=== PATIENT | male | born 1940 | race Caucasian/White ===

== ENCOUNTER → 2016-11-05 | Outpatient (CLI) | payer OTHER ==
[~2016-11-05] MED LIST: ALBU1AER9 INH; ASPI81TA57 PO; BUDE180I INH; BYS/5 PO; EPP3/2 IM; FEXO1TAB46 PO; FLEC50TA20 PO; FLUT0.0529 NAE; GUAI1TAB7 PO; LISI10TA PO; MONT1TAB5 PO; MULT-190 PO; RANI300T PO; SIMV10TA5 PO
[2016-11-05 11:03] LABS: BASO % 0.3 %; BASO ABS # 0.02 K/uL (0-0.2); COMPLETE YES; EOS % 4.5 %; HEMATOCRIT 39.3 % (42-52); IG% 0.4 %; LYMPH % 36.2 %; LYMPH ABS # 2.47 K/uL (1.2-3.4); MEAN CORPUSCULAR HGB CONC 34.6 g/dl (32-36); MEAN PLATELET VOLUME 9.6 fL (7.4-10.4); MONO % 12.7 %; NEUT % 45.9 %; PLATELET COUNT 195 K/uL (130-400); RED BLOOD COUNT 3.78 M/uL (4.7-6.1); WHITE BLOOD COUNT 6.83 K/uL (4.8-10.8)
[2016-11-05 11:31] LABS: ALT/SGPT 34 U/L (12-78); AST/SGOT 23 U/L (15-37); BLOOD UREA NITROGEN 29 mg/dl (7-18); BUN/CREATININE RATIO 21.9 (10-20); CALCIUM 8.5 mg/dl (8.5-10.1); CARBON DIOXIDE 26 mmol/L (21-32); CHLORIDE 106 mmol/L (98-107); GLUCOSE 88 mg/dl (70-99); POTASSIUM 4.3 mmol/L (3.5-5.1); SODIUM 136 mmol/L (136-145)
[2016-11-05 11:43] LABS: ALB/GLOB RATIO 1.1 (0.9-2); ALKALINE PHOSPHATASE 120 U/L (45-117); CHOLESTEROL 138 mg/dl (0-200); CHOLESTEROL/HDL RATIO 3.1; HDL CHOLESTEROL 44 mg/dl; LDL CHOLESTEROL CALCULATED 64 mg/dl; PROSTATE SPECIFIC ANTIGEN < 0.010 ng/ml (0.000-4.000); TRIGLYCERIDES 149 mg/dl (0-150); URIC ACID 8.3 mg/dl (2.6-7.2); VERY LOW DENSITY LIPOPROT CALC 30 mg/dl
== END | disposition home or self-care (01) ==
LOC: C.LABBC 07:13
PROVIDERS: ATTEND Internal Medicine Pulmonary Disease
DX: J30.9 Allergic rhinitis, unspecified (principal); J45.909 Unspecified asthma, uncomplicated; E78.5 Hyperlipidemia, unspecified; I10 Essential (primary) hypertension; C61 Malignant neoplasm of prostate; I48.0 Paroxysmal atrial fibrillation

== ENCOUNTER → 2017-06-04 | Outpatient (CLI) | payer OTHER ==
[~2017-06-04] MED LIST changes: +ALBU18002 INH; -ALBU1AER9 INH; +ASPI81TA28 PO; -ASPI81TA57 PO; +CALC1TAB9 PO; +DIPH25CA65 PO; +DOXY100C76 PO; -FLUT0.0529 NAE; +FLUT50SP45 NAE; +GUAI10TA PO; -GUAI1TAB7 PO; +PRD/1 PO
--- NOTE | 2017-06-04 14:33 | DIAGNOSTIC IMAGING REPORT ---
CHEST 2 VIEWS ROUTINE CLINICAL HISTORY: Dyspnea on exertion. COMPARISON STUDY: Chest radiograph August 30, 2015. FINDINGS: There is moderate right upper lobe consolidation. The left lung is clear. No cavitation or pleural effusion is noted. There is no evidence for pulmonary edema. An anchor within the right humeral head is noted. Cardiomediastinal silhouette is stable. IMPRESSION: Moderate right upper lobe consolidation suggestive of pneumonia. Post treatment radiographs to ensure resolution are recommended to exclude the possibility of an underlying lesion. Electronically signed by: Jordin Mcneal M.D. 06/04/2017 2:32 PM Dictated Date/Time: 06/04/2017 2:26 PM
[2017-06-04 15:37] LABS: BASO % 0.1 %; BASO ABS # 0.01 K/uL (0-0.2); EOS % 0.8 %; EOS ABS # 0.08 K/uL (0-0.5); HEMATOCRIT 35.4 % (42-52); HEMOGLOBIN 12.4 g/dL (14.0-18.0); IG# 0.03 K/uL (0.00-0.02); LYMPH % 14.7 %; LYMPH ABS # 1.52 K/uL (1.2-3.4); MEAN CELL VOLUME 101.1 fL (80-100); MEAN CORPUSCULAR HEMOGLOBIN 35.4 pg (25-34); MEAN PLATELET VOLUME 8.8 fL (7.4-10.4); MONO % 11.8 %; MONO ABS # 1.22 K/uL (0.11-0.59); NEUT % 72.3 %; NEUT ABS # 7.48 K/uL (1.4-6.5); PLATELET COUNT 303 K/uL (130-400); RED CELL DISTRIBUTION WIDTH SD 44.3 fL (36.4-46.3); WHITE BLOOD COUNT 10.34 K/uL (4.8-10.8)
[2017-06-04 16:01] LABS: ALBUMIN 3.1 gm/dl (3.4-5.0); ALT/SGPT 18 U/L (12-78); AST/SGOT 13 U/L (15-37); BLOOD UREA NITROGEN 24 mg/dl (7-18); CALCIUM 8.9 mg/dl (8.5-10.1); CARBON DIOXIDE 25 mmol/L (21-32); CREATININE 1.38 mg/dl (0.60-1.40); GLUCOSE 98 mg/dl (70-99); POTASSIUM 4.2 mmol/L (3.5-5.1); SODIUM 129 mmol/L (136-145)
[2017-06-04 16:12] LABS: ALKALINE PHOSPHATASE 90 U/L (45-117); TOTAL PROTEIN 8.1 gm/dl (6.4-8.2)
== END | disposition home or self-care (01) ==
LOC: C.RAD1850 14:17
PROVIDERS: ATTEND Internal Medicine Cardiovascular Disease
DX: R06.09 Other forms of dyspnea (principal); R00.1 Bradycardia, unspecified

== ENCOUNTER → 2017-06-14 | Outpatient (CLI) | payer OTHER ==
--- NOTE | 2017-06-14 11:16 | DIAGNOSTIC IMAGING REPORT ---
CHEST 2 VIEWS ROUTINE CLINICAL HISTORY: PNEUMONIA dyspnea COMPARISON STUDY: 06/04/2017 FINDINGS: Mild improvement of a well-circumscribed infiltrative process right midlung. Left lung remains clear. Diaphragms smooth. Minimal basilar atelectatic change. IMPRESSION: Mild improvement of a well-circumscribed infiltrative/nodular process right midlung. Continued close follow-up is recommended to ensure complete resolution and exclude an underlying nodular process. The above report was generated using voice recognition software. It may contain grammatical, syntax or spelling errors. Electronically signed by: Rj Melton M.D. 06/14/2017 11:15 AM Dictated Date/Time: 06/14/2017 11:14 AM
== END | disposition home or self-care (01) ==
LOC: C.RAD1850 10:07
PROVIDERS: ATTEND Physician Assistant Medical
DX: J18.9 Pneumonia, unspecified organism (principal)

== ENCOUNTER → 2017-06-14 | Outpatient (CLI) | payer OTHER | END | disposition home or self-care (01) | LOC: C.LAB1850 12:01 | PROVIDERS: ATTEND Physician Assistant Medical | DX: R09.02 Hypoxemia (principal) ==

== ENCOUNTER → 2017-06-24 | Outpatient (CLI) | payer OTHER ==
--- NOTE | 2017-06-24 10:03 | DIAGNOSTIC IMAGING REPORT ---
CHEST 2 VIEWS ROUTINE CLINICAL HISTORY: 77 years-old Male presenting with J18.9 [id number]. TECHNIQUE: PA and lateral views of the chest were obtained. COMPARISON: 06/14/2017. FINDINGS: Atherosclerosis of the aortic arch. Cardiac silhouette normal in size. Interval decrease in right mid lung opacity. No new lung opacity. No large effusion or pneumothorax. Degenerative changes of the thoracic spine. [place] noted in the right humeral head. Moderate stool burden in the colon. IMPRESSION: 1. Continued interval decrease in right midlung opacity. This should be followed to complete resolution. Electronically signed by: Clay Carias M.D. 06/24/2017 10:01 AM Dictated Date/Time: 06/24/2017 10:01 AM
== END | disposition home or self-care (01) ==
LOC: C.RAD1850 09:49
PROVIDERS: ATTEND Physician Assistant Medical
DX: J18.9 Pneumonia, unspecified organism (principal)

== ENCOUNTER → 2017-07-02 | Outpatient (CLI) | payer OTHER ==
--- NOTE | 2017-07-02 10:50 | DIAGNOSTIC IMAGING REPORT ---
CHEST 2 VIEWS ROUTINE CLINICAL HISTORY: J18.9 pneumonia COMPARISON STUDY: 06/24/2017 FINDINGS: Small parenchymal infiltrative process right midlung is unchanged. Lungs otherwise are clear. Slight chronic interstitial prominence considered stable. IMPRESSION: Small infiltrative residual right midlung. Follow-up to complete resolution is suggested. This potentially is a repeat film in several weeks. The above report was generated using voice recognition software. It may contain grammatical, syntax or spelling errors. Electronically signed by: Rj Melton M.D. 07/02/2017 10:49 AM Dictated Date/Time: 07/02/2017 10:48 AM
== END | disposition home or self-care (01) ==
LOC: C.RAD1850 10:41
PROVIDERS: ATTEND Physician Assistant Medical
DX: J18.9 Pneumonia, unspecified organism (principal)

== ENCOUNTER 2017-07-06 11:30 | Observation (INO) | payer OTHER ==
[2017-07-06] VITALS (9 sets, daily range): BP systolic 130–169; BP diastolic 52–88; PULSE 53–60; TEMP 36.3–36.6; O2SAT 94–98; Ht 165.1 cm; Wt 63.7 kg
[~2017-07-06] VITALS: Ht 165.1 cm; Wt 63.7 kg
[~2017-07-06 11:30] MED LIST changes: +CEFAZOLIN 1000MG IV PUSH 7.5 ML IV SCH; +LACTATED RINGER'S 1000ML IV SCH
[2017-07-06] MEDS ORDERED: BACITRACIN OINT 0.9 GM PKT ONE (14:42)
[2017-07-06] MEDS ORDERED: LIDOCAINE HCL 1% 20 ML VIAL ONE (14:42)
[2017-07-06] MEDS ORDERED: BACITRACIN 50000 UNIT VIAL ONE (14:42)
[2017-07-06] MEDS ORDERED: FENTANYL CITRATE INJ 50 MCG/1 ML 2 ML VIAL ONE ×2 (14:44→15:38)
[2017-07-06] MEDS ORDERED: MIDAZOLAM HCL 5 MG/ML 1 ML VIAL ONE (14:44)
--- NOTE | 2017-07-06 14:52 | Pre Sedation Assessment ---
Pre Sedation Assessment General Date of Sedation: Jul 06, 2017. Vital Signs Past 12 Hours Date Time Temp Pulse Resp B/P (MAP) Pulse Ox O2 Delivery O2 Flow Rate FiO2 07/06/17 12:22 36.5 53 20 162/52 (88) 96 Room Air Review Cardiovascular: regular rate, rhythm, + bradycardia Lungs: lungs clear Pre-Sedation Airway Assessment Smoking Status: Never Smoker Hx of Sleep Apnea: No Thyro-mental Distance: < or =3 Finger Breadths Oral Cavity: Chipped Teeth Mallampati Classification: Class II ASA Classification: Class II NPO Status Date of Last Intake of Fluids: Jul 06, 2017 Time of Last Intake of Fluids: 1000 Date of Last Intake of Solids: Jul 06, 2017 Time of Last Intake of Solids: 0900 Reason NPO < guidelines Patient did not understand instructions Procedure Planning Contraindications for Sedation: None Current Medications Reviewed: Yes Notes The planned sedation has been discussed with the patient. Informed Consent was obtained. I have identified the patient, determined the appropriateness of sedation and have assessed the patient immediately prior to the procedure. All medicine(s) and interventions are by my order.
--- NOTE | 2017-07-06 16:13 | [facility] Operative Report ---
Operative Report Operative Date Jul 06, 2017. Pre-Operative Diagnosis Sick sinus syndrome Post-Operative Diagnosis Same Procedure(s) Performed Dual-chamber pacemaker implantation Surgeon Dr. Amador Coagulation Operator Surgeon(s) None Estimated Blood Loss 30 cc Findings Good lead position, good measurements Specimens None Anesthesia Local with sedation Complication(s) None Disposition PCU Description of Procedure After obtaining informed consent for the procedure, the patient was brought to the laboratory and prepped and draped in the standard sterile manner. The left prepectoral region was anesthetized with 1% lidocaine local anesthetic and left axillary venipuncture was performed by percutaneous technique and a guidewire placed through the left subclavian vein into the superior vena cava. The area was further infiltrated with 1% lidocaine local anesthetic and a 5 cm incision was made parallel to the left clavicle and 2 cm below it and carried down to the anterior pectoralis fascia. A pacemaker pocket was formed by blunt dissection anterior to the pectoralis fascia and a bacitracin-soaked sponge (50, 000 units in 50 cc normal saline solution) was placed in the pocket. An 8 [place] Medtronic lead introducer was placed over the guidewire into the left subclavian vein, the dilator and guidewire were removed and a bipolar active fixation steroid tipped ventricular lead was advanced through the introducer into the superior vena cava. A guidewire was placed through the introducer and the introducer was stripped from the lead and guidewire. Another 8 [place] Medtronic lead introducer was placed over the guidewire into the left subclavian vein, the dilator and guidewire were removed and a bipolar active fixation steroid tipped atrial lead was advanced through the introducer into the superior vena cava. A guidewire was placed back through the introducer and the introducer was stripped from the lead and guidewire. Using a curved stylette the ventricular lead was advanced through the right ventricular outflow tract into the pulmonary artery and then using a straight stylette was positioned in the right ventricular apex. The screw was extended fixing the lead in position. Pacing and sensing thresholds were evaluated in bipolar configuration and are recorded on the implant data sheet. Using a curved stylette the atrial lead was positioned in the region of the atrial appendage and the screw extended fixing the lead in position. Pacing and sensing thresholds were evaluated in bipolar configuration and are recorded on the implant data sheet. Once the leads were in position they were attached to the anterior pectoralis fascia using 2 sutures of 1-0 silk around each lead collar. The bacitracin- soaked sponge was removed from the pocket, hemostasis was obtained, the pacemaker was attached to the leads and placed in the pocket with the leads coiled beneath it. The incision was closed with a running double subcutaneous closure of 3-0 V-Lock absorbable suture, followed by running subcuticular skin closure of 4-0 V-Lock absorbable suture. Bacitracin ointment was placed on the incision and a pressure dressing applied. I attest to the content of the Intraoperative Record and any orders documented therein. Any exceptions are noted below.
--- NOTE | 2017-07-06 16:23 | Post Sedation Assessment ---
Post Sedation Assessment General Date of Sedation Jul 06, 2017. Vital Signs: Vital Signs Past 12 Hours Date Time Temp Pulse Resp B/P (MAP) Pulse Ox O2 Delivery O2 Flow Rate FiO2 07/06/17 12:22 36.5 53 20 162/52 (88) 96 Room Air Post Procedure Recovery Score Activity: (2) Moves 4 extremities * Respiration: (2) Deep breath/cough Circulation: (2) +/-20% PreAnes Value Consciousness: (2) Fully Awake Oxygen Saturation: (2) > 92% On Room Air Post Anesthesia Score: 10 Discharge Sedation Level of Care: Fast Track Phase II Post Sedation Plan On clinical assessment, the patient appears to have tolerated the sedation without complications. Patient is recovering as anticipated. Patient will continue to be monitored by nursing and may be discharged when sedation discharge criteria are met per below protocol. Upon Completions of procedure and additional 15 minutes continue every 5 minute vital signs and the P.A.R. score; then discharge to a Phase I or Fast Track to Phase II per the following guidelines: * Discharge Patient to appropriate Phase II area if PAR is 8 or greater or return to pre- procedure baseline. The post - procedure orders will be as directed. * If PAR score is less than 8 or not return to pre-procedure baseline then patient will follow Phase I monitoring till PAR is reached for Phase II. The Phase I may be done in procedure room or may call to secure a Phase I area. * If naloxone or flumazenil are used for reversal, hold in Phase I for an additional 60 -120 minutes before discharge to Phase II. Please call the Sedation Physician to re-evaluate and complete post-note for discharge to Phase II area. Do NOT discharge from procedure sedation or Phase 1 until post- sedation evaluation note is complete by procedure /sedation MD Sedation Discharge Instructions to be given to the patient at discharge to home.
[2017-07-06] MEDS ORDERED: KETOROLAC TROMETHAMINE 10 MG TAB PO PRN (16:30)
[2017-07-06] MEDS ORDERED: ACETAMINOPHEN 325 MG TAB PO PRN (16:30)
[2017-07-06] MEDS ORDERED: ASPIRIN 81 MG ECTAB PO SCH (21:00)
[2017-07-06] MEDS ORDERED: NEBIVOLOL HCL 5 MG TAB PO SCH (21:00)
[2017-07-06] MEDS ORDERED: MONTELUKAST SOD 10 MG TAB PO SCH ×2 (21:00)
[2017-07-06] MEDS ORDERED: SIMVASTATIN 10 MG TAB PO SCH (21:00)
[2017-07-06] MEDS ORDERED: IV FLUIDS COMPLETED PRN (21:15)
[2017-07-06] MEDS: FLUTICASONE PROPIONATE NA SPR 16 GM BTL NAE SCH (21:37)
[2017-07-06] MEDS: FLECAINIDE ACETATE 100 MG TAB PO SCH (21:38)
[2017-07-06] MEDS: CEROVITE ADV FORMULA TAB PO SCH (21:39)
[2017-07-06] MEDS: RANITIDINE HCL 150 MG TAB PO SCH (21:39)
[2017-07-06] MEDS: GUAIFENESIN 600 MG TABCR PO SCH (21:40)
[2017-07-07] MEDS ORDERED: [UNRECOGNIZED DRUG - REMARK] SCH
[2017-07-07 03:51] VITALS: BP 159/78; PULSE 60; TEMP 36.6; O2SAT 97
--- NOTE | 2017-07-07 06:54 | DIAGNOSTIC IMAGING REPORT ---
CHEST 2 VIEWS ROUTINE CLINICAL HISTORY: 77 years-old Male presenting with EXACT TIME ORDERED Evaluate for pneumothorax and lead placement. TECHNIQUE: PA and lateral views of the chest were obtained. COMPARISON: 07/02/2017. FINDINGS: Left subclavian pacer with leads to the right atrium and right ventricular apex. Atherosclerosis of the aortic arch. Cardiac silhouette top normal in size. Persistent peripheral right midlung opacity. No new focal opacity. No pleural effusion or pneumothorax. Osseous structures normal. Upper abdomen normal. IMPRESSION: 1. Interval placement of a left subclavian 2-lead pacer. No pneumothorax. 2. Persistent peripheral right mid lung opacity. This is unchanged from prior and has not been fully characterized. Consider chest CT for further evaluation. Electronically signed by: Clay Carias M.D. 07/07/2017 6:53 AM Dictated Date/Time: 07/07/2017 6:51 AM
[2017-07-07 07:49] VITALS: BP 144/83; PULSE 60; TEMP 36.5; O2SAT 97
[2017-07-07] MEDS: FLUTICASONE PROPIONATE NA SPR 16 GM BTL NAE SCH (08:19)
[2017-07-07] MEDS: FLECAINIDE ACETATE 100 MG TAB PO SCH (08:20)
[2017-07-07] MEDS: GUAIFENESIN 600 MG TABCR PO SCH (08:20)
[2017-07-07] MEDS: CEROVITE ADV FORMULA TAB PO SCH (08:20)
[2017-07-07] MEDS: RANITIDINE HCL 150 MG TAB PO SCH (08:20)
--- NOTE | 2017-07-07 08:47 | Cardiology Follow-Up ---
Subjective Date of Service: Jul 07, 2017. Social History Smoking Status: Never Smoker History of Alcohol Use: Yes (1/2 GLASS WINE NIGHTLY) Objective Vital Signs Past 12 Hours Date Time Temp Pulse Resp B/P (MAP) Pulse Ox O2 Delivery O2 Flow Rate FiO2 07/07/17 07:49 36.5 60 20 144/83 (103) 97 Room Air 07/07/17 04:00 Room Air 07/07/17 03:51 36.6 60 16 159/78 (105) 97 Room Air 07/07/17 00:00 Room Air 07/06/17 23:39 36.5 60 16 169/81 (110) 94 Room Air Last Recorded Weight-Kilograms: 63.700 Data Imaging: Chest x-ray shows good lead position, no pneumothorax EKG: ECG shows atrial pacing with intact AV conduction appropriately Telemetry reviewed: Pacemaker evaluation: Excellent pacing and sensing characteristics in both leads
[2017-07-07] MEDS ORDERED: PULMICORT INH SCH (09:00)
[2017-07-07] MEDS ORDERED: LISINOPRIL 10 MG TAB PO SCH (09:00)
[2017-07-07] MEDS ORDERED: FEXOFENADINE HCL 180 MG TAB PO SCH (09:00)
--- NOTE | 2017-07-07 09:38 | Discharge Instructions ---
Discharge Instructions Date of Service Jul 07, 2017. Admission Reason for Admission: Sick Sinus Syndrome Discharge Discharge Diagnosis / Problem: Pacemaker implantation Discharge Goals Goal(s): Improve disease control Activity Recommendations Activity Limitations: resume your previous activity . Instructions / Follow-Up Instructions / Follow-Up ACTIVITY RECOMMENDATIONS: * Do not raise affected arm over head for 2 weeks. SPECIAL CARE INSTRUCTIONS: * If bleeding occurs, apply direct pressure to area for 5 minutes. * Call your doctor if you have severe pain, fever, drainage or bleeding at site. * Keep dressing on and dry for 48 hours then remove. * Keep any scheduled doctor's appointment. * Implant Card - hand held device with website information given. SKIN IRRITATION: * You may experience some redness and/or swelling in the area where radiation was administered. If any skin irritation occurs, please contact your family physician. FOLLOW UP VISIT: Keep any scheduled doctor appointments. Current Hospital Diet Patient's current hospital diet: AHA Diet (Heart Healthy), Gluten Free Diet Discharge Diet Recommended Diet: AHA Diet (Heart Healthy) Pending Studies Studies pending at discharge: no Medical Emergencies . Who to Call and When: Medical Emergencies: If at any time you feel your situation is an emergency, please call 911 immediately. . Non-Emergent Contact Non-Emergency issues call your: Primary Care Provider . . "Provider Documentation" section prepared by Mario Alberto Amador. .
[2017-07-07 10:01] VITALS: BP 144/83; PULSE 60; TEMP 36.5; O2SAT 97
== END 2017-07-07 10:52 | disposition home or self-care (01) ==
LOC: C.ACU 11:30 → ENRESERV 15:43 → C.2T 16:28
PROVIDERS: ADMIT Internal Medicine Cardiovascular Disease; ATTEND Internal Medicine Cardiovascular Disease
DX: I49.5 Sick sinus syndrome (principal); R00.1 Bradycardia, unspecified; J45.909 Unspecified asthma, uncomplicated; E78.5 Hyperlipidemia, unspecified; I10 Essential (primary) hypertension; I48.0 Paroxysmal atrial fibrillation; Z90.89 Acquired absence of other organs; Z82.49 Family history of ischemic heart disease and other diseases of the circulatory system; Z80.1 Family history of malignant neoplasm of trachea, bronchus and lung; Z80.42 Family history of malignant neoplasm of prostate; Z82.3 Family history of stroke; Z79.82 Long term (current) use of aspirin; Z79.52 Long term (current) use of systemic steroids; K21.9 Gastro-esophageal reflux disease without esophagitis; Z88.8 Allergy status to other drugs, medicaments and biological substances; Z91.012 Allergy to eggs; Z91.011 Allergy to milk products; Z91.013 Allergy to seafood; Z91.018 Allergy to other foods

== ENCOUNTER → 2017-07-27 | Outpatient (CLI) | payer OTHER ==
[~2017-07-27] MED LIST changes: -CEFAZOLIN 1000MG IV PUSH 7.5 ML IV SCH; -LACTATED RINGER'S 1000ML IV SCH
--- NOTE | 2017-07-27 09:52 | DIAGNOSTIC IMAGING REPORT ---
CHEST 2 VIEWS ROUTINE CLINICAL HISTORY: J18.9 Pneumonia dyspnea COMPARISON STUDY: 07/07/2017 FINDINGS: Unchanging density right midlung. Lungs otherwise are clear. Permanent bipolar cardiac pacemaker unchanged in position. Diaphragms are smooth. IMPRESSION: Unchanging parenchymal density peripheral aspect right lung. CT of chest is recommended as follow-up. The above report was generated using voice recognition software. It may contain grammatical, syntax or spelling errors. Electronically signed by: Rj Melton M.D. 07/27/2017 9:51 AM Dictated Date/Time: 07/27/2017 9:50 AM
== END | disposition home or self-care (01) ==
LOC: C.RAD1850 09:36
PROVIDERS: ATTEND Physician Assistant Medical
DX: J18.9 Pneumonia, unspecified organism (principal)

== ENCOUNTER → 2017-08-23 | Outpatient (CLI) | payer OTHER ==
--- NOTE | 2017-08-23 09:12 | DIAGNOSTIC IMAGING REPORT ---
CHEST 2 VIEWS ROUTINE HISTORY: Z87.01 History of [id number] COMPARISON: Chest 07/27/2017. FINDINGS: Improved aeration within the right midlung zone patchy airspace opacity. Upper, this favors a resolving pneumonia. No new focal lung consolidations. Linear scarlike densities within the left lung base persist. The heart is normal in size. Left-sided dual-chamber pacemaker. IMPRESSION: Improved aeration within the right midlung zone airspace opacity. Therefore, this favors a resolving pneumonia. An additional one month chest x-ray follow-up is recommended to ensure complete resolution. Electronically signed by: Jus Torres M.D. 08/23/2017 9:11 AM Dictated Date/Time: 08/23/2017 9:09 AM
== END | disposition home or self-care (01) ==
LOC: C.RAD1850 08:44
PROVIDERS: ATTEND Physician Assistant Medical
DX: Z87.01 Personal history of pneumonia (recurrent) (principal)

== ENCOUNTER → 2017-11-09 | Outpatient (CLI) | payer OTHER ==
[~2017-11-09] MED LIST changes: +CALC-323 PO; +DIPH25CA5 PO; +FLUO1CRE TOP; +FLUO5CRE TOP; +FLUT0.15 NAE; +GUAI1TAB55 PO; +LISI-461 PO; +MONT1TAB3 PO; +MULTCAP33 PO; +NZRCR TOP; +RANI300T2 PO; +SIMV10TA2 PO
[2017-11-09 10:41] LABS: BASO % 0.3 %; BASO ABS # 0.02 K/uL (0-0.2); EOS % 5.1 %; EOS ABS # 0.31 K/uL (0-0.5); HEMATOCRIT 39.4 % (42-52); HEMOGLOBIN 13.4 g/dL (14.0-18.0); IG# 0.01 K/uL (0.00-0.02); LYMPH % 28.6 %; LYMPH ABS # 1.72 K/uL (1.2-3.4); MEAN CELL VOLUME 100.5 fL (80-100); MEAN CORPUSCULAR HEMOGLOBIN 34.2 pg (25-34); MONO % 11.6 %; NEUT % 54.2 %; NEUT ABS # 3.26 K/uL (1.4-6.5); PLATELET COUNT 223 K/uL (130-400); RED CELL DISTRIBUTION WIDTH CV 12.2 % (11.5-14.5); RED CELL DISTRIBUTION WIDTH SD 44.4 fL (36.4-46.3); WHITE BLOOD COUNT 6.02 K/uL (4.8-10.8)
[2017-11-09 11:21] LABS: ALBUMIN 4.1 gm/dl (3.4-5.0); ALKALINE PHOSPHATASE 96 U/L (45-117); ALT/SGPT 28 U/L (12-78); AST/SGOT 29 U/L (15-37); BLOOD UREA NITROGEN 21 mg/dl (7-18); CALCIUM 8.9 mg/dl (8.5-10.1); CARBON DIOXIDE 27 mmol/L (21-32); CHOLESTEROL 131 mg/dl (0-200); CREATININE 1.36 mg/dl (0.60-1.40); GLUCOSE 97 mg/dl (70-99); LDL CHOLESTEROL CALCULATED 62 mg/dl; POTASSIUM 4.4 mmol/L (3.5-5.1); SODIUM 134 mmol/L (136-145); TOTAL PROTEIN 7.7 gm/dl (6.4-8.2); URIC ACID 6.8 mg/dl (2.6-7.2)
== END | disposition home or self-care (01) ==
LOC: C.LABBC 07:25
PROVIDERS: ATTEND Internal Medicine Pulmonary Disease
DX: J30.9 Allergic rhinitis, unspecified (principal); J45.909 Unspecified asthma, uncomplicated; E78.5 Hyperlipidemia, unspecified; I10 Essential (primary) hypertension; C61 Malignant neoplasm of prostate

== ENCOUNTER → 2017-11-16 | Outpatient (CLI) | payer OTHER ==
--- NOTE | 2017-11-16 13:10 | DIAGNOSTIC IMAGING REPORT ---
CHEST 2 VIEWS ROUTINE HISTORY: R06.02 Shortness of [id number] COMPARISON: Chest 09/21/2017. FINDINGS: No pneumothorax. Left-sided dual-chamber pacemaker. Mild diffuse interstitial thickening which remains unchanged. This is likely chronic. The heart is normal in size. No pleural effusions. The right midlung zone airspace opacity has since resolved. IMPRESSION: Mild chronic interstitial thickening, unchanged. The right midlung zone airspace opacity has essentially resolved compared to the prior studies. Minimal interstitial thickening remaining at this location favors scarring. Electronically signed by: Jus Torres M.D. 11/16/2017 1:08 PM Dictated Date/Time: 11/16/2017 1:05 PM
== END | disposition home or self-care (01) ==
LOC: C.RAD1850 12:53
PROVIDERS: ATTEND Internal Medicine Pulmonary Disease
DX: J84.9 Interstitial pulmonary disease, unspecified (principal)

== ENCOUNTER 2017-11-18 14:03 | Emergency (ER) | payer OTHER ==
[~2017-11-18] VITALS: Ht 167.6 cm; Wt 66.2 kg
[~2017-11-18 14:03] MED LIST changes: -CALC-323 PO; -DIPH25CA5 PO; -FLUO1CRE TOP; -FLUO5CRE TOP; -FLUT0.15 NAE; -GUAI1TAB55 PO; -LISI-461 PO; -MONT1TAB3 PO; -MULTCAP33 PO; -NZRCR TOP; -RANI300T2 PO; -SIMV10TA2 PO
[2017-11-18 14:10] VITALS: Ht 167.6 cm; Wt 66.2 kg
[2017-11-18 15:11] VITALS: O2SAT 99
[2017-11-18 15:19] LABS: BASO % 0.4 %; BASO ABS # 0.03 K/uL (0-0.2); EOS % 2.5 %; HEMATOCRIT 39.4 % (42-52); HEMOGLOBIN 13.7 g/dL (14.0-18.0); IG# 0.02 K/uL (0.00-0.02); LYMPH % 23.8 %; LYMPH ABS # 1.89 K/uL (1.2-3.4); MEAN CELL VOLUME 100.5 fL (80-100); MEAN CORPUSCULAR HEMOGLOBIN 34.9 pg (25-34); MEAN CORPUSCULAR HGB CONC 34.8 g/dl (32-36); MEAN PLATELET VOLUME 8.6 fL (7.4-10.4); MONO % 11.1 %; MONO ABS # 0.88 K/uL (0.11-0.59); NEUT % 61.9 %; NEUT ABS # 4.93 K/uL (1.4-6.5); PLATELET COUNT 221 K/uL (130-400); RED CELL DISTRIBUTION WIDTH CV 12.3 % (11.5-14.5); WHITE BLOOD COUNT 7.95 K/uL (4.8-10.8)
[2017-11-18 15:35] LABS: CALCIUM 9.1 mg/dl (8.5-10.1); CREATININE 1.59 mg/dl (0.60-1.40); INR 0.9 (0.9-1.1); PTT PATIENT 25.4 SECONDS (21.0-31.0)
--- NOTE | 2017-11-18 15:37 | DIAGNOSTIC IMAGING REPORT ---
CT OF THE HEAD WITHOUT CONTRAST CLINICAL HISTORY: Evaluate for mass or bleed. COMPARISON STUDY: Head CT August 30, 2015. CT DOSE: 537.48 mGy.cm TECHNIQUE: Helical axial images of the head were obtained without IV contrast. Automated exposure control was utilized for the study. A dose lowering technique was utilized adhering to the principles of ALARA. FINDINGS: No acute intracranial hemorrhage, midline shift or mass effect is present. Ventricular system is stable. Basilar cisterns are patent. There are no extra-axial collections. There are no findings to suggest acute dural sinus thrombosis or acute territorial infarct. There is mild atrophy. Mild white matter hypodensity suggests small vessel disease. There are no significant calvarial abnormalities. Tiny left sphenoid and left maxillary sinus air-fluid levels are noted. IMPRESSION: No acute intracranial findings. Electronically signed by: Jordin Mcneal M.D. 11/18/2017 3:36 PM Dictated Date/Time: 11/18/2017 3:31 PM
--- NOTE | 2017-11-18 16:48 | DIAGNOSTIC IMAGING REPORT ---
ULTRASOUND BILATERAL LOWER EXTREMITY VENOUS CLINICAL HISTORY: Leg pain. COMPARISON STUDY: Right lower extremity venous ultrasound dated 12/19/2012. TECHNIQUE: Real-time, grayscale, and color Doppler sonography of the deep veins of the right and left lower extremity was performed from the inguinal crease to the calf. Compression and augmentation were utilized. FINDINGS: There is no sonographic evidence of deep venous thrombosis identified in the right or left lower extremity. The common femoral, superficial femoral, and popliteal veins are patent and normally compressible bilaterally. The greater saphenous vein and the profunda femoris vein at the junction with the common femoral vein are clear in both legs. The visualized calf veins are patent bilaterally. IMPRESSION: There is no sonographic evidence of deep venous thrombosis identified in the right or left lower extremity. Electronically signed by: Kyle Wilks M.D. 11/18/2017 4:47 PM Dictated Date/Time: 11/18/2017 4:46 PM
[2017-11-18] MEDS ORDERED: FLUO1CRE TOP (17:34)
[2017-11-18] MEDS ORDERED: ASPI81TA28 PO (17:34)
[2017-11-18] MEDS ORDERED: FLEC50TA20 PO (17:34)
[2017-11-18] MEDS ORDERED: DIPH25CA5 PO (17:34)
[2017-11-18] MEDS ORDERED: CALC-323 PO (17:34)
[2017-11-18] MEDS ORDERED: FLUO5CRE TOP (17:34)
[2017-11-18] MEDS ORDERED: EPP3/2 IM (17:34)
[2017-11-18] MEDS ORDERED: FEXO1TAB46 PO (17:34)
[2017-11-18] MEDS ORDERED: BYS/5 PO (17:34)
[2017-11-18] MEDS ORDERED: MULTCAP33 PO (17:41)
[2017-11-18] MEDS ORDERED: FLUT0.15 NAE (17:41)
[2017-11-18] MEDS ORDERED: ALBU18002 INH (17:41)
[2017-11-18] MEDS ORDERED: BUDE180I INH (17:41)
[2017-11-18] MEDS ORDERED: NZRCR TOP (17:41)
[2017-11-18] MEDS ORDERED: RANI300T2 PO (17:41)
[2017-11-18] MEDS ORDERED: GUAI1TAB55 PO (17:41)
[2017-11-18] MEDS ORDERED: SIMV10TA2 PO (17:41)
[2017-11-18] MEDS ORDERED: MONT1TAB3 PO (17:41)
[2017-11-18] MEDS ORDERED: LISI-461 PO (17:41)
--- NOTE | 2017-11-18 18:37 | DIAGNOSTIC IMAGING REPORT ---
TWO VIEW CHEST CLINICAL HISTORY: Dyspnea. FINDINGS: PA and lateral chest radiographs are compared to study dated 11/16/2017. A 2-lead cardiac pacemaker is unchanged in position and partially obscures the left upper chest. The cardiomediastinal silhouette is unremarkable. Subpleural reticulation and chronic interstitial thickening is similar to previous. There is no evidence of superimposed airspace consolidation or pleural effusion. There is no pneumothorax. The skeletal structures are osteopenic. The bony thorax appears intact. A surgical anchor is present in the right humeral head. IMPRESSION: Chronic changes as above with no acute cardiopulmonary abnormality. Electronically signed by: Kyle Wilks M.D. 11/18/2017 6:35 PM Dictated Date/Time: 11/18/2017 6:34 PM
--- NOTE | 2017-11-18 21:43 | DIAGNOSTIC IMAGING REPORT ---
NUCLEAR PULMONARY VENTILATION/PERFUSION SCAN CLINICAL HISTORY: Dyspnea. COMPARISON STUDY: Chest x-ray dated 11/18/2018. TECHNIQUE: Initially, ventilation images of both lungs are obtained following the inhalation of 20.7 mCi of aerosolized technetium 99m DTPA. Subsequently, perfusion images of both lungs were obtained following the IV administration of 6.06 mCi of technetium 99m MAA. Ventilation and perfusion images were acquired in the anterior, posterior, and oblique projections. FINDINGS: A chest x-ray performed 11/18/2017 shows cardiomegaly and a cardiac pacemaker. There is no evidence of congestive failure. Chronic interstitial changes are observed. No airspace consolidation or pleural effusion is identified. The ventilation of both lungs is heterogeneous and symmetric. Inhaled tracer is noted in the stomach. Perfusion is mildly heterogeneous. No perfusion defects are identified on the perfusion imaging. A photopenic defect is consistent with the patient's cardiac pacemaker. IMPRESSION: Findings are considered low probability for pulmonary embolus. Electronically signed by: Kyle Wilks M.D. 11/18/2017 9:42 PM Dictated Date/Time: 11/18/2017 9:40 PM
--- NOTE | 2017-11-18 22:06 | EMERGENCY ROOM VISIT NOTE ---
History Report prepared by Kate: Brice Bundy Under the Supervision of: Dr. Sarath Barajas M.D. First contact with patient: 14:35 Chief Complaint: Shortness of breath and head pressure Stated Complaint: DIZZINESS History of Present Illness The patient is a 77 year old male who presents to the Emergency Room with complaints of diffuse"intracranial pressure" of an unknown source beginning 2.5 weeks ago. He states that he felt these symptoms intermittently only when walking up and down steps, in addition to lightheadedness and shortness of breath. He reports that there was no sensation of vertigo. 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 Gibbs yesterday, who lowered his dosage of lisinopril. Today he states that he experienced his symptoms throughout the day , even when not using stairs, noting that it was persistent throughout his lunch and the drive home. He states that he is currently experiencing the pressure in his head, although it is diminished from 13:15 when it was the most intense. He notes he is currently lightheaded with no sensation of vertigo. He denies fever, congestion, cough, chest discomfort, abdominal pain, bloody stools , melena, vomiting, diarrhea, or leg swelling and pain. He also reports that he is not diaphoretic or fatigued when walking up the stairs. He states that he received a chest x-ray yesterday that appeared normal. He states that he takes 81 mg of aspirin daily. The patient states that he took a car trip to [place] and back 3 weeks ago. The patient reports a history of pneumonia and asthma, but denies smoking. The patient notes paroxysmal A-fib that is controlled, noting a Holter monitor placed 2.5 weeks ago. 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 fib. He states he had the monitor during the onset of his symptoms. Source of History: patient Onset: 2.5 weeks ago Position: head Quality: pressure (diffuse) Timing: intermittent, other (persistent today) Modifying Factors (Worsening): other (walking up and down stairs) Associated Symptoms: + SOB, No fevers, No diaphoresis, No cough, No chest pain, No vomiting, No abdominal pain, No hematochezia, No diarrhea, No fatigue Note: lightheaded without sensation of vertigo denies pain or swelling of the legs Review of Systems See HPI for pertinent positives & negatives. A total of 10 systems reviewed and were otherwise negative. Past Medical & Surgical Medical Problems: (1) A-fib (2) Asthma (3) Bronchitis (4) Pneumonia (5) SSS (sick sinus syndrome) (6) Stomach problems (7) Urinary problem Family History Cancer Gallbladder disease Heart disease Hypertension Kidney disease Kidney stones Lung disease Social History Smoking Status: Never Smoker Smokeless Tobacco Use: No Marital Status: Housing Status: lives with significant other Occupation Status: retired Current/Historical Medications Scheduled Aspirin (Aspirin Ec), 81 MG PO DAILY Budesonide (Inhalation) (Pulmicort Flexhaler), 2 PUFFS INH BID Calcium Citrate-Vitamin D (Citracal Maximum), 1 TAB PO DAILY Diphenhydramine Hcl (Benadryl), 25 MG PO HS Fexofenadine Hcl (Saida), 180 MG PO DAILY Flecainide (Tambocor), 50 MG PO Q12 Fluocinonide (Fluocinonide), 1 APPLN TOP BID Fluorouracil (Topical) (Efudex), 1 APPLN TOP BID Fluticasone Propionate (Nasal) (Flonase Allergy Relief), 2 SPRAY PAULA QD Ketoconazole (Ketoconazole), 1 APPLN TOP BID Lisinopril (Zestril), 10 MG PO DAILY Montelukast Sodium (Singulair), 10 MG PO DAILY Multiple Vitamins W/ Minerals (Preservision Areds), 1 CAP PO BID Nebivolol Hcl (Bystolic), 5 MG PO QPM Ranitidine (Zantac), 300 MG PO Q12 Simvastatin (Zocor), 1 TAB PO DAILY Scheduled PRN Albuterol Sulfate (Proair Respiclick), 2 PUFFS INH Q4 PRN for SOB/Wheezing Epinephrine (Epipen), 0.3 MG IM UD PRN for ALLERGIC REACTION Guaifenesin Ext Rel (Mucinex Ext Rel), 1,200 MG PO Q12 PRN for CONGESTION Allergies Coded Allergies: Gluten (Unverified Allergy, Intermediate, GI TRACT UPSET, 11/18/17) Gluten Meal (Unverified Allergy, Intermediate, GI TRACT UPSET, 11/18/17) Latex1 -Allergic Contact Dermititis (Verified Allergy, Intermediate, BLISTERS, 11/18/17) White Fish (Verified Allergy, Intermediate, HANDS BREAK OUT, 11/18/17) Iodine (Verified Allergy, Mild, SWELLING,NAUSEA, 11/18/17) Shellfish (Verified Allergy, Mild, SEVERE ALLERGY--SWELLING,NAUSEA, ) Dairy (Verified Allergy, Unknown, SEVERE CONGESTION, 11/18/17) Egg (Verified Allergy, Unknown, SEVERE CONGESTION, 11/18/17) Iodinated Diagnostic Agents (Verified Allergy, Unknown, SWELLING AND NAUSEA, 11/18/17) NUTS (Verified Allergy, Unknown, SEVERE CONGESTION, 11/18/17) Nickel (Verified Allergy, Unknown, ECZEMA RASH, 11/18/17) Physical Exam Vital Signs Date Time Temp Pulse Resp B/P (MAP) Pulse Ox O2 Delivery O2 Flow Rate FiO2 11/18/17 21:39 63 16 143/77 98 Room Air 11/18/17 19:51 71 16 143/75 97 Room Air 11/18/17 17:04 57 18 144/71 98 Room Air 11/18/17 15:11 99 Room Air 11/18/17 14:10 65 16 144/80 99 Room Air Physical Exam Constitutional: Vital signs reviewed. Well appearing. In no acute distress. Eyes: Pupils are equal round reactive to light. Conjunctiva are noninjected. ENT: Pharynx is clear without erythema or exudate. Mucous membranes are moist. Neck supple without meningeal signs. Respiratory: Clear to auscultation bilaterally. Breath sounds are equal bilaterally. Cardiovascular: Regular rate and rhythm. No rubs or gallops. GI: Soft, nondistended and nontender. Bowel sounds are present. Musculoskeletal: No peripheral edema. No lower extremity tenderness. Integumentary: No cyanosis. Neurological: The patient is awake and alert. Cranial nerves II-XII are intact. Motor is 5 out of 5 all extremities. Sensation is intact to light touch all extremities. Normal speech. No pronator drift. No limb ataxia. Psychiatric: Normal affect. Medical Decision & Procedures ER Provider Diagnostic Interpretation: Radiology results as stated below per my review and the radiologist's interpretation: ULTRASOUND BILATERAL LOWER EXTREMITY VENOUS CLINICAL HISTORY: Leg pain. COMPARISON STUDY: Right lower extremity venous ultrasound dated 12/19/2012. TECHNIQUE: Real-time, grayscale, and color Doppler sonography of the deep veins of the right and left lower extremity was performed from the inguinal crease to the calf. Compression and augmentation were utilized. FINDINGS: There is no sonographic evidence of deep venous thrombosis identified in the right or left lower extremity. The common femoral, superficial femoral, and popliteal veins are patent and normally compressible bilaterally. The greater saphenous vein and the profunda femoris vein at the junction with the common femoral vein are clear in both legs. The visualized calf veins are patent bilaterally. IMPRESSION: There is no sonographic evidence of deep venous thrombosis identified in the right or left lower extremity. Electronically signed by: Kyle Wilks M.D. 11/18/2017 4:47 PM Dictated Date/Time: 11/18/2017 4:[address] OF THE HEAD WITHOUT CONTRAST CLINICAL HISTORY: Evaluate for mass or bleed. COMPARISON STUDY: Head CT August 30, 2015. CT DOSE: 537.48 mGy.cm TECHNIQUE: Helical axial images of the head were obtained without IV contrast. Automated exposure control was utilized for the study. A dose lowering technique was utilized adhering to the principles of ALARA. FINDINGS: No acute intracranial hemorrhage, midline shift or mass effect is present. Ventricular system is stable. Basilar cisterns are patent. There are no extra-axial collections. There are no findings to suggest acute dural sinus thrombosis or acute territorial infarct. There is mild atrophy. Mild white matter hypodensity suggests small vessel disease. There are no significant calvarial abnormalities. Tiny left sphenoid and left maxillary sinus air-fluid levels are noted. IMPRESSION: No acute intracranial findings. Electronically signed by: Jordin Mcneal M.D. 11/18/2017 3:36 PM Dictated Date/Time: 11/18/2017 3:31 PM NUCLEAR PULMONARY VENTILATION/PERFUSION SCAN CLINICAL HISTORY: Dyspnea. COMPARISON STUDY: Chest x-ray dated 11/18/2018. TECHNIQUE: Initially, ventilation images of both lungs are obtained following the inhalation of 20.7 mCi of aerosolized technetium 99m DTPA. Subsequently, perfusion images of both lungs were obtained following the IV administration of 6.06 mCi of technetium 99m MAA. Ventilation and perfusion images were acquired in the anterior, posterior, and oblique projections. FINDINGS: A chest x-ray performed 11/18/2017 shows cardiomegaly and a cardiac pacemaker. There is no evidence of congestive failure. Chronic interstitial changes are observed. No airspace consolidation or pleural effusion is identified. The ventilation of both lungs is heterogeneous and symmetric. Inhaled tracer is noted in the stomach. Perfusion is mildly heterogeneous. No perfusion defects are identified on the perfusion imaging. A photopenic defect is consistent with the patient's cardiac pacemaker. IMPRESSION: Findings are considered low probability for pulmonary embolus. Electronically signed by: Kyle Wilks M.D. 11/18/2017 9:42 PM Dictated Date/Time: 11/18/2017 9:40 PM TWO VIEW CHEST CLINICAL HISTORY: Dyspnea. FINDINGS: PA and lateral chest radiographs are compared to study dated 11/16/2017. A 2-lead cardiac pacemaker is unchanged in position and partially obscures the left upper chest. The cardiomediastinal silhouette is unremarkable. Subpleural reticulation and chronic interstitial thickening is similar to previous. There is no evidence of superimposed airspace consolidation or pleural effusion. There is no pneumothorax. The skeletal structures are osteopenic. The bony thorax appears intact. A surgical anchor is present in the right humeral head. IMPRESSION: Chronic changes as above with no acute cardiopulmonary abnormality. Electronically signed by: Kyle Wilks M.D. 11/18/2017 6:35 PM Dictated Date/Time: 11/18/2017 6:34 PM Laboratory Results 11/18/17 15:10 Red Blood Count 3.92, Mean Corpuscular Volume 100.5, Mean Corpuscular Hemoglobin 34.9, Mean Corpuscular Hemoglobin Concent 34.8, Mean Platelet Volume 8.6, Neutrophils (%) (Auto) 61.9, Lymphocytes (%) (Auto) 23.8, Monocytes (%) ( Auto) 11.1, Eosinophils (%) (Auto) 2.5, Basophils (%) (Auto) 0.4, Neutrophils # (Auto) 4.93, Lymphocytes # (Auto) 1.89, Monocytes # (Auto) 0.88, Eosinophils # ( Auto) 0.20, Basophils # (Auto) 0.03 11/18/17 15:10 Test 11/18/17 15:10 11/18/17 17:44 White Blood Count 7.95 K/uL (4.8-10.8) Red Blood Count 3.92 M/uL (4.7-6.1) Hemoglobin 13.7 g/dL (14.0-18.0) Hematocrit 39.4 % (42-52) Mean Corpuscular Volume 100.5 fL (80-100) Mean Corpuscular Hemoglobin 34.9 pg (25-34) Mean Corpuscular Hemoglobin Concent 34.8 g/dl (32-36) Platelet Count 221 K/uL (130-400) Mean Platelet Volume 8.6 fL (7.4-10.4) Neutrophils (%) (Auto) 61.9 % Lymphocytes (%) (Auto) 23.8 % Monocytes (%) (Auto) 11.1 % Eosinophils (%) (Auto) 2.5 % Basophils (%) (Auto) 0.4 % Neutrophils # (Auto) 4.93 K/uL (1.4-6.5) Lymphocytes # (Auto) 1.89 K/uL (1.2-3.4) Monocytes # (Auto) 0.88 K/uL (0.11-0.59) Eosinophils # (Auto) 0.20 K/uL (0-0.5) Basophils # (Auto) 0.03 K/uL (0-0.2) RDW Standard Deviation 45.0 fL (36.4-46.3) RDW Coefficient of Variation 12.3 % (11.5-14.5) Immature Granulocyte % (Auto) 0.3 % Immature Granulocyte # (Auto) 0.02 K/uL (0.00-0.02) Prothrombin Time 9.8 SECONDS (9.0-12.0) Prothromb Time International Ratio 0.9 (0.9-1.1) Activated Partial Thromboplast Time 25.4 SECONDS (21.0-31.0) Partial Thromboplastin Ratio 1.0 Anion Gap 7.0 mmol/L (3-11) Est Creatinine Clear Calc Drug Dose 34.0 ml/min Estimated GFR () 47.2 Estimated GFR (Non- 40.7 BUN/Creatinine Ratio 15.4 (10-20) Calcium Level 9.1 mg/dl (8.5-10.1) Bedside Troponin I < 0.030 ng/ml (0-0.045) Laboratory results as reviewed by me. ECG Per My Interpretation Indication: SOB/dyspnea Rate (beats per minute): 63 Rhythm: other (paced rhythm) Findings: PAC, other (No concordant ST elevations) ED Course 1437: The patient was evaluated in room C5. A complete history and physical exam was performed. 1542: I discussed current test results with the patient. 1712: I checked on the patient and updated his family. The patient is not currently in the room. Doppler Ultrasound was negative. The patient will be prepared for a V/Q scan. 1813: Nuclear medicine states they will take the patient at 21:00. Chest x-ray was requested. 1819: I updated with the patient, who states he is feeling much better. Pressure in his head is reduced significantly. He states he feels like his sinuses are loosening up. 2144: I updated with the patient. He states that he currently has no symptoms. I discussed his V/Q scan results. I advised him to speak with his PCP about his results, take aspirin daily, and avoid exertion. He verbalized agreement of the treatment plan. The patient was discharged home. Medical Decision This is a 77-year-old male presents with shortness of breath and headache. Differential diagnosis includes anemia, pulmonary embolism, acute coronary syndrome intracranial hemorrhage, intracranial mass, metabolic derangement, dehydration. I did perform a limited focused review of portions of the patient' s old chart on the electronic medical record. The patient had a pacemaker placed in July for sick sinus syndrome. He also had a chest x-ray on November 16 revealing mild chronic interstitial thickening, unchanged from prior. I did evaluate the patient as noted above. Patient is presenting with shortness of breath and headache for the past 2-1/2 weeks. He states he notices it most when he climbs up the stairs. He has no chest discomfort or pain associated with it. He did state that he drove to and back from [place] 3 weeks ago. IV access was established. The patient was placed on a continuous cardiac rehabilitation program director. I did order and personally review the patient's 12-lead EKG as described above. I did order and review the patient's blood work as noted in the electronic medical record. His creatinine is slightly elevated. Troponin is negative. He is slightly anemic. I did order Doppler ultrasound of the lower extremities and CT of the head. I did review the images myself as well as the radiology report as described above. His CAT scan does not show any evidence of intracranial abnormality. His Doppler was negative for DVT. I did order a VQ scan. I also ordered a second troponin which was negative. The VQ scan was low probability. I did discuss the test results with the patient and his family. He is currently asymptomatic. I did recommend he continue taking aspirin and to follow-up with his doctor for further testing including possible outpatient stress test. He was advised to avoid any exertion and told to return should he develop any worsening symptoms or any new symptoms such as chest pain, fever or vomiting. Medication Reconcilliation Current Medication List: was personally reviewed by me Blood Pressure Screening Patient's blood pressure: Elevated blood pressure Blood pressure disposition: Referred to PCP Impression Primary Impression: Dyspnea on exertion Additional Impression: Headache Scribe Attestation The scribe's documentation has been prepared under my direct and personally reviewed by me in its entirety. I confirm that the note above accurately reflects all work, treatment, procedures, and medical decision making performed by me. Departure Information Dispostion Home / Self-Care Referrals Miguel Gibbs M.D. (PCP) Forms HOME CARE DOCUMENTATION FORM, IMPORTANT VISIT INFORMATION, WORK / SCHOOL INSTRUCTIONS Patient Instructions My [facility] Additional Instructions You have been examined and treated today on an emergency basis only. This is not a substitute for, or an effort to provide, complete comprehensive medical care. It is impossible to recognize and treat all injuries or illnesses in a single emergency department visit. It is therefore important that you follow up closely with your physician. Call as soon as possible for an appointment. Return for worsening symptoms or if you develop fever, vomiting, chest discomfort or any other concerning symptoms. Problem Qualifiers Additional Impression: Headache Headache type: unspecified Headache chronicity pattern: episodic headache Intractability: not intractable Qualified Codes: R51 - Headache
[2017-11-18 22:21] VITALS: BP 143/77; PULSE 63; O2SAT 98
== END 2017-11-18 22:22 | disposition home or self-care (01) ==
LOC: C.EDB 14:04 → C.EDC 22:22
DX: R06.00 Dyspnea, unspecified (principal); R51 Headache; I48.91 Unspecified atrial fibrillation; J45.909 Unspecified asthma, uncomplicated; Z79.82 Long term (current) use of aspirin; Z91.040 Latex allergy status; Z91.013 Allergy to seafood; Z91.041 Radiographic dye allergy status; Z91.011 Allergy to milk products; Z91.010 Allergy to peanuts

== ENCOUNTER 2018-07-15 11:01 | Inpatient (IN) ==
--- NOTE | 2018-07-15 11:16 | History & Physical Report ---
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 The pt presents as a direct admission form his GPs office due to upper respiratory symptoms and progressive exertional dyspnea. It is reported that he was treated for PNM 03/22 and has not fully recovered. Imaging at the time raised suspicion of developing ILD which was attributed to Flecainide use. The pt was taken off Flecainide and placed on Propafenone and a steroid taper. He had repeat PFTs 06/21 which showed mild obstructive disease as expected and also demonstrated development of a restrictive pattern. He has been on a steroid taper and is currently taking 40mg/day. He also reports that he just returned from [place] where he was taking in the [place]. This may have contributed to his current asthma symptoms. A CXR at his GPs office demonstrated possible worsening of his disease. He denies a fever, rigors or a productive cough. He does report congestion which worsened on his trip to [place]. As a separate issue, the pt has chronic LLE diatal edema due o an ankle injury. This has worsened over the past few days. 1) Exacerbation of lung disease. This could certainly be a standard asthma exacerbation superimposed on worsening ILD which was thought to be drug-induced. The pt will be treated with scheduled nebs, IV steroids and 02 if needed. We will obtain a CT chest to better assess the progress of his disease and r/o an infectious element. Pulmonology is consulted as he may need a bronch. 2) AF - cont Bystolic, Propafenone 3) Ankle swelling L - doppler is pending - i believe this is more likely due to hid increased activity on his [place] trip. Compression stockings provided. 4) GERD - cont Ranitidine At the time of admission labs and imaging are pending for further assessment as the pt arrived directly from his GPs office. Full code - Heparin prophylaxis Total time for this admit including review of labs, meds, records - discussion with pt and primary provider - 42 min (2) Asthma exacerbation: History of Present Illness Chief Complaint: Shortness of breath Primary Care Provider: Miguel Gibbs MD 78 y/o M Hx asthma, AF, SSS - pacer, GERD, suspected 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 The pt presents as a direct admission form his GPs office due to upper respiratory symptoms and progressive exertional dyspnea. It is reported that he was treated for PNM 03/22 and has not fully recovered. Imaging at the time raised suspicion of developing ILD which was attributed to Flecainide use. The pt was taken off Flecainide and placed on Propafenone and a steroid taper. He had repeat PFTs 06/21 which showed mild obstructive disease as expected and also demonstrated development of a restrictive pattern. He has been on a steroid taper and is currently taking 40mg/day. He also reports that he just returned from [place] where he was taking in the [place]. This may have contributed to his current asthma symptoms. A CXR at his GPs office demonstrated possible worsening of his disease. He denies a fever, rigors or a productive cough. He does report congestion which worsened on his trip to [place]. As a separate issue, the pt has chronic LLE diatal edema due o an ankle injury. This has worsened over the past few days. 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 Enjoys a glass of wine with dinner. retired clinical psychiatrist. Reports long-term, second-hand smoke exposure Family: Mother due to lung CA Father due to multiple CVAs, CAD Allergies Allergy/AdvReac Type Severity Reaction Status Date / Time Fish Containing Products Allergy Intermediate HANDS Verified 06/15/18 14:03 BREAK OUT gluten Allergy Intermediate GI TRACT Verified 06/15/18 14:03 UPSET latex Allergy Intermediate BLISTERS Verified 06/15/18 14:03 iodine Allergy Mild SWELLING,NA Verified 06/15/18 14:03 USEA shellfish derived Allergy Mild SEVERE Verified 06/15/18 14:03 ALLERGY--SWELLING,NAUSEA egg Allergy Unknown SEVERE Verified 06/15/18 14:03 CONGESTION Iodinated Contrast- Oral and Allergy Unknown SWELLING Verified 06/15/18 14:03 IV Dye AND NAUSEA milk Allergy Unknown SEVERE Verified 06/15/18 14:03 CONGESTION nickel Allergy Unknown ECZEMA RASH Verified 06/15/18 14:03 nut - unspecified Allergy Unknown SEVERE Verified 06/15/18 14:03 CONGESTION Home Medications Home Medications Medication Instructions Recorded Confirmed Type albuterol sulfate [ProAir HFA] 2 puff INHALATION Q4 PRN 06/15/18 07/15/18 History aspirin 81 mg PO HS 06/15/18 07/15/18 History budesonide-formoterol [Symbicort] 2 puff INHALATION BID 06/15/18 07/15/18 History calcium citrate-vitamin D3 1 tab PO DAILY 06/15/18 07/15/18 History [Citracal Regular] epinephrine [EpiPen] 0.3 mg IM UD PRN 06/15/18 07/15/18 History fexofenadine [Saida Allergy] 180 mg PO QAM 06/15/18 07/15/18 History fluorouracil [Efudex] 1 applic TOPICAL BID PRN 06/15/18 07/15/18 History fluticasone propionate [Flonase 2 spray INTRANASAL BID 06/15/18 07/15/18 History Allergy Relief] guaifenesin [Mucinex] 1,200 mg PO Q12H PRN 06/15/18 07/15/18 History ketoconazole 1 applic TOPICAL BID PRN 06/15/18 07/15/18 History montelukast 10 mg PO HS 06/15/18 07/15/18 History prednisone 30 mg PO QAM 06/15/18 07/15/18 History propafenone 225 mg PO Q12H 06/15/18 07/15/18 History ranitidine HCl 300 mg PO BID 06/15/18 07/15/18 History vitamins A,C,Q-rjod-zpcigt 1 cap PO BID 06/15/18 07/15/18 History [PreserVision AREDS] diphenhydramine-acetaminophen 25 mg PO HS PRN 07/15/18 07/15/18 History doxycycline hyclate 100 mg PO BID 07/15/18 07/15/18 History lisinopril 5 mg PO QAM 07/15/18 07/15/18 History nebivolol [Bystolic] 5 mg PO HS 07/15/18 07/15/18 History Past Med/Surg History Medical History Asthma inhalers daily/prn Atrial fibrillation BPH (benign prostatic hyperplasia) Basal cell carcinoma of face Chronic steroid use Drug-induced lung disease GERD (gastroesophageal reflux disease) Hearing deficit History of colon polyps Hypertension Kidney stones Osteoarthritis Pacemaker 07/2017 @ [facility] by Dr. Amador [employer] Prostate cancer 04/2012 Spondylosis Surgical History History of appendectomy History of arthroscopy of left shoulder History of colonoscopy History of parotidectomy History of prostate biopsy malignant History of prostate surgery greenlight laser History of radical prostatectomy 11/2012 History of repair of right rotator cuff History of tooth extraction History of wisdom tooth extraction Status post Mohs surgery for basal cell carcinoma Family History Other No family history of adverse response to anesthesia Social History Communication Ability: Effective Beliefs That Will Affect Care: None Current Living Situation: Spouse Other Information That Helps Us Care for You: No Feels Safe at Home: Yes Safety Concerns: Feels Safe At This Time Hx Alcohol Use: Yes Review of Systems Gen: Denies fevers, night sweats, rigors, fatigue, malaise, weight loss/gain ENT: + congestion, throat pain, hearing loss - believes he has thrush Eyes: Denies acute visual changes CV: Denies CP, palpitations Pulmonary: Congestion and progressive exertional dyspnea as above GI: Denies N/V, diarrhea, constipation Neuro: Denies acute or unilateral weakness, acute gait impairment, headache or acute visual changes Musculoskeletal: Increasing edema of distal LLE Endocrine: Denies polydipsia, polyuria Skin: Denies acute rashes or ulcers Physical Exam Vital Signs (Past 24 Hours): General: AAO x 3, no distress ENT: No erythema or exudates - there is thrush on the ton Eyes: GLO, EOMI Head and neck: Normocephalic, atraumatic, No JVD, neck is supple. Chest/heart: Nontender, S1,2, RRR, no murmurs, no gallops Lungs: Poor air movement - no wheezing - mild crackles at the bases Abdomen: Nontender, nondistended, BS+ Neuro: AAO x 3, speech is clear, no unilateral weakness or loss of sensation, coordination intact Musculoskeletal: No muscle tenderness, FROM - distal LLE edema Skin: No acute rashes or ulcers Extremities: No clubbing, cyanosis - LLE distal pitting edema
[2018-07-15] MEDS ORDERED: LEVALBUTEROL HCL 1.25 MG/3 ML NEB NEB PRN (11:27)
[2018-07-15] MEDS ORDERED: ACETAMINOPHEN 500 MG TAB PO PRN (11:27)
[2018-07-15 12:16] LABS: Basophils # (auto) 0.01 K/uL (0-0.2); Basophils % (auto) 0.1 %; Eosinophils # (auto) 0.01 K/uL (0-0.5); Eosinophils % (auto) 0.1 %; Hematocrit (blood only) 35.9 % (42-52); Hemoglobin 12.5 g/dL (14.0-18.0); Immature Granulocytes % (auto) 0.8 %; Lymphocytes # (auto) 0.56 K/uL (1.2-3.4); Lymphocytes % (auto) 4.4 %; Mean Corpuscular Hgb Conc 34.8 g/dL (32-36); Mean Corpuscular Volume 102.3 fL (80-100); Mean Platelet Volume 8.4 fL (7.4-10.4); Monocytes # (auto) 0.28 K/uL (0.11-0.59); Monocytes % (auto) 2.2 %; Neutrophils # (auto) 11.65 K/uL (1.4-6.5); Neutrophils % (auto) 92.4 %; Platelet Count 225 K/uL (130-400); RDW Coefficient of Variation 13.4 % (11.5-14.5); RDW Standard Deviation 50.5 fL (36.4-46.3); Red Blood Count 3.51 M/uL (4.7-6.1); White Blood Count 12.61 K/uL (4.8-10.8)
[2018-07-15 12:33] LABS: BUN Creatinine Ratio 23.2 (10-20); Blood Urea Nitrogen 28 mg/dl (7-18); Calcium 8.9 mg/dl (8.5-10.1); Carbon Dioxide 27 mmol/L (21-32); Chloride 98 mmol/L (98-107); Est GFR (African American) 65.8; Est GFR (Non-African American) 56.8; Glucose 133 mg/dl (70-99); Magnesium 2.2 mg/dl (1.8-2.4); Potassium 4.6 mmol/L (3.5-5.1); Sodium 130 mmol/L (136-145)
[2018-07-15] MEDS: ALBUT/IPRATROP 3MG/0.5MG NEB 3 ML VIAL NEB SCH ×4 (13:44→22:59)
--- NOTE | 2018-07-15 14:42 | Ultrasound Report ---
US venous doppler LE LT CLINICAL HISTORY: Left leg swelling COMPARISON STUDY: November 2017 FINDINGS: Real-time and color flow Doppler imaging were performed. Flow was seen within the femoral, popliteal and calf veins with no intraluminal thrombus demonstrated. The saphenous vein is patent. IMPRESSION: No evidence of left lower extremity DVT. Electronically signed by: Kali England M.D. 07/15/2018 2:40 PM
--- NOTE | 2018-07-15 14:57 | CT Scan Report ---
CT chest wo con CT DOSE: 243.71 mGy.cm CLINICAL HISTORY: 78 years-old Male with PNM vs ILD. Acute shortness of breath with possible interst itial lung disease TECHNIQUE: Multiaxial CT images of the chest were performed without contrast. A dose lowering techni que was utilized adhering to the principles of ALARA. COMPARISON: Chest radiograph of same day, chest CT 05/13/2018 FINDINGS: Thyroid is homogeneous. Heart is mildly enlarged. No pericardial effusion. Coronary arterial calcific ations are noted. Left subclavian pacer is noted with leads overlying the right atrium and right vent ricle. Moderate calcified plaque of the thoracic aorta. No thoracic aortic aneurysm. Enlarged subcari nal lymph nodes are seen measuring up to 2.5 x 1.1 cm. Mildly enlarged paratracheal lymph nodes are u nchanged. No pneumothorax or pleural effusion. Diffuse subpleural reticulation with mild traction bronchiectasi s and diffuse mild bronchial wall thickening redemonstrated. Mild biapical pleural-parenchymal scarri ng. No honeycombing. Interval development of multiple patchy and confluent groundglass densities thro ughout the bilateral lungs, most pronounced within the upper lobes. No suspicious nodules or masses. No acute process of the imaged upper abdomen. Suggestion of a right renal cyst with mild nonspecific bilateral perinephric stranding. Soft tissues are unremarkable. Degenerative changes of the spine and shoulders. IMPRESSION: 1. Diffuse bilateral subpleural reticulation with mild traction bronchiectasis and bronchial wall thi ckening redemonstrated suggestive of NSIP pattern of interstitial lung disease. 2. Multisegmental patchy and confluent groundglass densities within the bilateral lungs in an upper l dede zone prominent distribution, new from 05/13/2018. These findings are suggestive of a nonspecific pn eumonitis or atypical pneumonia. 3. Mild mediastinal adenopathy, unchanged. 4. Mild cardiomegaly. 5. Additional findings as above. Electronically signed by: Mario Aparicio M.D. 07/15/2018 2:55 PM
[2018-07-15] MEDS: methylPREDNISolone 60 MG in SYRINGE 0 ML IV SCH ×2 (15:14→19:50)
[2018-07-15] MEDS ORDERED: PIPERACILL/TAZOBAC CONSULT ACTIVE PRN (15:30)
[2018-07-15] MEDS ORDERED: PIPERACILLIN/TAZOBACTAM 3.375 GM in DEXTROSE 5% 100 ML IV SCH (15:30)
[2018-07-15] MEDS ORDERED: PIPERACILLIN/TAZOBACTAM 3.375 GM in DEXTROSE 5% 100 ML IV ONE (16:00)
[2018-07-15] MEDS: NYSTATIN SUSP 500,000 U/5 ML UDC PO SCH ×2 (16:39→21:02)
[2018-07-15] MEDS ORDERED: PROPAFENONE HCL 150 MG TABLET PO SCH (18:00)
--- NOTE | 2018-07-15 18:10 | Consultation Report ---
DATE OF CONSULTATION: 07/15/2018 REASON FOR CONSULTATION: Interstitial lung disease/hypoxemia. HISTORY OF PRESENT ILLNESS: 78-year-old white male, patient of Dr. Gibbs and Rachel Junior from pulmonary medicine has a history of GERD, suspected interstitial lung disease possibly secondary to flecainide utilization and history of atrial fibrillation and sick sinus syndrome as well as asthma, who was admitted from the office because of progressive respiratory symptoms and apparent hypoxemia. The patient was seen by Rachel Junior today. His flecainide, lisinopril, Bystolic, and simvastatin were discontinued in May and replaced with diltiazem and propafenone because of concerns that he had flecainide-induced interstitial lung disease. He has tolerated those new medications well, but over the past several months he has become, especially several weeks, progressively more dyspneic with chest congestion and weakness. He recently spent a weekend in [place] and felt that his symptoms had gotten much worse. He has been weaned to 30 mg of prednisone and attributes several skin and ligamentous issues with his hands as well as Achilles to the chronic steroid use. He is a nonsmoker, though did have some secondary exposure with his who was in attendance, a retired school based therapist at [employer] school who quit smoking in the 80s. Both parents had been smokers as well. The patient has been diagnosed with asthma and allergic type of symptomatology. He has a nebulizer at home with albuterol which has been only minimally effective and most recent chest x-ray showed progression of opacities bilaterally and a decision was made to admit him to the hospitalist service. The patient was seen by Dr. Cheung. He denies pleuritic pain or hemoptysis and is not aware that he has been running a fever. He certainly has not had any rigors or chills. He has had no significant travel history other than to [place] and recently they downsized to a 2-story condominium that is 20 years old. It has carpeting and some hard wood floors. His symptoms did not appear to be seasonal. He has had some lower extremity edema, especially on the left side over the past several days, possibly attributed to his chronic steroid dosing. For details of his allergy history, I refer you to his current record. He is using Symbicort 2 puffs b.i.d. at home and has a ProAir rescue inhaler and nebulizer. PAST MEDICAL HISTORY: Pertinent for carpal tunnel syndrome, irritable bowel syndrome, GERD, paroxysmal atrial fibrillation, prostate CA, spondylolisthesis, allergic rhinitis as well as interstitial lung disease. PHYSICAL EXAMINATION: GENERAL: Reveals a well-developed elderly white male appearing stable at rest. VITAL SIGNS: Blood pressure 159/74, pulse 72 and regular, respiratory rate 16, temperature 36.4, O2 sat 98% on room air, although it was lower earlier in the day. SKIN: Without lesion. HEENT: Atraumatic, normocephalic. PERRLA. LUNGS: Some rales or crackles posteriorly bilaterally. No wheezes. CARDIAC: Regular rate and rhythm. I do not appreciate a gallop. ABDOMEN: Soft, protuberant. EXTREMITIES: Trace pedal edema, no clubbing or peripheral cyanosis. NEUROLOGICAL: Cranial nerves II-XII grossly intact. PFTs on 06/29/2018 suggest mild airway obstruction with good evidence by improved flow measured at low lung volumes. DLCO was within normal limits. Concomitant restrictive ventilatory defect was seen as well. LABORATORY DATA: White count 12,000, H&H 12.5 and 35.9, macrocytic indices are seen. No significant peripheral eosinophilia noted. FERCHO panel unremarkable. Hypersensitivity pneumonitis panel negative. Today the ABGs pH 7.46, pCO2 of 34, pO2 of 96 on room air. Today's CT scan was reviewed in comparison to film of 05/13/2018. There has been all along diffuse bilateral subpleural reticulation with mild traction bronchiectasis and bronchial wall thickening suggestive of an NSIP pattern of interstitial lung disease. This was in comparison to previous CT scan 2 months earlier. Now there is also multisegmental patchy and confluent ground-glass densities involving the upper lung zones with only mild mediastinal adenopathy. 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 I would like to review his current medication; unfortunately will have to bump up his steroid dose and will make sure we are covering for atypicals this time of the year and will send antibodies for mycoplasma and legionella as well. At this point in time I see no indication for bronchoscopy or video-assisted thorascopic biopsy unless symptoms and radiographic appearance worsen. MTDD
[2018-07-15] MEDS ORDERED: LORazepam 0.5 MG TAB PO ONE (19:40)
[2018-07-15] MEDS: ASPIRIN 81 MG ECTAB PO SCH (21:00)
[2018-07-15] MEDS: MONTELUKAST SODIUM 10 MG TABLET PO SCH (21:00)
[2018-07-15] MEDS: NEBIVOLOL HCL 5 MG TAB PO SCH (21:01)
[2018-07-15] MEDS: guaiFENesin 600 MG TABCR PO PRN (21:01)
[2018-07-15] MEDS: FLUTICASONE PROPIONATE NA SPR 16 GM BTL SCH (21:02)
[2018-07-15] MEDS: PIPERACILLIN/TAZOBACTAM 3.375 GM in DEXTROSE 5% 100 ML IV SCH (21:03)
[2018-07-15] MEDS: PROPAFENONE 225 MG PO SCH (22:12)
[2018-07-16] MEDS: methylPREDNISolone 60 MG in SYRINGE 0 ML IV SCH ×4 (00:14→19:09)
[2018-07-16] MEDS: ALBUT/IPRATROP 3MG/0.5MG NEB 3 ML VIAL NEB SCH ×6 (03:19→23:42)
[2018-07-16] MEDS: PIPERACILLIN/TAZOBACTAM 3.375 GM in DEXTROSE 5% 100 ML IV SCH ×3 (05:16→21:27)
[2018-07-16 06:52] LABS: Creatinine Clr Calc Pharmacy 38.8 ml/min; Est GFR (African American) 58.6; Est GFR (Non-African American) 50.6
[2018-07-16] MEDS: LISINOPRIL 5 MG TAB PO SCH (08:01)
[2018-07-16] MEDS: FEXOFENADINE HCL 180 MG TAB PO SCH (08:01)
[2018-07-16] MEDS: CALCIUM 600MG + VIT D 400 IU TAB PO SCH (08:01)
[2018-07-16] MEDS: guaiFENesin 600 MG TABCR PO PRN (08:02)
[2018-07-16] MEDS: NYSTATIN SUSP 500,000 U/5 ML UDC PO SCH ×4 (08:03→21:21)
[2018-07-16] MEDS: FLUTICASONE PROPIONATE NA SPR 16 GM BTL SCH ×2 (08:04→21:20)
[2018-07-16] MEDS: PROPAFENONE 225 MG PO SCH ×2 (08:04→21:21)
[2018-07-16] MEDS ORDERED: SODIUM CHLORIDE 0.65% NA SOLN 45 ML (OCEAN) ONE (08:39)
[2018-07-16] MEDS: AZITHROMYCIN 500 MG in DEXTROSE 5% 250 ML IV SCH (09:16)
[2018-07-16 10:57] LABS: BUN Creatinine Ratio 20.8 (10-20); Calcium 8.3 mg/dl (8.5-10.1); Creatinine Clr Calc Pharmacy 38.8 ml/min; Est GFR (African American) 58.6; Est GFR (Non-African American) 50.6; Potassium 4.6 mmol/L (3.5-5.1)
--- NOTE | 2018-07-16 12:30 | Progress Note ---
DATE: 07/16/2018 PULMONARY MEDICINE PROGRESS NOTE Chart reviewed, patient examined. SUBJECTIVE: The patient feels better today. Slept well last night with some interruptions. Feels like he can take a deep breath and is less dyspneic and in very good spirits, not bringing up any significant amount of phlegm. OBJECTIVE: CURRENT VITAL SIGNS: Blood pressure 153/82, pulse 75 and regular, respiratory rate 20, temperature 36.4, O2 sat 94% on room air. SKIN: Without lesion. HEENT: Atraumatic, normocephalic. PERRLA. LUNGS: Some fine crackles at the bases with 1 audible wheeze in the left base. CARDIAC: Regular rhythm. I do not appreciate a gallop. ABDOMEN: Soft, scaphoid. EXTREMITIES: No pedal edema, clubbing or cyanosis. NEUROLOGIC: Intact. No lateralizing signs. LABORATORY DATA: White count is 12,000, H and H 12.5 and 35.9. No significant peripheral eosinophilia. Serum IgG level 787 mg per deciliter, IgE pending. The FERCHO panel essentially negative. Other serologies are pending. OVERALL ASSESSMENT: An 78-year-old with history of asthma, progressive symptoms of hypoxemia and ground-glass opacities bilaterally with possible drug reaction to flecainide, although that would seem less likely and possible hypersensitivity pneumonitis seems to be responding to current therapy. Will continue current medication and follow through the weekend.
--- NOTE | 2018-07-16 15:08 | Hospitalist Progress Note ---
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 The pt presents as a direct admission form his GPs office due to upper respiratory symptoms and progressive exertional dyspnea. It is reported that he was treated for PNM 03/22 and has not fully recovered. Imaging at the time raised suspicion of developing ILD which was attributed to Flecainide use. The pt was taken off Flecainide and placed on Propafenone and a steroid taper. He had repeat PFTs 06/21 which showed mild obstructive disease as expected and also demonstrated development of a restrictive pattern. He has been on a steroid taper and is currently taking 40mg/day. He also reports that he [place] was taking in the [place]. This may have contributed to his current asthma symptoms. A CXR at his GPs office demonstrated possible worsening of his disease. He denies a fever, rigors or a productive cough. He does report congestion which worsened on his trip to [place]. Exacerbation of lung disease plus atypical pneumonitis as visualized on CT of the chest. Appreciate pulmonology consult This could certainly be a standard asthma exacerbation superimposed on worsening ILD which was thought to be drug-induced. Much improved today -Continue scheduled nebs, IV steroids and 02 if needed -Currently was on prednisone 30 mg for 2 weeks as an outpatient and then is to taper down by 10 mg every 2 [id number] with pulmonary as an outpatient -Continue Zosyn and azithromycin and convert to oral antibiotics likely tomorrow -will d/w PULM regarding choice of oral antibiotics for discharge-question if needs coverage for Pseudomonas due to history of bronchiectasis -Follow hypertension sensitivity pneumonitis panel, other titers as ordered by pulmonary (2) Asthma exacerbation: As above (3) SSS (sick sinus syndrome): Status post pacemaker placement -Has follow-up with cardiology scheduled for next week routinely (4) A-fib: Status post pacemaker placement, is in normal sinus rhythm here -Continue Bystolic, aspirin, propafenone -Unclear why he is not on anticoagulation (5) GERD (gastroesophageal reflux disease): -Stable -Continue Zantac 300 mg twice daily (6) Hyponatremia: Sodium 130 now improved to 132 Possibly due to pulmonary process? SIADH? -Follow chemistry in the morning -Consider fluid restriction (7) CKD (chronic kidney disease) stage 3, GFR 30-59 ml/min: GFR baseline around 50 -Avoid nephrotoxins -Renally dose medications as needed (8) Allergic rhinitis: Continue Saida, Benadryl as needed (9) Achilles tendon injury: Stable with edema Poor healing due to chronic prednisone use Doppler of left lower extremity negative for DVT -Continue follow-up with outpatient physical therapy (10) DVT prophylaxis: Add Lovenox 40 mg SQ daily Disposition-doing very well, possibly discharged home tomorrow Subjective Patient feeling much improved since admission. Still short of breath with walking around the halls but nonetheless improved. He is off oxygen. He has some mildly productive cough. He reports having a chronic left Achilles tendon partial tear and injury with swelling for several months now. Review of Systems All systems reviewed & are unremarkable except as noted in HPI & below Physical Exam Vital Signs (Past 24 Hours): Last Vital Signs Temp 36.4 C L 07/16/18 07:25 Pulse 65 07/16/18 13:09 Resp 16 07/16/18 13:09 BP 153/82 H 07/16/18 07:25 Pulse Ox 95 07/16/18 13:09 Constitutional: WD/WN, vitals as above Eyes: PERRL, conjunctivae normal, anicteric sclerae ENMT: external ear and nose normal, oropharynx normal Neck: trachea midline, no thyromegaly Respiratory: normal respiratory effort Auscultation: + crackles (At right base and right middle lung field and left base); no rhonchi and no wheezes Cardiovascular: RRR, no murmur, no edema Gastrointestinal (Abdomen): normal bowel sounds, soft, nontender, no hepatosplenomegaly Musculoskeletal: Extremities: + extremities abnormal to inspection (Left ankle with pitting edema and range of motion of ankle with dorsiflexion and plantarflexion is intact, mild tenderness over Achilles tendon insertion site), no cyanosis and no clubbing Skin: no rashes, warm and dry Neurologic: moves all extremities and awake; no focal motor deficits Psychiatric: A+Ox3, euthymic affect Results & Data Laboratory Results 07/17/18 07/16/18 Range/Units 06:16 06:17 Sodium 132 L (136-145) mmol/L Potassium 4.6 (3.5-5.1) mmol/L Chloride 101 (98-107) mmol/L Carbon Dioxide 26 (21-32) mmol/L Anion Gap 5.0 (3-11) BUN 27 H (7-18) mg/dl Creatinine 1.33 1.32 (0.6-1.4) mg/dl Est Cr Clr Drug Dosing 38.5 38.8 ml/min Est GFR ( Amer) 58.1 58.6 Est GFR (Non-Af Amer) 50.1 50.6 BUN/Creatinine Ratio 20.8 H (10-20) Glucose 154 H (70-99) mg/dl Calcium 8.3 L (8.5-10.1) mg/dl
[2018-07-16] MEDS: ASPIRIN 81 MG ECTAB PO SCH (21:20)
[2018-07-16] MEDS: NEBIVOLOL HCL 5 MG TAB PO SCH (21:20)
[2018-07-16] MEDS: MONTELUKAST SODIUM 10 MG TABLET PO SCH (21:22)
[2018-07-17] MEDS: methylPREDNISolone 60 MG in SYRINGE 0 ML IV SCH ×4 (01:04→18:29)
[2018-07-17] MEDS: ALBUT/IPRATROP 3MG/0.5MG NEB 3 ML VIAL NEB SCH ×6 (03:29→21:06)
[2018-07-17] MEDS: PIPERACILLIN/TAZOBACTAM 3.375 GM in DEXTROSE 5% 100 ML IV SCH ×3 (05:58→21:40)
[2018-07-17 06:58] LABS: Creatinine Clr Calc Pharmacy 38.5 ml/min; Est GFR (African American) 58.1; Est GFR (Non-African American) 50.1
[2018-07-17] MEDS: FEXOFENADINE HCL 180 MG TAB PO SCH (07:55)
[2018-07-17] MEDS: LISINOPRIL 5 MG TAB PO SCH (07:57)
[2018-07-17] MEDS: CALCIUM 600MG + VIT D 400 IU TAB PO SCH (07:58)
[2018-07-17] MEDS: NYSTATIN SUSP 500,000 U/5 ML UDC PO SCH ×4 (07:58→21:46)
[2018-07-17] MEDS: FLUTICASONE PROPIONATE NA SPR 16 GM BTL SCH ×2 (07:59→20:24)
[2018-07-17] MEDS: PROPAFENONE 225 MG PO SCH ×2 (07:59→20:25)
[2018-07-17 08:18] LABS: BUN Creatinine Ratio 21.3 (10-20); Calcium 8.7 mg/dl (8.5-10.1); Est GFR (African American) 60.9; Est GFR (Non-African American) 52.5; Potassium 4.2 mmol/L (3.5-5.1)
[2018-07-17 08:59] LABS: Prothrombin Time 10.5 Seconds (9.0-12.0)
[2018-07-17] MEDS: AZITHROMYCIN 500 MG in DEXTROSE 5% 250 ML IV SCH (09:56)
[2018-07-17] MEDS: ENOXAPARIN INJ 40 MG/0.4 ML SYR SQ SCH (10:00)
--- NOTE | 2018-07-17 10:21 | Progress Note ---
DATE: 07/17/2018 PULMONARY MEDICINE PROGRESS NOTE Chart reviewed, the patient examined. SUBJECTIVE: The patient is somewhat disappointed today apparently while ambulating last evening and this morning he markedly desaturated. He has become even more concerned about his underlying interstitial lung disease. He has a mild cough, and his daughter and were in attendance during this morning's visit. He denies increased edema, chest discomfort of any kind and no hemoptysis. OBJECTIVE: CURRENT VITAL SIGNS: Blood pressure 169/83, pulse 88 and regular, respiratory rate 18, temperature 36.3, O2 sat 85% on room air. SKIN: Without lesion. HEENT: Atraumatic, normocephalic. PERRLA. LUNGS: Scattered wheeze left base, otherwise fine rales audible at both bases. CARDIAC: Regular rate and rhythm. I do not appreciate a gallop. ABDOMEN: Soft, scaphoid. EXTREMITIES: No significant pedal edema, clubbing or cyanosis. NEUROLOGIC: Intact. LABORATORY DATA: PFTs as stated earlier showed mild obstructive disease with a slight improvement in post-bronchodilator, but lung volume showed evidence for restriction. DLCO was not significantly depressed. Chest CT on admission once again showed diffuse bilateral subpleural reticulation with mild traction bronchiectasis and bronchial wall thickening and re-demonstrating changes that would suggest an NSIP pattern of interstitial lung disease, but now with new segmental patchy and confluent ground-glass densities within both lungs, but this was only in the upper lung zazueta representing a nonspecific pneumonitis or atypical pneumonia. The patient's white count is 12,000. No doubt aggravated by steroid therapy. H and H 12.5 and 35.9. Mild peripheral eosinophilia seen in November 2017. Other laboratory serologies are pending. OVERALL ASSESSMENT: An 78-year-old with history of asthma and previous CT scanning suggesting a nonspecific interstitial pneumonia or NSIP pattern, now with progressive ground-glass opacities bilaterally and worsening hypoxemia. At this point in time, we had a lengthy discussion and feel that we are looking at the possibility of a video-assisted thorascopic biopsy for more definitive diagnosis and Fiberoptic bronchoscopy with BAL, both procedures could be done with the patient under general anesthesia. I will ask Dr. Esquivel to consult on the patient to consider more interventional approach to the patient's underlying lung disease. KAYDEN
--- NOTE | 2018-07-17 11:52 | XRay Report ---
XR chest 2V routine CLINICAL HISTORY: interstitial lung dis dyspnea COMPARISON STUDY: 07/15/2018 FINDINGS: Stable bilateral parenchymal and interstitial change. Permanent bipolar cardiac pacemaker i n good position. Diaphragms are smooth. There is no evidence for superimposed infiltrate. IMPRESSION: Stable bilateral parenchymal and interstitial prominence. No change from the prior exam. The above report was generated using voice recognition software. It may contain grammatical, syntax or spelling errors. Electronically signed by: Rj Melton M.D. 07/17/2018 11:51 AM
--- NOTE | 2018-07-17 17:07 | Hospitalist Progress Note ---
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 The pt presents as a direct admission form his GPs office due to upper respiratory symptoms and progressive exertional dyspnea. It is reported that he was treated for PNM 03/22 and has not fully recovered. Imaging at the time raised suspicion of developing ILD which was attributed to Flecainide use. The pt was taken off Flecainide and placed on Propafenone and a steroid taper. He had repeat PFTs 06/21 which showed mild obstructive disease as expected and also demonstrated development of a restrictive pattern. He has been on a steroid taper and is currently taking 40mg/day. He also reports that he just returned from [place] where he was taking in the X[place]. This may have contributed to his current asthma symptoms. A CXR at his GPs office demonstrated possible worsening of his disease. He denies a fever, rigors or a productive cough. He does report congestion which worsened on his trip to [place]. Exacerbation of lung disease plus atypical pneumonitis as visualized on CT of the chest. Appreciate pulmonology consult This could certainly be a standard asthma exacerbation superimposed on worsening ILD which was thought to be drug-induced. Improved overall but still hypoxic with ambulation -Continue scheduled nebs, IV steroids and 02 as needed -Currently was on prednisone 30 mg for 2 weeks as an outpatient and then is to taper down by 10 mg every 2 [id number] with pulmonary as an outpatient -Continue Zosyn and azithromycin -will d/w PULM regarding choice of oral antibiotics for discharge-question if needs coverage for Pseudomonas due to history of bronchiectasis -Follow hypertension sensitivity pneumonitis panel, other titers as ordered by pulmonary -plan now as per Pulm is for Thoracic SUrgery consult for possible wedge resection for biopsy to prove/find out cause of ILD -NPO after midnight, hold Lovenox (2) Asthma exacerbation: As above (3) SSS (sick sinus syndrome): Status post pacemaker placement -Has follow-up with cardiology scheduled for next week routinely (4) A-fib: Status post pacemaker placement, is in normal sinus rhythm here -Continue Bystolic, aspirin, propafenone -Unclear why he is not on anticoagulation? (5) GERD (gastroesophageal reflux disease): -Stable -Continue Zantac 300 mg twice daily (6) Hyponatremia: Sodium 130 now improved to 133 Possibly due to pulmonary process? SIADH? -Follow chemistry periodically -Consider fluid restriction (7) CKD (chronic kidney disease) stage 3, GFR 30-59 ml/min: GFR baseline around 50 -Avoid nephrotoxins -Renally dose medications as needed (8) Allergic rhinitis: Continue Saida, Benadryl as needed (9) Achilles tendon injury: Stable with edema Poor healing due to chronic prednisone use Doppler of left lower extremity negative for DVT -Continue follow-up with outpatient physical therapy (10) DVT prophylaxis: Lovenox 40 mg SQ daily-hold for procedure Hold ASA for procedure Disposition-plan for possible wedge resction in 1-2 days Subjective Pt was hypoxic with ambulation today, disappointed about hta, but comfortable at rest, not requiring O2. Still with dry cough. Haivng 2 loose stools today, no abd pain. Review of Systems All systems reviewed & are unremarkable except as noted in HPI & below Physical Exam Vital Signs (Past 24 Hours): Last Vital Signs Temp 36.6 C 07/17/18 16:40 Pulse 77 07/17/18 16:40 Resp 16 07/17/18 16:40 BP 129/71 07/17/18 16:40 Pulse Ox 92 07/17/18 16:40 Constitutional: WD/WN, vitals as above Eyes: PERRL, conjunctivae normal, anicteric sclerae ENMT: Ears: no hearing impairment Mouth: + oropharynx abnormality (diffuse white exudate on tongue and buccal mucosa) Neck: trachea midline, no thyromegaly Respiratory: normal respiratory effort Auscultation: + crackles (At right base and right middle lung field and left base); no rhonchi and no wheezes Cardiovascular: RRR, no murmur, no edema Gastrointestinal (Abdomen): normal bowel sounds, soft, nontender, no hepatosplenomegaly Musculoskeletal: Extremities: + extremities abnormal to inspection (Left ankle with pitting edema and range of motion of ankle with dorsiflexion and plantarflexion is intact, mild tenderness over Achilles tendon insertion site), no cyanosis and no clubbing Skin: no rashes, warm and dry Neurologic: moves all extremities and awake; no focal motor deficits Psychiatric: A+Ox3, euthymic affect Results & Data Laboratory Results 07/17/18 07/17/18 Range/Units 08:40 06:16 PT 10.5 (9.0-12.0) Seconds INR 1.0 (0.9-1.1) Sodium 133 L (136-145) mmol/L Potassium 4.2 (3.5-5.1) mmol/L Chloride 101 (98-107) mmol/L Carbon Dioxide 24 (21-32) mmol/L Anion Gap 9.0 (3-11) BUN 27 H (7-18) mg/dl Creatinine 1.28 (0.6-1.4) mg/dl Est Cr Clr Drug Dosing 40.0 ml/min Est GFR ( Amer) 60.9 Est GFR (Non-Af Amer) 52.5 BUN/Creatinine Ratio 21.3 H (10-20) Glucose 150 H (70-99) mg/dl Calcium 8.7 (8.5-10.1) mg/dl
[2018-07-17] MEDS: PROBIOTICS PO SCH (19:05)
[2018-07-17] MEDS: NEBIVOLOL HCL 5 MG TAB PO SCH (20:24)
[2018-07-17] MEDS: MONTELUKAST SODIUM 10 MG TABLET PO SCH (20:25)
[2018-07-18] MEDS ORDERED: [UNRECOGNIZED DRUG - REMARK] SCH
[2018-07-18] MEDS: methylPREDNISolone 60 MG in SYRINGE 0 ML IV SCH ×4 (01:37→20:41)
[2018-07-18] MEDS: ALBUT/IPRATROP 3MG/0.5MG NEB 3 ML VIAL NEB SCH ×5 (03:35→19:21)
[2018-07-18] MEDS: PIPERACILLIN/TAZOBACTAM 3.375 GM in DEXTROSE 5% 100 ML IV SCH ×2 (05:32→19:47)
[2018-07-18] MEDS: FEXOFENADINE HCL 180 MG TAB PO SCH (07:48)
[2018-07-18] MEDS: guaiFENesin 600 MG TABCR PO PRN (07:49)
[2018-07-18] MEDS: LISINOPRIL 5 MG TAB PO SCH (07:49)
[2018-07-18] MEDS: FLUTICASONE PROPIONATE NA SPR 16 GM BTL SCH ×2 (07:50→21:25)
[2018-07-18] MEDS: NYSTATIN SUSP 500,000 U/5 ML UDC PO SCH ×4 (07:51→21:25)
[2018-07-18] MEDS: PROBIOTICS PO SCH (07:51)
[2018-07-18] MEDS: PROPAFENONE 225 MG PO SCH ×2 (07:52→21:26)
[2018-07-18] MEDS: AZITHROMYCIN 500 MG in DEXTROSE 5% 250 ML IV SCH ×2 (07:59→09:09)
--- NOTE | 2018-07-18 09:50 | History & Physical Bridge Note ---
Date of Service July 18, 2018 History & Physical Bridge Note I have examined the patient, reviewed the History & Physical and in the interval since the performance of the History & Physical I have noted the following changes of clinical significance: no changes noted
--- NOTE | 2018-07-18 11:07 | Progress Note ---
DATE: 07/18/2018 PULMONARY PROGRESS NOTE TIME: 10:20 a.m. SUBJECTIVE: The patient is feeling somewhat better. He is somewhat less short of breath than he had been a few days ago. He has been ambulating in the hallways without difficulty. He did state that yesterday when ambulating in the halls, his saturations went down into the low 80s when he was on room air. He is not noticing much wheezing at present. The patient's history was reviewed. He has been having worsening problems dating back to May. It was suspected by Dr. Gibbs as an outpatient that he may have had some interstitial changes related to flecainide. The medicine was stopped and he was placed on prednisone at 40 mg daily. There was perhaps slight improvement, but not dramatic improvement. The patient then went away to [facility] for the [employer]. His symptoms worsen which may have been related to an asthma type problem. He does have a history of asthma since he was young. The patient has not had any significant fevers or sweats. He always feels a little bit cold. As noted, there has been no significant sputum production. The patient's and daughter were present during this evaluation. Dr. Esquivel has previously seen the patient this morning and has set him up for lung biopsy and bronchoscopy later today. OBJECTIVE: GENERAL: The patient appears comfortable. He was ambulating in the hallway noticed by myself and he was not having any difficulty at all. VITAL SIGNS: Temperature is 36.3. The patient's weight is 65 kilograms with a BMI of 23.8. HEENT: Pupils were reactive. Nasal cannula oxygen is in place. Mouth exam showed dry mucous membranes. NECK: Palpation of the neck reveals no lymph nodes or masses. HEART: Heart rate 93 per minute. Rhythm regular. Blood pressure 168/97. LUNGS: Auscultation of the lung zazueta reveals mild rales posteriorly bilaterally. No wheezes heard. Respiratory rate 18. Saturation earlier today on room air was 93%. EXTREMITIES: Showed no cyanosis, clubbing or edema. LABORATORY DATA: He did have an ABG done 06/14/2017 that was normal with pH 7.46, pCO2 of 34 and pO2 of 96. Electrolytes yesterday showed sodium 133, potassium 4.2, chloride 101, bicarbonate 24. BUN is 27 with creatinine 1.28. The patient had an angiotensin converting enzyme level done in May that was low with a level of 8. Rheumatoid factor was negative in May. The FERCHO screen was negative. It appears that hypersensitivity pneumonitis profile is pending. CT from 07/15/2018 showed patchy and confluent ground-glass opacifications especially in the upper lung zazueta which was a change from 05/13/2017. There is diffuse bilateral subpleural reticulation with traction bronchiectasis. NSIP was suggested. There is very mild mediastinal adenopathy seen predominantly subcarinal. IMPRESSION: 1. Bilateral lung infiltrates of undetermined etiology - rule out interstitial lung disease, rule out infection. 2. Asthma by history. COMMENTS AND RECOMMENDATIONS: As noted, the patient has already been seen by Dr. Esquivel and is scheduled for procedure later today. We will await the results of that study. From a pulmonary perspective, the patient seems stable for this procedure. Echo done yesterday showed no significant abnormalities.
[2018-07-18] MEDS ORDERED: DEXTROSE 50% 50 ML SYRINGE IV PRN (11:27)
[2018-07-18] MEDS ORDERED: GLUCAGON FOR INJ 1 MG VIAL SQ PRN (11:27)
[2018-07-18] MEDS ORDERED: GLUCOSE 10 TABS/TUBE PO PRN (11:27)
[2018-07-18] MEDS ORDERED: GLUCOSE 40% GEL 15 GM TUBE PO PRN (11:27)
[2018-07-18] MEDS ORDERED: CARBOHYDRATES FOR HYPOGLYCEMIA PO PRN (11:27)
[2018-07-18] MEDS: INSULIN ASPART 100 UNITS/ML 3 ML PEN SC SCH ×3 (12:30→22:42)
[2018-07-18] MEDS: CALCIUM 600MG + VIT D 400 IU TAB PO SCH (12:30)
--- NOTE | 2018-07-18 13:34 | Consultation Report ---
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 Miguel Gibbs and has been evaluated by Dr. Jameson Trejo. He has a history of gastroesophageal reflux disease and he is suspected of having possible ILD secondary to flecainide. He has a history of atrial fibrillation with sick sinus syndrome and was seen by Rachel Junior where he was hypoxic and admitted to the hospital on 07/15/2018. He was seen this morning on 07/18/2018 after we were consulted. He had become progressively more dyspneic and weak. He is on prednisone, but has been weaned. He is still on a significant dose. He is also on inhalers. I was asked to see him as he has infiltrates in his lungs, particularly in the upper lobes and it is felt that he is a candidate for a lung biopsy. PAST MEDICAL HISTORY: 1. Lifetime nonsmoker. 2. Gastroesophageal reflux disease. 3. Atrial fibrillation with sick sinus syndrome. 4. History of prostate cancer. 5. Allergic rhinitis. 6. Irritable bowel syndrome. 7. Carpal tunnel disease. 8. Spondylolisthesis. PAST SURGICAL HISTORY: 1. Robotic prostatectomy. 2. Bilateral rotator cuff repair. 3. Appendectomy. 4. Pacemaker insertion. MEDICATIONS: 1. Multiple inhalers. 2. Saida. 3. Fluorouracil topically. 4. Flonase. 5. Mucinex. 6. Bystolic. 7. Lisinopril. 8. Doxycycline. 9. Benadryl. 10. Zantac. 11. Propafenone. 12. Prednisone. 13. Montelukast. 14. Ketaconazole. ALLERGIES: 1. GLUTEN. 2. LATEX. 3. FISH-CONTAINING PRODUCTS. 4. IODINE. 5. SHELLFISH. 6. EGGS. 7. IODINATED DYE. 8. NICKEL. 9. NUTS. 10. MILK. SOCIAL HISTORY: The patient lives with his of many years. She is an ex-smoker. He is retired and is originally from [place]. He does not really imbibe alcohol. He is actually physically in very good shape. FAMILY MEDICAL HISTORY: His son and his daughter are healthy. He has no really significant family medical history. REVIEW OF SYSTEMS: The patient's weight has been stable. He has become a bit more fatigued. He also has some nasal congestion which is worse. He states he has hearing loss, but this has been chronic and he thinks it has been slowly progressive. He has had no night sweats. He denies palpitations or chest pain. He has had no visual changes. He does have exertional dyspnea and feels "congested." He has had no GI symptoms. He has had no symptoms. He has had no neurologic symptoms such as amaurosis fugax or monoplegia. He does have a bit more swelling in his lower extremities. Some of this may be due to his lack of physical activity. He denies any skin breakdown. PHYSICAL EXAMINATION: GENERAL: This is a 5-feet 5-inch, 145-pound male who is awake, alert and oriented. HEENT: His extraocular movements are intact. His pupils are equally round and reactive. His sclerae are anicteric. He has no nasolabial flattening. He does wear glasses. His tongue is midline. He has no oral mucosal lesions. He feels he may have thrush and he does have some mild erythema, very little on his tongue now, although on his admitting exam 48 hours ago, it apparently was worse. NECK: Supple. He has no supraclavicular or cervical lymphadenopathy. He has no neck vein distention or carotid bruits. LUNGS: He is actually moving air fairly well. I do not really hear any wheezing but he does have decreased breath sounds at the bases. HEART: He has a regular rate and rhythm of his heart. He has a well-healed pacemaker site. ABDOMEN: A bit protuberant, soft, nontender. EXTREMITIES: He does have palpable pulses and has trace edema in both lower extremities. He has no joint effusions. NEUROLOGIC: He is awake, alert and oriented. He has no skin breakdown. ASSESSMENT AND PLAN: Pulmonary infiltrates and the patient has progressive hypoxia and dyspnea. We are going to proceed with a right thoracoscopy with a wedge resection and lung biopsy later today.
[2018-07-18] MEDS ORDERED: SODIUM CHLORIDE 0.9% PF 50 ML VIAL ONE (15:28)
[2018-07-18] MEDS ORDERED: BUPIVACAINE LIPOSOME 1.3% 266 MG/20 ML VIAL ONE (15:28)
[2018-07-18] MEDS ORDERED: BUPIVACAINE 0.5 % 5 MG/1 ML MPF 30ML VIAL ONE (15:28)
[2018-07-18] MEDS ORDERED: fentaNYL citrate 100 MCG/2 ML VIAL ONE ×2 (15:36→17:05)
--- NOTE | 2018-07-18 16:02 | Anesthesiology Consultation ---
Date of Service July 18, 2018 Assessment & Plan (1) Encounter for pre-operative examination: Chart Review Chart Review: Acceptable Risk for Surgery and Patient NOT seen in Pre Admission Testing Consults Requested none ASA ASA3 Proposed Anesthesia Anesthesia Type: General Anesthesia Line Insertion: Arterial line (consented) Risk / Benefits Reviewed With: PT / POA / Parent / Guardian, Accepts Plan and Informed Consent Obtained NPO Date Last Intake of Fluids: 07/17/18 Time Last Intake of Fluids: 23:00 Date Last Intake of Solids: 07/17/18 Time Last Intake of Solids: 20:30 History Surgery Operation Date: 07/18/18 11:50 Proposed Procedures p Right Thoracoscopy with Lung Biopsy (Single Lumen Tube) - Bhavik Esquivel MD, FACS Height/Weight Height: 5 ft 5 in Weight: 65 kg Allergies Allergy/AdvReac Type Severity Reaction Status Date / Time nut - unspecified Allergy Severe Anaphylaxis Verified 07/18/18 15:37 Fish Containing Products Allergy Intermediate HANDS Verified 06/15/18 14:03 BREAK OUT gluten Allergy Intermediate GI TRACT Verified 06/15/18 14:03 UPSET latex Allergy Intermediate BLISTERS Verified 06/15/18 14:03 iodine Allergy Mild SWELLING,NA Verified 06/15/18 14:03 USEA shellfish derived Allergy Mild SEVERE Verified 06/15/18 14:03 ALLERGY--SWELLING,NAUSEA egg Allergy Unknown SEVERE Verified 06/15/18 14:03 CONGESTION Iodinated Contrast- Oral and Allergy Unknown SWELLING Verified 06/15/18 14:03 IV Dye AND NAUSEA milk Allergy Unknown SEVERE Verified 06/15/18 14:03 CONGESTION nickel Allergy Unknown ECZEMA RASH Verified 06/15/18 14:03 Medications Home Medications Medication Instructions Recorded Confirmed Last Taken albuterol sulfate [ProAir HFA] 2 puff INHALATION Q4 PRN 06/15/18 07/15/18 Unknown aspirin 81 mg PO HS 06/15/18 07/15/18 07/14/18 21:00 budesonide-formoterol [Symbicort] 2 puff INHALATION BID 06/15/18 07/15/18 Unknown calcium citrate-vitamin D3 1 tab PO DAILY 06/15/18 07/15/18 07/15/18 08:00 [Citracal Regular] epinephrine [EpiPen] 0.3 mg IM UD PRN 06/15/18 07/15/18 Unknown fexofenadine [Saida Allergy] 180 mg PO QAM 06/15/18 07/15/18 07/15/18 08:00 fluorouracil [Efudex] 1 applic TOPICAL BID PRN 06/15/18 07/15/18 Unknown fluticasone propionate [Flonase 2 spray INTRANASAL BID 06/15/18 07/15/18 Unknown Allergy Relief] guaifenesin [Mucinex] 1,200 mg PO Q12H PRN 06/15/18 07/15/18 07/15/18 08:00 ketoconazole 1 applic TOPICAL BID PRN 06/15/18 07/15/18 Unknown montelukast 10 mg PO HS 06/15/18 07/15/18 07/14/18 21:00 prednisone 30 mg PO QAM 06/15/18 07/15/18 07/15/18 08:00 propafenone 225 mg PO Q12H 06/15/18 07/15/18 07/15/18 08:00 ranitidine HCl 300 mg PO BID 06/15/18 07/15/18 07/15/18 08:00 vitamins A,C,P-lrai-hapvem 1 cap PO BID 06/15/18 07/15/18 07/15/18 08:00 [PreserVision AREDS] diphenhydramine-acetaminophen 25 mg PO HS PRN 07/15/18 07/15/18 Unknown doxycycline hyclate 100 mg PO BID 07/15/18 07/15/18 07/15/18 08:00 lisinopril 5 mg PO QAM 07/15/18 07/15/18 07/15/18 08:00 nebivolol [Bystolic] 5 mg PO HS 07/15/18 07/15/18 07/14/18 21:00 Active Medications Generic Name Dose Route Start Last Admin Trade Name Freq PRN Reason Stop Dose Admin Albuterol 3 ml 07/15/18 12:00 07/18/18 15:22 Duoneb NEB 08/14/18 11:59 Not Given QIDR AMANDA Aspirin 81 mg 07/15/18 21:00 07/16/18 21:20 Ecotrin Ectab PO 08/14/18 20:59 81 mg HS AMANDA Administration Diphenhydramine HCl 25 mg 07/15/18 18:00 07/17/18 01:32 Benadryl Capsule PO 08/14/18 17:59 25 mg HS PRN Administration Sleep Enoxaparin Sodium 40 mg 07/17/18 09:30 07/17/18 10:00 Lovenox SQ 08/16/18 09:29 40 mg Q24H AMANDA Administration Fexofenadine HCl 180 mg 07/16/18 09:00 07/18/18 07:48 Saida PO 08/15/18 08:59 180 mg QAM AMANDA Administration Fluticasone Propionate 2 sprays 07/15/18 21:00 07/18/18 07:50 Flonase NA 08/14/18 20:59 2 sprays BID AMANDA Administration Guaifenesin 1,200 mg 07/15/18 18:00 07/18/18 07:49 Mucinex PO 08/14/18 17:59 1,200 mg Q12H PRN Administration MUCUS Methylprednisolone 60 mg/ 0.96 mls @ 1.5 mls/min 07/15/18 13:00 07/18/18 13:21 Syringe IV 08/14/18 12:59 1.5 mls/min Q6H AMANDA Administration Piperacillin Sod/Tazobactam 115 mls @ 28.75 mls/hr 07/15/18 22:00 07/18/18 09:35 Sod 3.375 gm/ Dextrose IV 07/22/18 21:59 Infused Q8H AMANDA Infusion Protocol Azithromycin 500 mg/ Dextrose 255 mls @ 125 mls/hr 07/16/18 08:00 07/18/18 11:20 IV 07/23/18 07:59 Infused QD@08 AMANDA Infusion Insulin Aspart 0 units 07/18/18 11:30 07/18/18 12:30 Novolog Flexpen SC 08/17/18 11:29 Not Given ACHS AMANDA Lisinopril 5 mg 07/16/18 09:00 07/18/18 07:49 Zestril PO 08/15/18 08:59 5 mg QAM AMANDA Administration Montelukast Sodium 10 mg 07/15/18 21:00 07/17/18 20:25 Singulair PO 08/14/18 20:59 10 mg HS AMANDA Administration Multivitamins/Minerals 1 tab 07/16/18 09:00 07/18/18 12:30 Caltrate Plus PO 08/15/18 08:59 Not Given DAILY AMANDA Nebivolol 5 mg 07/15/18 21:00 07/17/18 20:24 Bystolic PO 08/14/18 20:59 5 mg HS AMANDA Administration Propafenone Er 225mg 1 ea 07/15/18 22:00 07/18/18 07:52 Non-Formulary PO 08/14/18 21:59 1 cap Patient's Own Med Q12 AMANDA Administration Probiotics: Non- 1 ea 07/17/18 19:00 07/18/18 07:51 Formulary Patient's PO 08/16/18 18:59 1 cap Own Med QAM AMANDA Administration Nystatin 10 ml 07/15/18 17:00 07/18/18 12:32 Mycostatin PO 07/25/18 16:59 Not Given QID AMANDA Ranitidine HCl 300 mg 07/15/18 21:00 07/18/18 07:48 Zantac PO 08/14/18 20:59 300 mg BID AMANDA Administration Past Medical History Medical History Asthma inhalers daily/prn Atrial fibrillation BPH (benign prostatic hyperplasia) 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 by Dr. Amador [employer] Prostate cancer 04/2012 Spondylosis Past Family History Family History Other No family history of adverse response to anesthesia Past Surgical History Surgical History History of appendectomy History of arthroscopy of left shoulder History of colonoscopy History of parotidectomy History of prostate biopsy malignant History of prostate surgery greenlight laser History of radical prostatectomy 11/2012 History of repair of right rotator cuff History of tooth extraction History of wisdom tooth extraction Status post Mohs surgery for basal cell carcinoma Social History Do You Dip or Chew Tobacco: No Hx Alcohol Use: Yes Alcohol type: wine alcohol intake frequency: holidays/special occasions only substance use type: prescription drug Substance Use Type Other:: See List of Prescribed Medications Last Used Substance Other:: Per Prescribed. Physical Exam Vital Signs Last Vital Signs Temp 36.4 C L 07/18/18 15:38 Pulse 68 07/18/18 15:38 Resp 18 07/18/18 15:38 BP 183/98 H 07/18/18 15:38 Pulse Ox 95 07/18/18 15:38 Testing Electrocardiogram Date: 07/18/18 NSR with 1st degree AV block Chest X-Ray Date: 07/17/18 XR chest 2V routine CLINICAL HISTORY: interstitial lung dis dyspnea COMPARISON STUDY: 07/15/2018 FINDINGS: Stable bilateral parenchymal and interstitial change. Permanent bipolar cardiac pacemaker in good position. Diaphragms are smooth. There is no evidence for superimposed infiltrate. IMPRESSION: Stable bilateral parenchymal and interstitial prominence. No change from the prior exam. The above report was generated using voice recognition software. It may contain grammatical, syntax or spelling errors. Echocardiogram Date: 07/17/18 EF: 65-70 LV Function: normal Other Findings: + LVH Valvular Disease: + no significant valvular disease Laboratory Results 07/15/18 12:04 07/17/18 06:16 PT 10.5 Seconds (9.0-12.0) 07/17/18 08:40 INR 1.0 (0.9-1.1) 07/17/18 08:40 07/18/18 07/18/18 15:47 12:00 POC Glucose 125 H 120 H
[2018-07-18] MEDS ORDERED: CEFAZOLIN 250 MG/ML 1 GM VIAL ONE (16:38)
[2018-07-18] MEDS ORDERED: HYDROCORTISONE SOD SUCCINATE 100 MG/2 ML VIAL ONE (16:38)
[2018-07-18] MEDS ORDERED: CEFAZOLIN 1000MG 1,000 MG/7.5 ML SYR IV ONE (16:41)
[2018-07-18] MEDS ORDERED: NEOSTIGMINE METHYLSULFATE 5 MG/5 ML SYR ONE (16:47)
[2018-07-18] MEDS ORDERED: LIDOCAINE HCL 2% 2 ML VIAL/AMP(20MG/ML) INFIL ONE (16:47)
[2018-07-18] MEDS ORDERED: ONDANSETRON INJ 2 MG/ML 2 ML VIAL ONE (16:47)
[2018-07-18] MEDS ORDERED: PROPOFOL IV EMULSION 10 MG/ML 20 ML VIAL IV ONE (16:47)
[2018-07-18] MEDS ORDERED: LARYING-O-JET KIT (LTA) ONE (16:47)
[2018-07-18] MEDS ORDERED: GLYCOPYRROLATE 0.2 MG/ML VIAL ONE (16:47)
[2018-07-18] MEDS ORDERED: ROCURONIUM BROMIDE 10 MG/ML 5 ML VIAL ONE (16:47)
[2018-07-18] MEDS ORDERED: ONDANSETRON INJ 2 MG/ML 2 ML VIAL IV PRN ×2 (17:21→19:38)
[2018-07-18] MEDS ORDERED: LABETALOL HCL IV 5 MG/ML 20ML IV PRN (17:21)
[2018-07-18] MEDS ORDERED: ePHEDrine sulfate 50 MG/ML AMP IV PRN (17:21)
[2018-07-18] MEDS ORDERED: fentaNYL citrate 100 MCG/2 ML VIAL IV PRN (17:21)
[2018-07-18] MEDS ORDERED: HYDROmorphone INJ 1 MG/ML SYRINGE IV PRN (17:21)
[2018-07-18] MEDS ORDERED: PHENYLEPHRINE 100MCG/ML 5ML SYR IV PRN (17:21)
[2018-07-18] MEDS ORDERED: MEPERIDINE HCL 25 MG/ML CARP IV PRN (17:21)
[2018-07-18] MEDS ORDERED: ATROPINE SULFATE 0.1 MG/ML 10ML SYR IV PRN (17:21)
--- NOTE | 2018-07-18 17:26 | Post Operative Brief Note ---
Immediate Post Op Note v1 Date of Surgery July 18, 2018 Pre & Post Diagnosis Operation Date: 07/18/18 11:50 Pre and post-op diagnosis: Qurstionable interstitial lung disease Procedure Operation Date: 07/18/18 11:50 Actual Procedures p Right Thoracoscopy with Lung Biopsy (Single Lumen Tube)(Right) - Bhavik Esquivel MD, FACS Surgeon Bhavik Esquivel MD, FACS Lead Software Qa Engineer Hair HAINES Estimated Blood Loss 5 Findings Consistent with Post-Op Diagnosis
--- NOTE | 2018-07-18 17:56 | XRay Report ---
XR chest 1V portable CLINICAL HISTORY: lung bx. Postoperative COMPARISON STUDY: 07/17/2018 FINDINGS: Postoperative changes right hemithorax. Right-sided chest tube in position. No significant postprocedural pneumothorax. Pleural and parenchymal changes described previously are similar. IMPRESSION: No evidence of pneumothorax post right chest tube placement/lung biopsy. The above report was generated using voice recognition software. It may contain grammatical, syntax or spelling errors. Electronically signed by: Rj Melton M.D. 07/18/2018 5:54 PM
[2018-07-18] MEDS ORDERED: HydrALAZINE HCL 20 MG/ML VIAL ONE (17:57)
--- NOTE | 2018-07-18 18:33 | Anesthesiology Progress Note ---
Date of Service July 18, 2018 Anesthesia Post Procedure Vital Signs Vital Signs: Temp Pulse Pulse Pulse Resp BP BP 07/18/18 18:25 68 17 160/89 H 07/18/18 18:15 72 20 170/90 H 07/18/18 18:05 79 13 171/108 H 07/18/18 17:55 72 26 H 159/105 H 07/18/18 17:47 36.2 C L 82 19 159/101 H 07/18/18 15:38 36.4 C L 68 18 183/98 H 189/95 H 07/18/18 15:09 36.3 C L 74 17 163/79 H 07/18/18 11:12 86 18 07/18/18 07:36 36.3 C L 93 H 18 168/97 H 07/18/18 07:13 80 16 07/18/18 03:36 847 H 22 07/18/18 00:00 36.4 C L 77 18 134/77 07/17/18 21:06 68 18 07/17/18 20:23 90 117/69 Pulse Ox 07/18/18 18:25 93 07/18/18 18:15 97 07/18/18 18:05 97 07/18/18 17:55 95 07/18/18 17:47 96 07/18/18 15:38 95 07/18/18 15:09 96 07/18/18 11:12 96 07/18/18 07:36 93 07/18/18 07:13 94 07/18/18 03:36 90 07/18/18 00:00 92 07/17/18 21:06 07/17/18 20:23 Pain Intensity Right Lateral Chest: Pain Intensity: 0 Notes Mental Status: alert / awake / arousable Patient Amnestic to Procedure: Yes Nausea / Vomiting: adequately controlled Pain: adequately controlled Airway Patency, RR, SpO2: stable & adequate BP & HR: stable & adequate Hydration State: stable & adequate Anesthetic Complications: no major complications apparent and Pt Satisfied with anesthetic care Notes: The patient is awake and comfortable. His vitals are stable.
[2018-07-18] MEDS ORDERED: HydrALAZINE HCL 20 MG/ML VIAL IV ONE (18:45)
[2018-07-18] MEDS ORDERED: METOCLOPRAMIDE HCL INJ 5 MG/ML 2 ML VIAL IV ONE (18:45)
--- NOTE | 2018-07-18 19:37 | Hospitalist Progress Note ---
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 The pt presents as a direct admission form his GPs office due to upper respiratory symptoms and progressive exertional dyspnea. It is reported that he was treated for PNM 03/22 and has not fully recovered. Imaging at the time raised suspicion of developing ILD which was attributed to Flecainide use. The pt was taken off Flecainide and placed on Propafenone and a steroid taper. He had repeat PFTs 06/21 which showed mild obstructive disease as expected and also demonstrated development of a restrictive pattern. He has been on a steroid taper and is currently taking 30mg/day. He also reports that he just returned from [place] where he was taking in the [place]. This may have contributed to his current asthma symptoms. A CXR at his GPs office demonstrated possible worsening of his disease. He denies a fever, rigors or a productive cough. He does report congestion which worsened on his trip to [place]. Exacerbation of lung disease plus atypical pneumonitis as visualized on CT of the chest. Appreciate pulmonology consult This could certainly be a standard asthma exacerbation superimposed on worsening ILD which was thought to be drug-induced. Improved overall but still hypoxic with ambulation -Continue scheduled nebs, IV steroids and 02 as needed -Currently was on prednisone 30 mg for 2 weeks as an outpatient and then is to taper down by 10 mg every 2 [id number] with pulmonary as an outpatient -Continue Zosyn and azithromycin -will d/w PULM regarding choice of oral antibiotics for discharge-question if needs coverage for Pseudomonas due to history of bronchiectasis -Follow hypertension sensitivity pneumonitis panel, other titers as ordered by pulmonary; Legionella antigen is negative -Now status post wedge resection for biopsy on 07/18 to prove/find out cause of ILD -Await pathology results (2) Asthma exacerbation: As above (3) SSS (sick sinus syndrome): Status post pacemaker placement -Has follow-up with cardiology scheduled for next week routinely (4) A-fib: Status post pacemaker placement, is in normal sinus rhythm here -Continue Bystolic, aspirin, propafenone -Unclear why he is not on anticoagulation? (5) GERD (gastroesophageal reflux disease): -Stable -Continue Zantac 300 mg twice daily (6) Hyponatremia: Sodium 130 then improved to 133 Possibly due to pulmonary process? SIADH? -Follow BMP in the morning -Consider fluid restriction if persists (7) CKD (chronic kidney disease) stage 3, GFR 30-59 ml/min: GFR baseline around 50 -Avoid nephrotoxins -Renally dose medications as needed (8) Allergic rhinitis: Continue Saida, Benadryl as needed (9) Achilles tendon injury: Stable with edema Poor healing due to chronic prednisone use Doppler of left lower extremity negative for DVT -Continue follow-up with outpatient physical therapy (10) DVT prophylaxis: Lovenox 40 mg SQ daily-hold for procedure Hold ASA for procedure Disposition-remain on medical floor Subjective Patient just returned from his wedge resection which can occur till later this evening. He is doing well. Denies shortness of breath. Has a little d iscomfort at the chest tube site. Otherwise has no complaints. Review of Systems All systems reviewed & are unremarkable except as noted in HPI & below Physical Exam Vital Signs (Past 24 Hours): Last Vital Signs Temp 36.5 C 07/18/18 18:35 Pulse 68 07/18/18 19:00 Resp 14 07/18/18 19:00 BP 151/90 H 07/18/18 19:00 Pulse Ox 100 07/18/18 19:00 Constitutional: WD/WN, vitals as above Eyes: PERRL, conjunctivae normal, anicteric sclerae ENMT: Ears: no hearing impairment Mouth: + oropharynx abnormality (diffuse white exudate on tongue and buccal mucosa) Neck: trachea midline, no thyromegaly Respiratory: normal respiratory effort Auscultation: + crackles (At right base and right middle lung field and left base); no rhonchi and no wheezes Cardiovascular: RRR, no murmur, no edema Chest (Breasts): Chest: + abnormal inspection of chest (Chest tube in place on the right side) Gastrointestinal (Abdomen): normal bowel sounds, soft, nontender, no hepatosplenomegaly Musculoskeletal: Extremities: + extremities abnormal to inspection (Left ankle with pitting edema and range of motion of ankle with dorsiflexion and plantarflexion is intact, mild tenderness over Achilles tendon insertion site), no cyanosis and no clubbing Skin: no rashes, warm and dry Neurologic: moves all extremities and awake; no focal motor deficits Psychiatric: A+Ox3, euthymic affect Results & Data Laboratory Results 07/18/18 07/18/18 07/18/18 Range/Units 22:01 17:56 15:47 POC Glucose 218 H 168 H 125 H (70-99) Urine Legionella Ag (NOT DETECTED) 07/18/18 07/15/18 Range/Units 12:00 19:00 POC Glucose 120 H (70-99) Urine Legionella Ag NOT DETECTED (NOT DETECTED)
[2018-07-18] MEDS ORDERED: OXYCODONE HCL IR 5 MG TAB (IMMEDIATE RELEASE) PO PRN (19:38)
[2018-07-18] MEDS ORDERED: SODIUM CHLORIDE 0.9% 1000ML 1,000 ML IV SCH (19:38)
[2018-07-18] MEDS: DOCUSATE SODIUM 100 MG CAP PO SCH (21:24)
[2018-07-18] MEDS: NEBIVOLOL HCL 5 MG TAB PO SCH (21:24)
[2018-07-18] MEDS: ASPIRIN 81 MG ECTAB PO SCH (21:25)
[2018-07-18] MEDS: MONTELUKAST SODIUM 10 MG TABLET PO SCH (21:26)
[2018-07-18] MEDS: ACETAMINOPHEN 1,000 MG/100 ML VIAL IV SCH (21:34)
[2018-07-19] MEDS: methylPREDNISolone 60 MG in SYRINGE 0 ML IV SCH ×3 (00:33→14:02)
--- NOTE | 2018-07-19 00:55 | Operative Report ---
DATE OF OPERATION: 07/18/2018 PREOPERATIVE DIAGNOSIS: Pulmonary infiltrates, unknown etiology. POSTOPERATIVE DIAGNOSIS: Pulmonary infiltrates, unknown etiology. PROCEDURES: Right thoracoscopy with biopsies, right upper, middle and lower lobe. SURGEON: Bhavik Esquivel MD BOILERMAKER FITTER: ZAKI Pitts (Mr. Patterson was present for the entire case). ANESTHESIA: General anesthesia with single lumen intubation. 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 He does not appear to have an acute or subacute infection. I was asked by Dr. Trejo to evaluate him and I take him for biopsy today on 07/18/2018. On 07/18/2018, the patient underwent an uncomplicated biopsy via a right thoracoscopy. I biopsied the right middle lobe, right upper lobe, and right lower lobe. Frozen section of the portion of the right middle lobe wedge resection showed definitely abnormal lung. The patient had no air leak. We did an Exparel intercostal block. He tolerated it well with negligible blood loss. DESCRIPTION OF PROCEDURE: The patient was brought to the operating room and placed in supine position. General anesthesia was induced. Endotracheal intubation was performed. After turning the patient in the left lateral decubitus position and prepping and draping him, an appropriate timeout was called and antibiotics were given. A 5-mm port was placed posterior to the scapula, another 5-mm port was placed anterior. We then placed a 12-mm port one interspace above the diaphragmatic insertion just anterior to the mid axillary line. There were no adhesions. The lung did look abnormal. We did a wedge resection of the inferior edge of the upper lobe which appeared to have the most involvement radiographically. A generous wedge resection was taken. A portion was sent for culture and another portion was sent for frozen section and a portion kept for permanent. While this was sent for frozen section, I also removed a wedge of the middle lobe and in the lower lobe in a similar fashion. We had no bleeding. We had no air leak. The 266 mg of Exparel mixed with 30 mL of 0.5% Marcaine and 250 mL of normal saline was used to inject the 3 port sites before making an incision. We then thoracoscopically did an intercostal block from the 2nd to the 11th rib. A 24-Kazakh chest tube was then placed through the 12-mm port and directed towards the apex. It was held in place with heavy silk suture. A 4-0 Monocryl was used in running subcuticular fashion to approximate the wound edges. We had no air leak at the conclusion of the case. I did review the frozen section slides with Dr. Clay Gonzales and it does appear they were abnormal; however, we will have to wait for permanent slides for sure. I attest to the content of the Intraoperative Record and any orders documented therein. Any exception s are noted below.
[2018-07-19] MEDS: METOCLOPRAMIDE HCL INJ 5 MG/ML 2 ML VIAL IV SCH ×2 (01:56→10:28)
[2018-07-19] MEDS: PIPERACILLIN/TAZOBACTAM 3.375 GM in DEXTROSE 5% 100 ML IV SCH ×2 (04:20→12:35)
[2018-07-19] MEDS: ACETAMINOPHEN 1,000 MG/100 ML VIAL IV SCH (06:18)
--- NOTE | 2018-07-19 07:13 | XRay Report ---
XR chest 1V portable CLINICAL HISTORY: lung biopsy post procedure COMPARISON STUDY: 07/18/2018 FINDINGS: Unchanged postprocedural change right hemithorax. No significant postprocedural pneumothora x. Slight increase in parenchymal markings left mid and lower lung. IMPRESSION: 1. No significant postprocedural right pneumothorax. 2. Mild increase in parenchymal prominence of the left mid to lower lung raising the possibility of d eveloping pneumonitis. The above report was generated using voice recognition software. It may contain grammatical, syntax or spelling errors. Electronically signed by: Rj Melton M.D. 07/19/2018 7:11 AM
[2018-07-19] MEDS: ALBUT/IPRATROP 3MG/0.5MG NEB 3 ML VIAL NEB SCH ×4 (07:49→19:49)
[2018-07-19 07:56] LABS: BUN Creatinine Ratio 22.5 (10-20); Calcium 7.9 mg/dl (8.5-10.1); Creatinine Clr Calc Pharmacy 43.4 ml/min; Est GFR (African American) 67.1; Est GFR (Non-African American) 57.9; Magnesium 2.4 mg/dl (1.8-2.4); Potassium 3.7 mmol/L (3.5-5.1)
[2018-07-19] MEDS: AZITHROMYCIN 500 MG in DEXTROSE 5% 250 ML IV SCH (08:14)
--- NOTE | 2018-07-19 08:42 | XRay Report ---
XR chest 1V portable CLINICAL HISTORY: tube removal COMPARISON STUDY: 07/19/2018 FINDINGS: Interval removal of the right-sided chest tube. No postprocedural pneumothorax. Prominent l eft mid and lower lung markings persist. IMPRESSION: 1. Interval removal of right-sided chest tube. 2. No pneumothorax. 3. Stable parenchymal infiltrative change left mid and lower lung region. The above report was generated using voice recognition software. It may contain grammatical, syntax or spelling errors. Electronically signed by: Rj Melton M.D. 07/19/2018 8:41 AM
[2018-07-19] MEDS: CALCIUM 600MG + VIT D 400 IU TAB PO SCH (09:56)
[2018-07-19] MEDS: FEXOFENADINE HCL 180 MG TAB PO SCH (09:57)
[2018-07-19] MEDS: DOCUSATE SODIUM 100 MG CAP PO SCH ×2 (09:57→21:18)
[2018-07-19] MEDS: FLUTICASONE PROPIONATE NA SPR 16 GM BTL SCH ×2 (09:57→21:17)
[2018-07-19] MEDS: NYSTATIN SUSP 500,000 U/5 ML UDC PO SCH ×4 (09:58→21:18)
[2018-07-19] MEDS: PROBIOTICS PO SCH (09:58)
[2018-07-19] MEDS: PROPAFENONE 225 MG PO SCH ×2 (09:59→21:19)
[2018-07-19] MEDS: LISINOPRIL 5 MG TAB PO SCH (10:01)
[2018-07-19] MEDS: INSULIN ASPART 100 UNITS/ML 3 ML PEN SC SCH ×4 (10:23→21:21)
[2018-07-19] MEDS: ENOXAPARIN INJ 40 MG/0.4 ML SYR SQ SCH (10:33)
[2018-07-19] MEDS: ACETAMINOPHEN 325 MG TAB PO SCH ×2 (14:03→21:16)
--- NOTE | 2018-07-19 15:15 | Progress Note ---
DATE: 07/19/2018 PULMONARY PROGRESS NOTE TIME: 10:45 a.m. SUBJECTIVE: The patient feels well. Yesterday, he underwent a right thoracoscopy and bronchoscopy. He tolerated the procedure well. He denies shortness of breath. He ambulated around the hallway twice, he states. Afterward, he checked his pulse oximetry and found it to be 90% approximately 1 minute after stopping. He had been 94% at rest. He is not having any significant cough, sputum production, or hemoptysis. OBJECTIVE: GENERAL: The patient appears well. He was in no distress. VITAL SIGNS: Temperature is 36.6. He had no fevers yesterday or today. HEART: Heart rate 68 per minute. Rhythm regular. Blood pressure 131/68. LUNGS: Lung zazueta reveals rales bilaterally posteriorly. Respiratory rate 18, saturation 94% on room air. EXTREMITIES: Showed no cyanosis, clubbing, or edema. LABORATORY DATA: Gram stain from bronchoscopy showed no organisms and few WBCs. AFB smear is still pending. Biopsy of course is still pending. Electrolytes today show sodium 135, potassium 3.7, chloride 103, bicarbonate 27. BUN is 27 with creatinine 1.18. Blood sugar was 141. IMPRESSION: 1. Bilateral lung infiltrates -- uncertain etiology. 2. Interstitial lung disease. 3. Asthma by history. COMMENTS: The patient seems to be doing well. I believe the methylprednisolone can be changed to prednisone at 40 mg daily. I believe the Zosyn could be changed to Augmentin. The patient seems stable from a pulmonary perspective. After discharge, he should be instructed to follow up with Dr. Gibbs who is his regular vocational nurse.
--- NOTE | 2018-07-19 15:53 | Hospitalist Progress Note ---
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 The pt presents as a direct admission form his GPs office due to upper respiratory symptoms and progressive exertional dyspnea. It is reported that he was treated for PNM 03/22 and has not fully recovered. Imaging at the time raised suspicion of developing ILD which was attributed to Flecainide use. The pt was taken off Flecainide and placed on Propafenone and a steroid taper. He had repeat PFTs 06/21 which showed mild obstructive disease as expected and also demonstrated development of a restrictive pattern. He has been on a steroid taper and is currently taking 30mg/day. He also reports that he just returned from [place] where he was taking in the [place]. This may have contributed to his current asthma symptoms. A CXR at his GPs office demonstrated possible worsening of his disease. He denies a fever, rigors or a productive cough. He does report congestion which worsened on his trip to [place]. Exacerbation of lung disease plus atypical pneumonitis as visualized on CT of the chest. Appreciate pulmonology consult This could certainly be a standard asthma exacerbation superimposed on worsening ILD which was thought to be drug-induced. Improved overall and no longer significantly hypoxic with ambulation -Continue scheduled nebs -dc IV steroids, convert to po prednisone 40mg daily tomorrow and then usual home taper -Currently was on prednisone 30 mg for 2 weeks as an outpatient and then is to taper down by 10 mg every 2 [id number] with pulmonary as an outpatient -Continue abdx but will switch to Augmentin and azithro po-finish out 5 days of azithro and 7 of Zosyn/Augmentin -f/u BAL but gram stain negative so far -Follow hypertension sensitivity pneumonitis panel, other titers as ordered by pulmonary; Legionella antigen is negative -Now status post wedge resection for biopsy -had wedge of all right sided lobes on 07/18 to prove/find out cause of ILD -s/p bronchoscopy at same as wedge resection -Await pathology results (2) Asthma exacerbation: As above (3) SSS (sick sinus syndrome): Status post pacemaker placement -Has follow-up with cardiology scheduled for next week routinely (4) A-fib: Status post pacemaker placement, is in normal sinus rhythm here -Continue Bystolic, aspirin, propafenone -Unclear why he is not on anticoagulation? (5) GERD (gastroesophageal reflux disease): -Stable -Continue Zantac 300 mg twice daily (6) Hyponatremia: Sodium 130 then improved to 135 Likely due to pulmonary process- SIADH, now resolved -Follow BMP in the morning (7) CKD (chronic kidney disease) stage 3, GFR 30-59 ml/min: GFR baseline around 50 -Avoid nephrotoxins -Renally dose medications as needed (8) Allergic rhinitis: Continue Saida, Benadryl as needed (9) Achilles tendon injury: Stable with edema improved now Poor healing due to chronic prednisone use Doppler of left lower extremity negative for DVT -Continue follow-up with outpatient physical therapy (10) DVT prophylaxis: Lovenox 40 mg SQ daily can restart ASA Disposition-remain on medical floor, possible dc to home tomorrow Subjective Feeling better today. Chest tube removed this AM. Feels less SOB. Walked the halls a few times and POx was 91% immediately afterwards which pleases him. Only had a small amount of soft stool this AM, no more diarrhea I discussed the case with Thoracic Surgery Review of Systems All systems reviewed & are unremarkable except as noted in HPI & below Physical Exam Vital Signs (Past 24 Hours): Last Vital Signs Temp 36.3 C L 07/19/18 15:38 Pulse 63 07/19/18 15:38 Resp 16 07/19/18 15:38 BP 168/84 H 07/19/18 15:38 Pulse Ox 99 07/19/18 15:38 Constitutional: WD/WN, vitals as above ENMT: Ears: no hearing impairment Mouth: + oropharynx abnormality (diffuse white exudate on tongue and buccal mucosa) Neck: trachea midline, no thyromegaly Respiratory: normal respiratory effort Auscultation: + crackles (fine at bases bilat); no rhonchi and no wheezes Cardiovascular: RRR, no murmur, no edema Gastrointestinal (Abdomen): normal bowel sounds, soft, nontender, no hepatospl enomegaly Musculoskeletal: Extremities: no cyanosis and no clubbing Skin: no rashes, warm and dry Neurologic: moves all extremities and awake; no focal motor deficits Psychiatric: A+Ox3, euthymic affect Results & Data Laboratory Results 07/19/18 07/19/18 07/19/18 Range/Units Unknown 11:45 08:17 Sodium (136-145) mmol/L Potassium (3.5-5.1) mmol/L Chloride (98-107) mmol/L Carbon Dioxide (21-32) mmol/L Anion Gap (3-11) BUN (7-18) mg/dl Creatinine (0.6-1.4) mg/dl Est Cr Clr Drug Dosing ml/min Est GFR ( Amer) Est GFR (Non-Af Amer) BUN/Creatinine Ratio (10-20) Glucose (70-99) mg/dl POC Glucose 202 H 141 H (70-99) Calcium (8.5-10.1) mg/dl Magnesium (1.8-2.4) mg/dl Stl C. diff Tox B Gene TNP 07/19/18 07/18/18 07/18/18 Range/Units 07:09 22:01 17:56 Sodium 135 L (136-145) mmol/L Potassium 3.7 (3.5-5.1) mmol/L Chloride 103 (98-107) mmol/L Carbon Dioxide 27 (21-32) mmol/L Anion Gap 5.0 (3-11) BUN 27 H (7-18) mg/dl Creatinine 1.18 (0.6-1.4) mg/dl Est Cr Clr Drug Dosing 43.4 ml/min Est GFR ( Amer) 67.1 Est GFR (Non-Af Amer) 57.9 BUN/Creatinine Ratio 22.5 H (10-20) Glucose 112 H (70-99) mg/dl POC Glucose 218 H 168 H (70-99) Calcium 7.9 L (8.5-10.1) mg/dl Magnesium 2.4 (1.8-2.4) mg/dl Stl C. diff Tox B Gene Diagnostic Findings CXRs x 2 reviewed personally and agree with the following reports: XR chest 1V portable CLINICAL HISTORY: lung biopsy post procedure COMPARISON STUDY: 07/18/2018 FINDINGS: Unchanged postprocedural change right hemithorax. No significant pos tprocedural pneumothorax. Slight increase in parenchymal markings left mid and lower lung. IMPRESSION: 1. No significant postprocedural right pneumothorax. 2. Mild increase in parenchymal prominence of the left mid to lower lung raising the possibility of developing pneumonitis. XR chest 1V portable CLINICAL HISTORY: tube removal COMPARISON STUDY: 07/19/2018 FINDINGS: Interval removal of the right-sided chest tube. No postprocedural pneumothorax. Prominent left mid and lower lung markings persist. IMPRESSION: 1. Interval removal of right-sided chest tube. 2. No pneumothorax. 3. Stable parenchymal infiltrative change left mid and lower lung region.
[2018-07-19] MEDS: AMOXICILLIN/CLAVULANATE 875 MG TAB PO SCH (18:44)
[2018-07-19] MEDS: ASPIRIN 81 MG ECTAB PO SCH (21:17)
[2018-07-19] MEDS: NEBIVOLOL HCL 5 MG TAB PO SCH (21:17)
[2018-07-19] MEDS: MONTELUKAST SODIUM 10 MG TABLET PO SCH (21:19)
--- NOTE | 2018-07-20 01:12 | Operative Report ---
DATE OF OPERATION: 07/18/2018 PROCEDURE: Fiberoptic bronchoscopy with bronchoalveolar lavage. SURGEON: Bhavik Esquivel MD SPRING FORMER HAND: None. ANESTHESIA: General anesthesia with endotracheal intubation. INDICATION FOR PROCEDURE AND FINDINGS: The patient has been intubated in preparation for his lung biopsy. DESCRIPTION OF PROCEDURE: I used a flexible fiberoptic bronchoscope from anesthesia and went in through an adapter. Going down into the airway, it could be seen that ET tube was about 3 cm above the bifurcation as necessary. I then first went into the left bronchial tree and saw some scant amount of yellow sputum. I then closely inspected the lingula and left upper lobe bronchus as well as the superior segment of the lower lobe bronchus as well as the basilar segments. I saw no endobronchial lesions and the airways themselves did not appear to be inflamed. Coming back, I then went into the right side and again did not see any abnormalities. The eric were sharp. Going into the upper lobe, I saw no evidence of any endobronchial lesions. The same could be said for the middle lobe and the basilar segments. Using sterile saline, I then irrigated out first the right mainstem bronchus and then the left. There was a scant amount of yellow sputum in each but this irrigated out quite quickly and we saw no further mucus. This was suctioned in a trap and sent for cytology and microbiology. We then readied ourselves for his biopsy. I attest to the content of the Intraoperative Record and any orders documented therein. Any exception s are noted below.
[2018-07-20] MEDS: ACETAMINOPHEN 325 MG TAB PO SCH ×3 (02:13→13:27)
[2018-07-20 05:46] LABS: Hematocrit (blood only) 30.8 % (42-52); Hemoglobin 10.6 g/dL (14.0-18.0); Mean Corpuscular Hgb Conc 34.4 g/dL (32-36); Mean Platelet Volume 8.2 fL (7.4-10.4); Platelet Count 203 K/uL (130-400); RDW Coefficient of Variation 13.2 % (11.5-14.5); RDW Standard Deviation 49.6 fL (36.4-46.3); Red Blood Count 2.99 M/uL (4.7-6.1); White Blood Count 11.25 K/uL (4.8-10.8)
[2018-07-20] MEDS: ALBUT/IPRATROP 3MG/0.5MG NEB 3 ML VIAL NEB SCH ×3 (08:08→14:54)
[2018-07-20] MEDS ORDERED: AZITHROMYCIN 250 MG TAB PO SCH (09:00)
[2018-07-20] MEDS ORDERED: predniSONE 20 MG TAB PO SCH (09:00)
[2018-07-20] MEDS: AMOXICILLIN/CLAVULANATE 875 MG TAB PO SCH (09:03)
[2018-07-20] MEDS: FEXOFENADINE HCL 180 MG TAB PO SCH (09:04)
[2018-07-20] MEDS: DOCUSATE SODIUM 100 MG CAP PO SCH (09:06)
[2018-07-20] MEDS: CALCIUM 600MG + VIT D 400 IU TAB PO SCH (09:06)
[2018-07-20] MEDS: FLUTICASONE PROPIONATE NA SPR 16 GM BTL SCH (09:06)
[2018-07-20] MEDS: PROBIOTICS PO SCH (09:07)
[2018-07-20] MEDS: PROPAFENONE 225 MG PO SCH (09:07)
[2018-07-20] MEDS: LISINOPRIL 5 MG TAB PO SCH (09:08)
[2018-07-20] MEDS: ENOXAPARIN INJ 40 MG/0.4 ML SYR SQ SCH (09:09)
[2018-07-20] MEDS: NYSTATIN SUSP 500,000 U/5 ML UDC PO SCH ×2 (09:10→13:27)
[2018-07-20] MEDS: INSULIN ASPART 100 UNITS/ML 3 ML PEN SC SCH ×2 (09:12→12:02)
--- NOTE | 2018-07-20 13:25 | Surgery Progress Note ---
Date of Service July 20, 2018 Assessment & Plan (1) Interstitial lung disease: Await pathology Present on Admission?: Yes Subjective Mr. Hope does drop his saturations when he walks. He denies pain in his chest. His x-ray looks fine. He sounds good on auscultation. Denies a productive cough. Physical Exam Physical Exam: He is in good spirits. His dressings were dry. He is moving air well. Results & Data Vital Signs (Past 12 Hours) Vital Signs Temp Pulse Pulse Pulse Pulse Pulse Pulse 07/20/18 12:00 36.5 C 66 07/20/18 11:44 79 77 07/20/18 11:43 82 07/20/18 08:42 55 L 07/20/18 08:27 36.4 C L 62 07/20/18 08:08 73 07/20/18 07:30 36.3 C L 74 07/20/18 04:13 07/20/18 02:17 75 Resp Resp Resp Resp BP BP Pulse Ox 07/20/18 12:00 20 158/60 H 96 07/20/18 11:44 18 77 H 18 07/20/18 11:43 18 92 07/20/18 08:42 07/20/18 08:27 20 160/78 H 95 07/20/18 08:08 16 95 07/20/18 07:30 18 172/83 H 94 07/20/18 04:13 07/20/18 02:17 178/89 H Pulse Ox Pulse Ox Pulse Ox Pulse Ox 07/20/18 12:00 07/20/18 11:44 95 92 93 07/20/18 11:43 07/20/18 08:42 07/20/18 08:27 07/20/18 08:08 07/20/18 07:30 07/20/18 04:13 94 07/20/18 02:17
--- NOTE | 2018-07-20 16:26 | Discharge Summary ---
Date of Service July 20, 2018 Admission HPI Per Admitting Provider 78 y/o M Hx asthma, AF, SSS - pacer, GERD, suspected 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 The pt presents as a direct admission form his GPs office due to upper respiratory symptoms and progressive exertional dyspnea. It is reported that he was treated for PNM 03/22 and has not fully recovered. Imaging at the time raised suspicion of developing ILD which was attributed to Flecainide use. The pt was taken off Flecainide and placed on Propafenone and a steroid taper. He had repeat PFTs 06/21 which showed mild obstructive disease as expected and also demonstrated development of a restrictive pattern. He has been on a steroid taper and is currently taking 40mg/day. He also reports that he just returned from [place] where he was taking in the [employer]. This may have contributed to his current asthma symptoms. A CXR at his GPs office demonstrated possible worsening of his disease. He denies a fever, rigors or a productive cough. He does report congestion which worsened on his trip to [place]. As a separate issue, the pt has chronic LLE diatal edema due o an ankle injury. This has worsened over the past few days. 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 Enjoys a glass of wine with dinner. retired clinical psychiatrist. Reports long-term, second-hand smoke exposure Family: Mother due to lung CA Father due to multiple CVAs, CAD Principal Diagnosis Acute asthma exacerbation, suspected interstitial lung disease, atypical pneumonitis Discharge Exam Constitutional WD/WN, vitals as above Eyes PERRL, conjunctivae normal, anicteric sclerae ENMT external ear and nose normal, oropharynx normal Ears: no hearing impairment Mouth: no oropharynx abnormality Neck trachea midline, no thyromegaly Respiratory normal respiratory effort Auscultation: + crackles (fine at bases bilat); no rhonchi and no wheezes Cardiovascular RRR, no murmur, no edema Chest (Breasts) Chest: + abnormal inspection of chest (Chest tube site with dressing in palce right chest) Gastrointestinal (Abdomen) normal bowel sounds, soft, nontender, no hepatosplenomegaly Musculoskeletal Extremities: no cyanosis and no clubbing Skin no rashes, warm and dry Neurologic moves all extremities and awake; no focal motor deficits Psychiatric A+Ox3, euthymic affect Discharge Data Allergies Allergy/AdvReac Type Severity Reaction Status Date / Time nut - unspecified Allergy Severe Anaphylaxis Verified 07/18/18 15:37 Fish Containing Products Allergy Intermediate HANDS Verified 06/15/18 14:03 BREAK OUT gluten Allergy Intermediate GI TRACT Verified 06/15/18 14:03 UPSET latex Allergy Intermediate BLISTERS Verified 06/15/18 14:03 iodine Allergy Mild SWELLING,NA Verified 06/15/18 14:03 USEA shellfish derived Allergy Mild SEVERE Verified 06/15/18 14:03 ALLERGY--SWELLING,NAUSEA egg Allergy Unknown SEVERE Verified 06/15/18 14:03 CONGESTION Iodinated Contrast- Oral and Allergy Unknown SWELLING Verified 06/15/18 14:03 IV Dye AND NAUSEA milk Allergy Unknown SEVERE Verified 06/15/18 14:03 CONGESTION nickel Allergy Unknown ECZEMA RASH Verified 06/15/18 14:03 Consultations 07/15/18 11:27 Consult Pulmonology Routine 07/17/18 10:14 Consult Thoracic Surgery Routine Procedures Performed Operation Date: 07/18/18 11:50 Actual Procedures p Right Thoracoscopy with Lung Biopsy (Single Lumen Tube) & Flexible Bronchoscopy(Right) - Bhavik Esquivel MD, FACS Ordered Studies 07/15/18 11:27 US venous doppler LE LT Routine 07/15/18 12:39 CT chest wo con Urgent CXRs Hospital Course (1) Interstitial lung disease: Pt is an 78 y/o M Hx asthma, AF, SSS - pacer, GERD, suspected 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 The pt presents as a direct admission form his GPs office due to upper respiratory symptoms and progressive exertional dyspnea. It is reported that he was treated for PNM 03/22 and has not fully recovered. Imaging at the time raised suspicion of developing ILD which was attributed to Flecainide use. The pt was taken off Flecainide and placed on Propafenone and a steroid taper. He had repeat PFTs 06/21 which showed mild obstructive disease as expected and also demonstrated development of a restrictive pattern. He has been on a steroid taper and is currently taking 30mg/day. He also reports that he just returned from [place] where he was taking in the [place]. This may have contributed to his current asthma symptoms. A CXR at his GPs office demonstrated possible worsening of his disease. He denies a fever, rigors or a productive cough. He does report congestion which worsened on his trip to [place]. Exacerbation of lung disease plus atypical pneumonitis as visualized on CT of the chest. Appreciate pulmonology consult This could certainly be a standard asthma exacerbation superimposed on worsening ILD which was thought to be drug-induced. Improved overall and no longer significantly hypoxic with ambulation -bronchodilators were provided in a nebulized fashion -received IV steroids, then converted to po prednisone 40mg daily on discharge, and then usual home taper as per Dr. 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 Defer to Cardiology (5) GERD (gastroesophageal reflux disease): -Stable -Continue Zantac 300 mg twice daily (6) Hyponatremia: Sodium 130 then improved to 135 Likely due to pulmonary process- SIADH, now resolved (7) CKD (chronic kidney disease) stage 3, GFR 30-59 ml/min: GFR baseline around 50 -Avoid nephrotoxins -Renally dose medications as needed (8) Allergic rhinitis: Continue Saida, Benadryl as needed (9) Achilles tendon injury: Stable with edema improved now Poor healing due to chronic prednisone use Doppler of left lower extremity negative for DVT -Continue follow-up with outpatient physical therapy (10) DVT prophylaxis: Lovenox 40 mg SQ daily was provided Disposition-stable for dc to home Total Time Total Time Spent Total Time Spent (In Minutes): >30 min Total Time Includes: Examination of the Patient, Discharge Planning and Medication Reconciliation Discharge Plan Discharge Items Patient Disposition: Home - Self-Care Reason For Visit: PNX,POSSIBLE PE Discharge Diagnosis: Atypical pneumonitis, asthma exacerbation Condition: Good Discharge Goals: Diagnostic testing, Improve function and Learn about illness Activity: As commented below Lifting: Gradually increase as tolerated Bathing: May shower/bathe in 3 days Non-emergency contact: Primary Care Provider, Surgeon and Rope Tow Operator Call non-emergency contact if: you have any medication questions, your symptoms worsen, your temperature is above 100.5, your wound has increased redness, your wound has increased drainage and your wound pain has increased Follow-up/Referrals: Mario Alberto Amador MD [Physician] - 07/28/18 10:00 am (Please, follow up with Dr. Amador on July 28 at 10:00 am. *If you need to change this appointment, call the office at [phone].) Miguel Gibbs MD [Primary Care Provider] - 07/28/18 9:30 am (Please, follow up at Dr. Gibbs's office with his floral assistant, Rachel Junior PA-C, on July 28 at 9:30 am. *If you need to change this appointment, call their office at [phone].) Bhavik Esquivel MD, FACS [Surgeon] - (Please, follow up with Dr. Esquivel. *A nurse from this office will call you with appointment information. The office is located at [address] [place] [address] in [place]. If you have any questions, call the office at [phone].) Addtl Provider Instructions: You were admitted for an exacerbation of your asthma and chronic lung disease. You were treated with antibiotics and IV steroids with improvement. There were some areas on CT of your chest that showed an atypical pneumonitis appearance . This was treated with antibiotics and you had a biopsy of your lung. You will need repeat imaging as per your Rope Tow Operator, and follow up with Dr. Esquivel within 1 week. Please finish out the course of antibiotics as prescribed, and stay on prednisone 40mg daily until seen by Dr. Gibbs. You can remove your dressing from the wound and shower on 07/23/18. After that, you do not need any further dressings. Prescriptions: New amoxicillin-pot clavulanate 875-125 mg Tablet 1 tab PO BIDM Qty: 4 RF: 0 prednisone 20 mg Tablet 40 mg PO QAM Qty: 30 RF: 0 Continued fluorouracil [Efudex] 5 % Cream 1 applic TOPICAL BID PRN (Reason: Rash) RF: 0 fexofenadine [Saida Allergy] 180 mg Tablet 180 mg PO QAM RF: 0 aspirin 81 mg Tablet,Delayed Release (Dr/Ec) 81 mg PO HS RF: 0 ranitidine HCl 300 mg Capsule 300 mg PO BID RF: 0 montelukast 10 mg Tablet 10 mg PO HS RF: 0 epinephrine [EpiPen] 0.3 mg/0.3 mL Auto-Injector 0.3 mg IM UD PRN (Reason: Allergic Reaction) RF: 0 albuterol sulfate [ProAir HFA] 90 mcg/actuation Hfa Aerosol Inhaler 2 puff INHALATION Q4 PRN (Reason: Shortness Of Breath) RF: 0 ketoconazole 2 % Cream 1 applic TOPICAL BID PRN (Reason: Rash) RF: 0 fluticasone propionate [Flonase Allergy Relief] 50 mcg/actuation [place],Suspension 2 spray INTRANASAL BID RF: 0 propafenone 225 mg Capsule,Extended Release 12 Hr 225 mg PO Q12H RF: 0 calcium citrate-vitamin D3 [Citracal Regular] 250 mg calcium- 200 unit Tablet 1 tab PO DAILY RF: 0 PreserVision AREDS 14,320-226-200 qlms-sy-phcd Capsule 1 cap PO BID RF: 0 Symbicort 160-4.5 mcg/actuation Hfa Aerosol Inhaler 2 puff INHALATION BID RF: 0 guaifenesin [Mucinex] 600 mg Tablet Extended Release 12hr 1,200 mg PO Q12H PRN (Reason: Cold Symptoms) RF: 0 lisinopril 5 mg tablet 5 mg PO QAM RF: 0 diphenhydramine-acetaminophen 25-500 mg Tablet 25 mg PO HS PRN (Reason: Sleep) RF: 0 Bystolic 5 mg Tablet 5 mg PO HS RF: 0 Discontinued doxycycline hyclate 100 mg capsule 100 mg PO BID RF: 0 Stand-Alone Forms: [facility] [address]/Other Patient Handouts: Breathing Deep Postsurgical, Spirometer Incentive Discharge Orders: Discharge Order (Routine); Ordered 07/20/18 Ordered By: Luana Horn Admission Data Admit Date/Time: 07/15/18 11:07 Attending Provider: Luana Horn Admit Provider: Usama Cheung Primary Care Provider: Miguel Gibbs Other Providers: Bhavik Sepulveda ; Bhavik Esquivel Service: Surgical Services Other Interventions: Discharge Summary Assessment (RN) Last Done: 07/20/18 16:26 Pending Studies at Discharge: Yes Studies:: Final Cultures DC Date/Time DO NOT enter until pt leaves facility: 07/20/18 17:51
--- NOTE | 2018-07-20 17:53 | Progress Note ---
DATE: 07/20/2018 TIME: 4:50 p.m. SUBJECTIVE: The patient is feeling well. He has no complaints on this date. He is tentative for discharge. OBJECTIVE: GENERAL: The patient is comfortable at rest. VITAL SIGNS: Temperature 36.5. Heart rate 82 per minute. Rhythm regular. Blood pressure 158/60. LUNGS: Respiratory rate 20 per minute. Lung zazueta clear. Saturation 92% on room air. The pathology report from the lung biopsy is back. I discussed this with the patient and his family. They indicated that Dr. Horn had also spoken with them about this, but they had several questions. The biopsy reports interstitial fibrosis that is relatively mild to absent. There was no organism seen on any of the stains. The path report did report areas of organizing pneumonia with fibroblastic plugs. The etiology of the pneumonia of course is unclear. The pattern was described as nonspecific. It was apparently not clear if this finding could be drug related or not. It is unknown if interpretation of the biopsy is affected by the patient being on steroids for several weeks. He will follow up with Dr. Gibbs soon after discharge.
[2018-07-21 14:28] LABS: Aspergillus Ag Index 0.06 (<0.50); Aspergillus Antigen, Serum Not Detected (Not Detected); Aspergillus Flavus Negative (Negative); Aspergillus Niger Negative (Negative); Immunoglobulin IgE 225 KU/L (<115); Legionella pneumoph IgM, IFA <1:256 TITER; Mycoplasma pneumoniae Ab, IgG 2.43 (<=0.90); Mycoplasma pneumoniae Ab, IgM 318 U/mL (<770)
[2018-07-23 09:48] LABS: Saccharopolyspora rectivir Ab Not detected (Not detected)
--- OUTSIDE RECORDS SUMMARY | 2018-08-01 13:57 | External Medical Summary | Continuity of Care Document ---
:1940 Author Name Matt Jordan Address Unavailable Unavailable , Care Team Providers Name Role Phone Analy Garcia PA-C Unavailable [email or web address] Ren Gibbs M.D. Unavailable [email or web address] Junior PA-C Unavailable [email or web address] Yamilet Amador M.D. 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) Gout (274.9) (M10.9) Tinnitus (388.30) (H93.19) Hammer toe of second toe of right foot (735.4) (M20.41) Palpitations (785.1) (R00.2) Malignant neoplasm of prostate (185) (C61) Dizziness (780.4) (R42) Tubular adenoma of colon (211.3) (D12.6) Sensorineural hearing loss (SNHL) (389.10) (H90.5) Hypertension (401.9) (I10) Dyslipidemia (272.4) (E78.5) Achilles tendinosis (726.71) (M76.60) Knee pain (719.46) (M25.569) Sinus bradycardia (427.89) (R00.1) Insomnia (780.52) (G47.00) Painful hand (729.5) (M79.643) Allergic drug reaction (995.27) (T78.40XA) Asthma (493.90) (J45.909) Acute bronchitis, unspecified organism (466.0) (J20.9) Laryngopharyngeal reflux (478.79) (K21.9) Hoarseness, chronic (784.42) (R49.0) Allergic rhinitis (477.9) (J30.9) Pulmonary infiltrates (793.19) (R91.8) Mouth ulcer (528.9) (K12.1) Carpal tunnel syndrome (354.0) (G56.00) Sciatica (724.3) (M54.30) Generalized osteoarthritis of unspecified site (715.00) (M15 .9) Diverticulosis (562.10) (K57.90) Spondylolisthesis, acquired (738.4) (M43.10) Nocturia (788.43) (R35.1) Arthritis (716.90) (M19.90) Bronchitis (490) (J40) Interstitial lung disease (515) (J84.9) Presence of cardiac pacemaker (V45.01) (Z95.0) Edema of both legs (782.3) (R60.0) Pneumonia (486) (J18.9) Shortness of breath (786.05) (R06.02) Asthma with acute exacerbation (493.92) (J45.901) Paroxysmal atrial fibrillation (427.31) (I48.0) Allergies and Adverse Reactions Iodinated Contrast Media (Allergy) Latex Gloves MISC (Allergy) Reaction: Hi ves Dairy (Allergy) Eggs (Allergy) Gluten (Allergy) Nuts (Allergy) Seafood (Allergy) Wheat (Allergy) Medications Saida 180 MG TABS; TAKE 1 TABLET DAILY. Refills: 0 EPINEPHrine 0.3 MG/0.3ML Injection TriQ Systemsut ion Auto-injector; INJECT 1 EPIPEN PER INSTRUCTIONS NEEDED. REPEAT IN 15 TO 30 MINUTES NEEDED. ALTHEA Junior Quantity: 2 Refills: 1 Fluticasone Propionate 50 MCG/ACT Nasal Suspension; SPRAY 2 SPRAYS INTO EACH NOSTRIL ONE TIME DAILY Julian Gibbs Start: 13-Dec-2017 Quantity: 1 15.8 ML Bottle Refills: 11 Montelukast Sodium 10 MG Oral Tablet; TAKE 1 TABLET BY MOUTH EVERY DAY Julian Gibbs Start: 02-May-2018 Quantity: 90 Refills: 3 raNITIdine HCl - 300 MG Oral Tablet; take 1 tablet by mouth every 12 hours Julian Gibbs Start: 09-Sep-2017 Quantity: 180 Refills: 3 Aspirin 81 MG TABS; TAKE 1 TABLET DAILY. Refills: 0 PreserVision AREDS Oral Capsule; TAKE 1 CAPSULE TWICE DAILY. Refills: 0 Citracal TABS; TAKE 1 TABLET DAILY. Refills: 0 Benadryl TABS; TAKE 1 TABLET AT BEDTIME. Refills: 0 Mucinex 600 MG Oral Tablet Extended Rele ase 12 Hour; TAKE 2 TABLETS TWICE DAILY NEEDED. Refills: 0 Probiotic Oral Capsule; USE DIRECTED. Start: 31-Jan-2018 Refills: 0 Symbicort 160-4.5 MCG/ACT Inhalation Aer osol; INHALE 2 PUFFS TWICE DAILY. RINSE MOUTH AFTER USE. Julian Gibbs Start: 06-May-2018 Quantity: 1 10.2 GM Inhaler Refills: 11 predniSONE 20 MG Oral Tablet; TAKE 2 TABLET Daily OLGA Junior Start: 19-May-2018 Quantity: 120 Refills: 0 Propafenone HCl ER 225 MG Oral Capsule E xtended Release 12 Hour; TAKE 1 CAPSULE EVERY 12 HOURS. Julian Amador Start: 30-May-2018 Quantity: 180 Refills: 3 dilTIAZem HCl ER Coated Beads 180 MG Ora l Capsule Extended Release 24 Hour; TAKE 1 CAPSULE Daily Julian Amador Start: 30-May-2018 Quantity: 30 Refills: 11 LORazepam 0.5 MG Oral Tablet; TAKE 1 TO 2 TABLETS BY MOUTH ONCE DAILY AT BEDTIME NEEDED ALTHEA Garcia Start: 02-Jun-2018 Quantity: 30 Refills: 1 Lisinopril 5 MG Oral Tablet; TAKE 1 TABLET DAILY. Julian Amador Start: 29-Jun-2018 Quantity: 90 Refills: 3 Bystolic 5 MG Oral Tablet; 1 QD Julian Amador art: 29-Jun-2018 Quantity: 90 Refills: 3 Albuterol Sulfate HFA 108 (90 Base) MCG/ ACT Inhalation Aerosol Solution; USE 2 PUFFS EVERY 4 HOURS NEEDED Julian Gibbs Start: 30-Jun-2018 Quantity: 51 Refills: 0 Albuterol Sulfate (2.5 MG/3ML) 0.083% In halation Nebulization Solution; USE 1 UNIT DOSE IN NEBULIZER EVERY 4 TO 6 HOURS NEEDED. ALTHEA Junior tart: 07-Jul-2018 Quantity: 1 60 x 3 ML Plas Cont Refills: 3 Procedures Spirometry- Pre&Post, Lung Vol/CO (60mins) Date: 29-Jun-2018 In-House EKG (Epiphany) Total Component Date: 28-Jul-2018 History of Complete Colonoscopy Status: Completed History of Rotator Cuff Repair Status: C ompleted History of Surgery Excision Of Parotid S tatus: Completed Tumor/Gland History of Surg Prostate Transureth Dest Tissue Status: Completed Microwave Thermotherapy History of Appendectomy Status: Complete d History of Prostate Surgery Status: Comp leted History of Laser Vaporization With Transurethral Status: Completed Resection Of Prostate History of Pacemaker Placement Status: C ompleted History of lung biopsy Status: Completed Immunizations Zoster (Zostavax) On: 2009 Fluzone INJ On: 04-Mar-2011 11:59 Lot #: [id number], SANOFI PASTEUR PPD On: 04-Mar-2011 12:00 Lot #: [id number], SANOFI PASTEUR Tdap (Adacel) On: 15-Feb-2012 11:54 Lot #: [id number], SANOFI PASTEUR Influenza On: 15-Feb-2012 11:55 Lot #: [id number], SANOFI PASTEUR PPD On: 03-Mar-2012 15:17 Lot #: [id number], SANOFI PASTEUR Fluzone INJ On: 08-Feb-2013 10:08 Lot #: [id number], SANOFI PASTEUR Fluzone High-Dose Intramuscular Suspension On: 25-Jan-2014 1 4:02 Lot #: [id number], SANOFI PASTEUR Fluzone High-Dose Intramuscular Suspension On: 14-Feb-2015 9 :10 Lot #: [id number], SANOFI PASTEUR Fluzone High-Dose Intramuscular Suspension On: 20-Feb-2016 1 4:40 Lot #: [id number], SANOFI PASTEUR Prevnar 13 Intramuscular Suspension On: 02-Mar-2016 11:58 Lot #: [id number], DialedIN Fluzone High-Dose Intramuscular Suspension On: 28-Jan-2017 1 0:24 Lot #: [id number], SANOFI PASTEUR Fluzone High-Dose Intramuscular Suspension On: 25-Jan-2018 1 0:18 Lot #: [id number], SANOFI PASTEUR Family History Unknown Family Member Family history of Nephrolithiasis Status: Active Commen ts: Family History Family history of Prostate Cancer (V16.42) Status: Active Comments: Family History Family history of Stroke Syndrome (V17.1) Status: Active Comments: Family History Family history of Hypertension (V17.49) Status: Active Comments: Family History Family history of Lung Cancer (V16.1) Status: Active Co mments: Family History Father Family history of Stroke Syndrome (V17.1) Status: Active Family history of Hypertension (V17.49) Status: Active Mother Family history of Lung Cancer (V16.1) Status: Active Social History - Smoking Status Never smoker Plan of Treatment Planned Encounters Appointment; Mario Alberto Amador M.D. Start: 09-Nov-2018 14:30 Request Planned Observations Planned Goals not documented Results X-ray Chest, PA and Lateral Routine Laboratory: [facility] Diagnostic Imaging [address] [facility] 15-Jul-2018 10:06 CHEST 2 VIEWS ROUTINE [place], [place] [phone] XRay Report Patient: SHANICE CURTIS Admit Date: MR#: [id number] Address1: [address] [place] [address] [address] Acct ID:[id number] Address2: Michele e: 1940 [facility] Zip: [place] [address] Age: 78 Location: RAD Sex: M Room/Bed: Att Phy: Rachel Miller PA-C Diagnosis: KIERAN RT NESS OF BREATH Mony Phy: Miguel Gibbs MD Service Date: Fam Phy: Interpreting P hy: Kali England MD A dmit Phy: Ordering Phy: Rachel Junior PA -C cc: XR chest 2V routine CLINICAL HISTORY: Shortness of breath COMPARISON STUDY: Augus t 2017 FINDINGS: The heart is the upp er limits of normal in size. There is a lef t subclavian dual-chamber central venous pacemaker present. There are progressive bilateral interstitial pulmonary opaciti es.[ There are no pleural effusions. There is a right suprahilar opacity, likely represe nting a summation. IMPRESSION: 1. Progre ssive bilateral interstitial pulmonary opaciti es. Diagnostic considerations include progre ssive chronic interstitial lung disease, or interstitial lung disease with superimpo sed interstitial edema or an interstitial infectious process. Clinical radiographi c follow-up is recommended. Electronically signed by: Kali medrano M.D. 07/15/2018 10:09 AM Dictated: 07/15/18 1006 Transcribed: 07/15/18 1006 Ultrasound Venous Doppler Lwr Ext Laboratory: [facility] Diagnost ic Imaging [address] (Pending) [facility] 15-Jul-2018 14:40 US VENOUS UNIL LWR EXT DOPPLER [place], [place] [phone] Ultras ound Report Patient: SHANICE CURTIS Admit Date: MR#: [id number] Address1: [address] [place] [address] [address] Acct ID:[id number] Address2: rt Date: 1940 [facility] Zip: [place] [address] Age: 78 Location: Sex: M Room/Bed: [facility] Att Ph y: Usama Cheung M.D. Diagnosis: PN X,P OSSIBLE PE Mony Phy: Miguel Naik MD Service Date: 05/24 Fam Phy: Interpret ing Phy: Kali England MD Admit Phy: Usama Cheung M.D. Ordering Phy: Usama Cheung M.D. cc: US venous doppler LE LT CLINICAL HISTORY: Left leg swelling COMPARISON STUDY: November 2017 FIN DINGS: Real-time and color flow Doppler imaging were performed. Flow was seen within the femo ral, popliteal and calf veins with no intralu roxann thrombus demonstrated. The saphenous vei n is patent. IMPRESSION: No evidence of left lower extremity DVT. Electron ically signed by: Kali England M.D. 2018 2:40 PM Dictated: 07/15/18 1440 Transcribed: 07/15/[address] chest wo con (Pending) Laboratory: [facility] Diagnostic Imagi ng [address] Alexander ZAKI 15-Jul-2018 14:38 CT chest wo con [facility] Ce sai [place], [place] [phone] CT Scan Report Patient: SHANICE CURTIS Admit Date: MR#: [id number] Address1: [address] Acct ID:[id number] Address2: Michele e: 1940 [facility] Zip: [place] [address] Age: 78 Location: Sex: M Room/Bed: [facility] Att Ph y: Usama Cheung M.D. Diagnosis: PN X,P OSSIBLE PE Mony Phy: Miguel Naik MD Service Date: 05/24 Fam Phy: Interpret ing Phy: Jefferson Read her Admit Phy: Usama Cheung M.D. Ordering Phy: Usama Cheung M.D. cc: CT chest wo con CT DOS E: 243.71 mGy.cm CLINICAL HISTORY: 78 years-old Male with PNM vs ILD. Acute shortness of breath with possible inters titial lung disease TECHNIQUE: Multiaxia l CT images of the chest were performed witho ut contrast. A dose lowering technique was utilized adhering to the principles of A EMERALD. COMPARISON: Chest radiograph of same day, chest CT 05/13/2018 FINDINGS: Thyr oid is homogeneous. Heart is mildly enlarged. N o pericardial effusion. Coronary arterial calcifications are noted. Left subclavia n pacer is noted with leads overlying the right atrium and right ventricle. Moderate calcified plaque of the thoracic aorta. No thoracic aorti c aneurysm. Enlarged subcarinal lymph node s are seen measuring up to 2.5 x 1.1 cm. Mildl y enlarged paratracheal lymph nodes are unchanged. No pneumothorax or pleur al effusion. Diffuse subpleural reticulatio n with mild traction bronchiectasis and diffuse mild bronchial wall thickening redemonstrated . Mild biapical pleural-parenchymal scarring. N o honeycombing. Interval development of mu ltiple patchy and confluent groundglass densiti es throughout the bilateral lungs, most pro nounced within the upper lobes. No suspicious no dules or masses. No acute process of the imaged upper abdomen. Suggestion of a right juan francisco al cyst with mild nonspecific bilateral perineph hannah stranding. Soft tissues are unremarkable . Degenerative changes of the spine and shoulders. IMPRESSION: 1. 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 2. Multisegmental patchy and confluent grou ndglass densities within the bilateral lungs in an upperlung zone prominent distribution, n ew from 05/13/2018. These findings are suggestive of a nonspecific pneumonitis or atypical pneu monia. 3. Mild mediastinal adenopathy, unchang ed. 4. Mild cardiomegaly. 5. Additional fi ndings as above. Electronically sign ed by: Mario Aparicio M.D. 07/15/2018 2:55 P M Dictated: 07/15/18 1438 Transcri bed: 07/15/18 1438 X-ray Chest, PA and Lateral Routine Laboratory: [facility] Diagnostic Imaging [address] (Pending) [facility] 17-Jul-2018 11:50 CHEST 2 VIEWS ROUTINE [place] [phone] XRay Report Patient: SHANICE CURTIS Admit Date: MR#: [id number] Address1: [facility] [address] Acct ID:[id number] Address2: Michele e: 1940 [facility] Zip: [place] [address] Age: 78 Location: 4E Sex: M Room/Bed: [facility] Att Ph y: Luana Horn MD Diagnosis: P NX,POSSIBLE PE Mony Phy: Miguel Gibbs MD Service Date: 07/22 Fam Phy: Interpret ing Phy: Rj Melton MD Admit Phy: Usama Cheung M.D. Ordering Phy: Saúl Trejo MD cc: XR chest 2V routine CLINICAL HIST ORY: interstitial lung dis dyspnea DORIS RISON STUDY: 07/15/2018 FINDINGS: Stable bilateral parenchymal and interstitial c hange. Permanent bipolar cardiac pacemakerin go od position. Diaphragms are smooth. There i s no evidence for superimposed infiltrate. IMPRESSION: Stable bilateral parenchyma l and interstitial prominence. No change from the prior exam. The above report was generated using voice recognition so ftware. It may contain grammatical, syntax or s pelling errors. Electronically sig lizzy by: Rj Melton M.D. 07/17/2018 11:51 AM Dictated: 07/17/18 1150 Transcribe d: 07/17/18 1150 X-Ray Chest 1 View Portable Laboratory: [facility] Diagnostic Sagr[place] ging [address] (Pending) [facility] 18-Jul-2018 17:53 X-Ray Chest 1 VW Portable (CXR1P) [facility], [place] [phone] XRa y Report Patient: SHANICE CURTIS Admit Date: MR#: [id number] Address1: [address] [place] [address] [address] Acct ID:[id number] Address2: rt Date: 1940 [facility] Zip: [place] [address] Age: 78 Location: Sex: M Room/Bed: [facility] Att Ph y: Luana Horn MD Diagnosis: P NX,POSSIBLE PE Mony Phy: Miguel Gibbs MD Service Date: 08/21 Fam Phy: Interpret ing Phy: Rj Melton MD Admit Phy: Usama Cheung M.D. Ordering Phy: Dann Patterson PA-C cc: XR chest 1V portable C LINICAL HISTORY: lung bx. Postoperative COM PARISON STUDY: 07/17/2018 FINDINGS: Postope rative changes right hemithorax. Right-sided ch est tube in position. No significant postpro cedural pneumothorax. Pleural and parenchymal ch anges described previously are similar. IMPRESSION: No evidence of pneumothorax post right chest tube placement/lung biopsy. The above report was generated using voice recognition software. It may cont ain grammatical, syntax or spelling errors. Electronically signed by: Rj singh M.D. 07/18/2018 5:54 PM Dictat ed: 04/15/19 1753 Transcribed: 04/15/19 1753 X-Ray Chest 1 View Portable Laboratory: [facility] Diagnostic Sag[place] ging [address] (Pending) [facility] 19-Jul-2018 7:10 X-Ray Chest 1 VW Portable (CXR1P) [facility], [place] [phone] XRa y Report Patient: SHANICE CURTIS Admit Date: MR#: [id number] Address1: [facility] [address] Acct ID:[id number] Address2: rth Date: 1940 [facility] Zip: [facility] [place] [address] Age: 78 Location: 3N Sex: M Room/Bed: [facility] Att Ph y: Luana Horn MD Diagnosis: P NX,POSSIBLE PE Mony Phy: Miguel Gibbs MD Service Date: 09/21 Fam Phy: Interpret ing Phy: Rj Melton MD Admit Phy: Usama Cheung M.D. Ordering Phy: Dann Patterson PA-C cc: XR chest 1V portable C LINICAL HISTORY: lung biopsy post procedure COMPARISON STUDY: 07/18/2018 FINDIN GS: Unchanged postprocedural change right hemithorax. No significant postprocedura l pneumothorax. Slight increase in parench ymal markings left mid and lower lung. IMPRESSION: 1. No significant postprocedural right pneumothorax. 2. Mild increase in parenchymal prominence of the left mid to lower lung raising the possi bility ofdeveloping pneumonitis. The above report was generated using voice recognition software. It may contain grammatical, syntax or spelling errors. Electronically signed by: Rj singh M.D. 07/19/2018 7:11 AM Dictat ed: 07/19/18 0710 Transcribed: 07/19/18 0710 X-Ray Chest 1 View Portable Laboratory: [facility] Diagnostic [place] ging [address] (Pending) [facility] 19-Jul-2018 8:39 X-Ray Chest 1 VW Portable (CXR1P) [facility], [place] [phone] XRa y Report Patient: SHANICE CURTIS Admit Date: MR#: [id number] Address1: [address] Acct ID:[id number] Address2: Bi rth Date: 1940 [facility] Zip: [place] [address] Age: 78 Location: 3N Sex: M Room/Bed: N380-1 Att Ph y: Luana Horn MD Diagnosis: P NX,POSSIBLE PE Mony Phy: Miguel Gibbs MD Service Date: 09/21 Fam Phy: Interpret ing Phy: Rj Melton MD Admit Phy: Usama Cheung M.D. Ordering Phy: Dann Patterson PA-C cc: XR chest 1V portable C LINICAL HISTORY: tube removal COMPARISO N STUDY: 07/19/2018 FINDINGS: Interva l removal of the right-sided chest tube. N o postprocedural pneumothorax. Prominentle ft mid and lower lung markings persist. IMPRESSION: 1. Interval removal of right-sided chest tube. 2. No pneumothorax. 3. Stable parenchy mal infiltrative change left mid and lower l dede region. The above repo rt was generated using voice recognition Kadriana re. It may contain grammatical, syntax or spell ing errors. Electronically sig lizzy by: Rj Melton M.D. 07/19/2018 8:41 AM Dictated: 07/19/18 0839 Transcribed : 07/19/18 0839 X-ray Chest, PA and Lateral Routine Laboratory: [facility] 25-Jul-2018 16:22 CHEST 2 VIEWS ROUTINE [facility], [place] [phone] XRay Report Patient: SHANICE CURTIS Admit Date: MR#: [id number] Address1: [address] Acct ID:[id number] Address2: Michele e: 1940 [facility] Zip: [place] [address] Age: 78 Location: RAD1 Sex: M Room/Bed: Att Phy: Bhavik Abbott MD Diagnosis: R91.8 Mony Phy: Miguel Gibbs MD Service Date: Fam Phy: Interpreting Phy: Clay gant MD Admit Phy: Orde ring Phy: Bhavik Esquivel MD cc: XR chest 2V routine CLINICAL HISTORY: 78 years-old Male pres enting with Pulmonary infiltrates, follow-up. TECHNIQUE: PA and lateral views of the c hest were obtained. COMPARISON: 9. FINDINGS: Left subclavian pacer with l melissa in the right atrium and right ventricular a pex. Atherosclerosis ofthe aortic arch. Cardi ac silhouette normal in size. Overall mildl y low lung volumes bilaterally. Significant heterogeneity of lung parenchyma. Suture margin noted in the periphery of the right midl dede. Significant interval decrease in the mony or central and upper lobe predominant hazy opacities. Minimal irregular opacities p ersist in these distributions. Trace left pleur al effusion may be present. No large pneumo thorax. Degenerative changes of the thoracic spi ne. [place] noted in the right humeral head. Upper abdomen normal. IMPRESSION: 1. Significant interval decrease in the niall ateral central and upper lobe predominant infil trates from prior exam. Some degree of persiste nt infiltrates suggested. Follow-up could b e considered if clinically desired. 2 . Underlying heterogeneity of lung parench yma suggest chronic lung disease. 3. Postsurgical changes of the right lung. Electronically signed by: Clay ruiz M.D. 07/25/2018 4:25 PM Dictat ed: 07/25/18 1622 Transcribed: 07/25/18 1622 In-House EKG (Randy) Total Laboratory: [facility] Component (Pending) 28-Jul-2018 10:18 In-House EKG Total Component [facility]-Cardio logy Test Date: [id number] Name: SHANICE CURTIS Detment: Room: Gender: Male Cooker Meal: Radha PedroOB: 1940 Requested By: Radha Crawley Number: [id number] Reading MD: Mario Alberto Amador MeasurementsIntervals [place] Rate: 67 P: 8 0PR: 225 QRS: 2QRSD: 101 T: 11QT: 398 QTc: 414 Interpretive StatementsELECTRONIC ATRIAL PACEMAKERABNORMAL RHYTHM ECGReviewed by Comed to ECG 06/09/2018 09:09:58T-wave abnormality no longer pre sent Vital Signs 28-Jul-2018 10:10 Systolic 128 mm[Hg] Diastolic 90 mm[Hg] Heart Rate 68 /min Weight 153.6 lb BMI Calculated 25.56 kg/m2 BSA Calculated 1.77 m2 28-Jul-2018 9:31 Systolic 142 mm[Hg] Diastolic 82 mm[Hg] Heart Rate 73 /min Weight 152 lb BMI Calculated 25.29 kg/m2 BSA Calculated 1.76 m2 O2 Saturation 93 % Comments: Source: RA 26-Jul-2018 10:34 Systolic 150 mm[Hg] Diastolic 88 mm[Hg] Heart Rate 99 /min Weight 151.8 lb BMI Calculated 25.26 kg/m2 BSA Calculated 1.76 m2 O2 Saturation 90 % Comments: Source: Respiration 16 /min Height 65 in Temperature 97.4 f 15-Jul-2018 9:32 Systolic 120 mm[Hg] Diastolic 70 mm[Hg] Heart Rate 69 /min Weight 151 lb BMI Calculated 24.75 kg/m2 BSA Calculated 1.77 m2 O2 Saturation 86 % Comments: Source: RA 11-Jul-2018 10:30 Systolic 133 mm[Hg] Diastolic 70 mm[Hg] Heart Rate 80 /min Comments: Location: R Brachial Artery; Weight 150.4 lb BMI Calculated 24.65 kg/m2 BSA Calculated 1.76 m2 07-Jul-2018 13:35 Systolic 140 mm[Hg] Diastolic 80 mm[Hg] Heart Rate 90 /min Weight 150 lb BMI Calculated 24.58 kg/m2 BSA Calculated 1.76 m2 O2 Saturation 92 % Comments: Source: Temperature 97.8 f Encounters Appointment; Mario Alberto Amador M.D. 28-Jul-2018 10:00 Encounter Diagnosis: Problem not documented Appointment; Rachel Junior PA-C 28-Jul-2018 9:30 Encounter Diagnosis: Problem not documented Appointment; Bhavik Esquivel M.D. 26-Jul-2018 10:30 Encounter Diagnosis: Problem not documented Appointment; Rachel Junior PA-C 15-Jul-2018 9:30 Encounter Diagnosis: Problem not documented Appointment; Noa Monaco PA-C 11-Jul-2018 10:20 Encounter Diagnosis: Problem not documented Appointment; Rachel Junior PA-C 07-Jul-2018 13:30 Encounter Diagnosis: Problem not documented Appointment; Miguel Gibbs M.D. 29-Jun-2018 11:30 Encounter Diagnosis: Problem not documented Appointment; Rachel Junior PA-C 27-Jun-2018 11:30 Encounter Diagnosis: Problem not documented Appointment; [facility], [facility] Station 09-Jun-2018 9:00 Encounter Diagnosis: Problem not documented Appointment; Shen Garcia PA-C 02-Jun-2018 14:00 Encounter Diagnosis: Problem not documented Appointment; Mario Alberto Amador M.D. 30-May-2018 14:30 Encounter Diagnosis: Problem not documented Appointment; Pulmonary, Funct Testing 19-May-2018 10:45 Encounter Diagnosis: Problem not documented Appointment; Rachel Junior PA-C 19-May-2018 9:30 Encounter Diagnosis: Problem not documented Appointment; Mario Alberto Amador M.D. 11-May-2018 14:15 Encounter Diagnosis: Problem not documented Appointment; Vascular, [facility] 09-May-2018 8:45 Encounter Diagnosis: Problem not documented Appointment; Miguel Gibbs M.D. 06-May-2018 9:00 Encounter Diagnosis: Problem not documented Appointment; Pulmonary, Funct Testing 06-May-2018 8:45 Encounter Diagnosis: Problem not documented Appointment; Rachel Junior PA-C 18-Mar-2018 13:00 Encounter Diagnosis: Problem not documented Appointment; Rachel Junior PA-C 07-Mar-2018 15:30 Encounter Diagnosis: Problem not documented Appointment; Miguel Gibbs M.D. 16-Feb-2018 11:45 Encounter Diagnosis: Problem not documented Appointment; Rachel Junior PA-C 31-Jan-2018 11:50 Encounter Diagnosis: Problem not documented Appointment; [facility], Nursing Station 25-Jan-2018 10:00 Encounter Diagnosis: Problem not documented Appointment; Noa Monaco PA-C 10-Jan-2018 10:20 Encounter Diagnosis: Problem not documented Appointment; Miguel Gibbs M.D. 22-Nov-2017 13:45 Encounter Diagnosis: Problem not documented Appointment; Miguel Gibbs M.D. 17-Nov-2017 9:30 Encounter Diagnosis: Problem not documented Appointment; Mario Alberto Amador M.D. 15-Nov-2017 9:30 Encounter Diagnosis: Problem not documented Appointment; [facility], Nursing Station 05-Nov-2017 9:30 Encounter Diagnosis: Problem not documented Appointment; [facility], Nursing Station 04-Nov-2017 9:30 Encounter Diagnosis: Problem not documented Appointment; Rachel Junior PA-C 06-Sep-2017 15:30 Encounter Diagnosis: Problem not documented Appointment; Rachel Junior PA-C 23-Aug-2017 9:00 Encounter Diagnosis: Problem not documented Appointment; Rachel Junior PA-C 27-Jul-2017 10:00 Encounter Diagnosis: Problem not documented Appointment; [facility], Nursing Station 15-Jul-2017 10:00 Encounter Diagnosis: Problem not documented Appointment; Noa Monaco PA-C 13-Jul-2017 10:20 Encounter Diagnosis: Problem not documented Appointment; Obed Romo Au.D.|[facility] 13-Jul-2017 10:00 Encounter Diagnosis: Problem not documented Appointment; [place] [id number], Nursing [facility] 08-Jul-2017 11:15 Encounter Diagnosis: Problem not documented Appointment; Mario Alberto Amador M.D. 06-Jul-2017 13:00 Encounter Diagnosis: Problem not documented Appointment; Rachel Junior PA-C 02-Jul-2017 11:00 Encounter Diagnosis: Problem not documented Appointment; Rachel Junior PA-C 24-Jun-2017 10:00 Encounter Diagnosis: Problem not documented Appointment; Rachel Junior PA-C 17-Jun-2017 11:00 Encounter Diagnosis: Problem not documented Appointment; Rachel Junior PA-C 14-Jun-2017 10:30 Encounter Diagnosis: Problem not documented Appointment; Rachel Junior PA-C 07-Jun-2017 11:30 Encounter Diagnosis: Problem not documented Appointment; Stress, Echocardiogram 1 04-Jun-2017 13:00 Encounter Diagnosis: Problem not documented Appointment; Mario Alberto Amador M.D. 04-Jun-2017 12:30 Encounter Diagnosis: Problem not documented Appointment; Miguel Gibbs M.D. 20-May-2017 9:15 Encounter Diagnosis: Problem not documented Appointment; Mario Alberto Amador M.D. 13-May-2017 11:30 Encounter Diagnosis: Problem not documented Appointment; Miguel Gibbs M.D. 15-Apr-2017 14:45 Encounter Diagnosis: Problem not documented Appointment; [facility], Nursing Station 28-Jan-2017 10:15 Encounter Diagnosis: Problem not documented Appointment; Noa Monaco PA-C 14-Jan-2017 10:20 Encounter Diagnosis: Problem not documented Appointment; Mario Alberto Amador M.D. 18-Nov-2016 11:30 Encounter Diagnosis: Problem not documented Appointment; Miguel Gibbs M.D. 16-Nov-2016 9:30 Encounter Diagnosis: Problem not documented Appointment; Pulmonary, Funct Testing 16-Nov-2016 9:15 Encounter Diagnosis: Problem not documented Appointment; [facility], Nursing Station 06-Nov-2016 9:00 Encounter Diagnosis: Problem not documented Appointment; [facility], Nursing Station 05-Nov-2016 9:00 Encounter Diagnosis: Problem not documented Appointment; Shanice Clark M.D. 13-Aug-2016 13:50 Encounter Diagnosis: Problem not documented Appointment; Mario Alberto Amaodr M.D. 09-Nov-2018 14:30 Encounter Diagnosis: Problem not documented"
== END 2018-07-20 17:51 | disposition home or self-care (01) | DRG 166 ==
LOC: SUATTDRO 11:07 → 4E 11:07 → 3N 07-18 17:38
DX: X58.XXXD Exposure to other specified factors, subsequent encounter; S86.002D Unspecified injury of left Achilles tendon, subsequent encounter; J30.9 Allergic rhinitis, unspecified; Y92.89 Other specified places as the place of occurrence of the external cause; Z85.46 Personal history of malignant neoplasm of prostate; K21.9 Gastro-esophageal reflux disease without esophagitis; J45.901 Unspecified asthma with (acute) exacerbation; J18.9 Pneumonia, unspecified organism; Z95.0 Presence of cardiac pacemaker; N18.3 Chronic kidney disease, stage 3 (moderate); J84.89 Other specified interstitial pulmonary diseases; Z91.040 Latex allergy status; I48.91 Unspecified atrial fibrillation; Z80.1 Family history of malignant neoplasm of trachea, bronchus and lung; E87.1 Hypo-osmolality and hyponatremia; T46.2X5A Adverse effect of other antidysrhythmic drugs, initial encounter

== ENCOUNTER 2019-02-13 10:09 | Inpatient (IN) ==
[2019-02-13 11:29] LABS: Basophils # (auto) 0.01 K/uL (0-0.2); Basophils % (auto) 0.1 %; Eosinophils # (auto) 0.15 K/uL (0-0.5); Eosinophils % (auto) 1.2 %; Hemoglobin 10.2 g/dL (14.0-18.0); Immature Granulocytes # (auto) 0.02 K/uL (0.00-0.02); Immature Granulocytes % (auto) 0.2 %; Lymphocytes # (auto) 1.53 K/uL (1.2-3.4); Lymphocytes % (auto) 11.8 %; Mean Corpuscular Hemoglobin 34.5 pg (25-34); Mean Corpuscular Volume 101.4 fL (80-100); Mean Platelet Volume 8.2 fL (7.4-10.4); Monocytes # (auto) 1.19 K/uL (0.11-0.59); Monocytes % (auto) 9.2 %; Neutrophils # (auto) 10.03 K/uL (1.4-6.5); Neutrophils % (auto) 77.5 %; Platelet Count 211 K/uL (130-400); RDW Coefficient of Variation 12.5 % (11.5-14.5); RDW Standard Deviation 45.9 fL (36.4-46.3); Red Blood Count 2.96 M/uL (4.7-6.1); White Blood Count 12.93 K/uL (4.8-10.8)
[2019-02-13] MEDS ORDERED: SODIUM CHLORIDE 0.9% 500 ML IV SCH (11:30)
[2019-02-13 11:36] LABS: Partial Thromboplastin Ratio 0.9; Partial Thromboplastin Time 24.9 Seconds (21.0-31.0); Prothrombin Time 10.7 Seconds (9.0-12.0)
[2019-02-13 11:37] LABS: Alanine Aminotransferase 15 U/L (12-78); Albumin Level 2.9 gm/dl (3.4-5.0); Aspartate Aminotransferase 13 U/L (15-37); BUN Creatinine Ratio 20.2 (10-20); Blood Urea Nitrogen 29 mg/dl (7-18); Calcium 8.6 mg/dl (8.5-10.1); Carbon Dioxide 25 mmol/L (21-32); Chloride 108 mmol/L (98-107); Creatinine Clr Calc Pharmacy 36.6 ml/min; Est GFR (African American) 52.9; Est GFR (Non-African American) 45.6; Glucose 111 mg/dl (70-99); Lipase 64 U/L (73-393); Potassium 4.6 mmol/L (3.5-5.1); Sodium 139 mmol/L (136-145)
[2019-02-13 11:42] LABS: Alkaline Phosphatase 103 U/L (45-117); Bilirubin,Total 0.3 mg/dl (0.2-1); Creatine Kinase 70 U/L (39-308); Globulin 2.8 gm/dl (2.5-4.0); Total Protein 5.7 gm/dl (6.4-8.2); Troponin I < 0.015 ng/ml (0-0.045)
--- NOTE | 2019-02-13 11:51 | XRay Report ---
XR chest 1V portable HISTORY: 79 years-old Male Chest Pain acute atypical chest pain COMPARISON: Chest radiographs 07/25/2018, chest CT 07/15/2018 TECHNIQUE: Portable AP view of the chest FINDINGS: Stable left subclavian pacer. Unchanged cardiomegaly. No pneumothorax. Small right pleural effusion w ith ill-defined hazy opacities of the right midlung and right lung base. Chronic bilateral interstiti al coarsening. Degenerative changes of the shoulders and spine. Prior tailor cuff repair of the right shoulder. IMPRESSION: 1. Small right pleural effusion with hazy ill-defined right midlung and right lung base opacities sug gestive of atelectasis, pneumonia or asymmetric pulmonary edema. 2. Chronic bilateral interstitial coarsening. 3. Cardiomegaly. The above report was generated using voice recognition software. It may contain grammatical, syntax o r spelling errors. Electronically signed by: Mario Aparicio M.D. 02/13/2019 11:50 AM
--- NOTE | 2019-02-13 13:01 | Emergency Department Note ---
Entered by oKffi Gordon acting as a scribe for Heath Lyn DO History of Present Illness General Chief complaint: Chest Pain Time Seen by Provider: 02/13/19 11:02 Source: patient and family History of Present Illness Provider complaint: Chest pain Onset (ago): hour(s) (2.5) Location: chest and right Pain Consistency: + intermittent Maximum Pain Intensity: 5 Current Pain Intensity: 5 Exacerbated By: + other (Deep breath) Associated symptoms: + diaphoresis and + other (Blurry vision); no headaches and no shortness of breath The patient is an 79 year old male who presents to the Emergency Room with complaints of right sided chest pain that started this morning about 2.5 hours ago. The patient rates the pain as a 4/10 and notes it is worse with taking a deep breath. The patient reports that this morning he had an episode of near syncope when he was resting on his recliner. Per the patient's , he became diaphoretic and pale at this time. The patient also mentioned that his vision went blurry temporarily during the episode. Currently the patient still has the right sided chest pain but recalls that yesterday he was lifting some heavy objects so he might have pulled a muscle. The patient denies any dark or bloody stool. Home Medications Home Medications Medication Instructions Recorded Confirmed Type PreserVision AREDS 1 cap PO BID 06/15/18 02/13/19 History Symbicort 2 puff INHALATION BID 06/15/18 02/13/19 History albuterol sulfate [ProAir HFA] 2 puff INHALATION Q4 PRN 06/15/18 02/13/19 History aspirin 81 mg PO HS 06/15/18 02/13/19 History calcium citrate-vitamin D3 1 tab PO DAILY 06/15/18 02/13/19 History [Citracal Regular] epinephrine [EpiPen] 0.3 mg IM UD PRN 06/15/18 02/13/19 History fexofenadine [Saida Allergy] 180 mg PO QAM 06/15/18 02/13/19 History fluorouracil [Efudex] 1 applic TOPICAL BID PRN 06/15/18 02/13/19 History guaifenesin [Mucinex] 1,200 mg PO Q12H PRN 06/15/18 02/13/19 History ketoconazole 1 applic TOPICAL BID PRN 06/15/18 02/13/19 History montelukast 10 mg PO HS 06/15/18 02/13/19 History propafenone 225 mg PO Q12H 06/15/18 02/13/19 History Bystolic 5 mg PO HS 07/15/18 02/13/19 History diphenhydramine-acetaminophen 25 mg PO HS PRN 07/15/18 02/13/19 History albuterol sulfate 2.5 mg/3 mL 1 mg INHALATION UD #150 ml 11/11/18 02/13/19 History (0.083 %) solution for nebulization ranitidine HCl 300 mg tablet 300 mg PO UD #180 tab 11/11/18 02/13/19 History lisinopril 5 mg tablet 2.5 mg PO QAM tab 11/22/18 02/13/19 History fluticasone propionate 2 spray INTRANASAL UD 02/13/19 02/13/19 History oxycodone 5 mg PO Q6H PRN 7 Days #10 tab 02/17/19 Rx Allergies Allergy/AdvReac Type Severity Reaction Status Date / Time nut - unspecified Allergy Severe Anaphylaxis Verified 02/13/19 11:23 Fish Containing Products Allergy Intermediate HANDS Verified 02/13/19 11:23 BREAK OUT gluten Allergy Intermediate GI TRACT Verified 02/13/19 11:23 UPSET latex Allergy Intermediate BLISTERS Verified 02/13/19 11:23 iodine Allergy Mild SWELLING,NA Verified 02/13/19 11:23 USEA shellfish derived Allergy Mild SEVERE Verified 02/13/19 11:23 ALLERGY--SWELLING,NAUSEA egg Allergy Unknown SEVERE Verified 02/13/19 11:23 CONGESTION Iodinated Contrast Media Allergy Unknown SWELLING Verified 02/13/19 11:23 AND NAUSEA milk Allergy Unknown SEVERE Verified 02/13/19 11:23 CONGESTION nickel Allergy Unknown ECZEMA RASH Verified 02/13/19 11:23 Past Med/Surg History Medical History Asthma inhalers daily/prn Atrial fibrillation Basal cell carcinoma of face BPH (benign prostatic hyperplasia) Chronic steroid use Drug-induced lung disease GERD (gastroesophageal reflux disease) Hearing deficit History of colon polyps Hypertension Kidney stones Osteoarthritis 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 Amador [employer]ot[employer] Prostate cancer 04/2012 Spondylosis Surgical History History of appendectomy History of arthroscopy of left shoulder History of colonoscopy History of parotidectomy History of prostate biopsy malignant History of prostate surgery greenlight laser History of radical prostatectomy 11/2012 History of repair of right rotator cuff History of tooth extraction History of wisdom tooth extraction Status post Mohs surgery for basal cell carcinoma Family History Other Family history non-contributory No family history of adverse response to anesthesia Social History Preferred Language: Luxembourgish Communication Ability: Effective Automatic Hemmer Required: No Beliefs That Will Affect Care: None Current Living Situation: Spouse Feels Safe at Home: Yes Smoking Status: Never smoker Second Hand Exposure: No ; Hx Alcohol Use: Yes Alcohol type: wine Hx Substance Use: No Review of Systems See HPI for pertinent positives & negatives. and A total of 10 systems reviewed and were otherwise negative Physical Exam Vital Signs Vital Signs - 24 hr 02/13/19 10:13 02/13/19 10:21 02/13/19 10:23 Sepsis Recent Fever Within 48 Hours No Sepsis New/Unexplained Change in Mental Status No Sepsis Action Taken by Nursing No Action Required Pulse Rate 67 77 67 Pulse Rate [Right Finger] Pulse Rate from SpO2 Sensor 69 68 Pulse Rhythm Regular Pulse Strength Normal Respiratory Rate 17 20 21 Respiratory Effort / Characteristics Non-Labored Spontaneous Respiratory Depth Normal Blood Pressure 121/73 121/73 Blood Pressure Mean 89 89 Blood Pressure Position Sitting Pulse Oximetry 95 94 98 Oxygen Delivery Method Room Air 02/13/19 10:30 02/13/19 10:40 02/13/19 10:50 Sepsis Recent Fever Within 48 Hours Sepsis New/Unexplained Change in Mental Status Sepsis Action Taken by Nursing Pulse Rate 67 64 66 Pulse Rate [Right Finger] Pulse Rate from SpO2 Sensor 67 64 66 Pulse Rhythm Pulse Strength Respiratory Rate 19 22 16 Respiratory Effort / Characteristics Respiratory Depth Blood Pressure 97/64 L Blood Pressure Mean 75 Blood Pressure Position Pulse Oximetry 96 98 96 Oxygen Delivery Method 02/13/19 10:55 02/13/19 10:56 02/13/19 11:00 Sepsis Recent Fever Within 48 Hours Sepsis New/Unexplained Change in Mental Status Sepsis Action Taken by Nursing Pulse Rate 79 77 73 Pulse Rate [Right Finger] Pulse Rate from SpO2 Sensor 74 Pulse Rhythm Pulse Strength Respiratory Rate 24 20 28 H Respiratory Effort / Characteristics Respiratory Depth Blood Pressure 49/34 L 54/33 L 86/49 L Blood Pressure Mean 39 40 61 Blood Pressure Position Pulse Oximetry 93 Oxygen Delivery Method 02/13/19 11:05 02/13/19 11:10 02/13/19 11:12 Sepsis Recent Fever Within 48 Hours Sepsis New/Unexplained Change in Mental Status Sepsis Action Taken by Nursing Pulse Rate 79 66 69 Pulse Rate [Right Finger] Pulse Rate from SpO2 Sensor 79 68 70 Pulse Rhythm Pulse Strength Respiratory Rate 18 32 H 25 H Respiratory Effort / Characteristics Respiratory Depth Blood Pressure 105/61 100/54 L Blood Pressure Mean 75 69 Blood Pressure Position Pulse Oximetry 92 91 94 Oxygen Delivery Method 02/13/19 11:19 02/13/19 11:20 02/13/19 11:29 Sepsis Recent Fever Within 48 Hours Sepsis New/Unexplained Change in Mental Status Sepsis Action Taken by Nursing Pulse Rate 63 64 Pulse Rate [Right Finger] Pulse Rate from SpO2 Sensor 64 63 Pulse Rhythm Pulse Strength Respiratory Rate 19 21 Respiratory Effort / Characteristics Respiratory Depth Blood Pressure 106/57 L Blood Pressure Mean 73 Blood Pressure Position Pulse Oximetry 96 88 L 84 L Oxygen Delivery Method Room Air 02/13/19 11:30 02/13/19 11:40 02/13/19 11:50 Sepsis Recent Fever Within 48 Hours Sepsis New/Unexplained Change in Mental Status Sepsis Action Taken by Nursing Pulse Rate 69 66 66 Pulse Rate [Right Finger] Pulse Rate from SpO2 Sensor 69 66 62 Pulse Rhythm Pulse Strength Respiratory Rate 20 18 22 Respiratory Effort / Characteristics Respiratory Depth Blood Pressure 116/61 Blood Pressure Mean 79 Blood Pressure Position Pulse Oximetry 87 L 96 95 Oxygen Delivery Method 02/13/19 12:00 02/13/19 12:10 02/13/19 12:13 Sepsis Recent Fever Within 48 Hours Sepsis New/Unexplained Change in Mental Status Sepsis Action Taken by Nursing Pulse Rate 95 H 65 61 Pulse Rate [Right Finger] Pulse Rate from SpO2 Sensor 67 62 Pulse Rhythm Pulse Strength Respiratory Rate 18 13 24 Respiratory Effort / Characteristics Respiratory Depth Blood Pressure 95/60 L 84/54 L 79/47 L Blood Pressure Mean 71 64 57 Blood Pressure Position Pulse Oximetry 95 95 Oxygen Delivery Method 02/13/19 12:15 02/13/19 12:18 02/13/19 12:20 Sepsis Recent Fever Within 48 Hours Sepsis New/Unexplained Change in Mental Status Sepsis Action Taken by Nursing Pulse Rate 69 68 68 Pulse Rate [Right Finger] Pulse Rate from SpO2 Sensor 69 68 Pulse Rhythm Pulse Strength Respiratory Rate 18 14 20 Respiratory Effort / Characteristics Respiratory Depth Blood Pressure 88/54 L 91/54 L 86/54 L Blood Pressure Mean 65 66 64 Blood Pressure Position Pulse Oximetry 95 93 Oxygen Delivery Method 02/13/19 12:21 02/13/19 12:25 02/13/19 12:30 Sepsis Recent Fever Within 48 Hours Sepsis New/Unexplained Change in Mental Status Sepsis Action Taken by Nursing Pulse Rate 67 69 65 Pulse Rate [Right Finger] Pulse Rate from SpO2 Sensor 64 Pulse Rhythm Pulse Strength Respiratory Rate 15 18 13 Respiratory Effort / Characteristics Respiratory Depth Blood Pressure 106/55 L Blood Pressure Mean 72 Blood Pressure Position Pulse Oximetry 89 L Oxygen Delivery Method 02/13/19 12:31 02/13/19 12:35 02/13/19 12:40 Sepsis Recent Fever Within 48 Hours Sepsis New/Unexplained Change in Mental Status Sepsis Action Taken by Nursing Pulse Rate 65 65 62 Pulse Rate [Right Finger] Pulse Rate from SpO2 Sensor Pulse Rhythm Pulse Strength Respiratory Rate 17 15 21 Respiratory Effort / Characteristics Respiratory Depth Blood Pressure 94/74 L 99/58 L 98/56 L Blood Pressure Mean 80 71 70 Blood Pressure Position Pulse Oximetry Oxygen Delivery Method 02/13/19 12:45 02/13/19 12:50 02/13/19 12:55 Sepsis Recent Fever Within 48 Hours Sepsis New/Unexplained Change in Mental Status Sepsis Action Taken by Nursing Pulse Rate 65 65 65 Pulse Rate [Right Finger] Pulse Rate from SpO2 Sensor 64 Pulse Rhythm Pulse Strength Respiratory Rate 19 19 15 Respiratory Effort / Characteristics Respiratory Depth Blood Pressure 111/59 L 105/60 123/62 Blood Pressure Mean 76 75 82 Blood Pressure Position Pulse Oximetry 88 L Oxygen Delivery Method 02/13/19 13:00 02/13/19 13:05 02/13/19 13:10 Sepsis Recent Fever Within 48 Hours Sepsis New/Unexplained Change in Mental Status Sepsis Action Taken by Nursing Pulse Rate 64 66 64 Pulse Rate [Right Finger] Pulse Rate from SpO2 Sensor 68 64 Pulse Rhythm Pulse Strength Respiratory Rate 15 19 22 Respiratory Effort / Characteristics Respiratory Depth Blood Pressure 94/59 L 120/66 108/58 L Blood Pressure Mean 70 84 74 Blood Pressure Position Pulse Oximetry 89 L 95 Oxygen Delivery Method 02/13/19 13:15 02/13/19 13:20 02/13/19 13:25 Sepsis Recent Fever Within 48 Hours Sepsis New/Unexplained Change in Mental Status Sepsis Action Taken by Nursing Pulse Rate 63 65 63 Pulse Rate [Right Finger] Pulse Rate from SpO2 Sensor Pulse Rhythm Pulse Strength Respiratory Rate 17 26 H 23 Respiratory Effort / Characteristics Respiratory Depth Blood Pressure 106/60 120/60 117/64 Blood Pressure Mean 75 80 81 Blood Pressure Position Pulse Oximetry Oxygen Delivery Method 02/13/19 13:30 02/13/19 13:31 02/13/19 13:32 Sepsis Recent Fever Within 48 Hours Sepsis New/Unexplained Change in Mental Status Sepsis Action Taken by Nursing Pulse Rate 64 70 Pulse Rate [Right Finger] Pulse Rate from SpO2 Sensor 66 Pulse Rhythm Pulse Strength Respiratory Rate 23 17 Respiratory Effort / Characteristics Respiratory Depth Blood Pressure 90/58 L 122/70 Blood Pressure Mean 68 87 Blood Pressure Position Pulse Oximetry 84 L Oxygen Delivery Method 02/13/19 13:52 02/13/19 13:54 02/13/19 13:56 Sepsis Recent Fever Within 48 Hours Sepsis New/Unexplained Change in Mental Status Sepsis Action Taken by Nursing Pulse Rate 70 66 68 Pulse Rate [Right Finger] Pulse Rate from SpO2 Sensor Pulse Rhythm Pulse Strength Respiratory Rate 23 22 20 Respiratory Effort / Characteristics Respiratory Depth Blood Pressure 105/70 127/64 112/50 L Blood Pressure Mean 81 85 70 Blood Pressure Position Pulse Oximetry Oxygen Delivery Method 02/13/19 13:57 02/13/19 14:00 02/13/19 14:05 Sepsis Recent Fever Within 48 Hours Sepsis New/Unexplained Change in Mental Status Sepsis Action Taken by Nursing Pulse Rate 71 74 Pulse Rate [Right Finger] 72 Pulse Rate from SpO2 Sensor 71 Pulse Rhythm Pulse Strength Respiratory Rate 16 16 19 Respiratory Effort / Characteristics Non-Labored Spontaneous Respiratory Depth Blood Pressure 113/80 69/60 L Blood Pressure Mean 91 63 Blood Pressure Position Pulse Oximetry 90 99 Oxygen Delivery Method Room Air 02/13/19 14:10 02/13/19 14:11 02/13/19 14:15 Sepsis Recent Fever Within 48 Hours Sepsis New/Unexplained Change in Mental Status Sepsis Action Taken by Nursing Pulse Rate 68 66 66 Pulse Rate [Right Finger] Pulse Rate from SpO2 Sensor 67 67 Pulse Rhythm Pulse Strength Respiratory Rate 25 H 16 18 Respiratory Effort / Characteristics Respiratory Depth Blood Pressure 105/69 115/83 Blood Pressure Mean 81 93 Blood Pressure Position Pulse Oximetry 95 92 Oxygen Delivery Method 02/13/19 14:20 02/13/19 14:25 02/13/19 14:30 Sepsis Recent Fever Within 48 Hours Sepsis New/Unexplained Change in Mental Status Sepsis Action Taken by Nursing Pulse Rate 65 67 64 Pulse Rate [Right Finger] Pulse Rate from SpO2 Sensor 64 Pulse Rhythm Pulse Strength Respiratory Rate 24 18 25 H Respiratory Effort / Characteristics Respiratory Depth Blood Pressure 134/79 138/79 141/61 H Blood Pressure Mean 97 98 87 Blood Pressure Position Pulse Oximetry 95 Oxygen Delivery Method CONSTITUTIONAL/VITAL SIGNS: Reviewed / noted above. GENERAL: Non-toxic in appearance. INTEGUMENTARY: Warm, dry, and [place]. Slightly pale. HEAD: Normocephalic. EYES: without scleral icterus or trauma. ENT/OROPHARYNX: clear and moist. LYMPHADENOPATHY/NECK: Is supple without lymphadenopathy or meningismus. RESPIRATORY: Lungs clear. Breath sounds diminished on the right side. CARDIOVASCULAR: Regular rate and rhythm. GI/ABDOMEN: Soft and nontender. No organomegaly or pulsatile mass. No rebound or guarding. Normal bowel sounds. EXTREMITIES: Warm and well perfused. BACK: No CVA tenderness. NEUROLOGICAL: Intact without focal deficits. PSYCHIATRIC: normal affect. MUSCULOSKELETAL: Normally developed with good muscle tone. Course 1104: Past medical records reviewed. The patient was evaluated in room B07, and a complete history and physical examination were performed. 1250: I reevaluated the patient and updated him results. I also performed a rectal exam that showed heme negative stool. After discussing the treatment plan we are going to do a CT scan of the chest. 1416: I discussed the patient's case with Dr. Sierra Cervantes Thoracic Ed and he agreed to be on consult throughout the patient's care. 1435: I spoke to Dr. Ronna Higginbotham [facility] Hospitalist about the patient's case. He is going to accept the patient for further evaluation. 1448: I reevaluated the patient and updated both him and his on results. We also discussed the treatment plan which they were in agreement with. Consultations Consultation #1: I discussed the patient's case with Dr. Sierra Cervantes Thoracic Ed and he agreed to be on consult throughout the patient's care. Time: 14:16 Consultation #2: I spoke to Dr. Ronna Higginbotham [facility] Hospitalist about the patient's case. He is going to accept the patient for further evaluation. Time: 14:35 Administered Medications Discontinued Medications Acetaminophen (Tylenol) 650 mg PO Q4H PRN PRN Reason: Pain or Fever Stop: 03/15/19 19:25 Last Admin: 02/14/19 22:24 Dose: 650 mg Documented by: [id number] Admin: 02/14/19 10:22 Dose: 650 mg Documented by: [id number] Admin: 02/13/19 23:25 Dose: 650 mg Documented by: [id number] Acetaminophen (Tylenol) 650 mg PO Q6H AMANDA Stop: 03/18/19 08:29 Last Admin: 02/17/19 07:51 Dose: 650 mg Documented by: [id number] Admin: 02/17/19 02:49 Dose: 650 mg Documented by: [id number] Admin: 02/16/19 21:01 Dose: 650 mg Documented by: [id number] Admin: 02/16/19 14:11 Dose: 650 mg Documented by: [id number] Admin: 02/16/19 08:56 Dose: 650 mg Documented by: [id number] Albuterol (Duoneb) 3 ml NEB NOW STA Stop: 02/13/19 13:12 Last Admin: 02/13/19 13:53 Dose: 3 ml Documented by: [id number] Albuterol (Ventolin 0.083% 2.5mg/3ml) 2.5 mg NEB Q6R PRN PRN Reason: SOB or wheeze Stop: 03/15/19 23:33 Last Admin: 02/15/19 07:02 Dose: 2.5 mg Documented by: [id number] Admin: 02/14/19 22:09 Dose: 2.5 mg Documented by: [id number] Admin: 02/14/19 15:57 Dose: 2.5 mg Documented by: [id number] Admin: 02/14/19 06:29 Dose: 2.5 mg Documented by: [id number] Admin: 02/14/19 00:01 Dose: 2.5 mg Documented by: [id number] Albuterol (Duoneb) 3 ml NEB QIDR AMANDA Stop: 03/17/19 10:59 Last Admin: 02/17/19 07:03 Dose: 3 ml Documented by: [id number] Admin: 02/16/19 19:46 Dose: 3 ml Documented by: [id number] Admin: 02/16/19 15:08 Dose: 3 ml Documented by: [id number] Admin: 02/16/19 11:02 Dose: 3 ml Documented by: [id number] Admin: 02/16/19 06:55 Dose: 3 ml Documented by: [id number] Admin: 02/15/19 18:59 Dose: 3 ml Documented by: [id number] Admin: 02/15/19 15:33 Dose: Not Given Documented by: [id number] Admin: 02/15/19 10:59 Dose: 3 ml Documented by: [id number] Budesonide/Formoterol Fumarate (Symbicort 160mcg/4.5mcg) 2 puffs INH BID AMANDA Stop: 03/15/19 20:59 Last Admin: 02/17/19 08:19 Dose: 2 puffs Documented by: [id number] Admin: 02/16/19 21:02 Dose: 2 puffs Documented by: [id number] Admin: 02/16/19 08:55 Dose: 2 puffs Documented by: [id number] Admin: 02/15/19 21:48 Dose: 2 puffs Documented by: [id number] Admin: 02/15/19 08:38 Dose: 2 puffs Documented by: [id number] Admin: 02/14/19 20:24 Dose: 2 puffs Documented by: [id number] Admin: 02/14/19 08:36 Dose: 2 puffs Documented by: [id number] Admin: 02/13/19 20:48 Dose: 2 puffs Documented by: [id number] Bupivacaine HCl (Marcaine 0.5% Mpf) Confirm Administered Dose 30 ml .ROUTE .STK- MED ONE Stop: 02/15/19 12:19 Last Admin: 02/15/19 13:56 Dose: 30 ml Documented by: [id number] Bupivacaine Liposome (Exparel) Confirm Administered Dose 266 mg .ROUTE .STK-MED ONE Stop: 02/15/19 12:19 Last Admin: 02/15/19 13:55 Dose: 266 mg Documented by: [id number] Diphenhydramine HCl (Benadryl) 50 mg IV NOW STA Stop: 02/13/19 13:05 Last Admin: 02/13/19 13:20 Dose: 50 mg Documented by: [id number] Diphenhydramine HCl (Benadryl) 50 mg IV NOW STA Stop: 02/16/19 09:25 Last Admin: 02/16/19 09:56 Dose: 50 mg Documented by: [id number] Diphenhydramine HCl (Benadryl Capsule) 25 mg PO HS AMANDA Stop: 03/18/19 20:59 Last Admin: 02/16/19 21:02 Dose: 25 mg Documented by: [id number] Docusate Sodium (Colace) 100 mg PO BID AMANDA Stop: 03/17/19 03:39 Last Admin: 02/17/19 08:18 Dose: 100 mg Documented by: [id number] Admin: 02/16/19 21:09 Dose: 100 mg Documented by: [id number] Admin: 02/16/19 08:54 Dose: 100 mg Documented by: [id number] Admin: 02/15/19 21:48 Dose: 100 mg Documented by: [id number] Admin: 02/15/19 08:37 Dose: 100 mg Documented by: [id number] Admin: 02/15/19 04:53 Dose: 100 mg Documented by: [id number] Fexofenadine HCl (Saida) 180 mg PO QAM AMANDA Stop: 03/16/19 08:59 Last Admin: 02/17/19 08:19 Dose: 180 mg Documented by: [id number] Admin: 02/16/19 08:55 Dose: 180 mg Documented by: [id number] Admin: 02/15/19 08:37 Dose: 180 mg Documented by: [id number] Admin: 02/14/19 08:35 Dose: 180 mg Documented by: [id number] Fluticasone Propionate (Flonase) 2 sprays PAULA DAILY AMANDA Stop: 03/16/19 08:59 Last Admin: 02/17/19 08:19 Dose: 2 sprays Documented by: [id number] Admin: 02/16/19 08:55 Dose: 2 sprays Documented by: [id number] Admin: 02/15/19 08:37 Dose: 2 sprays Documented by: [id number] Admin: 02/14/19 08:35 Dose: 2 sprays Documented by: [id number] Guaifenesin (Mucinex) 1,200 mg PO Q12H PRN PRN Reason: Cough Stop: 03/15/19 19:20 Last Admin: 02/13/19 20:52 Dose: 1,200 mg Documented by: [id number] Sodium Chloride (Nss) 500 mls @ 999 mls/hr IV .Q31M AMANDA Stop: 02/13/19 12:00 Last Infusion: 02/13/19 11:56 Dose: 0 mls/hr Documented by: [id number] Admin: 02/13/19 11:25 Dose: 999 mls/hr Documented by: [id number] Acetaminophen (Ofirmev) 1,000 mg in 100 mls @ 400 mls/hr IV NOW STA Stop: 02/13/19 17:17 Last Infusion: 02/13/19 18:05 Dose: 0 mls/hr Documented by: [id number] Admin: 02/13/19 17:37 Dose: 400 mls/hr Documented by: [id number] Sodium Chloride (Nss 1000ml) 1,000 mls @ 80 mls/hr IV .[id number] AMANDA Stop: 02/14/19 21:44 Last Infusion: 02/14/19 22:13 Dose: 0 mls/hr Documented by: [id number] Admin: 02/14/19 09:46 Dose: 80 mls/hr Documented by: [id number] Cefazolin Sodium (Ancef 1000mg) 1,000 mg in 7.5 mls @ 2.5 mls/min IV ONCE ONE Stop: 02/15/19 14:11 Last Admin: 02/15/19 13:22 Dose: 2.5 mls/min Documented by: [id number] Dextrose/Sodium Chloride (D5w And 1/2nss) 1,000 mls @ 100 mls/hr IV .Q10H AMANDA Stop: 03/17/19 15:50 Last Infusion: 02/16/19 08:51 Dose: 0 mls/hr Documented by: [id number] Infusion: 02/16/19 06:05 Dose: 100 mls/hr Documented by: [id number] Admin: 02/16/19 02:19 Dose: 100 mls/hr Documented by: [id number] Infusion: 02/16/19 02:19 Dose: 100 mls/hr Documented by: [id number] Admin: 02/15/19 16:56 Dose: 100 mls/hr Documented by: [id number] Acetaminophen (Ofirmev) 1,000 mg in 100 mls @ 400 mls/hr IV Q8H AMANDA Stop: 02/18/19 17:59 Last Infusion: 02/16/19 02:34 Dose: 0 mls/hr Documented by: [id number] Admin: 02/16/19 02:19 Dose: 400 mls/hr Documented by: [id number] Infusion: 02/15/19 18:42 Dose: 0 mls/hr Documented by: [id number] Admin: 02/15/19 18:26 Dose: 400 mls/hr Documented by: [id number] Methylprednisolone 125 mg/ (Syringe) 2 mls @ 1.5 mls/min IV NOW ONE Stop: 02/16/19 09:46 Last Admin: 02/16/19 09:57 Dose: 1.5 mls/min Documented by: [id number] Ioversol (Optiray 320 125ml) 120 ml IV ONCE PRN PRN Reason: Interaction Checking Stop: 02/17/19 13:42 Last Admin: 02/13/19 13:44 Dose: 120 ml Documented by: [id number] Ioversol (Optiray 320 100ml) 94 ml IV ONCE PRN PRN Reason: Interaction Checking Stop: 02/20/19 10:31 Last Admin: 02/16/19 10:33 Dose: 94 ml Documented by: [id number] Lisinopril (Zestril) 2.5 mg PO QAM AMANDA Stop: 03/18/19 08:59 Last Admin: 02/17/19 08:18 Dose: 2.5 mg Documented by: [id number] Admin: 02/16/19 08:54 Dose: 2.5 mg Documented by: [id number] Menthol (Nice) Confirm Administered Dose 24 julius BUCCAL .STK-MED ONE Stop: 02/15/19 17:16 Last Admin: 02/15/19 17:39 Dose: 24 julius Documented by: [id number] Methylprednisolone (Solumedrol) 125 mg IV NOW STA Stop: 02/13/19 13:05 Last Admin: 02/13/19 13:20 Dose: 125 mg Documented by: [id number] Metoclopramide HCl (Reglan) 10 mg IV ONE ONE Stop: 02/15/19 14:26 Last Admin: 02/15/19 14:45 Dose: 10 mg Documented by: [id number] Metoclopramide HCl (Reglan) 10 mg IV Q8H AMANDA Stop: 02/16/19 06:01 Last Admin: 02/16/19 05:03 Dose: 10 mg Documented by: [id number] Admin: 02/15/19 21:49 Dose: 10 mg Documented by: [id number] Miscellaneous (Order Awaiting Action) 1 ea N/A QS AMANDA Stop: 03/16/19 00:00 Last Admin: 02/17/19 07:50 Dose: Not Given Documented by: [id number] Admin: 02/16/19 23:49 Dose: Not Given Documented by: [id number] Admin: 02/16/19 17:29 Dose: Not Given Documented by: [id number] Admin: 02/16/19 08:05 Dose: Not Given Documented by: [id number] Admin: 02/15/19 23:33 Dose: Not Given Documented by: [id number] Admin: 02/15/19 17:46 Dose: Not Given Documented by: [id number] Admin: 02/15/19 08:37 Dose: Not Given Documented by: [id number] Admin: 02/15/19 00:58 Dose: Not Given Documented by: [id number] Admin: 02/14/19 16:18 Dose: Not Given Documented by: [id number] Admin: 02/14/19 08:32 Dose: Not Given Documented by: [id number] Admin: 02/14/19 00:11 Dose: Not Given Documented by: [id number] Montelukast Sodium (Singulair) 10 mg PO HS AMANDA Stop: 03/15/19 20:59 Last Admin: 02/16/19 21:05 Dose: 10 mg Documented by: [id number] Admin: 02/15/19 21:48 Dose: 10 mg Documented by: [id number] Admin: 02/14/19 20:24 Dose: 10 mg Documented by: [id number] Admin: 02/13/19 20:49 Dose: 10 mg Documented by: [id number] Morphine Sulfate (Morphine Sulfate) 2 mg IV Q4H PRN PRN Reason: Chest Pain Stop: 02/27/19 19:20 Last Admin: 02/16/19 05:52 Dose: 2 mg Documented by: [id number] Admin: 02/14/19 10:22 Dose: 2 mg Documented by: [id number] Admin: 02/13/19 22:15 Dose: 2 mg Documented by: [id number] Multivitamins/Minerals (Caltrate Plus) 1 tab PO DAILY AMANDA Stop: 03/16/19 08:59 Last Admin: 02/17/19 08:19 Dose: 1 tab Documented by: [id number] Admin: 02/16/19 08:55 Dose: 1 tab Documented by: [id number] Admin: 02/15/19 08:37 Dose: 1 tab Documented by: [id number] Admin: 02/14/19 08:35 Dose: 1 tab Documented by: [id number] Multivitamins/Minerals (Multivitamin W/ Minerals Tab) 1 tab PO BID AMANDA Stop: 03/15/19 20:59 Last Admin: 02/17/19 08:19 Dose: 1 tab Documented by: [id number] Admin: 02/16/19 21:03 Dose: 1 tab Documented by: [id number] Admin: 02/16/19 08:54 Dose: 1 tab Documented by: [id number] Admin: 02/15/19 21:48 Dose: 1 tab Documented by: [id number] Admin: 02/15/19 08:38 Dose: 1 tab Documented by: [id number] Admin: 02/14/19 20:23 Dose: 1 tab Documented by: [id number] Admin: 02/14/19 08:34 Dose: 1 tab Documented by: [id number] Admin: 02/13/19 20:49 Dose: 1 tab Documented by: [id number] Nebivolol (Bystolic) 5 mg PO HS AMANDA Stop: 03/17/19 20:59 Last Admin: 02/16/19 21:05 Dose: 5 mg Documented by: [id number] Admin: 02/15/19 21:48 Dose: 5 mg Documented by: [id number] Oxycodone HCl (Roxicodone Immediate Rel) 5 mg PO Q6H PRN PRN Reason: Pain Stop: 03/01/19 15:50 Last Admin: 02/16/19 00:19 Dose: 5 mg Documented by: [id number] Admin: 02/15/19 17:05 Dose: 5 mg Documented by: [id number] Propafenone HCl (Rythmol) 225 mg PO BID AMANDA Stop: 03/15/19 20:59 Last Admin: 02/17/19 08:18 Dose: 225 mg Documented by: [id number] Admin: 02/16/19 21:04 Dose: 225 mg Documented by: [id number] Admin: 02/16/19 08:54 Dose: 225 mg Documented by: [id number] Admin: 02/15/19 21:48 Dose: 225 mg Documented by: [id number] Admin: 02/15/19 07:53 Dose: 225 mg Documented by: [id number] Admin: 02/14/19 20:18 Dose: 225 mg Documented by: [id number] Admin: 02/14/19 08:35 Dose: 225 mg Documented by: [id number] Admin: 02/13/19 20:50 Dose: 225 mg Documented by: [id number] Ranitidine HCl (Zantac) 300 mg PO HS AMANDA Stop: 03/15/19 20:59 Last Admin: 02/16/19 21:02 Dose: 300 mg Documented by: [id number] Admin: 02/15/19 21:48 Dose: 300 mg Documented by: [id number] Admin: 02/14/19 20:24 Dose: 300 mg Documented by: [id number] Admin: 02/13/19 20:49 Dose: 300 mg Documented by: [id number] Sodium Chloride (Sodium Chloride 0.9% Pf) Confirm Administered Dose 250 ml .ROUTE .STK-MED ONE Stop: 02/15/19 12:19 Last Admin: 02/15/19 13:56 Dose: 250 ml Documented by: [id number] Impression & Plan Hemothorax on right, Hypotensive episode Critical Care Time I have personally spent 40 minutes of critical care time in the direct management of this patient. This includes bedside care, interpretation of d iagnostic studies, and testing, discussion with consultants, patient, and family members, and other required patient management activities. This 40 minutes is in excess of all separately billable procedures. Discharge Plan Visit Data *Final* Discharge Date/Time: 02/13/19 18:24 Chief Complaint: Chest Pain ED Provider: Heath Lyn Discharge Problem: Hemothorax on right, Hypotensive episode Patient Disposition: Admitted As Inpatient Condition: Good Discharge Instructions Interventions: ED Discharge Assessment Last Done: 02/13/19 18:24 Medical Decision Making Differential Diagnosis Differential includes acute coronary syndrome, myocardial infarction, CVA, TIA, anemia, infection, pneumonia, UTI, pyelonephritis, poor nutrition, dehydration, electrolyte disturbance,hypoglycemia. Medical Records Attestation: I reviewed the patient's medical records. Home Medications Current Medication List: was personally reviewed by me Laboratory Data Attestation: I reviewed the patient's lab results. Result diagrams: 02/16/19 05:48 02/16/19 05:48 Lab Results 11/11/19 11/11/19 11/11/19 Range/Units 11:02 11:02 11:02 WBC 12.93 H (4.8-10.8) K/uL RBC 2.96 L (4.7-6.1) M/uL Hgb 10.2 L (14.0-18.0) g/dL Hct 30.0 L (42-52) % MCV 101.4 H (80-100) fL MCH 34.5 H (25-34) pg MCHC 34.0 (32-36) g/dL RDW Std Deviation 45.9 (36.4-46.3) fL RDW Coeff of Omid 12.5 (11.5-14.5) % Plt Count 211 (130-400) K/uL MPV 8.2 (7.4-10.4) fL Immature Gran % (Auto) 0.2 % Neut % (Auto) 77.5 % Lymph % (Auto) 11.8 % Preble % (Auto) 9.2 % Eos % (Auto) 1.2 % Baso % (Auto) 0.1 % Immature Gran # (Auto) 0.02 (0.00-0.02) K/uL Neut # (Auto) 10.03 H (1.4-6.5) K/uL Lymph # (Auto) 1.53 (1.2-3.4) K/uL Preble # (Auto) 1.19 H (0.11-0.59) K/uL Eos # (Auto) 0.15 (0-0.5) K/uL Baso # (Auto) 0.01 (0-0.2) K/uL PT 10.7 (9.0-12.0) Seconds INR 1.0 (0.9-1.1) APTT 24.9 (21.0-31.0) Seconds PTT Ratio 0.9 Sodium 139 (136-145) mmol/L Potassium 4.6 (3.5-5.1) mmol/L Chloride 108 H (98-107) mmol/L Carbon Dioxide 25 (21-32) mmol/L Anion Gap 6.0 (3-11) BUN 29 H (7-18) mg/dl Creatinine 1.43 H (0.6-1.4) mg/dl Est Cr Clr Drug Dosing 36.6 ml/min Est GFR ( Amer) 52.9 Est GFR (Non-Af Amer) 45.6 BUN/Creatinine Ratio 20.2 H (10-20) Glucose 111 H (70-99) mg/dl Calcium 8.6 (8.5-10.1) mg/dl Total Bilirubin 0.3 (0.2-1) mg/dl AST 13 L (15-37) U/L ALT 15 (12-78) U/L Alkaline Phosphatase 103 (45-117) U/L Total Creatine Kinase 70 (39-308) U/L Troponin I < 0.015 (0-0.045) ng/ml Total Protein 5.7 L (6.4-8.2) gm/dl Albumin 2.9 L (3.4-5.0) gm/dl Globulin 2.8 (2.5-4.0) gm/dl Albumin/Globulin Ratio 1.0 (0.9-2) Lipase 64 L (73-393) U/L Blood Type Antibody Screen Crossmatch 02/13/19 Range/Units 12:08 WBC (4.8-10.8) K/uL RBC (4.7-6.1) M/uL Hgb (14.0-18.0) g/dL Hct (42-52) % MCV (80-100) fL MCH (25-34) pg MCHC (32-36) g/dL RDW Std Deviation (36.4-46.3) fL RDW Coeff of Omid (11.5-14.5) % Plt Count (130-400) K/uL MPV (7.4-10.4) fL Immature Gran % (Auto) % Neut % (Auto) % Lymph % (Auto) % Preble % (Auto) % Eos % (Auto) % Baso % (Auto) % Immature Gran # (Auto) (0.00-0.02) K/uL Neut # (Auto) (1.4-6.5) K/uL Lymph # (Auto) (1.2-3.4) K/uL Preble # (Auto) (0.11-0.59) K/uL Eos # (Auto) (0-0.5) K/uL Baso # (Auto) (0-0.2) K/uL PT (9.0-12.0) Seconds INR (0.9-1.1) APTT (21.0-31.0) Seconds PTT Ratio Sodium (136-145) mmol/L Potassium (3.5-5.1) mmol/L Chloride (98-107) mmol/L Carbon Dioxide (21-32) mmol/L Anion Gap (3-11) BUN (7-18) mg/dl Creatinine (0.6-1.4) mg/dl Est Cr Clr Drug Dosing ml/min Est GFR ( Amer) Est GFR (Non-Af Amer) BUN/Creatinine Ratio (10-20) Glucose (70-99) mg/dl Calcium (8.5-10.1) mg/dl Total Bilirubin (0.2-1) mg/dl AST (15-37) U/L ALT (12-78) U/L Alkaline Phosphatase (45-117) U/L Total Creatine Kinase (39-308) U/L Troponin I (0-0.045) ng/ml Total Protein (6.4-8.2) gm/dl Albumin (3.4-5.0) gm/dl Globulin (2.5-4.0) gm/dl Albumin/Globulin Ratio (0.9-2) Lipase (73-393) U/L Blood Type O Negative Antibody Screen NEGATIVE Crossmatch See Detail Imaging Data Radiologist's Impression: Radiology results as stated below per my review and the radiologist's interpretation: XR chest 1V portable HISTORY: 79 years-old Male Chest Pain acute atypical chest pain COMPARISON: Chest radiographs 07/25/2018, chest CT 07/15/2018 TECHNIQUE: Portable AP view of the chest FINDINGS: Stable left subclavian pacer. Unchanged cardiomegaly. No pneumothorax. Small right pleural effusion with ill-defined hazy opacities of the right midlung and right lung base. Chronic bilateral interstitial coarsening. Degenerative changes of the shoulders and spine. Prior tailor cuff repair of the right shoulder. IMPRESSION: 1. Small right pleural effusion with hazy ill-defined right midlung and right lung base opacities suggestive of atelectasis, pneumonia or asymmetric pulmonary edema. 2. Chronic bilateral interstitial coarsening. 3. Cardiomegaly. The above report was generated using voice recognition software. It may contain grammatical, syntax or spelling errors. Electronically signed by: Mario Aparicio M.D. 02/13/2019 11:[address] angio chest PE protocol CLINICAL HISTORY: 79 years-old Male presenting with atypical chest pain, clinical concern for pulmonary bolus. TECHNIQUE: Multidetector CT angiography of the chest was performed after administration of intravenous contrast. 3-D volumetric and/or maximum intensity projection (MIP) images were subsequently reconstructed for review. IV contrast: 120 mL of Optiray 320. One or more dose lowering techniques were used consistent with the principles of ALARA (as low as reasonably achievable), including automatic exposure control, mA or kV adjustment to individual patient size, and/or use of iterative reconstruction. COMPARISON: Noncontrast chest CT from 07/15/2018. CT DOSE (mGy.cm): The estimated cumulative dose is 323.64 mGy.cm. FINDINGS: Taker Down topogram: Left subclavian pacer with leads to the right atrium and right ventricular apex. Pulmonary vasculature: The study is adequate for assessment of the pulmonary vascular tree. No filling defect within the pulmonary arteries to suggest embolus. Main pulmonary artery is not enlarged. No flattening of the interventricular septum. No intracardiac filling defect. No reflux of contrast into the hepatic veins. Remaining chest: Soft tissues: Normal thyroid and thoracic inlet. Gynecomastia. No axillary, supraclavicular, mediastinal, or hilar lymphadenopathy. Atherosclerosis of the aorta. Normal heart size. Coronary artery calcification. Large right pleural effusion, with extensive hyperdense material concerning for hemorrhage. No left pleural effusion. No pericardial effusion. Upper abdomen normal. Lungs and airways: No pneumothorax. Diffuse bronchial wall thickening greatest in the lower lobes. Pulmonary arteries are not significantly enlarged relative to adjacent bronchi. Mild interlobular septal thickening diffusely. Subpleural cystic change and reticulation in nondependent portions of the upper lobes. Extensive largely dependent consolidation in the right lower lobe with peribronchial vascular bundle thickening. A suture margin and is noted along the posterior segment of the right upper lobe. Suture margin also noted in the posterior basal right lower lobe. Patchy groundglass opacity is noted throughout the left lung and in aerated portions of the right lung. Musculoskeletal: Degenerative changes of the spine. Mild vertebral body height loss of T5 as on prior exam. IMPRESSION: 1. Large hyperdense right pleural effusion highly concerning for hemothorax. Consider thoracentesis for confirmation. 2. Postsurgical changes of the right upper and lower lobes. 3. No evidence of pulmonary embolus. 4. Congestive change and mild pulmonary edema. 5. Extensive consolidation in the right lower lobe, which in part represents passive atelectasis though superimposed infiltrate is also suspected. The report will be called/faxed according to standard departmental protocol. Electronically signed by: Clay Carias M.D. 02/13/2019 2:10 PM ECG Data Attestation: I personally reviewed and interpreted this ECG as follows: Indication: + chest pain Rate (beats per minute): 80 Rhythm: + sinus rhythm ECG Intervals/blocks: + First degree AV block ECG ST segments: + T-wave inversions (Lateral); no ST elevation Comparison ECG Date: from (07/18/18) Change: the following changes noted (TWI is now present) Blood Pressure Blood Pressure Findings: Elevated blood pressure Blood Pressure Disposition: Referred to patients primary care provider MDM Narrative This is a 79-year-old male who presents to the ED with a chief complaint of a near syncopal episode. The patient states that his symptoms started this morning at around 8:30 AM. He became pale lightheaded and diaphoretic. He states that he was transported here. He was given a liter of fluid by EMS. The patient also has been experiencing right-sided chest pain that started this morning as well. He states that his pain is worse with a deep breath. He states that it feels as though he pulled a muscle when he was lifting some things yesterday. His physical exam was unremarkable. He looks slightly pale. Chest x-ray reveals a small hazy area in the right midlung which could be atelectasis versus pneumonia. He does not have any clinical findings to suggest pneumonia. An EKG shows a sinus rhythm at a rate of 80. He does have some T wave inversions that are new compared to 07/18/2018. His hemoglobin is 10.2. BUN is 29 creatinine is 1.4. Troponin was negative. CT scan of the chest reveals what appears to be a large right-sided hemothorax. I did speak with Dr. Lamb about this. He will follow along with the medicine service. I spoke with Dr. Malik Cordon who will see the patient for admission. The patient d id respond to IV fluids. He had 1.5 L of normal saline here and his blood pressure seems to be stable since receiving the fluids. The scribe's documentation has been prepared under my direction and personally reviewed by me in its entirety. I confirm that the note above accurately reflects all work, treatment, procedures, and medical decision making performed by me.
[2019-02-13] MEDS ORDERED: methylPREDNISolone 125 MG/2 ML VIAL IV STA (13:04)
[2019-02-13] MEDS ORDERED: DiphenhydrAMINE HCL 50 MG/ML VIAL IV STA (13:04)
[2019-02-13] MEDS ORDERED: ALBUT/IPRATROP 3MG/0.5MG NEB 3 ML VIAL NEB STA (13:11)
[2019-02-13] MEDS ORDERED: OPTIRAY 320 125ml IV PRN (13:43)
--- NOTE | 2019-02-13 14:11 | CT Scan Report ---
CT angio chest PE protocol CLINICAL HISTORY: 79 years-old Male presenting with atypical chest pain, clinical concern for pulmona ry bolus. TECHNIQUE: Multidetector CT angiography of the chest was performed after administration of intravenou s contrast. 3-D volumetric and/or maximum intensity projection (MIP) images were subsequently reconst ructed for review. IV contrast: 120 mL of Optiray 320. One or more dose lowering techniques were used consistent with the principles of ALARA (as low as reasonably achievable), including automatic expos ure control, mA or kV adjustment to individual patient size, and/or use of iterative reconstruction. COMPARISON: Noncontrast chest CT from 07/15/2018. CT DOSE (mGy.cm): The estimated cumulative dose is 323.64 mGy.cm. FINDINGS: Erosion Control Coordinator topogram: Left subclavian pacer with leads to the right atrium and right ventricular apex. Pulmonary vasculature: The study is adequate for assessment of the pulmonary vascular tree. No filling defect within the pul monary arteries to suggest embolus. Main pulmonary artery is not enlarged. No flattening of the inter ventricular septum. No intracardiac filling defect. No reflux of contrast into the hepatic veins. Remaining chest: Soft tissues: Normal thyroid and thoracic inlet. Gynecomastia. No axillary, supraclavicular, mediasti nal, or hilar lymphadenopathy. Atherosclerosis of the aorta. Normal heart size. Coronary artery calci fication. Large right pleural effusion, with extensive hyperdense material concerning for hemorrhage. No left pleural effusion. No pericardial effusion. Upper abdomen normal. Lungs and airways: No pneumothorax. Diffuse bronchial wall thickening greatest in the lower lobes. Pu lmonary arteries are not significantly enlarged relative to adjacent bronchi. Mild interlobular septa l thickening diffusely. Subpleural cystic change and reticulation in nondependent portions of the upp er lobes. Extensive largely dependent consolidation in the right lower lobe with peribronchial vascul ar bundle thickening. A suture margin and is noted along the posterior segment of the right upper lob e. Suture margin also noted in the posterior basal right lower lobe. Patchy groundglass opacity is no trang throughout the left lung and in aerated portions of the right lung. Musculoskeletal: Degenerative changes of the spine. Mild vertebral body height loss of T5 as on prior exam. IMPRESSION: 1. Large hyperdense right pleural effusion highly concerning for hemothorax. Consider thoracentesis for confirmation. 2. Postsurgical changes of the right upper and lower lobes. 3. No evidence of pulmonary embolus. 4. Congestive change and mild pulmonary edema. 5. Extensive consolidation in the right lower lobe, which in part represents passive atelectasis tho ugh superimposed infiltrate is also suspected. The report will be called/faxed according to standard departmental protocol. Electronically signed by: Clay Carias M.D. 02/13/2019 2:10 PM
[2019-02-13] MEDS ORDERED: ACETAMINOPHEN 1,000 MG/100 ML VIAL IV STA (17:03)
--- NOTE | 2019-02-13 17:05 | History & Physical Report ---
Date of Service February 13, 2019 Assessment & Plan (1) Hemothorax on right: - CT with large hyperdense R pleural effusion suspicious for hemothorax with postsurgical changes/extensive consolidation in RLL possibly passive atelectasis but possible superimposed infiltrate - Hemodynamically stable - intermittent desats but likely related to Raynauds and poor waveform readings - does have inspiratory pain but no pinpoint tenderness of rib cage/no trauma - does report lifting approx. 40 lb object yesterday but felt fine yesterday; does have chronic lung disease - Given lack of trauma and underlying lung disease - possible bollus rupture? spontaneous? he did have Bx completed in July which did not support malignancy - Tylenol and Morphine PRN for pain control; Hold ASA - Hgb 10.2 and will repeat again to assess for changes - Consult CT Surg - likely will need drainage given symptoms however is hemodynamically stable at this time Present on Admission?: Yes (2) Pre-syncope: - Possibly this could be vasovagal - but will monitor given likely hemothorax - Will monitor on telemetry - however has a pacemaker and PAF - unlikely this is arrhythmia Present on Admission?: Yes (3) Interstitial lung disease: - Suspected this was related to Flecainide use; had Bx and evaluation at [facility] that supported interstitial changes/pneumonitis; carries a lifelong H/O asthma as well - Does not appear to be in an exacerbation at this time - Continue Nebs/inhalers; Singulair 10 mg daily and Symbicort BID Present on Admission?: Yes (4) Paroxysmal atrial fibrillation: - Continue Propafenone 225 mg BID; Continue Bystolic and Lisinopril for HTN -- Not on AC? given CT/hemothorax this would be contraindicated at this time - follows with cardiology and can follow this Present on Admission?: Yes (5) SSS (sick sinus syndrome): - S/P Pacer - follows with Dr. Schultz - STABLE Present on Admission?: Yes (6) DVT prophylaxis: - SCDS Disposition: Await hemothorax management; anticipate return home when clinically improved History of Present Illness Chief Complaint: Chest Pain and SOB Primary Care Provider: Miguel Gibbs MD Mr. Lomax is an 79 y/o male with PMHx of Asthma, Interstitial Lung Disease/Pneumonitis, Paroxysmal A Fib, Sick Sinus Syndrome S/P Pacer, GERD, Raynauds, and Prostate CA (Remission) S/P Prostatectomy who presents to the ED c/o sudden R sided chest pain and SOB starting this AM. Found to have suspect hemothorax on CT. Pt reports he was lifting heavy objects that were approx. 40 lbs yesterday but denies injury/falls. He states he was fine until this morning when he developed this pain. He initially related this to a pulled muscle given lifting yesterday. Pain is minimal with shallow breathing but significant with coughing, laughing, or deep breathing. Patient and report pre-syncope x 2 episodes today with associated diaphoresis and paleness. He also recalls some blurring of vision during these episodes. He also reports R wrist pain but no radiation into arm and is more isolated. He reports some SOB largely due to not being able to take deep breaths or cough. He does have intermittent desaturations on monitor during my assessment but does have Raynauds which could be interfering with reading. In July 2018 he underwent biopsy with Dr. Esquivel and had F/U at [facility] to confirm is pneumonitis/interstitial lung disease. Allergies Allergy/AdvReac Type Severity Reaction Status Date / Time nut - unspecified Allergy Severe Anaphylaxis Verified 02/13/19 11:23 Fish Containing Products Allergy Intermediate HANDS Verified 02/13/19 11:23 BREAK OUT gluten Allergy Intermediate GI TRACT Verified 02/13/19 11:23 UPSET latex Allergy Intermediate BLISTERS Verified 02/13/19 11:23 iodine Allergy Mild SWELLING,NA Verified 02/13/19 11:23 USEA shellfish derived Allergy Mild SEVERE Verified 02/13/19 11:23 ALLERGY--SWELLING,NAUSEA egg Allergy Unknown SEVERE Verified 02/13/19 11:23 CONGESTION Iodinated Contrast Media Allergy Unknown SWELLING Verified 02/13/19 11:23 AND NAUSEA milk Allergy Unknown SEVERE Verified 02/13/19 11:23 CONGESTION nickel Allergy Unknown ECZEMA RASH Verified 02/13/19 11:23 Home Medications Home Medications Medication Instructions Recorded Confirmed Type PreserVision AREDS 1 cap PO BID 06/15/18 02/13/19 History Symbicort 2 puff INHALATION BID 06/15/18 02/13/19 History albuterol sulfate [ProAir HFA] 2 puff INHALATION Q4 PRN 06/15/18 02/13/19 History aspirin 81 mg PO HS 06/15/18 02/13/19 History calcium citrate-vitamin D3 1 tab PO DAILY 06/15/18 02/13/19 History [Citracal Regular] epinephrine [EpiPen] 0.3 mg IM UD PRN 06/15/18 02/13/19 History fexofenadine [Saida Allergy] 180 mg PO QAM 06/15/18 02/13/19 History fluorouracil [Efudex] 1 applic TOPICAL BID PRN 06/15/18 02/13/19 History guaifenesin [Mucinex] 1,200 mg PO Q12H PRN 06/15/18 02/13/19 History ketoconazole 1 applic TOPICAL BID PRN 06/15/18 02/13/19 History montelukast 10 mg PO HS 06/15/18 02/13/19 History propafenone 225 mg PO Q12H 06/15/18 02/13/19 History Bystolic 5 mg PO HS 07/15/18 02/13/19 History diphenhydramine-acetaminophen 25 mg PO HS PRN 07/15/18 02/13/19 History albuterol sulfate 2.5 mg/3 mL 1 mg INHALATION UD #150 ml 11/11/18 02/13/19 History (0.083 %) solution for nebulization ranitidine HCl 300 mg tablet 300 mg PO UD #180 tab 11/11/18 02/13/19 History lisinopril 5 mg tablet 2.5 mg PO QAM tab 11/22/18 02/13/19 History amoxicillin 875 mg-potassium 1 tab PO BID #20 tab 01/03/19 02/13/19 Rx clavulanate 125 mg tablet fluticasone propionate 2 spray INTRANASAL UD 02/13/19 02/13/19 History Past Med/Surg History Medical History Asthma inhalers daily/prn Atrial fibrillation Basal cell carcinoma of face BPH (benign prostatic hyperplasia) Chronic steroid use Drug-induced lung disease GERD (gastroesophageal reflux disease) Hearing deficit History of colon polyps Hypertension Kidney stones Osteoarthritis Pacemaker 07/2017 @ [facility] by Dr. Perry Manriqueronic Prostate cancer 04/2012 Spondylosis Surgical History History of appendectomy History of arthroscopy of left shoulder History of colonoscopy History of parotidectomy History of prostate biopsy malignant History of prostate surgery greenlight laser History of radical prostatectomy 11/2012 History of repair of right rotator cuff History of tooth extraction History of wisdom tooth extraction Status post Mohs surgery for basal cell carcinoma Family History Other Family history non-contributory No family history of adverse response to anesthesia Social History Preferred Language: Mohawk Communication Ability: Effective Welt Sole Layer Required: No Beliefs That Will Affect Care: None Current Living Situation: Spouse Other Information That Helps Us Care for You: No Feels Safe at Home: Yes Safety Concerns: Feels Safe At This Time Smoking Status: Never smoker Second Hand Exposure: No ; Hx Alcohol Use: Yes Alcohol type: wine Hx Substance Use: No Review of Systems Constitutional: no fever and no chills Eyes: no worsening vision Ear, Nose, Mouth, Throat: no nasal congestion, no sore throat and no dysphagia Respiratory: + dyspnea on exertion and + pain on inspiration; no cough Cardiovascular: + chest pain and + lightheadedness (earlier in day - now resolved) Gastrointestinal: no abdominal pain, no nausea, no vomiting, no constipation and no diarrhea/loose stools Genitourinary: no dysuria Musculoskeletal: + joint pain (R wrist pain); no body aches Integumentary: no rash Physical Exam Constitutional: well developed and well nourished; no acute distress and not ill appearing Eyes: + anicteric sclerae ENMT: Ears: no hearing impairment Throat: uvula midline Neck: trachea midline Respiratory: Shallow breathing due to pain restriction; Diminished in R mid/base and diminished on L bases otherwise clear Cardiovascular: Rate/Rhythm: regular rate and regular rhythm Vessels: no JVD Extremities: normal capillary refill; no edema Chest (Breasts): Chest: + pacemaker Additional Comments: No pinpoint tenderness with palpation of ribs/chest wall Gastrointestinal (Abdomen): Inspection/Auscultation: normal bowel sounds Percussion/Palpation: abdomen soft; abdomen nontender Musculoskeletal: no cyanosis or clubbing, extremities motor strength 5/5 (cool fingertips - reports chronic 2/2 Raynauds) Head/Neck/Chest: normocephalic and head atraumatic Skin: no rashes, warm and dry Neurologic: moves all extremities Psychiatric: A+Ox3, euthymic affect Results & Data Vital Signs (Past 12 Hours) Vital Signs Pulse Pulse Resp BP Pulse Ox 02/13/19 16:35 69 24 136/73 94 02/13/19 16:31 71 27 H 116/73 94 02/13/19 16:25 70 21 110/82 93 02/13/19 16:20 71 29 H 119/70 92 02/13/19 16:15 69 22 125/72 02/13/19 16:10 63 22 126/68 02/13/19 16:05 70 23 123/87 02/13/19 16:00 69 19 112/66 90 02/13/19 15:55 70 19 114/70 90 02/13/19 15:50 67 17 111/68 91 02/13/19 15:45 67 16 112/76 90 02/13/19 15:40 69 19 110/73 02/13/19 15:36 64 21 119/63 94 02/13/19 15:30 67 19 130/80 92 02/13/19 15:25 67 17 129/71 93 02/13/19 15:20 68 19 123/89 93 02/13/19 15:15 72 23 130/74 95 02/13/19 15:10 68 18 142/82 H 02/13/19 15:07 72 27 H 160/76 H 02/13/19 15:00 71 36 H 113/81 02/13/19 14:56 71 19 109/74 02/13/19 14:50 67 18 125/76 02/13/19 14:46 66 16 122/73 02/13/19 14:40 62 23 93 02/13/19 14:36 66 23 124/81 94 02/13/19 14:30 64 25 H 141/61 H 02/13/19 14:25 67 18 138/79 02/13/19 14:20 65 24 134/79 95 02/13/19 14:15 66 18 115/83 02/13/19 14:11 66 16 92 02/13/19 14:10 68 25 H 105/69 95 02/13/19 14:05 74 19 69/60 L 02/13/19 14:00 71 16 113/80 99 02/13/19 13:57 72 16 90 02/13/19 13:56 68 20 112/50 L 02/13/19 13:54 66 22 127/64 02/13/19 13:52 70 23 105/70 02/13/19 13:32 122/70 02/13/19 13:31 70 17 90/58 L 02/13/19 13:30 64 23 84 L 02/13/19 13:25 63 23 117/64 02/13/19 13:20 65 26 H 120/60 02/13/19 13:15 63 17 106/60 02/13/19 13:10 64 22 108/58 L 95 02/13/19 13:05 66 19 120/66 02/13/19 13:00 64 15 94/59 L 89 L 02/13/19 12:55 65 15 123/62 88 L 02/13/19 12:50 65 19 105/60 02/13/19 12:45 65 19 111/59 L 02/13/19 12:40 62 21 98/56 L 02/13/19 12:35 65 15 99/58 L 02/13/19 12:31 65 17 94/74 L 02/13/19 12:30 65 13 89 L 02/13/19 12:25 69 18 106/55 L 02/13/19 12:21 67 15 02/13/19 12:20 68 20 86/54 L 02/13/19 12:18 68 14 91/54 L 93 02/13/19 12:15 69 18 88/54 L 95 02/13/19 12:13 61 24 79/47 L 95 02/13/19 12:10 65 13 84/54 L 02/13/19 12:00 95 H 18 95/60 L 95 02/13/19 11:50 66 22 95 02/13/19 11:40 66 18 96 02/13/19 11:30 69 20 116/61 87 L 02/13/19 11:29 64 21 106/57 L 84 L 02/13/19 11:20 63 19 88 L 02/13/19 11:19 96 02/13/19 11:12 69 25 H 100/54 L 94 02/13/19 11:10 66 32 H 91 02/13/19 11:05 79 18 105/61 92 11/11/19 11:00 73 28 H 86/49 L 93 02/13/19 10:56 77 20 54/33 L 02/13/19 10:55 79 24 49/34 L 02/13/19 10:50 66 16 96 02/13/19 10:40 64 22 98 02/13/19 10:30 67 19 97/64 L 96 02/13/19 10:23 67 21 98 02/13/19 10:21 77 20 121/73 94 02/13/19 10:13 67 17 121/73 95 Code Status & VTE Plan Code Status FULL CODE Supervising Physician Co-Signing Physician Notes Patient seen and examined with Larissa HAINES. I agree with her exam francoise morel, review of systems, assessment and plan. I personally reviewed the lab work and imaging as well. I discussed the case with Dr. Esquivel, he will evaluate the patient in the morning. Patient breathing okay, some dyspnea on exertion. He is really concerned about the pain he has with deep inspiration, limiting his ability to cough. - Hemothorax, spontaneous, no known injury plan for thoracentesis on 02/14, may need further drainage defer to Dr. Esquivel - Syncope: most likely precipitated by low volume state with blood loss and some mild dehydration can interrogate pacer if needed observe for any further episodes, would benefit from some IV fluids PG Care Time/CCT Total # of Minutes Spent Total Time Spent with Patient: Total time spent is greater than 50% in coordination of care (as documented) at patient's floor/unit and/or counseling patient:
[2019-02-13 19:12] LABS: Hematocrit (blood only) 30.9 % (42-52); Hemoglobin 10.5 g/dL (14.0-18.0)
[2019-02-13] MEDS ORDERED: guaiFENesin 600 MG TABCR PO PRN (19:21)
[2019-02-13] MEDS ORDERED: ALBUTEROL HFA 8 GM INHALER INH PRN (19:21)
[2019-02-13] MEDS ORDERED: ALBUTEROL 0.083% NEBU SOLN 3 ML VIAL INH SCH (19:21)
[2019-02-13] MEDS ORDERED: ONDANSETRON INJ 2 MG/ML 2 ML VIAL IV PRN (19:21)
[2019-02-13] MEDS ORDERED: ALUMINUM/MAGNESIUM SUSP 30 ML UDC PO PRN (19:21)
[2019-02-13] MEDS ORDERED: EPINEPHRINE ADULT AUTO-INJECT 0.3 MG SYR IM PRN (19:21)
[2019-02-13] MEDS ORDERED: KETOCONAZOLE 2% CR 15 GM TUBE EXT PRN (19:21)
[2019-02-13] MEDS ORDERED: POLYETHYLENE (MIRALAX) 17 GM PACK PO PRN (19:21)
[2019-02-13] MEDS ORDERED: MAGNESIUM HYDROXIDE SUSP 30 ML UDC PO PRN (19:21)
[2019-02-13] MEDS: BUDESONIDE/FORMOTEROL FUMARATE 160/4.5 60 PUFFS/INHALER INH SCH (20:48)
[2019-02-13] MEDS: MONTELUKAST SODIUM 10 MG TABLET PO SCH (20:49)
[2019-02-13] MEDS: CEROVITE ADV FORMULA TAB PO SCH (20:49)
[2019-02-13] MEDS: PROPAFENONE HCL 150 MG TABLET PO SCH (20:50)
[2019-02-13] MEDS ORDERED: NEBIVOLOL HCL 5 MG TAB PO SCH (21:00)
--- NOTE | 2019-02-13 21:27 | Surgery Consultation ---
Date of Consultation February 13, 2019 Assessment & Plan (1) Pleural effusion on right: -pt. 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 I performed a thoracoscopic right lung biopsy about 7 months ago. Patient has a history of interstitial lung disease but has responded well to medications. For the details of the history of present illness please see the above consultation by Leonardo. Patient began having symptoms just in the last few days. His hemoglobin has not really dropped. Having said that, the CT scan does enhance and it may well be that were dealing with a hemothorax. We are going to offer him a thoracentesis early tomorrow morning. If indeed it is blood we will probably end up having to take him to the operating room for thoracoscopic evacuation. It seems complex on the CT scan. History of Present Illness Attending Physician: Ramon Clemens DO History of Present Illness 79 year old male admitted to hospital today secondary to "dizziness." The patient states he was in his usual state of health until yesterday when he became dizzy, nearly passing out. In addition he noted some MOON as well as chest tightness with deep inspirations. He presented to the ED, where a CT scan of his chest showed concern for a right pleural effusion. He denies any falls or chest trauma. He does not take any blood thinners. He does not he may have "pulled a muscle" as he was lifting a 40 pound object yest erday. At the time of my exam he was sitting up in bed. He did not appear uncomfortable at rest. He could carry on a conversation without getting SOB. He only had some discomfort when he took very deep breaths. Of noted, the pt. did have a RVATS with lung biopsy in July,. Allergies Allergy/AdvReac Type Severity Reaction Status Date / Time nut - unspecified Allergy Severe Anaphylaxis Verified 02/13/19 11:23 Fish Containing Products Allergy Intermediate HANDS Verified 02/13/19 11:23 BREAK OUT gluten Allergy Intermediate GI TRACT Verified 02/13/19 11:23 UPSET latex Allergy Intermediate BLISTERS Verified 02/13/19 11:23 iodine Allergy Mild SWELLING,NA Verified 02/13/19 11:23 USEA shellfish derived Allergy Mild SEVERE Verified 02/13/19 11:23 ALLERGY--SWELLING,NAUSEA egg Allergy Unknown SEVERE Verified 02/13/19 11:23 CONGESTION Iodinated Contrast Media Allergy Unknown SWELLING Verified 02/13/19 11:23 AND NAUSEA milk Allergy Unknown SEVERE Verified 02/13/19 11:23 CONGESTION nickel Allergy Unknown ECZEMA RASH Verified 02/13/19 11:23 Home Medications Home Medications Medication Instructions Recorded Confirmed Type PreserVision AREDS 1 cap PO BID 06/15/18 02/13/19 History Symbicort 2 puff INHALATION BID 06/15/18 02/13/19 History albuterol sulfate [ProAir HFA] 2 puff INHALATION Q4 PRN 06/15/18 02/13/19 History aspirin 81 mg PO HS 06/15/18 02/13/19 History calcium citrate-vitamin D3 1 tab PO DAILY 06/15/18 02/13/19 History [Citracal Regular] epinephrine [EpiPen] 0.3 mg IM UD PRN 06/15/18 02/13/19 History fexofenadine [Saida Allergy] 180 mg PO QAM 06/15/18 02/13/19 History fluorouracil [Efudex] 1 applic TOPICAL BID PRN 06/15/18 02/13/19 History guaifenesin [Mucinex] 1,200 mg PO Q12H PRN 06/15/18 02/13/19 History ketoconazole 1 applic TOPICAL BID PRN 06/15/18 02/13/19 History montelukast 10 mg PO HS 06/15/18 02/13/19 History propafenone 225 mg PO Q12H 06/15/18 02/13/19 History Bystolic 5 mg PO HS 07/15/18 02/13/19 History diphenhydramine-acetaminophen 25 mg PO HS PRN 07/15/18 02/13/19 History albuterol sulfate 2.5 mg/3 mL 1 mg INHALATION UD #150 ml 11/11/18 02/13/19 History (0.083 %) solution for nebulization ranitidine HCl 300 mg tablet 300 mg PO UD #180 tab 11/11/18 02/13/19 History lisinopril 5 mg tablet 2.5 mg PO QAM tab 11/22/18 02/13/19 History amoxicillin 875 mg-potassium 1 tab PO BID #20 tab 01/03/19 02/13/19 Rx clavulanate 125 mg tablet fluticasone propionate 2 spray INTRANASAL UD 02/13/19 02/13/19 History Patient History Medical History Asthma inhalers daily/prn Atrial fibrillation Basal cell carcinoma of face BPH (benign prostatic hyperplasia) Chronic steroid use Drug-induced lung disease GERD (gastroesophageal reflux disease) Hearing deficit History of colon polyps Hypertension Kidney stones Osteoarthritis Pacemaker 07/2017 @ [facility] by Dr. Amador [employer] Prostate cancer 04/2012 Spondylosis Surgical History History of appendectomy History of arthroscopy of left shoulder History of colonoscopy History of parotidectomy History of prostate biopsy malignant History of prostate surgery greenlight laser History of radical prostatectomy 11/2012 History of repair of right rotator cuff History of tooth extraction History of wisdom tooth extraction Status post Mohs surgery for basal cell carcinoma Family History Other Family history non-contributory No family history of adverse response to anesthesia Social History Preferred Language: Pakistani Communication Ability: Effective Sports Physiotherapist Required: No Beliefs That Will Affect Care: None Current Living Situation: Spouse Other Information That Helps Us Care for You: No Feels Safe at Home: Yes Safety Concerns: Feels Safe At This Time Smoking Status: Never smoker Second Hand Exposure: No ; Hx Alcohol Use: Yes Alcohol type: wine Hx Substance Use: No Review of Systems Constitutional: no fever, no chills and no weight loss Eyes: no diplopia Ear, Nose, Mouth, Throat: + dizziness Respiratory: + dyspnea on exertion and + pain on inspiration Cardiovascular: no chest pain and no dyspnea at rest Gastrointestinal: no nausea and no vomiting Genitourinary: no dysuria Musculoskeletal: no back pain Integumentary: no rash Neurologic: no localized weakness Physical Exam Constitutional: well developed and well nourished; no acute distress and not ill appearing Eyes: wears glasses ENMT: Ears: no hearing impairment Neck: trachea midline Respiratory: normal respiratory effort and able to speak in complete sentences; no respiratory distress, no labored breathing, does not use accessory muscles, not tachypneic and no stridor Auscultation: + diminished lung sounds (noted at bases, R>L); no wheezes Cardiovascular: Rate/Rhythm: regular rate and regular rhythm Gastrointestinal (Abdomen): Percussion/Palpation: abdomen soft; abdomen nontender Musculoskeletal: no claf tenderness Skin: no rashes, warm and dry Neurologic: moves all extremities, follows simple commands without noted focal deficits Psychiatric: A+Ox3, euthymic affect Results & Data Vital Signs (Past 12 Hours) Vital Signs Temp Pulse Pulse Resp BP BP Pulse Ox 02/13/19 20:20 36.5 C 74 20 118/74 93 02/13/19 19:49 78 67/40 L 96 02/13/19 18:24 67 21 136/78 94 02/13/19 18:00 67 21 136/78 94 02/13/19 17:46 70 20 119/72 91 02/13/19 17:31 73 19 158/76 H 02/13/19 17:15 73 23 134/90 93 02/13/19 17:00 71 21 122/74 92 02/13/19 16:45 71 23 120/80 92 02/13/19 16:41 64 30 H 132/73 93 02/13/19 16:35 69 24 136/73 94 02/13/19 16:31 71 27 H 116/73 94 02/13/19 16:25 70 21 110/82 93 02/13/19 16:20 71 29 H 119/70 92 02/13/19 16:15 69 22 125/72 02/13/19 16:10 63 22 126/68 02/13/19 16:05 70 23 123/87 02/13/19 16:00 69 19 112/66 90 02/13/19 15:55 70 19 114/70 90 02/13/19 15:50 67 17 111/68 91 02/13/19 15:45 67 16 112/76 90 02/13/19 15:40 69 19 110/73 02/13/19 15:36 64 21 119/63 94 02/13/19 15:30 67 19 130/80 92 02/13/19 15:25 67 17 129/71 93 02/13/19 15:20 68 19 123/89 93 02/13/19 15:15 72 23 130/74 95 02/13/19 15:10 68 18 142/82 H 02/13/19 15:07 72 27 H 160/76 H 02/13/19 15:00 71 36 H 113/81 02/13/19 14:56 71 19 109/74 02/13/19 14:50 67 18 125/76 02/13/19 14:46 66 16 122/73 02/13/19 14:40 62 23 93 02/13/19 14:36 66 23 124/81 94 02/13/19 14:30 64 25 H 141/61 H 02/13/19 14:25 67 18 138/79 02/13/19 14:20 65 24 134/79 95 02/13/19 14:15 66 18 115/83 02/13/19 14:11 66 16 92 02/13/19 14:10 68 25 H 105/69 95 02/13/19 14:05 74 19 69/60 L 02/13/19 14:00 71 16 113/80 99 02/13/19 13:57 72 16 90 02/13/19 13:56 68 20 112/50 L 02/13/19 13:54 66 22 127/64 02/13/19 13:52 70 23 105/70 02/13/19 13:32 122/70 02/13/19 13:31 70 17 90/58 L 02/13/19 13:30 64 23 84 L 02/13/19 13:25 63 23 117/64 02/13/19 13:20 65 26 H 120/60 02/13/19 13:15 63 17 106/60 02/13/19 13:10 64 22 108/58 L 95 02/13/19 13:05 66 19 120/66 02/13/19 13:00 64 15 94/59 L 89 L 02/13/19 12:55 65 15 123/62 88 L 02/13/19 12:50 65 19 105/60 02/13/19 12:45 65 19 111/59 L 02/13/19 12:40 62 21 98/56 L 02/13/19 12:35 65 15 99/58 L 02/13/19 12:31 65 17 94/74 L 02/13/19 12:30 65 13 89 L 02/13/19 12:25 69 18 106/55 L 02/13/19 12:21 67 15 02/13/19 12:20 68 20 86/54 L 02/13/19 12:18 68 14 91/54 L 93 02/13/19 12:15 69 18 88/54 L 95 02/13/19 12:13 61 24 79/47 L 95 02/13/19 12:10 65 13 84/54 L 02/13/19 12:00 95 H 18 95/60 L 95 02/13/19 11:50 66 22 95 02/13/19 11:40 66 18 96 02/13/19 11:30 69 20 116/61 87 L 02/13/19 11:29 64 21 106/57 L 84 L 02/13/19 11:20 63 19 88 L 02/13/19 11:19 96 02/13/19 11:12 69 25 H 100/54 L 94 02/13/19 11:10 66 32 H 91 02/13/19 11:05 79 18 105/61 92 02/13/19 11:00 73 28 H 86/49 L 93 02/13/19 10:56 77 20 54/33 L 02/13/19 10:55 79 24 49/34 L 02/13/19 10:50 66 16 96 02/13/19 10:40 64 22 98 02/13/19 10:30 67 19 97/64 L 96 02/13/19 10:23 67 21 98 02/13/19 10:21 77 20 121/73 94 02/13/19 10:13 67 17 121/73 95 PG Care Time/CCT Total # of Minutes Spent Total Time Spent with Patient: Total time spent is greater than 50% in coordination of care (as documented) at patient's floor/unit and/or counseling patient:
[2019-02-13] MEDS: MoRPHine SULFATE 2 MG/ML CARP IV PRN (22:15)
[2019-02-13] MEDS: ACETAMINOPHEN 325 MG TAB PO PRN (23:25)
[2019-02-14] MEDS: ALBUTEROL 0.083% NEBU SOLN 3 ML VIAL NEB PRN ×4 (00:01→22:09)
[2019-02-14] MEDS: CEROVITE ADV FORMULA TAB PO SCH ×2 (08:34→20:23)
[2019-02-14] MEDS: PROPAFENONE HCL 150 MG TABLET PO SCH ×2 (08:35→20:18)
[2019-02-14] MEDS: CALCIUM 600MG + VIT D 400 IU TAB PO SCH (08:35)
[2019-02-14] MEDS: FEXOFENADINE HCL 180 MG TAB PO SCH (08:35)
[2019-02-14] MEDS: FLUTICASONE PROPIONATE NA SPR 16 GM BTL NAE SCH (08:35)
[2019-02-14] MEDS: BUDESONIDE/FORMOTEROL FUMARATE 160/4.5 60 PUFFS/INHALER INH SCH ×2 (08:36→20:24)
[2019-02-14 08:43] LABS: Hematocrit (blood only) 28.4 % (42-52); Hemoglobin 9.7 g/dL (14.0-18.0); Mean Corpuscular Hemoglobin 34.2 pg (25-34); Mean Corpuscular Hgb Conc 34.2 g/dL (32-36); Mean Platelet Volume 8.3 fL (7.4-10.4); Platelet Count 240 K/uL (130-400); RDW Coefficient of Variation 12.7 % (11.5-14.5); RDW Standard Deviation 46.7 fL (36.4-46.3); Red Blood Count 2.84 M/uL (4.7-6.1); White Blood Count 10.53 K/uL (4.8-10.8)
[2019-02-14] MEDS ORDERED: LISINOPRIL 5 MG TAB PO SCH (09:00)
[2019-02-14 09:09] LABS: Creatinine Clr Calc Pharmacy 39.6 ml/min; Est GFR (African American) 58.2; Est GFR (Non-African American) 50.2; Potassium 4.3 mmol/L (3.5-5.1)
[2019-02-14] MEDS ORDERED: SODIUM CHLORIDE 0.9% 1000ML 1,000 ML IV SCH (09:15)
[2019-02-14 10:21] LABS: Glucose Pleural Fluid 115 mg/dl
[2019-02-14] MEDS: ACETAMINOPHEN 325 MG TAB PO PRN ×2 (10:22→22:24)
[2019-02-14] MEDS: MoRPHine SULFATE 2 MG/ML CARP IV PRN (10:22)
[2019-02-14 10:24] LABS: Amylase Pleural Fluid 46 U/L
[2019-02-14 10:27] LABS: Appearance Pleural Fluid BLOODY; Basophils, Fluid 1 %; Color Pleural Fluid RED; Eosinophils, Fluid 0 %; Lymphocytes, Fluid 34 %; Mono,Macrophage,Mesothelial 28 %; Neutrophils, Fluid 37 %; RBC Pleural Fluid (A) 2092000 /uL; Source Pleural Fluid RIGHT LUNG; WBC Pleural Fluid (A) 1747 /uL
--- NOTE | 2019-02-14 10:27 | XRay Report ---
XR chest 1V portable CLINICAL HISTORY: Postthoracentesis study COMPARISON STUDY: 02/13/2019 FINDINGS: Postsurgical changes are present on the right. There is a right upper lung zone suture line . There is a small right pleural effusion with right lower lobe atelectasis/consolidation. There is m ild diffuse interstitial thickening. There is a trace right apical pneumothorax.[ IMPRESSION: 1. Trace right apical pneumothorax status post thoracentesis 2. Small right pleural effusion with associated right lower lobe atelectasis/consolidation 3. Mild diffuse interstitial thickening Electronically signed by: Kali England M.D. 02/14/2019 10:25 AM
--- NOTE | 2019-02-14 15:02 | Anesthesiology Consultation ---
Date of Service February 14, 2019 Assessment & Plan (1) Encounter for pre-operative examination: Chart Review Chart Review: Pending: Refer to Additional Notes / Consult section and Patient NOT seen in Pre Admission Testing Consults Requested cardiac Additional Notes Patient admitted for new onset chest pain and presyncopal episode at home. Patient had a repeat episode yesterday evening after a bowel movement that consisted of presyncope/syncope with a blood pressure of 60/40. Patient reports that he also had two similar events in the ED on the day of admission while lying in bed. He denies overt shortness of breath during any event, but states that his "blood pressure felt low." ON CT scan, the patient was found to have right pleural effusion after a biopsy and VATs back in July. Per OR schedule, patient to go to operating room tomorrow for VATs with decortication. If plan is to perform thoracic surgery, patient should have a cardiac consult and evaluation prior to going to operating room due to unexplained presyncopal/syncopal episodes. It is possible these events were triggered by ac [place] blood loss, but the patient follow's with Dr. Schultz and has a cardiac history. In addition, the OR contacted the [employer] who informed us that they are not available to interrogate the patients device and that this service needs to be provided by the patient's plasterer journeyman. Due to the location of the surgery, the device should be interrogated to review battery life and acquire current pacemaker settings/determine percent pacing prior to going to operating room. I placed an order for repeat CBC in AM to ensure Hgb is stable. Pt has 2 units of PRBCs available. I discussed this plan with the patient and with Dr. Clemens, the patient's hospitalist. Of note, review of anesthetic record from 07/18/18 - Bronchoscopy with right VATS showed EZ mask, grade 2 view with Mac 3 and easy placement of 8.5 ETT. History Surgery Operation Date: 02/15/19 11:50 Proposed Procedures p Right Thoracoscopy with Decortication - Bhavik Esquivel MD, FACS Height/Weight Height: 5 ft 6 in Weight: 64.7 kg Allergies Allergy/AdvReac Type Severity Reaction Status Date / Time nut - unspecified Allergy Severe Anaphylaxis Verified 02/13/19 11:23 Fish Containing Products Allergy Intermediate HANDS Verified 02/13/19 11:23 BREAK OUT gluten Allergy Intermediate GI TRACT Verified 02/13/19 11:23 UPSET latex Allergy Intermediate BLISTERS Verified 02/13/19 11:23 iodine Allergy Mild SWELLING,NA Verified 02/13/19 11:23 USEA shellfish derived Allergy Mild SEVERE Verified 02/13/19 11:23 ALLERGY--SWELLING,NAUSEA egg Allergy Unknown SEVERE Verified 02/13/19 11:23 CONGESTION Iodinated Contrast Media Allergy Unknown SWELLING Verified 02/13/19 11:23 AND NAUSEA milk Allergy Unknown SEVERE Verified 02/13/19 11:23 CONGESTION nickel Allergy Unknown ECZEMA RASH Verified 02/13/19 11:23 Medications Home Medications Medication Instructions Recorded Confirmed Last Taken PreserVision AREDS 1 cap PO BID 06/15/18 02/13/19 07/15/18 08:00 Symbicort 2 puff INHALATION BID 06/15/18 02/13/19 Unknown albuterol sulfate [ProAir HFA] 2 puff INHALATION Q4 PRN 06/15/18 02/13/19 Unknown aspirin 81 mg PO HS 06/15/18 02/13/19 07/14/18 21:00 calcium citrate-vitamin D3 1 tab PO DAILY 06/15/18 02/13/19 07/15/18 08:00 [Citracal Regular] epinephrine [EpiPen] 0.3 mg IM UD PRN 06/15/18 02/13/19 Unknown fexofenadine [Saida Allergy] 180 mg PO QAM 06/15/18 02/13/19 07/15/18 08:00 fluorouracil [Efudex] 1 applic TOPICAL BID PRN 06/15/18 02/13/19 Unknown guaifenesin [Mucinex] 1,200 mg PO Q12H PRN 06/15/18 02/13/19 07/15/18 08:00 ketoconazole 1 applic TOPICAL BID PRN 06/15/18 02/13/19 Unknown montelukast 10 mg PO HS 06/15/18 02/13/19 07/14/18 21:00 propafenone 225 mg PO Q12H 06/15/18 02/13/19 07/15/18 08:00 Bystolic 5 mg PO HS 07/15/18 02/13/19 07/14/18 21:00 diphenhydramine-acetaminophen 25 mg PO HS PRN 07/15/18 02/13/19 Unknown albuterol sulfate 2.5 mg/3 mL 1 mg INHALATION UD #150 ml 11/11/18 02/13/19 Unknown (0.083 %) solution for nebulization ranitidine HCl 300 mg tablet 300 mg PO UD #180 tab 11/11/18 02/13/19 Unknown lisinopril 5 mg tablet 2.5 mg PO QAM tab 11/22/18 02/13/19 Unknown amoxicillin 875 mg-potassium 1 tab PO BID #20 tab 01/03/19 02/13/19 Unknown clavulanate 125 mg tablet fluticasone propionate 2 spray INTRANASAL UD 02/13/19 02/13/19 Unknown Active Medications Generic Name Dose Route Start Last Admin Trade Name Freq PRN Reason Stop Dose Admin Acetaminophen 650 mg 02/13/19 19:26 02/14/19 10:22 Tylenol PO 03/15/19 19:25 650 mg Q4H PRN Administration Pain or Fever Albuterol 2.5 mg 02/13/19 23:34 02/14/19 15:57 Ventolin 0.083% 2.5mg/3ml NEB 03/15/19 23:33 2.5 mg Q6R PRN Administration SOB or wheeze Budesonide/Formoterol Fumarate 2 puffs 02/13/19 21:00 02/14/19 08:36 Symbicort 160mcg/4.5mcg INH 03/15/19 20:59 2 puffs BID AMANDA Administration Fexofenadine HCl 180 mg 02/14/19 09:00 02/14/19 08:35 Saida PO 03/16/19 08:59 180 mg QAM AMANDA Administration Fluticasone Propionate 2 sprays 02/14/19 09:00 02/14/19 08:35 Flonase PAULA 03/16/19 08:59 2 sprays DAILY AMANDA Administration Guaifenesin 1,200 mg 02/13/19 19:21 02/13/19 20:52 Mucinex PO 03/15/19 19:20 1,200 mg Q12H PRN Administration Cough Sodium Chloride 1,000 mls @ 80 mls/hr 02/14/19 09:15 02/14/19 09:46 Nss 1000ml IV 02/14/19 21:44 80 mls/hr .[id number] AMANDA Administration Miscellaneous 1 ea 02/14/19 00:00 02/14/19 16:18 Order Awaiting Action N/A 03/16/19 00:00 Not Given QS AMANDA Montelukast Sodium 10 mg 02/13/19 21:00 02/13/19 20:49 Singulair PO 03/15/19 20:59 10 mg HS AMANDA Administration Morphine Sulfate 2 mg 02/13/19 19:21 02/14/19 10:22 Morphine Sulfate IV 02/27/19 19:20 2 mg Q4H PRN Administration Chest Pain Multivitamins/Minerals 1 tab 02/14/19 09:00 02/14/19 08:35 Caltrate Plus PO 03/16/19 08:59 1 tab DAILY AMANDA Administration Multivitamins/Minerals 1 tab 02/13/19 21:00 02/14/19 08:34 Multivitamin W/ Minerals Tab PO 03/15/19 20:59 1 tab BID AMANDA Administration Propafenone HCl 225 mg 02/13/19 21:00 02/14/19 08:35 Rythmol PO 03/15/19 20:59 225 mg BID AMANDA Administration Ranitidine HCl 300 mg 02/13/19 21:00 02/13/19 20:49 Zantac PO 03/15/19 20:59 300 mg HS AMANDA Administration Past Medical History Medical History Asthma inhalers daily/prn Atrial fibrillation Basal cell carcinoma of face BPH (benign prostatic hyperplasia) Chronic steroid use Drug-induced lung disease GERD (gastroesophageal reflux disease) Hearing deficit History of colon polyps Hypertension Kidney stones Osteoarthritis Pacemaker 07/2017 @ [facility] by Dr. Amador [employer] Prostate cancer 04/2012 Spondylosis Exercise / Class Metabolic Activity III < 4 Walking/Shop/Light housework Past Family History Family History Other Family history non-contributory No family history of adverse response to anesthesia Past Surgical History Surgical History History of appendectomy History of arthroscopy of left shoulder History of colonoscopy History of parotidectomy History of prostate biopsy malignant History of prostate surgery greenlight laser History of radical prostatectomy 11/2012 History of repair of right rotator cuff History of tooth extraction History of wisdom tooth extraction Status post Mohs surgery for basal cell carcinoma Past Anesthesia History No Hx of Anesthesia Complications History of PONV No Hx of PONV Social History Smoking Status: Never smoker Hx Alcohol Use: Yes Alcohol type: wine alcohol intake frequency: holidays/special occasions only Hx Substance Use: No substance use type: prescription drug Substance Use Type Other:: See List of Prescribed Medications Physical Exam Vital Signs Last Vital Signs Temp 36.6 C 02/14/19 15:00 Pulse 72 02/14/19 15:58 Resp 18 02/14/19 15:58 BP 146/79 H 02/14/19 15:00 Pulse Ox 98 02/14/19 15:58 Constitutional not obese ENMT Mouth: + chipped teeth Thyromental Distance: > or= 3.5 Finger Breadths Mallampati Class: II Neck normal visual inspection; neck extension not limited Respiratory normal respiratory effort Auscultation: + diminished lung sounds (on right) Cardiovascular Rate/Rhythm: regular rate and regular rhythm Heart Sounds: no murmur Vessels: no carotid bruit Chest (Breasts) Chest: + pacemaker ([employer]) Neurologic moves all extremities Psychiatric Orientation: alert and oriented x 3 Testing Laboratory Results 02/14/19 08:34 02/14/19 08:34 PT 10.7 Seconds (9.0-12.0) 02/13/19 11:02 INR 1.0 (0.9-1.1) 02/13/19 11:02 APTT 24.9 Seconds (21.0-31.0) 02/13/19 11:02 Blood Type O Negative 02/13/19 12:08 Antibody Screen NEGATIVE 02/13/19 12:08 02/14/19 08:18 Fungal Smear - Final Pleural Fluid 02/14/19 08:18 Gram Stain - Final Pleural Fluid Admission Troponin - <0.015 Electrocardiogram Date: 02/13/19 Atrial-paced rhythm at 70 with prolonged AV conduction, Nonspecific T wave abnormality, When compared with ECG of 13-FEB-2019 10:16, Electronic atrial pacemaker has replaced Sinus rhythm Chest X-Ray Date: 02/14/19 IMPRESSION: 1. Trace right apical pneumothorax status post thoracentesis 2. Small right pleural effusion with associated right lower lobe atelectasis/consolidation 3. Mild diffuse interstitial thickening Echocardiogram Date: 07/17/18 EF: 65-70 LV Function: normal Other Findings: + LVH Valvular Disease: + no significant valvular disease Pulmonary Function Test Date: 06/29/18 FINDINGS: Pre-bronchodilator spirometry is shows mild airway obstruction. FVC was 111% of predicted or 3.33 liters. FEV1 was 100% of predicted or 2.33 liters. [id number] was mildly reduced at 54% of predicted. There was improvement in FEF 25-75 after inhaled bronchodilator. [id number] improved 30% to 70% of predicted. Lung volumes continue to show changes of restrictive disease. Residual volume was 59% of predicted. Expiratory reserve volume was 59% of predicted. Vital capacity was 117% of predicted. DLCO was normal at 99% of predicted at 15.1 mmHg per minute. IMPRESSION: Mild obstructive airways disease with slight improvement after inhaled bronchodilator. Persistent changes of restrictive disease on lung volume testing. Normal DLCO when using the current predicted values. There has been some improvement when compared to previous PFTs done in the office on 05/19/2018. Other Testing Chest CT 02/13/19 IMPRESSION: 1. Large hyperdense right pleural effusion highly concerning for hemothorax. Consider thoracentesis for confirmation. 2. Postsurgical changes of the right upper and lower lobes. 3. No evidence of pulmonary embolus. 4. Congestive change and mild pulmonary edema. 5. Extensive consolidation in the right lower lobe, which in part represents passive atelectasis though superimposed infiltrate is also suspected.
--- NOTE | 2019-02-14 15:55 | Surgery Progress Note ---
Date of Service February 14, 2019 Subjective Patient has been stable overnight. I reviewed his CT scan and he is on room air and is comfortable. I am going to go ahead and offer him a thoracentesis this morning. Multiple family members were there and we discussed risk and benefits. He understands. We will proceed this morning. Results & Data Vital Signs (Past 12 Hours) Vital Signs Temp Pulse Pulse Resp BP BP Pulse Ox 02/14/19 15:00 36.6 C 78 18 146/79 H 98 02/14/19 11:30 36.6 C 79 18 154/70 H 96 02/14/19 11:13 36.8 C 72 16 122/69 91 02/14/19 08:50 80 02/14/19 07:22 36.5 C 87 16 137/73 92 02/14/19 06:31 73 16 92 02/14/19 04:00 36.3 C L 83 18 106/65 90 PG Care Time/CCT Total # of Minutes Spent Total Time Spent with Patient: Total time spent is greater than 50% in coordination of care (as documented) at patient's floor/unit and/or counseling patient:
--- NOTE | 2019-02-14 15:57 | Procedure Note ---
Procedure Note Date of Service February 14, 2019 With the patient is seated position and ultrasound was used to evaluate his right pleural cavity. I did not see any fluid on the left. The right pleural cavity has a complex fluid collection. This may well be clotted blood. A gregory was made posteriorly up a bit higher near the scapular tip. Prepped and draped in usual fashion after appropriate timeout of been called a 25-gauge needle was in Xylocaine were used to anesthetize the skin subcutaneous tissues a large bore needle was used to anesthetize intercostal muscles in the pleura. We had some dark blood back and a guidewire was inserted the needle needle removed. Triple lumen cath was slid over this and the guidewire removed. About 200 cc of old blood which was nonclotting was drained. Stop draining. Catheter was removed and an antimicrobial dressing placed on the puncture site which was not bleeding. I had a very long discussion with the patient and his family. Incidentally, his family stayed in the room while we perform this procedure. Chest x-ray shows very little change. This is not surprising. Tolerated well and we are going to take him for a thoracoscopic evacuation tomorrow morning. Coding
--- NOTE | 2019-02-14 15:58 | Surgery Progress Note ---
Date of Service February 14, 2019 Subjective I had a very long discussion with the patient and multiple family members. I explained that putting in a larger chest tube or a Pleurx is an option however, I believe this is an acute bleed. I believe a simple thoracoscopy to evacuate this would be the best way to proceed. Had a long discussion with the patient and his family. They understand. We will proceed tomorrow. Results & Data Vital Signs (Past 12 Hours) Vital Signs Temp Pulse Pulse Resp BP BP Pulse Ox 02/14/19 15:00 36.6 C 78 18 146/79 H 98 02/14/19 11:30 36.6 C 79 18 154/70 H 96 02/14/19 11:13 36.8 C 72 16 122/69 91 02/14/19 08:50 80 02/14/19 07:22 36.5 C 87 16 137/73 92 02/14/19 06:31 73 16 92 02/14/19 04:00 36.3 C L 83 18 106/65 90 PG Care Time/CCT Total # of Minutes Spent Total Time Spent with Patient: Total time spent is greater than 50% in coor dination of care (as documented) at patient's floor/unit and/or counseling patient:
--- NOTE | 2019-02-14 18:33 | Hospitalist Progress Note ---
Date of Service February 14, 2019 Assessment & Plan (1) Hemothorax on right: - CT with large hyperdense R pleural effusion suspicious for hemothorax with postsurgical changes/extensive consolidation in RLL possibly passive atelectasis but possible superimposed infiltrate - Hemodynamically stable -- does have inspiratory pain but no pinpoint tenderness of rib cage/no trauma - does report lifting approx. 40 lb object prior to admission; does have chronic lung disease - Given lack of trauma and underlying lung disease - possible bollus rupture? spontaneous? he did have Bx completed in July which did not support malignancy - S/P thoracentesis on 02/14 for 200 mL - planning on VATS for clot evacuation on 02/15 - will be NPO and likely will move to ICU post-op for monitoring - Tylenol and Morphine PRN for pain control; Hold ASA - Hgb stable and will monitor - CT Surg - planning on OR in AM (2) Pre-syncope: - Possibly this could be vasovagal - had 3 episodes yesterday with one being last night after admission - no further episodes - Tele is stable without arrhythmia - did give 1 L NSS today and will monitor (3) Interstitial lung disease: - Suspected this was related to Flecainide use; had Bx and evaluation at [facility] that supported interstitial changes/pneumonitis; carries a lifelong H/O asthma as well - Does not appear to be in an exacerbation at this time - Continue Nebs/inhalers; Singulair 10 mg daily and Symbicort BID (4) Paroxysmal atrial fibrillation: - Continue Propafenone 225 mg BID; anti-hypertensives on hold due to syncope/orthostasis - pending procedure likely can resume as pressures better today -- Not on AC? given CT/hemothorax this would be contraindicated at this time - follows with cardiology and can follow this (5) SSS (sick sinus syndrome): - S/P Pacer - follows with Dr. Schultz - EMMANUEL (6) DVT prophylaxis: - SCDS Disposition: Await hemothorax management; anticipate return home when clinically improved Subjective Reports feeling better today. States he is able to take slightly deeper breaths after thoracentesis today but still restrict. Had 200 cc removed but planning on VATS to evacuate the clot. No further pre-syncopal episodes and sinus with intermittent pacing on monitor. Hgb stable. Verbalizes no complaints at this time Review of Systems Constitutional: no fever and no chills Respiratory: + dyspnea on exertion and + pain on inspiration (able to take slightly deeper breaths today); no cough Cardiovascular: + chest pain; no lightheadedness and no edema Gastrointestinal: no abdominal pain, no nausea, no vomiting, no constipation and no diarrhea/loose stools Genitourinary: no dysuria Musculoskeletal: no joint pain and no body aches Integumentary: no rash Physical Exam Constitutional: well developed and well nourished; no acute distress and not ill appearing Eyes: + anicteric sclerae ENMT: Ears: no hearing impairment Neck: trachea midline Respiratory: normal respiratory effort (but some limitation to deep inspiration); no respiratory distress and no cough Auscultation: + diminished lung sounds Cardiovascular: Rate/Rhythm: regular rate and regular rhythm Vessels: no JVD Extremities: no edema Chest (Breasts): Chest: + pacemaker Additional Comments: bandage applied to R posterior thoracentesis site with no drainage/erythema present at this time Gastrointestinal (Abdomen): Inspection/Auscultation: normal bowel sounds Percussion/Palpation: abdomen soft; abdomen nontender Musculoskeletal: Head/Neck/Chest: normocephalic and head atraumatic Extremities: no cyanosis Skin: no rashes, warm and dry Neurologic: moves all extremities Psychiatric: A+Ox3, euthymic affect Results & Data Vital Signs (Past 12 Hours) Vital Signs Temp Pulse Pulse Resp BP BP Pulse Ox 02/14/19 15:58 72 18 98 02/14/19 15:00 36.6 C 78 18 146/79 H 98 02/14/19 11:30 36.6 C 79 18 154/70 H 96 02/14/19 11:13 36.8 C 72 16 122/69 91 02/14/19 08:50 80 02/14/19 07:22 36.5 C 87 16 137/73 92 02/14/19 06:31 73 16 92 PG Care Time/CCT Total # of Minutes Spent Total Time Spent with Patient: Total time spent is greater than 50% in coordination of care (as documented) at patient's floor/unit and/or counseling patient:
[2019-02-14] MEDS: MONTELUKAST SODIUM 10 MG TABLET PO SCH (20:24)
[2019-02-15] MEDS: DOCUSATE SODIUM 100 MG CAP PO SCH ×3 (04:53→21:48)
[2019-02-15 05:39] LABS: Hematocrit (blood only) 23.8 % (42-52); Hemoglobin 8.4 g/dL (14.0-18.0); Mean Corpuscular Hemoglobin 35.4 pg (25-34); Mean Corpuscular Volume 100.4 fL (80-100); Mean Platelet Volume 7.9 fL (7.4-10.4); Platelet Count 216 K/uL (130-400); RDW Coefficient of Variation 12.9 % (11.5-14.5); RDW Standard Deviation 47.5 fL (36.4-46.3); Red Blood Count 2.37 M/uL (4.7-6.1); White Blood Count 14.77 K/uL (4.8-10.8)
[2019-02-15 06:00] LABS: Mean Corpuscular Hgb Conc 35.3 g/dL (32-36)
[2019-02-15] MEDS: ALBUTEROL 0.083% NEBU SOLN 3 ML VIAL NEB PRN (07:02)
[2019-02-15] MEDS: PROPAFENONE HCL 150 MG TABLET PO SCH ×2 (07:53→21:48)
[2019-02-15] MEDS: FLUTICASONE PROPIONATE NA SPR 16 GM BTL NAE SCH (08:37)
[2019-02-15] MEDS: FEXOFENADINE HCL 180 MG TAB PO SCH (08:37)
[2019-02-15] MEDS: CALCIUM 600MG + VIT D 400 IU TAB PO SCH (08:37)
[2019-02-15] MEDS: BUDESONIDE/FORMOTEROL FUMARATE 160/4.5 60 PUFFS/INHALER INH SCH ×2 (08:38→21:48)
[2019-02-15] MEDS: CEROVITE ADV FORMULA TAB PO SCH ×2 (08:38→21:48)
--- NOTE | 2019-02-15 09:54 | Cardiology Consultation ---
Date of Consultation February 15, 2019 Assessment & Plan (1) Pre-syncope: His presyncope and potentially syncopal episodes appear to be due to hypotension. There may be a component of hypoxia as well. There is no evidence that this is a cardiac arrhythmia although I will interrogate his device, however he was monitored and vital signs were done during 1 of the episodes and his blood pressure was in the 60s systolic with a heart rate of 78 which is very consistent with hypotension due to a noncardiac cause. There does not seem to be a primary neurologic event. (2) Hypotensive episode: The cause of his hypotension remains unclear. He likely had some bleeding, perhaps that transiently dropped his blood pressure, he could have had a vagal event although that is difficult to prove and it would be unusual to start having vagal events this late in life, with this frequency and without a clear trigger although perhaps the hemothorax could trigger that response. I would treat his pulmonary condition and treat hypotension with fluid should it recur or become more prolonged. I think we should get an echocardiogram to exclude the possibility that he has a pericardial effusion and some component of tamponade but that seems less likely but since we do not have an explanation for his hemothorax I think we should do that. (3) SSS (sick sinus syndrome): He has sick sinus syndrome with sinus bradycardia and atrial tachycardia, the pacemaker appears to be functioning normally to keep him from becoming bradycardic and he has not had tachycardia identified on telemetry (he is on Propafenone and Bystolic which seem to be working to control his arrhythmias). I would continue his Propafenone and his Bystolic if his blood pressure allows, which it seems to generally. (4) Pacemaker: On telemetry his pacemaker appears to be working well. He was last seen in the office October 12, 2018 where his device was working well and he had 8 years remaining on his battery. He was not having difficulty with atrial arrhythmias at that time. I will plan to interrogate his device this admission. I would recommend proceeding with his lung surgery as planned. 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 He initially noticed this after he worked out, which he does regularly, and driving home had several episodes of lightheadedness or presyncope but no loss of consciousness, the symptoms only lasted a few seconds and were not associated with palpitations. He did notice however an unusual sensation in his chest, a quivering-type sensation, which in retrospect was probably the arrhythmia but he did not have typical palpitations. He doesn't recall either of these symptoms u ntil the beginning of 2013. He had noticed no change in his exercise ability and during his workout he felt normal, he did not have difficulty doing his workout and while monitoring his heart rate during his workout did not notice an excessive heart rate. He has not had chest discomfort during exercise. On May 08, 2013 he arrived for a stress test and was in atrial fibrillation with a rapid ventricular response, he had an awareness of the unusual sensation in his chest but no lightheadedness, dizziness or chest discomfort with the arrhythmia and had no difficulty walking into the office. An echocardiogram was done however the stress test was canceled due to the rapid heart rate. While being hooked up to the machine he was observed to have frequent episodes of atrial fibrillation with prompt termination. No bradycardic events were observed and he did not have episodes of presyncope in the office. Metoprolol succinate was added to his regimen and a 24-hour Holter monitor was performed to determine the frequency and duration of his arrhythmia. He turned out to have over 903 episodes of paroxysmal atrial fibrillation as well as some periods of bradycardia on monitoring. He did not have any of his hemodynamic symptoms while wearing the monitor. With this information we added flecainide to his regimen on June 15, 2013, starting at 50 mg. He felt well on the medication except was having some fatigue and tiredness and noted his heart rate was slow therefore his beta omar was reduced to 12-1/2 mg of metoprolol succinate twice a day. He was also hypertensive. I therefore discontinued the metoprolol succinate on 03/14/2014 and added Bystolic 5 mg daily. This was titrated to 10 mg daily however he had continued fatigue and perhaps a little exercise intolerance when he first started to exercise, but little in the way of palpitations. We did however cut his Bystolic down to 5 mg daily and for hypertension added lisinopril 10 mg daily. With these changes he had been f eeling well but developed progressive difficulty with exertion. With difficulty controlling his heart rate with medications and not having symptomatic bradycardia we implanted a dual-chamber pacemaker on July 06, 2017. I used a Biotronik device due to its excellent rate response. He then developed some interstitial lung disease of unknown etiology. Flecainide apparently is reported as doing that although I have never seen it, but we did opt to discontinue his flecainide and start Propafenone which was done on May 30, 2018. He did have a biopsy done and went to [facility] which agreed with the diagnosis, although the cause cannot be determined with certainty. He presents now after presenting to the emergency room with chest discomfort on February 13, 2019. He also is reported to have an episode of near syncope in a recliner, evidently he became diaphoretic and pale at the time. His vision was temporarily blurry during the episode. On evaluation he was having difficulty with breathing and he had fluid in his right lung, this was suspected to be a hemothorax and he had thoracentesis performed on February 14, 2019 and 200 cc of blood was removed. This did not change his long fluid volume very much however. Thorascopic evaluation is planned for today. During one of these episodes of presyncope or syncope he was noted to be hypotensive , On February 13, 2019 at about 8:00 in evening he had an episode where his blood pressure is recorded at 67/40 with a heart rate of 78 bpm. This is consistent with hypotension but not an arrhythmia and likely not a neurologic event. Allergies Allergy/AdvReac Type Severity Reaction Status Date / Time nut - unspecified Allergy Severe Anaphylaxis Verified 02/13/19 11:23 Fish Containing Products Allergy Intermediate HANDS Verified 02/13/19 11:23 BREAK OUT gluten Allergy Intermediate GI TRACT Verified 02/13/19 11:23 UPSET latex Allergy Intermediate BLISTERS Verified 02/13/19 11:23 iodine Allergy Mild SWELLING,NA Verified 02/13/19 11:23 USEA shellfish derived Allergy Mild SEVERE Verified 02/13/19 11:23 ALLERGY--SWELLING,NAUSEA egg Allergy Unknown SEVERE Verified 02/13/19 11:23 CONGESTION Iodinated Contrast Media Allergy Unknown SWELLING Verified 02/13/19 11:23 AND NAUSEA milk Allergy Unknown SEVERE Verified 02/13/19 11:23 CONGESTION nickel Allergy Unknown ECZEMA RASH Verified 02/13/19 11:23 Home Medications Home Medications Medication Instructions Recorded Confirmed Type PreserVision AREDS 1 cap PO BID 06/15/18 02/13/19 History Symbicort 2 puff INHALATION BID 06/15/18 02/13/19 History albuterol sulfate [ProAir HFA] 2 puff INHALATION Q4 PRN 06/15/18 02/13/19 History aspirin 81 mg PO HS 06/15/18 02/13/19 History calcium citrate-vitamin D3 1 tab PO DAILY 06/15/18 02/13/19 History [Citracal Regular] epinephrine [EpiPen] 0.3 mg IM UD PRN 06/15/18 02/13/19 History fexofenadine [Saida Allergy] 180 mg PO QAM 06/15/18 02/13/19 History fluorouracil [Efudex] 1 applic TOPICAL BID PRN 06/15/18 02/13/19 History guaifenesin [Mucinex] 1,200 mg PO Q12H PRN 06/15/18 02/13/19 History ketoconazole 1 applic TOPICAL BID PRN 06/15/18 02/13/19 History montelukast 10 mg PO HS 06/15/18 02/13/19 History propafenone 225 mg PO Q12H 06/15/18 02/13/19 History Bystolic 5 mg PO HS 07/15/18 02/13/19 History diphenhydramine-acetaminophen 25 mg PO HS PRN 07/15/18 02/13/19 History albuterol sulfate 2.5 mg/3 mL 1 mg INHALATION UD #150 ml 11/11/18 02/13/19 History (0.083 %) solution for nebulization ranitidine HCl 300 mg tablet 300 mg PO UD #180 tab 11/11/18 02/13/19 History lisinopril 5 mg tablet 2.5 mg PO QAM tab 11/22/18 02/13/19 History amoxicillin 875 mg-potassium 1 tab PO BID #20 tab 01/03/19 02/13/19 Rx clavulanate 125 mg tablet fluticasone propionate 2 spray INTRANASAL UD 02/13/19 02/13/19 History Patient History Medical History Asthma inhalers daily/prn Atrial fibrillation Basal cell carcinoma of face BPH (benign prostatic hyperplasia) Chronic steroid use Drug-induced lung disease GERD (gastroesophageal reflux disease) Hearing deficit History of colon polyps Hypertension Kidney stones Osteoarthritis Pacemaker 07/2017 @ [facility] by Dr. Amador [employer] Prostate cancer 04/2012 Spondylosis Surgical History History of appendectomy History of arthroscopy of left shoulder History of colonoscopy History of parotidectomy History of prostate biopsy malignant History of prostate surgery greenlight laser History of radical prostatectomy 11/2012 History of repair of right rotator cuff History of tooth extraction History of wisdom tooth extraction Status post Mohs surgery for basal cell carcinoma Family History Other Family history non-contributory No family history of adverse response to anesthesia Social History Preferred Language: Eritrean Communication Ability: Effective Straddle Bug Operator Required: No Beliefs That Will Affect Care: None Current Living Situation: Spouse Other Information That Helps Us Care for You: No Feels Safe at Home: Yes Safety Concerns: Feels Safe At This Time Smoking Status: Never smoker Second Hand Exposure: No ; Hx Alcohol Use: Yes Alcohol type: wine Hx Substance Use: No Review of Systems Review of Systems: All systems reviewed & are unremarkable except as noted in HPI & below Physical Exam Physical Exam: Constitutional: Alert, cooperative and in no distress. He is laying supine in bed at the time of my examination. HEENT: Unremarkable Neck: No jugular venous distention, carotid pulses are normal and equal bilaterally without bruits. Pulmonary: Decreased breath sounds on the left, clear to to auscultation on the right. Cardiac: Regular rhythm with no murmur, gallop or rub. Abdomen: Soft, nontender with normal bowel sounds. Extremities: No edema. Distal pulses intact. Neurologic: No focal findings. Gait is steady. Skin: No rash, ecchymoses or petechiae. Results & Data Vital Signs (Past 12 Hours) Vital Signs Temp Pulse Pulse Resp BP Pulse Ox 02/15/19 07:50 37.1 C 76 22 131/67 91 02/15/19 07:04 80 18 85 L 02/15/19 07:00 71 02/15/19 04:00 36.8 C 81 20 131/55 L 91 02/15/19 00:10 36.9 C 88 20 141/73 H 90 02/14/19 23:30 78 02/14/19 22:09 105 H 16 95 Laboratory Results Abnormal lab results 02/13/19 02/15/19 02/15/19 Range/Units 12:08 05:23 15:02 WBC 14.77 H (4.8-10.8) K/uL RBC 2.37 L (4.7-6.1) M/uL Hgb 8.4 L 9.7 L (14.0-18.0) g/dL Hct 23.8 L 28.2 L (42-52) % MCV 100.4 H (80-100) fL MCH 35.4 H (25-34) pg RDW Std Deviation 47.5 H (36.4-46.3) fL Crossmatch See Detail Diagnostic Findings Telemetry: Sinus rhythm and atrial pacing throughout. Electrocardiogram: On February 13, 2019 he was atrial paced at 80 bpm with a prolonged OK interval. Another electrocardiogram done the same day is similar. Pacemaker interrogation: Pending PG Care Time/CCT Total # of Minutes Spent Total Time Spent with Patient: Total time spent is greater than 50% in coordination of care (as documented) at patient's floor/unit and/or counseling p atient:
[2019-02-15] MEDS: ALBUT/IPRATROP 3MG/0.5MG NEB 3 ML VIAL NEB SCH ×3 (10:59→18:59)
--- NOTE | 2019-02-15 11:53 | History & Physical Bridge Note ---
Date of Service February 15, 2019 History & Physical Bridge Note I have examined the patient, reviewed the History & Physical and in the interval since the performance of the History & Physical I have noted the following changes of clinical significance: no changes noted
[2019-02-15] MEDS ORDERED: ONDANSETRON INJ 2 MG/ML 2 ML VIAL ONE (12:16)
[2019-02-15] MEDS ORDERED: DEXAMETHASONE SOD INJ 4 MG/ML VIAL ONE (12:16)
[2019-02-15] MEDS ORDERED: ROCURONIUM BROMIDE 10 MG/ML 5 ML VIAL ONE (12:16)
[2019-02-15] MEDS ORDERED: PROPOFOL IV EMULSION 10 MG/ML 20 ML VIAL IV ONE (12:16)
[2019-02-15] MEDS ORDERED: LIDOCAINE HCL 2% 2 ML VIAL/AMP(20MG/ML) INFIL ONE (12:16)
[2019-02-15] MEDS ORDERED: BUPIVACAINE LIPOSOME 1.3% 266 MG/20 ML VIAL ONE (12:18)
[2019-02-15] MEDS ORDERED: BUPIVACAINE 0.5 % 5 MG/1 ML MPF 30ML VIAL ONE (12:18)
[2019-02-15] MEDS ORDERED: MIDAZOLAM HCL 1 MG/ML 2ML VIAL ONE (12:18)
[2019-02-15] MEDS ORDERED: SODIUM CHLORIDE 0.9% PF 50 ML VIAL ONE (12:18)
[2019-02-15] MEDS ORDERED: fentaNYL citrate 100 MCG/2 ML VIAL ONE ×2 (12:19→14:04)
[2019-02-15] MEDS ORDERED: ATROPINE SULFATE 0.1 MG/ML 10ML SYR IV PRN (13:37)
[2019-02-15] MEDS ORDERED: ONDANSETRON INJ 2 MG/ML 2 ML VIAL IV PRN (13:37)
[2019-02-15] MEDS ORDERED: fentaNYL citrate 100 MCG/2 ML VIAL IV PRN (13:37)
[2019-02-15] MEDS ORDERED: ePHEDrine sulfate 50 MG/ML AMP IV PRN (13:37)
[2019-02-15] MEDS ORDERED: CEFAZOLIN 1000MG 1,000 MG/7.5 ML SYR IV ONE (14:09)
[2019-02-15] MEDS ORDERED: METOCLOPRAMIDE HCL INJ 5 MG/ML 2 ML VIAL IV ONE (14:25)
--- NOTE | 2019-02-15 14:45 | XRay Report ---
XR chest 1V portable CLINICAL HISTORY: Postop study. Pleural effusion. COMPARISON STUDY: 02/14/2019 FINDINGS: There is been interval insertion of a right-sided chest tube with its tip at the level of t he third interspace. There is a small amount of subcutaneous emphysema on the right. There is no pneu mothorax. There has been near complete resolution of the previously identified right pleural effusion .[There is mild diffuse elevation of interstitium with more focal left basilar airspace opacities. A left-sided dual-chamber pacemaker is again visualized. IMPRESSION: 1. Insertion of a right-sided chest tube with near complete resolution of the previously identified r ight pleural effusion with improved aeration right lung base 2. No evidence of pneumothorax 3. Persistent diffuse interstitial thickening. 4. More focal area of atelectasis/consolidation at the left lung base. Electronically signed by: Kali England M.D. 02/15/2019 2:44 PM
[2019-02-15 15:17] LABS: Hematocrit (blood only) 28.2 % (42-52); Hemoglobin 9.7 g/dL (14.0-18.0)
--- NOTE | 2019-02-15 15:35 | Anesthesiology Progress Note ---
Date of Service February 15, 2019 Anesthesia Post Procedure Vital Signs Vital Signs: Temp Pulse Pulse Pulse Resp BP BP 02/15/19 15:15 37.0 C 64 18 131/73 02/15/19 15:05 37.0 C 65 20 138/75 02/15/19 14:55 36.1 C L 67 24 139/70 02/15/19 14:45 36.1 C L 64 26 H 145/76 H 02/15/19 14:35 36.1 C L 69 20 137/82 02/15/19 14:26 36.1 C L 69 23 157/73 H 02/15/19 12:29 70 18 147/82 H 02/15/19 12:00 37.1 C 73 18 124/70 02/15/19 11:00 86 16 02/15/19 07:50 37.1 C 76 22 131/67 02/15/19 07:04 80 18 02/15/19 07:00 71 02/15/19 04:00 36.8 C 81 20 131/55 L 02/15/19 00:10 36.9 C 88 20 141/73 H 02/14/19 23:30 78 02/14/19 22:09 105 H 16 02/14/19 19:05 37.2 C 79 20 112/62 02/14/19 15:58 72 18 Pulse Ox 02/15/19 15:15 97 02/15/19 15:05 97 02/15/19 14:55 96 02/15/19 14:45 96 02/15/19 14:35 95 02/15/19 14:26 98 02/15/19 12:29 96 02/15/19 12:00 95 02/15/19 11:00 93 02/15/19 07:50 91 02/15/19 07:04 85 L 02/15/19 07:00 02/15/19 04:00 91 02/15/19 00:10 90 02/14/19 23:30 02/14/19 22:09 95 02/14/19 19:05 90 02/14/19 15:58 98 Pain Intensity Right Chest: Pain Intensity: 0 Transfer of Care Handoff Completed per policy Notes Mental Status: alert / awake / arousable and participated in evaluation Patient Amnestic to Procedure: Yes Nausea / Vomiting: adequately controlled Pain: adequately controlled Airway Patency, RR, SpO2: stable & adequate BP & HR: stable & adequate Hydration State: stable & adequate Anesthetic Complications: no major complications apparent and Pt Satisfied with anesthetic care
[2019-02-15] MEDS: D5W AND 1/2NSS 1,000 ML IV SCH (16:56)
[2019-02-15] MEDS ORDERED: METOCLOPRAMIDE HCL INJ 5 MG/ML 2 ML VIAL IV SCH (17:00)
[2019-02-15] MEDS: OXYCODONE HCL IR 5 MG TAB (IMMEDIATE RELEASE) PO PRN (17:05)
[2019-02-15] MEDS ORDERED: COUGH DROP (SUGAR FREE) LOZ 24 LOZ/1 BOX BUCCAL ONE (17:15)
--- NOTE | 2019-02-15 17:28 | Hospitalist Progress Note ---
Date of Service February 15, 2019 Assessment & Plan (1) Hemothorax on right: - CT with large hyperdense R pleural effusion suspicious for hemothorax with postsurgical changes/extensive consolidation in RLL possibly passive atelectasis but possible superimposed infiltrate - Hemodynamically stable -- does have inspiratory pain but no pinpoint tenderness of rib cage/no trauma - does report lifting approx. 40 lb object prior to admission; does have chronic lung disease - Given lack of trauma and underlying lung disease - possible bollus rupture? spontaneous? he did have Bx completed in July which did not support malignancy - S/P thoracentesis on 02/14 for 200 mL and now S/P Thoracoscopy with chest tube on 02/15 - transfused 1 unit PRBC with Hgb currently at 9.7 and will trend - Tylenol and Morphine PRN for pain control; Hold ASA - CT surgery following - appreciate input (2) Pre-syncope: - Possibly this could be vasovagal? - Tele is stable without arrhythmia; will monitor (3) Interstitial lung disease: - Suspected this was related to Flecainide use; had Bx and evaluation at [facility] that supported interstitial changes/pneumonitis; carries a lifelong H/O asthma as well - Does not appear to be in an exacerbation at this time but did have some wheezing today - Continue Nebs/inhalers; Singulair 10 mg daily and Symbicort BID (4) Paroxysmal atrial fibrillation: - Continue Propafenone 225 mg BID; anti-hypertensives on hold due to syncope/orthostasis - pending procedure likely can tomorrow if pressures stay stable -- Not on AC? given CT/hemothorax this would be contraindicated at this time - follows with cardiology and can follow this (5) SSS (sick sinus syndrome): - S/P Pacer - follows with Dr. Antoine BENITEZ (6) DVT prophylaxis: - SCDS Disposition: Await hemothorax management; anticipate return home when clinically improved Subjective Patient seen before and after procedure today and doing well each time. No further syncope/pre-syncopal episodes. Was having more wheezing today but states it was easier to breath and is coughing up mucous today. After procedure he reports pain of 4/10 but states he didn't need pain medication at this time. He verbalizes no other needs at this time. Discussed with patient's family. Review of Systems Constitutional: no fever and no chills Respiratory: + cough, + dyspnea on exertion, + pain on inspiration (improving) and + sputum production Cardiovascular: no chest pain, no palpitations, no lightheadedness and no edema Gastrointestinal: no abdominal pain, no nausea, no vomiting, no constipation and no diarrhea/loose stools Genitourinary: no dysuria Integumentary: no rash Physical Exam Constitutional: WD/WN, vitals as above no acute distress and not ill appearing Eyes: + anicteric sclerae ENMT: Ears: no hearing impairment Neck: trachea midline Respiratory: normal respiratory effort Auscultation: + crackles and + wheezes Cardiovascular: Rate/Rhythm: regular rate and regular rhythm Gastrointestinal (Abdomen): Inspection/Auscultation: normal bowel sounds Percussion/Palpation: abdomen soft; abdomen nontender Musculoskeletal: Head/Neck/Chest: normocephalic and head atraumatic Skin: no rashes, warm and dry Neurologic: moves all extremities Psychiatric: A+Ox3, euthymic affect Results & Data Vital Signs (Past 12 Hours) Vital Signs Temp Pulse Pulse Pulse Resp BP BP 02/15/19 16:30 36.6 C 70 18 128/75 02/15/19 15:35 37.0 C 63 22 139/70 02/15/19 15:25 37.0 C 61 21 132/70 02/15/19 15:15 37.0 C 64 18 131/73 02/15/19 15:05 37.0 C 65 20 138/75 02/15/19 14:55 36.1 C L 67 24 139/70 02/15/19 14:45 36.1 C L 64 26 H 145/76 H 02/15/19 14:35 36.1 C L 69 20 137/82 02/15/19 14:26 36.1 C L 69 23 157/73 H 02/15/19 12:29 70 18 147/82 H 02/15/19 12:00 37.1 C 73 18 124/70 02/15/19 11:00 86 16 02/15/19 07:50 37.1 C 76 22 131/67 02/15/19 07:04 80 18 02/15/19 07:00 71 Pulse Ox 02/15/19 16:30 97 02/15/19 15:35 98 11/13/19 15:25 97 02/15/19 15:15 97 02/15/19 15:05 97 02/15/19 14:55 96 02/15/19 14:45 96 02/15/19 14:35 95 02/15/19 14:26 98 02/15/19 12:29 96 02/15/19 12:00 95 02/15/19 11:00 93 02/15/19 07:50 91 02/15/19 07:04 85 L 02/15/19 07:00 PG Care Time/CCT Total # of Minutes Spent Total Time Spent with Patient: Total time spent is greater than 50% in coordination of care (as documented) at patient's floor/unit and/or counseling patient:
[2019-02-15] MEDS: ACETAMINOPHEN 1,000 MG/100 ML VIAL IV SCH (18:26)
[2019-02-15] MEDS: NEBIVOLOL HCL 5 MG TAB PO SCH (21:48)
[2019-02-15] MEDS: MONTELUKAST SODIUM 10 MG TABLET PO SCH (21:48)
[2019-02-15] MEDS: METOCLOPRAMIDE HCL INJ 5 MG/ML 2 ML VIAL IV SCH (21:49)
[2019-02-16] MEDS: OXYCODONE HCL IR 5 MG TAB (IMMEDIATE RELEASE) PO PRN (00:19)
[2019-02-16] MEDS: ACETAMINOPHEN 1,000 MG/100 ML VIAL IV SCH (02:19)
[2019-02-16] MEDS: D5W AND 1/2NSS 1,000 ML IV SCH (02:19)
[2019-02-16] MEDS: METOCLOPRAMIDE HCL INJ 5 MG/ML 2 ML VIAL IV SCH (05:03)
[2019-02-16] MEDS: MoRPHine SULFATE 2 MG/ML CARP IV PRN (05:52)
[2019-02-16 06:22] LABS: Hematocrit (blood only) 26.5 % (42-52); Hemoglobin 9.2 g/dL (14.0-18.0); Immature Granulocytes # (auto) 0.01 K/uL (0.00-0.02); Immature Granulocytes % (auto) 0.1 %; Lymphocytes % (auto) 10.1 %; Mean Corpuscular Hemoglobin 33.7 pg (25-34); Mean Corpuscular Volume 97.1 fL (80-100); Mean Platelet Volume 8.4 fL (7.4-10.4); Monocytes # (auto) 0.74 K/uL (0.11-0.59); Monocytes % (auto) 8.3 %; Neutrophils # (auto) 7.25 K/uL (1.4-6.5); Neutrophils % (auto) 81.5 %; Platelet Count 181 K/uL (130-400); RDW Standard Deviation 53.4 fL (36.4-46.3); Red Blood Count 2.73 M/uL (4.7-6.1)
[2019-02-16 06:25] LABS: Mean Corpuscular Hgb Conc 34.7 g/dL (32-36)
[2019-02-16] MEDS: ALBUT/IPRATROP 3MG/0.5MG NEB 3 ML VIAL NEB SCH ×4 (06:55→19:46)
[2019-02-16 07:01] LABS: BUN Creatinine Ratio 17.2 (10-20); Calcium 8.1 mg/dl (8.5-10.1); Creatinine Clr Calc Pharmacy 47.5 ml/min; Est GFR (African American) 72.6; Est GFR (Non-African American) 62.6; Potassium 4.2 mmol/L (3.5-5.1)
--- NOTE | 2019-02-16 07:27 | XRay Report ---
XR chest 1V portable CLINICAL HISTORY: effusion COMPARISON STUDY: Chest CT February 13, 2019. Chest radiograph February 15, 2019. FINDINGS: Right apical chest tube is in place. No pneumothorax is identified. No residual right pleur al effusion is noted. Left basilar opacity persists. Interstitial thickening is unchanged. A dual-shanthi d left subclavian pacemaker is in place. Cardiomediastinal silhouette is stable. The appearance of th e chest is similar to prior exam. Postoperative findings within the right lung are noted. IMPRESSION: 1. Right apical chest in place. No pneumothorax identified. 2. No change in appearance of the chest with interstitial thickening and mild left basilar opacity. Electronically signed by: Jordin Mcneal M.D. 02/16/2019 7:26 AM
--- NOTE | 2019-02-16 08:28 | Anesthesiology Progress Note ---
Date of Service February 16, 2019 Anesthesia Post Procedure Vital Signs Vital Signs: Temp Pulse Pulse Resp BP BP Pulse Ox 02/16/19 08:08 36.4 C L 69 22 172/78 H 97 02/16/19 06:59 60 16 95 02/16/19 05:12 95 02/16/19 04:00 36.4 C L 73 16 134/79 99 02/16/19 02:00 36.4 C L 71 16 127/75 98 02/16/19 00:00 36.4 C L 69 16 128/75 98 02/15/19 22:00 36.5 C 79 18 138/74 94 02/15/19 19:00 36.3 C L 65 18 150/77 H 98 02/15/19 18:59 72 16 97 02/15/19 18:09 37 C 80 16 129/82 95 02/15/19 17:00 36.5 C 67 17 144/77 H 95 02/15/19 16:30 36.6 C 70 18 128/75 97 02/15/19 16:00 36.3 C L 67 18 138/73 97 02/15/19 15:35 37.0 C 63 22 139/70 98 02/15/19 15:25 37.0 C 61 21 132/70 97 02/15/19 15:15 37.0 C 64 18 131/73 97 02/15/19 15:05 37.0 C 65 20 138/75 97 02/15/19 14:55 36.1 C L 67 24 139/70 96 02/15/19 14:45 36.1 C L 64 26 H 145/76 H 96 02/15/19 14:35 36.1 C L 69 20 137/82 95 02/15/19 14:26 36.1 C L 69 23 157/73 H 98 02/15/19 12:29 70 18 147/82 H 96 02/15/19 12:00 37.1 C 73 18 124/70 95 02/15/19 11:00 86 16 93 Pain Intensity Right Chest: Pain Intensity: 5 Notes Mental Status: alert / awake / arousable and participated in evaluation Patient Amnestic to Procedure: Yes Nausea / Vomiting: adequately controlled Pain: adequately controlled Airway Patency, RR, SpO2: stable & adequate BP & HR: stable & adequate Hydration State: stable & adequate Anesthetic Complications: no major complications apparent and Pt Satisfied with anesthetic care
--- NOTE | 2019-02-16 08:29 | Surgery Progress Note ---
Date of Service February 16, 2019 Assessment & Plan (1) Hemothorax on right: We are going to be of get his chest tube out today. My concern about this patient is that he may well have a neoplasm. Elderly patients developed a spontaneous hemothorax many times will have a malignancy. These oftentimes are odd malignancies involving the pleura or bone. I saw nothing during the thoracoscopy suggest a malignant process. We will check a CT scan today. We may want to work this up with a PET as an outpatient. From our standpoint this work-up does not need to be done in the hospital. Present on Admission?: Yes Subjective Mr. Lomax looks quite good today. Peers he will be weaned off his oxygen. He does have some pain in his right chest tube site. He is drained very little from his chest tube and his x-ray looks good today. Physical Exam Physical Exam: Is good aeration in his lung [id number]. He has some pain but can take deep breaths and cough. He has no air leak. He is doing very little serous fluid. His x-ray shows full expansion of his lung. He looks like he may have some atelectasis or opacification of the left base. Otherwise his physical exam is unchanged. Results & Data Vital Signs (Past 12 Hours) Vital Signs Temp Pulse Pulse Resp BP Pulse Ox 02/16/19 08:08 36.4 C L 69 22 172/78 H 97 02/16/19 06:59 60 16 95 02/16/19 05:12 95 02/16/19 04:00 36.4 C L 73 16 134/79 99 02/16/19 02:00 36.4 C L 71 16 127/75 98 02/16/19 00:00 36.4 C L 69 16 128/75 98 02/15/19 22:00 36.5 C 79 18 138/74 94 PG Care Time/CCT Total # of Minutes Spent Total Time Spent with Patient: Total time spent is greater than 50% in coordination of care (as documented) at patient's floor/unit and/or counseling patient:
--- NOTE | 2019-02-16 08:46 | XRay Report ---
XR chest 1V portable CLINICAL HISTORY: tube removal COMPARISON STUDY: Chest radiograph February 16, 2019 7:14 AM. FINDINGS: The right-sided chest tube has been removed. No pneumothorax is identified. Postoperative f indings within the right lung are noted. There is no residual right pleural effusion. Left basilar op acity and interstitial thickening persists. A dual-lead left subclavian pacemaker is in place. There is a surgical anchor within the right humeral head. IMPRESSION: Interval removal of right chest tube. No pneumothorax identified. Electronically signed by: Jordin Mcneal M.D. 02/16/2019 8:44 AM
[2019-02-16] MEDS: CEROVITE ADV FORMULA TAB PO SCH ×2 (08:54→21:03)
[2019-02-16] MEDS: PROPAFENONE HCL 150 MG TABLET PO SCH ×2 (08:54→21:04)
[2019-02-16] MEDS: DOCUSATE SODIUM 100 MG CAP PO SCH ×2 (08:54→21:09)
[2019-02-16] MEDS: LISINOPRIL 2.5 MG TAB PO SCH (08:54)
[2019-02-16] MEDS: BUDESONIDE/FORMOTEROL FUMARATE 160/4.5 60 PUFFS/INHALER INH SCH ×2 (08:55→21:02)
[2019-02-16] MEDS: FLUTICASONE PROPIONATE NA SPR 16 GM BTL NAE SCH (08:55)
[2019-02-16] MEDS: FEXOFENADINE HCL 180 MG TAB PO SCH (08:55)
[2019-02-16] MEDS: CALCIUM 600MG + VIT D 400 IU TAB PO SCH (08:55)
[2019-02-16] MEDS: ACETAMINOPHEN 325 MG TAB PO SCH ×3 (08:56→21:01)
[2019-02-16] MEDS ORDERED: DiphenhydrAMINE HCL 50 MG/ML VIAL IV STA (09:24)
[2019-02-16] MEDS ORDERED: methylPREDNISolone 125 MG in SYRINGE 0 ML IV ONE (09:45)
[2019-02-16] MEDS ORDERED: IOVERSOL 100ml IV PRN (10:32)
--- NOTE | 2019-02-16 10:51 | CT Scan Report ---
CT OF THE CHEST WITH IV CONTRAST CLINICAL HISTORY: Pneumothorax status post evacuation. COMPARISON STUDY: 02/13/2019 TECHNIQUE: Following the IV administration of 94 mL of Optiray-320, CT of the thorax was performed f rom the thoracic inlet to the lung bases. Images are reviewed in the axial, sagittal, and coronal laurie abel. IV contrast was administered without complication. A dose lowering technique was utilized adher ing to the principles of ALARA. CT DOSE: 323.20 mGy.cm FINDINGS: Thyroid: Imaged portions of the thyroid gland are normal in appearance. Thoracic aorta: The thoracic aorta is normal in course and caliber, noting standard 3-vessel arch jamee khushboo. No aneurysm or dissection is seen. Pulmonary vasculature: The pulmonary trunk is normal in caliber. There are no central filling defects identified to suggest pulmonary embolus. Note that this examination was not protocoled for the evalu ation of pulmonary emboli. HEART: There is a left subclavian dual-chamber central venous pacemaker. There are coronary artery ca lcifications. There is no pericardial effusion. Lungs and pleural spaces: Postsurgical changes are again evident on the right. There is a tiny right apical pneumothorax. There is minor right-sided subcutaneous emphysema. There is interval evacuation of the large right pleural effusion/hemothorax. There is trace right pleural fluid. There is a small left pleural effusion. There is left lower lobe atelectasis/consolidation. There is persistent subple ural reticulation. There are scattered subtle areas of groundglass attenuation within the lungs.. Mediastinum: There are enlarged mediastinal lymph nodes including a 21 mm subcarinal lymph node. Erica: Hilar nodes are the upper limits of normal in size. Axilla: There is no evidence of pathologic axillary lymphadenopathy Upper abdomen: Partially visualized upper abdominal viscera is within normal limits. Skeletal structures: There is a new inferior endplate T12 compression deformity. There is a stable in ferior endplate T5 compression deformity. IMPRESSION: 1. Interval evacuation of the large right pleural effusion/hemothorax. Trace residual pleural fluid. Trace right apical pneumothorax. Mild subcutaneous emphysema. 2. Interval development of a small left pleural effusion with left lower lobe atelectasis/consolidati on 3. Mediastinal lymphadenopathy, slightly more pronounced than on the preceding study 4. Interval development of a inferior endplate T12 compression fracture. 5. Stable subpleural reticulation/edema. Electronically signed by: Kali England M.D. 02/16/2019 10:50 AM
--- NOTE | 2019-02-16 17:14 | Hospitalist Progress Note ---
Date of Service February 16, 2019 Assessment & Plan (1) Hemothorax on right: - CT with large hyperdense R pleural effusion suspicious for hemothorax with postsurgical changes/extensive consolidation in RLL possibly passive atelectasis but possible superimposed infiltrate - Etiology is uncertain for cause of bleed - concern for malignancy -- CT does not reveal obvious masses/lesions; does show mediastinal lymphadenopathy -- Thoracentesis fluid without malignant cells; thoracoscopy pathology pending - S/P thoracentesis on 02/14 for 200 mL and S/P Thoracoscopy 02/15 - transfused 1 unit PRBC operative - Hgb stable - Tylenol and Morphine PRN for pain control; Hold ASA - CT surgery following - appreciate input (2) Pre-syncope: - Possibly this could be vasovagal? While on monitor there were no irregular rhythms - No further syncopal/pre-syncopal events and has been ambulating the hallway without difficulty (3) Interstitial lung disease: - Suspected this was related to Flecainide use; had Bx and evaluation at [facility] that supported interstitial changes/pneumonitis; carries a lifelong H/O asthma as well - Does not appear to be in an exacerbation at this time - is producing more mucus but likely this is due to now being able to cough phlegm up - will watch for further changes in sputum/exacerbations - Continue Nebs/inhalers; Singulair 10 mg daily and Symbicort BID (4) Paroxysmal atrial fibrillation: - Continue Propafenone 225 mg BID; anti-hypertensives resumed without BP drops -- Not on AC? given CT/hemothorax this would be contraindicated at this time - follows with cardiology and can follow this (5) SSS (sick sinus syndrome): - S/P Pacer - follows with Dr. Antoine BENITEZ (6) DVT prophylaxis: - SCDS Disposition: Await surgical clearance; likely will need outpatient studies to further evaluate possibly etiology of bleed; possible PET scan/other Subjective Reports doing well today. He is able to take deeper breaths and is moving more mucus that is thick and darker in color. Chest tube was removed this AM and reports pain is better since removal. Has been ambulating without dizziness or any further syncopal episodes. He verbalizes no new complaints Review of Systems Constitutional: no fever and no chills Respiratory: + cough and + sputum production; no dyspnea Cardiovascular: + chest pain (at site of chest tube); no lightheadedness, no syncope and no edema Gastrointestinal: no abdominal pain, no nausea, no vomiting, no constipation and no diarrhea/loose stools Genitourinary: no dysuria Integumentary: no rash Physical Exam Constitutional: WD/WN, vitals as above + acute distress Eyes: + anicteric sclerae ENMT: Ears: no hearing impairment Neck: trachea midline Respiratory: normal respiratory effort and + cough Auscultation: + diminished lung sounds (bases b/l) Cardiovascular: Rate/Rhythm: regular rate and regular rhythm Vessels: no JVD Extremities: no edema Chest (Breasts): Chest: + pacemaker Gastrointestinal (Abdomen): Inspection/Auscultation: normal bowel sounds Percussion/Palpation: abdomen soft; abdomen nontender Musculoskeletal: no cyanosis or clubbing, extremities motor strength 5/5 (cool fingertips - reports chronic 2/2 Raynauds) Head/Neck/Chest: normocephalic and head atraumatic Skin: no rashes, warm and dry Neurologic: moves all extremities Psychiatric: A+Ox3, euthymic affect Results & Data Vital Signs (Past 12 Hours) Vital Signs Temp Pulse Pulse Resp BP BP Pulse Ox 02/16/19 16:04 36.4 C L 77 17 140/68 97 02/16/19 15:09 73 16 95 02/16/19 12:00 36.5 C 71 16 160/76 H 97 02/16/19 11:04 74 20 98 02/16/19 08:08 36.4 C L 69 22 172/78 H 97 02/16/19 06:59 60 16 95 02/16/19 05:12 95 PG Care Time/CCT Total # of Minutes Spent Total Time Spent with Patient: Total time spent is greater than 50% in coordination of care (as documented) at patient's floor/unit and/or counseling patient:
[2019-02-16] MEDS: MONTELUKAST SODIUM 10 MG TABLET PO SCH (21:05)
[2019-02-16] MEDS: NEBIVOLOL HCL 5 MG TAB PO SCH (21:05)
[2019-02-17] MEDS: ACETAMINOPHEN 325 MG TAB PO SCH ×2 (02:49→07:51)
[2019-02-17] MEDS: ALBUT/IPRATROP 3MG/0.5MG NEB 3 ML VIAL NEB SCH (07:03)
[2019-02-17] MEDS: LISINOPRIL 2.5 MG TAB PO SCH (08:18)
[2019-02-17] MEDS: PROPAFENONE HCL 150 MG TABLET PO SCH (08:18)
[2019-02-17] MEDS: DOCUSATE SODIUM 100 MG CAP PO SCH (08:18)
[2019-02-17] MEDS: FLUTICASONE PROPIONATE NA SPR 16 GM BTL NAE SCH (08:19)
[2019-02-17] MEDS: CALCIUM 600MG + VIT D 400 IU TAB PO SCH (08:19)
[2019-02-17] MEDS: FEXOFENADINE HCL 180 MG TAB PO SCH (08:19)
[2019-02-17] MEDS: CEROVITE ADV FORMULA TAB PO SCH (08:19)
[2019-02-17] MEDS: BUDESONIDE/FORMOTEROL FUMARATE 160/4.5 60 PUFFS/INHALER INH SCH (08:19)
--- NOTE | 2019-02-17 11:31 | Discharge Summary ---
Date of Service February 17, 2019 Admission HPI Per Admitting Provider Mr. Lomax is an 79 y/o male with PMHx of Asthma, Interstitial Lung Disease/Pneumonitis, Paroxysmal A Fib, Sick Sinus Syndrome S/P Pacer, GERD, Raynauds, and Prostate CA (Remission) S/P Prostatectomy who presents to the ED c/o sudden R sided chest pain and SOB starting this AM. Found to have suspect hemothorax on CT. Pt reports he was lifting heavy objects that were approx. 40 lbs yesterday but denies injury/falls. He states he was fine until this morning when he developed this pain. He initially related this to a pulled muscle given lifting yesterday. Pain is minimal with shallow breathing but significant with coughing, laughing, or deep breathing. Patient and report pre-syncope x 2 episodes today with associated diaphoresis and paleness. He also recalls some blurring of vision during these episodes. He also reports R wrist pain but no radiation into arm and is more isolated. He reports some SOB largely due to not being able to take deep breaths or cough. He does have intermittent desaturatio ns on monitor during my assessment but does have Raynauds which could be interfering with reading. In July 2018 he underwent biopsy with Dr. Esuqivel and had F/U at [facility] to confirm is pneumonitis/interstitial lung disease. Principal Diagnosis Right sided hemothorax, spontaneous Discharge Exam Constitutional WD/WN, vitals as above Eyes PERRL, conjunctivae normal, anicteric sclerae ENMT external ear and nose normal, oropharynx normal Neck trachea midline, no thyromegaly Respiratory normal respiratory effort, lungs clear to auscultation (decreased sounds in bases bilaterally) Cardiovascular RRR, no murmur, no edema Gastrointestinal (Abdomen) normal bowel sounds, soft, nontender, no hepatosplenomegaly Musculoskeletal no cyanosis or clubbing, extremities motor strength 5/5 Skin no rashes, warm and dry (small lesions on arms bilaterally) Neurologic patellar DTR's 2+ bilat, sensation intact and PERRL, EOMI, accommodation nl, no face palsy, no dysarthria Psychiatric A+Ox3, euthymic affect Lymphatic no cervical or axillary lymphadenopathy Discharge Data Allergies Allergy/AdvReac Type Severity Reaction Status Date / Time nut - unspecified Allergy Severe Anaphylaxis Verified 02/13/19 11:23 Fish Containing Products Allergy Intermediate HANDS Verified 02/13/19 11:23 BREAK OUT gluten Allergy Intermediate GI TRACT Verified 02/13/19 11:23 UPSET latex Allergy Intermediate BLISTERS Verified 02/13/19 11:23 iodine Allergy Mild SWELLING,NA Verified 02/13/19 11:23 USEA shellfish derived Allergy Mild SEVERE Verified 02/13/19 11:23 ALLERGY--SWELLING,NAUSEA egg Allergy Unknown SEVERE Verified 02/13/19 11:23 CONGESTION Iodinated Contrast Media Allergy Unknown SWELLING Verified 02/13/19 11:23 AND NAUSEA milk Allergy Unknown SEVERE Verified 02/13/19 11:23 CONGESTION nickel Allergy Unknown ECZEMA RASH Verified 02/13/19 11:23 Consultations 02/13/19 14:42 ED Decision to Admit Stat 02/13/19 19:21 Consult Case Management - Discharge Planning Routine Consult Thoracic Surgery Stat 02/14/19 17:06 Consult Cardiology Routine Procedures Performed Operation Date: 02/15/19 11:50 Actual Procedures p Right Video Assisted Thoracoscopy with Evacuation of Hemothorax(Right) - Bhavik Esquivel MD, FACS Ordered Studies 02/13/19 12:58 CT angio chest PE protocol Stat 02/16/19 08:49 CT chest w con Routine Hospital Course (1) Hemothorax on right: - CT with large hyperdense R pleural effusion suspicious for hemothorax with postsurgical changes/extensive consolidation in RLL possibly passive atelectasis but possible superimposed infiltrate - Etiology is uncertain for cause of bleed - concern for malignancy, cytology still pending nothing seen on VATS to suggest malignancy had a lung biopsy in the spring that did not show granulomas or malignancy repeat CT after VATS without any suspicious lesions in lungs or pleural tissues - S/P thoracentesis on 02/14 for 200 mL and S/P Thoracoscopy 02/15 - transfused 1 unit PRBC operative - Hgb stable for two days - Tylenol and Morphine PRN for pain control; Hold ASA will follow up closely with Dr. Esquivel of note, he had a biopsy of skin lesion on left forearm prior to admission, his licensed electrician said that it showed abscess she mentioned [facility] as a differential for the lung pathology no evidence of vasculitis or granulomas on lung biopsy can be followed for any further developments outpatient (2) Pre-syncope: - due to low volume, anemia + dehydration at the time of admission no further episodes after he was given IV fluids and transfused one unit PRBC ambulating the hallway without difficulty (3) Interstitial lung disease: - Suspected this was related to Flecainide use; had Bx and evaluation at [facility] that supported interstitial changes/pneumonitis; carries a lifelong H/O asthma as well - Does not appear to be in an exacerbation at this time - is producing more mucus but likely this is due to now being able to cough phlegm up - will watch for further changes in sputum/exacerbations - Continue Nebs/inhalers; Singulair 10 mg daily and Symbicort BID (4) Paroxysmal atrial fibrillation: - Continue Propafenone 225 mg BID; anti-hypertensives resumed without BP drops -- Not on AC? given CT/hemothorax this would be contraindicated at this time - follows with cardiology and can follow this (5) SSS (sick sinus syndrome): - S/P Pacer - follows with Dr. Schultz - STABLE Total Time Total Time Spent Total Time Spent (In Minutes): 33 minutes Total Time Includes: Examination of the Patient, Discharge Planning, Medication Reconciliation, Communication With Other Providers (discussion with Dr. Esquivel) and Other (discussion with family) Discharge Plan Discharge Items Patient Disposition: Home - Self-Care Reason For Visit: HEMOTHORAX Discharge Diagnosis: Right sided hemothorax Acute blood loss anemia Condition on Discharge: Good Goals: follow up with Dr. Esquivel get rest, improve strength and nutrition Activity: Resume your previous activity Non-emergency contact: Primary Care Provider and Surgeon Call non-emergency contact if: you have any medication questions, your symptoms worsen, your pain is not controlled and you have a fever Follow-up/Referrals: Miguel Gibbs MD [Primary Care Provider] - 02/23/19 11:30 am (Please, follow up with Dr. Gibbs on February 23 at 11:30 am. *If you need to change this appointment, call the office at [phone].) Bhavik Esquivel MD, FACS [Surgeon] - (Please, follow up at [facility] Surgery Office with Dr. Esquivel. *A nurse from that office will contact you with the appointment information. The office is located at [address] [place] [address] in [place]. If you have any questions, call the office at [phone].) Diet: Regular and Lactose Intolerant Addtl Attending Provider Instructions: Medications: no changes made - OXYCODONE: use only if needed for surgical pain Right hemothorax: blood removed by Dr. Esquivel, right lung expanded on chest x- ray recommend close follow up with thoracic surgery for final pathology and culture results you had a slight drop in hemoglobin that was corrected with transfusion Syncopal episodes: associated with drop in blood pressure most likely mediated by dehydration and blood loss resolved now that hemoglobin is stable and you are adequately hydrated Pending Studies at Discharge: Yes Studies:: cytology and biopsy results Stand-Alone Forms: My [facility] [employer], Smoking Cessation Medications and DC Order Prescriptions: New oxycodone 5 mg Tablet 5 mg PO Q6H PRN (Reason: pain) 7 Days Qty: 10 RF: 0 Continued ranitidine HCl 300 mg tablet 300 mg PO UD Qty: 180 RF: 0 albuterol sulfate 2.5 mg /3 mL (0.083 %) solution for nebulization 1 mg inhalation UD Qty: 150 RF: 0 fluorouracil [Efudex] 5 % Cream 1 applic TOPICAL BID PRN (Reason: Rash) RF: 0 fexofenadine [Saida Allergy] 180 mg Tablet 180 mg PO QAM RF: 0 aspirin 81 mg Tablet,Delayed Release (Dr/Ec) 81 mg PO HS RF: 0 montelukast 10 mg Tablet 10 mg PO HS RF: 0 epinephrine [EpiPen] 0.3 mg/0.3 mL Auto-Injector 0.3 mg IM UD PRN (Reason: Allergic Reaction) RF: 0 albuterol sulfate [ProAir HFA] 90 mcg/actuation Hfa Aerosol Inhaler 2 puff INHALATION Q4 PRN (Reason: Shortness Of Breath) RF: 0 ketoconazole 2 % Cream 1 applic TOPICAL BID PRN (Reason: Rash) RF: 0 propafenone 225 mg Capsule,Extended Release 12 Hr 225 mg PO Q12H RF: 0 calcium citrate-vitamin D3 [Citracal Regular] 250 mg calcium- 200 unit Tablet 1 tab PO DAILY RF: 0 PreserVision AREDS [id number],320-226-200 [id number] Capsule 1 cap PO BID RF: 0 Symbicort 160-4.5 mcg/actuation Hfa Aerosol Inhaler 2 puff INHALATION BID RF: 0 guaifenesin [Mucinex] 600 mg Tablet Extended Release 12hr 1,200 mg PO Q12H PRN (Reason: Cold Symptoms) RF: 0 diphenhydramine-acetaminophen 25-500 mg Tablet 25 mg PO HS PRN (Reason: Sleep) RF: 0 Bystolic 5 mg Tablet 5 mg PO HS RF: 0 lisinopril 5 mg tablet 2.5 mg PO QAM RF: 0 fluticasone propionate 50 mcg/actuation spray,suspension 2 spray intranasal UD RF: 0 Discontinued amoxicillin-pot clavulanate [Augmentin] 875-125 mg tablet 1 tab PO BID Qty: 20 RF: 0 Discharge Orders: Discharge Order (Routine); Ordered 02/17/19 Ordered By: Ramon Langford/Other Patient Handouts: Surgery Prevent DVT After Admission Data Admit Date/Time: 02/13/19 17:02 Attending Provider: Ramon Clemens Admit Provider: Ramon Clemens Primary Care Provider: Miguel Gibbs Other Providers: Jany Lopez ; Bhavik Esquivel ; Mario Alberto Amador Other Interventions: Discharge Summary Assessment (RN) Last Done: 02/17/19 12:01 DC Date/Time DO NOT enter until pt leaves facility: 02/17/19 12:26
--- NOTE | 2019-02-17 12:35 | Surgery Progress Note ---
Date of Service February 17, 2019 Assessment & Plan (1) Pleural effusion on right: -pt. required RVATS with drainage of effusion on 02/15/19 -cytology noted to be (-) for malignancy -due to concern for malignancy with spontaneous hemothorax, CT scan repeated on 02/16/19: -this showed non-specific mediastinal adenopathy which will be follow-up as outpt. -at time of d/c we will call pt. for a 1-2 week f/u appt. with repeat CXR Subjective Pt. notes breathing has improved since surgery. No further SOB or chest tightness. Physical Exam Constitutional: well developed and well nourished; no acute distress Neck: trachea midline Respiratory: normal respiratory effort; no respiratory distress and no labored breathing only slight decrease of BS at bases (improved from initial exam) Results & Data Vital Signs (Past 12 Hours) Vital Signs Temp Pulse Pulse Resp BP BP Pulse Ox 02/17/19 12:01 36.4 C L 81 71 18 147/71 H 167/80 H 92 02/17/19 07:19 36.4 C L 71 18 167/80 H 92 02/17/19 07:05 81 19 95 02/17/19 04:00 36.6 C 72 16 132/71 93 PG Care Time/CCT Total # of Minutes Spent Total Time Spent with Patient: Total time spent is greater than 50% in coordination of care (as documented) at patient's floor/unit and/or counseling patient:
--- NOTE | 2019-02-22 18:19 | Operative Report ---
DATE OF OPERATION: 02/15/2019 PREOPERATIVE DIAGNOSIS: Right hemothorax. POSTOPERATIVE DIAGNOSIS: Right hemothorax. PROCEDURE: Right thoracoscopy with evacuation of pleural contents. SURGEON: Bhavik Esquivel MD. CABLE SPLICER APPRENTICE: ZAKI Pitts ANESTHESIA: General anesthesia with single lumen intubation. INDICATION FOR PROCEDURE AND FINDINGS: Mr. Lomax is a very nice 79-year-old male that I know having performed an open lung biopsy on the right several months ago. The patient developed pain in his right chest few days ago and presented to the hospital and was found to have a complicated effusion in the Hounsfield units, appeared to represent blood in the right pleural cavity. I performed a thoracentesis and indeed this did appear to be old blood. We could not drain it all out. For this reason, I felt that a thoracoscopy with evaluation of biopsy was in order. On 02/15/2019, the patient was brought to the operating room and underwent an uncomplicated left thoracoscopy. No adhesions. He did have old blood. We got about 1000 mL of old dark nonclotting blood and some clot. After we had gotten all this out, I carefully inspected the entire area, and really did not see any abnormalities. I did not see any parenchymal abnormalities, but I could see on the visceral pleural surface. He had no mediastinal or chest wall abnormalities. The only thing of note is that on his diaphragm, with a small area, it looked to have minor trauma and was oozing blood. After examining this several times over several minute period it did not really stop bleeding, so I cauterized, but there was not a mass to biopsy. I carefully inspected the entire pleural cavity. He tolerated it well and was extubated in the room. DESCRIPTION OF PROCEDURE: The patient was brought to the operating room and laid in supine position. General anesthesia was induced and endotracheal intubation was performed with single lumen tube. After appropriate timeout had been called and antibiotics given, the patient was placed in the left lateral decubitus position, right chest prepped and draped in usual sterile fashion. I made three separate incisions, 1 anterior at about the fifth interspace, 1 posterior at about the fifth interspace. These were on either side of the tip of the scapula. I then made an incision in the area of his old incision for about 12 mm or so incision. I then inserted a 5 mm port posteriorly and indeed we could see this was old blood. We then put a 5 mm port anterior to latissimus dorsi and then put the 12 mm port inferiorly. I went through this 12 mm port with a larger sucker and sucked out about a liter of old blood and clot. I had to break up the clot, but we finally got every bit of it out and I carefully inspected the chest cavity after irrigating with warm saline. I looked from the apex all the way down to the diaphragm. I did not see any mediastinal or parietal or visceral pleural abnormalities. I could not find a source of bleeding except on the dome of the diaphragm. On the tendinous portion there was a small area of bleeding. It appeared to be the site of minor trauma but it did not stop. I finally cauterized this with an Aquamantys and it stopped. It was bleeding very little. I was quite pleased at the end and we saw no abnormalities. There was no further bleeding. 266 mg of liposomal bupivacaine in 20 mL of solution were mixed with 30 mL of 0.5% bupivacaine and 250 mL of normal saline and used to inject the 3 port sites prior to making incision. I also performed an intrathoracic block from second to the 11th rib thoracoscopically by placing a long needle into the inner spaces and injecting. A 24-Serbian chest tube was placed in the inferior most chest tube site directed towards the apex. Sutured in place with heavy silk suture. There was no air leak at the conclusion of the case. Antimicrobial dressings were placed. He tolerated it well. I attest to the content of the Intraoperative Record and any orders documented therein. Any exception s are noted below.
== END 2019-02-17 12:26 | disposition home or self-care (01) | DRG 167 ==
LOC: ED 10:09 → 2N 17:02 → 3N 02-15 14:13

== ENCOUNTER 2023-12-29 04:41 | Inpatient (IN) ==
--- NOTE | 2023-12-29 05:04 | Emergency Department Note ---
Impression & Plan Dyspnea, Hypoxia ED Provider Note ED Provider Note NAME: SHANICE CURTIS AGE:83 SEX: Male : 1940 ARRIVES VIA: Private vehicle INFORMANT: Patient ED PROVIDER(s): Machelle Polanco DO CHIEF COMPLAINT: Increased shortness of breath HPI: This is an 83-year-old male presents emergency room due to concern for increased shortness of breath. Patient states he awoke this morning feeling more short of breath and noticing wheezing when he got up to go the bathroom. He used his inhaler 3 times without any significant improvement and became concerned. Upon presentation here he was noted to be tachypneic, had increased work of breathing, and initial oxygen saturations were 85%. He was promptly placed on oxygen via nasal cannula and placed in a room and I was asked to come see him more urgently. Patient states he does have a history of interstitial lung disease. He states he only wears oxygen with prolonged exertion such as when going for a walk outside. With those episodes he wears 4 L/min. Otherwise around the house he does not wear oxygen. He has not noticed any recent change in the amount or color of his sputum recently. No hemoptysis. No fevers or chills. He does suffer from seasonal allergies this time of year. No known sick contact, no recent change in medications. He denies any accompanying dizziness, chest pain, or nausea. No recent leg swelling. PAST MEDICAL HISTORY:See Below PAST SURGICAL HISTORY:See Below FAMILY HISTORY:See Below SOCIAL HISTORY:See Below HOME MEDICATIONS:See Below ALLERGIES:See Below VITALS:See Below PHYSICAL EXAMINATION: GENERAL: alert, well appearing, well nourished, no distress, non-toxic EYE EXAM: normal conjunctiva, PERRL and EOM's grossly intact OROPHARYNX: no exudate, no erythema, lips, buccal mucosa, and tongue normal and mucous membranes are moist NECK: supple, no nuchal rigidity, no adenopathy, non-tender LUNGS: Decreased to auscultation. Normal chest wall mechanics, no w/r/r, tachypnea and increased work of breathing noted HEART: no murmurs, S1 normal and S2 normal ABDOMEN: abdomen soft, non-tender, normo-active bowel sounds, no masses, no rebound or guarding. SKIN: no rashes, petechiae, orbruising UPPER EXTREMITIES: upper extremities are grossly normal. FROM, nml pulses b/l. LOWER EXTREMITIES: No pitting edema. FROM, nml pulses b/l. NEURO EXAM: Normal sensorium, cranial nerves II-XII grossly intact, normal speech, no facial droop,nogross weakness of arms, no gross weakness of legs. Gross sensation intact. No ataxia. Vital Signs: reviewed and remarkable Differential Diagnosis: pneumonia, bronchitis, COPD/Asthma exacerbation, pneumothorax, pulmonary embolism, congestive heart failure, acute coronary syndrome, as well as others were considered MEDICAL DECISION MAKING: This is an 83 yo male who presents with increased dyspnea despite use of his albuterol at home and was found to be very tachypneic and hypoxic on arrival. He was placed on oxygen via NC with improvement although he was still tachypneic and had increased WOB. He was given a duoneb tx additional. Labs drawn and sent, IV established, EKG and CXR performed and interpreted at bedside, and patient placed on telemetry. Patient with extensive pulmonary hx. He has chronic a.fib and takes ASA only. No prior hx of PE. Denies any uri sx including f/c. Unclear initially if cxr findings represent pulmonary edema vs evolving pna. Patient does use prednisone 10 mg daily. Leukocytosis noted, however unclear with evolving infection, stress response given severity of presenting symptoms, or simply from steroid use. BNP elevated however exam not strongly suggestive of CHF. Given complex hx and likely dyspnea and hypoxia from multiple etiologies, case discussed with the hospitalist team for additional evaluation and mgmt. Consultation(s): 0602: Discussed with Dr. Brar, ID hospitalist team, for additional evaluation and mgmt. ER Treatment Provided: See below Diagnostics Interpreted By Me: -ECG: Rate of 70 with appearance of intermittent atrial fibrillation and intermittent paced beats, normal axis, normal intervals, nonspecific ST/T wave changes -Cardiac Monitoring: An order was placed for continuous cardiac monitoring. The monitor shows a rate of 78 with paced rhythm. -Laboratory studies: As stated above and show below. -Imaging studies: cxr: +CM, no wide mediastinum, pacemaker noted, no pleural effusion, scattered b/l interstitial markings that appear unchanged with exception of RLL Triage Nursing Note Reviewed Prior/Outside Records Reviewed prior [facility] pulm visit reviewed Past Med/Surg History Problem List (Updated 12/29/23 @ 07:51 by Sarath French MD) Permanent atrial fibrillation Acute on chronic respiratory failure with hypoxia Hypoxia (Acute) Dyspnea (Acute) ETD (eustachian tube dysfunction) Current chronic use of systemic steroids Chondrocalcinosis Left knee DJD History of colon polyps Orthostatic dizziness Anticoagulation therapy not indicated A-fib (Chronic) Asthma inhalers daily/prn Drug-induced lung disease Flecainide Hypertension Prostate cancer 04/2012 Interstitial lung disease (Chronic) Allergic rhinitis Spondylolisthesis, acquired (Acute) Sinus bradycardia (Acute) Male erectile disorder of organic origin (Acute) Gout (Acute) Dyslipidemia (Acute) Diverticulosis (Acute) Carpal tunnel syndrome (Acute) Anemia 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 Amador [employer] Medical History History of prostate cancer History of kidney stones Hx of basal cell carcinoma GERD (gastroesophageal reflux disease) Atrial fibrillation Interstitial lung disease Hemothorax (~02/2019) Arthritis Hammer toe of second toe of right foot Sciatica Tinnitus Tubular adenoma of colon History of colon polyps Osteoarthritis Spondylosis Chronic steroid use SSS (sick sinus syndrome) Surgical History History of cataract surgery History of esophagogastroduodenoscopy (EGD) H/O repair of left rotator cuff History of lung surgery History of bronchoscopy History of lung biopsy History of arthroscopy of left shoulder History of repair of right rotator cuff History of prostate biopsy History of prostate surgery History of appendectomy History of colonoscopy Status post Mohs surgery for basal cell carcinoma History of radical prostatectomy History of tooth extraction History of wisdom tooth extraction History of parotidectomy Family History Father Hypertension Stroke Mother Lung cancer Other Nephrolithiasis No family history of adverse response to anesthesia Prostate cancer Social History Smoking Status: Never smoker Second Hand Exposure: No; Do You Dip or Chew Tobacco: No; Hx Alcohol Use: No Hx Substance Use: No Preferred Language: German Communication Ability: Effective Visual Impairment: No Limitations Hearing Ability: Normal Bolt Loader Required: No Beliefs That Will Affect Care: None marital status: Current Living Situation: Spouse current occupational status: retired current occupation: Retired psychiatrist Feels Safe at Home: Yes Assistive Devices: Hospital Bed Allergies Allergies Allergy/AdvReac Type Severity Reaction Status Date / Time nut - unspecified Allergy Severe Anaphylaxis Verified 10/01/23 12:43 egg Allergy Intermediate SEVERE Verified 10/01/23 12:43 CONGESTION Fish Containing Products Allergy Intermediate HANDS Verified 10/01/23 12:43 BREAK OUT flecainide Allergy Intermediate lung Verified 10/01/23 12:43 problems gluten Allergy Intermediate GI TRACT Verified 10/01/23 12:43 UPSET Iodinated Contrast Media Allergy Intermediate SWELLING Verified 10/01/23 12:43 AND NAUSEA latex Allergy Intermediate BLISTERS Verified 10/01/23 12:43 milk Allergy Intermediate SEVERE Verified 10/01/23 12:43 CONGESTION nickel Allergy Intermediate ECZEMA RASH Verified 10/01/23 12:43 house dust Allergy Mild congestion Verified 10/01/23 12:43 iodine Allergy Mild SWELLING,NA Verified 10/01/23 12:43 USEA mold Allergy Mild congestion Verified 10/01/23 12:43 shellfish derived Allergy Mild SEVERE Verified 10/01/23 12:43 ALLERGY--SWELLING,NAUSEA Home Meds Home Medications Medication Instructions Recorded Confirmed aspirin 81 mg tablet,delayed 81 mg PO HS 06/15/18 12/29/23 release calcium citrate 250 mg 1 tab PO QAM 06/15/18 12/29/23 calcium-vitamin D3 5 mcg (200 unit) tablet (Citracal Regular) fexofenadine 180 mg tablet 180 mg PO QAM 06/15/18 12/29/23 ([facility]) vitamins A,C,Z-hqdr-gcdiri 4,296 1 cap PO BID 06/15/18 12/29/23 mcg-226 mg-90 mg capsule (PreserVision AREDS) diphenhydramine 25 1 tab PO HS PRN Pain 09/24/20 12/29/23 mg-acetaminophen 500 mg tablet (Tylenol PM Extra Strength) albuterol sulfate 90 mcg/actuation 2 puff inhalation Q4H PRN 07/11/23 12/29/23 aerosol inhaler Shortness Of Breath Or Wheezing epinephrine 0.3 mg/0.3 mL 0.3 mg IM UD PRN Allergy Symptoms 07/11/23 12/29/23 injection, auto-injector montelukast 10 mg tablet 10 mg PO HS 07/11/23 12/29/23 pantoprazole 40 mg tablet,delayed 40 mg PO BID 07/11/23 12/29/23 release prednisone 5 mg tablet 10 mg PO QAM 07/11/23 12/29/23 Previous Rx's Medication Instructions Recorded nebivolol 5 mg tablet (Bystolic) 5 mg PO HS #90 tabs 07/14/23 propafenone 225 mg 225 mg PO Q12H #180 caps 07/14/23 capsule,extended release 12 hr ipratropium bromide 21 mcg (0.03 See Rx Instructions .Route 07/16/23 %) nasal spray .COMPLEX #30 mL albuterol sulfate 0.63 mg/3 mL 0.63 mg (3 mL) inhalation QID PRN 08/27/23 solution for nebulization shortness of breath or wheezing #90 mL fluticasone propionate 50 2 spray intranasal DAILY #16 grams 09/13/23 mcg/actuation nasal spray,suspension budesonide-formoterol HFA 160 See Rx Instructions .Route 09/14/23 mcg-4.5 mcg/actuation aerosol .COMPLEX #20.4 grams inhaler lisinopril 5 mg tablet See Rx Instructions .Route 11/22/23 .COMPLEX #90 tabs Results & Data (ED) Vital Signs Vital Signs - 24 hr 12/29/23 04:43 12/29/23 04:53 12/29/23 05:01 Temperature 36.4 C L Temperature Source Temporal Artery Scan Pulse Rate 74 78 Pulse Rate [Apical] Respiratory Rate Respiratory Effort / Characteristics Respiratory Depth Respiratory Pattern Blood Pressure 162/90 H Blood Pressure [Right Arm] Blood Pressure Mean 114 Blood Pressure Mean [Right Arm] Blood Pressure Position [Right Arm] Pulse Oximetry 85 L 92 Oxygen Delivery Method Room Air Nasal Cannula Oxygen Flow Rate 4 Sepsis Recent Fever Within 48 Hours No Sepsis New/Unexplained Change in Mental Status No Sepsis Action Taken by Nursing No Action Required 12/29/23 05:01 12/29/23 05:11 Temperature Temperature Source Pulse Rate Pulse Rate [Apical] 73 Respiratory Rate 40 H 30 H Respiratory Effort / Characteristics Non-Labored Spontaneous Non-Labored Spontaneous Respiratory Depth Normal Normal Respiratory Pattern Tachypnea Tachypnea Blood Pressure Blood Pressure [Right Arm] 178/96 H Blood Pressure Mean Blood Pressure Mean [Right Arm] 123 Blood Pressure Position [Right Arm] Sitting Pulse Oximetry 96 98 Oxygen Delivery Method Nasal Cannula Nasal Cannula Oxygen Flow Rate 4 2.5 Sepsis Recent Fever Within 48 Hours Sepsis New/Unexplained Change in Mental Status Sepsis Action Taken by Nursing Laboratory Data 12/29/23 04:53 12/29/23 04:53 Lab Results 12/29/23 Range/Units 04:53 WBC 13.45 H (4.8-10.8) K/ul RBC 4.14 L (4.70-6.10) M/uL Hgb 14.3 (14.0-18.0) g/dl Hct 43.2 (42.0-52.0) % MCV 104.3 H (80.0-100.0) fL MCH 34.5 H (25.0-34.0) pg MCHC 33.1 (32.0-36.0) g/dL RDW Std Deviation 48.1 H (36.4-46.3) fL RDW Coeff of Omid 12.5 (11.5-14.5) % Plt Count 251 (130-400) K/uL MPV 8.4 L (9.4-12.4) fL Immature Gran % (Auto) 0.7 % Neut % (Auto) 74.6 % Lymph % (Auto) 13.9 % Tyrrell % (Auto) 9.9 % Eos % (Auto) 0.7 % Baso % (Auto) 0.2 % Neut # (Auto) 10.03 H (1.40-6.50) K/uL Lymph # (Auto) 1.87 (1.20-3.40) K/uL Tyrrell # (Auto) 1.33 H (0.11-0.59) K/uL Eos # (Auto) 0.10 (0.00-0.50) K/uL Baso # (Auto) 0.03 (0.00-0.20) K/uL Immature Gran # (Auto) 0.09 (0.01-0.20) K/uL PT 10.5 (9.0-12.0) Seconds INR 1.0 (0.9-1.1) VBG pH 7.32 L (7.36-7.41) VBG pCO2 50 (38-50) mmHg VBG pO2 31 mmHg VBG HCO3 26 mmol/L VBG O2 Saturation < 60.0 % VBG Base Excess -0.9 mEq/L Sodium 136 (136-145) mmol/L Potassium 4.3 (3.5-5.1) mmol/L Chloride 100 (98-107) mmol/L Carbon Dioxide 24 (21-32) mmol/L Anion Gap 12 H (3-11) BUN 21 (6-23) mg/dl Creatinine 1.37 (0.6-1.4) mg/dl Est Cr Clr Drug Dosing Not Reportable Est GFR ( Amer) 54.1 ml/min Est GFR (Non-Af Amer) 46.7 ml/min BUN/Creatinine Ratio 15.3 (10-20) Glucose 107 H (70-99(Fasting)) mg/dl Calcium 9.7 (8.6-10.3) mg/dl Magnesium 2.0 (1.7-2.4) mg/dl Total Bilirubin 0.5 (0.2-1.0) mg/dl AST 17 (13-39) U/L ALT 11 (7-52) U/L Alkaline Phosphatase 93 (34-104) U/L Troponin I High Sens 8.0 (0-20) pg/ml B-Natriuretic Peptide 173 H (0-100) pg/ml Total Protein 8.1 (6.0-8.3) gm/dl Albumin 4.4 (3.4-5.0) gm/dl Globulin 3.7 (2.5-4.0) gm/dl Albumin/Globulin Ratio 1.2 (0.9-2) Lipase 11 (11-82) U/L Adenovirus (PCR) Not Detected (NotDetected) B. pertussis DNA (PCR) Not Detected (NotDetected) B.parapertussis DNA PCR Not Detected (NotDetected) C. pneumoniae DNA (PCR) Not Detected (NotDetected) Coronavirus OC43 (PCR) Not Detected (NotDetected) Coronavirus HKU1 (PCR) Not Detected (NotDetected) Coronavirus 229E (PCR) Not Detected (NotDetected) SARS-CoV-2 (PCR) Not Detected (NotDetected) Coronavirus NL63 (PCR) Not Detected (NotDetected) Human Metapneumovir PCR Not Detected (NotDetected) Influenza Type A (PCR) Not Detected (NotDetected) Influenza Type B (PCR) Not Detected (NotDetected) M. pneumoniae (PCR) Not Detected (NotDetected) Parainfluenza 1 (PCR) Not Detected (NotDetected) Parainfluenza 2 (PCR) Not Detected (NotDetected) Parainfluenza 3 (PCR) Not Detected (NotDetected) Parainfluenza 4 (PCR) Not Detected (NotDetected) RSV (PCR) Not Detected (NotDetected) Entero/Rhino (PCR) Not Detected (NotDetected) Administered Medications Albuterol (Albut/Ipratrop 3mg/0.5mg Neb 3 Ml Vial) 3 ml NEB QIDR [facility]; Protocol Stop: 01/28/24 06:59 Last Admin: 12/29/23 19:45 Dose: 3 ml Documented By: Admin: 12/29/23 14:50 Dose: Not Given Documented By: [facility] Admin: 12/29/23 11:19 Dose: 3 ml Documented By: [facility] Admin: 12/29/23 07:25 Dose: Not Given Documented By: ERNIE Aspirin (Aspirin 81 Mg Ectab) 81 mg PO HS [facility] Stop: 01/28/24 20:59 Last Admin: 12/29/23 21:04 Dose: 81 mg Documented By: STEW Budesonide (Budesonide 0.5 Mg/2 Ml Vial (Pulmicort)) 0.5 mg NEB Q4R [facility] Stop: 01/28/24 12:29 Last Admin: 12/29/23 22:31 Dose: 0.5 mg Documented By: Admin: 12/29/23 19:45 Dose: 0.5 mg Documented By: Admin: 12/29/23 14:59 Dose: 0.5 mg Documented By: [facility] Admin: 12/29/23 12:41 Dose: 0.5 mg Documented By: [facility] Calcium/Vitamin D (Calcium 600mg + Vit D 400 Iu Tab) 1 tab PO QAM [facility] Stop: 01/28/24 11:29 Last Admin: 12/29/23 12:49 Dose: Not Given Documented By: DON Enoxaparin Sodium (Enoxaparin Inj 40 Mg/0.4 Ml Syr) 40 mg SQ Q24H AMANDA Stop: 01/28/24 11:59 Last Admin: 12/29/23 12:41 Dose: 40 mg Documented By: DON Fexofenadine HCl (Fexofenadine Hcl 180 Mg Tab) 180 mg PO QAM [facility] Stop: 01/28/24 11:29 Last Admin: 12/29/23 12:50 Dose: Not Given Documented By: DON Fluticasone Propionate (Fluticasone Propionate Na Spr 16 Gm Btl) 2 sprays PAULA DAILY AMANDA Stop: 01/28/24 11:29 Last Admin: 12/29/23 12:50 Dose: Not Given Documented By: DON Formoterol Fumarate (Formoterol 20 Mcg/2 Ml Vial) 20 mcg NEB Q4R [facility] Stop: 01/28/24 12:29 Last Admin: 12/29/23 22:28 Dose: 20 mcg Documented By: Admin: 12/29/23 19:45 Dose: 20 mcg Documented By: Admin: 12/29/23 14:49 Dose: 20 mcg Documented By: Admin: 12/29/23 12:41 Dose: 20 mcg Documented By: BRANDON Guaifenesin (Guaifenesin Sugar Free 200 Mg/10 Ml Udc) 200 mg PO Q6H AMANDA Stop: 01/28/24 13:59 Last Admin: 12/29/23 21:06 Dose: 200 mg Documented By: Admin: 12/29/23 14:00 Dose: 200 mg Documented By: DON Piperacillin Sod/Tazobactam Sod (Zosyn) 4.5 gm in 100 mls @ 25 mls/hr IV Q8H AMANDA Stop: 01/05/24 13:59 Last Admin: 12/29/23 22:00 Dose: 25 mls/hr Documented By: Infusion: 12/29/23 19:55 Dose: Infused Documented By: Admin: 12/29/23 14:01 Dose: 25 mls/hr Documented By: DON Methylprednisolone 40 mg/ (Syringe) 0.64 mls @ 1.5 mls/min IV Q8H [facility]ANDA Stop: 01/28/24 13:59 Last Admin: 12/29/23 22:00 Dose: 1.5 mls/min Documented By: Admin: 12/29/23 14:01 Dose: 1.5 mls/min Documented By: DON Metoprolol Tartrate (Metoprolol Tartrate 25 Mg Tab) 25 mg PO BID [facility]DA Stop: 01/28/24 20:59 Last Admin: 12/29/23 21:04 Dose: 25 mg Documented By: STEW Montelukast Sodium (Montelukast Sodium 10 Mg Tablet) 10 mg PO HS [facility] Stop: 01/28/24 20:59 Last Admin: 12/29/23 21:04 Dose: 10 mg Documented By: STEW Multivitamins/Minerals (Cerovite Adv Formula Tab) 1 tab PO BID [facility]DA Stop: 01/28/24 11:29 Last Admin: 12/29/23 21:05 Dose: 1 tab Documented By: Admin: 12/29/23 12:50 Dose: Not Given Documented By: DON Propafenone Er: Non -Formulary Patient's Own Med 1 each PO BID AMANDA Stop: 01/28/24 22:29 Last Admin: 12/29/23 22:47 Dose: 225 mg Documented By: STEW Pantoprazole Sodium (Pantoprazole 40 Mg Tab) 40 mg PO BID [facility]ANDA Stop: 01/28/24 11:29 Last Admin: 12/29/23 21:05 Dose: 40 mg Documented By: Admin: 12/29/23 12:50 Dose: Not Given Documented By: DON Discontinued Medications Albuterol (Albut/Ipratrop 3mg/0.5mg Neb 3 Ml Vial) 3 ml NEB NOW STA; Protocol Stop: 12/29/23 05:38 Last Admin: 12/29/23 05:51 Dose: 3 ml Documented By: ELKE Budesonide (Budesonide 0.5 Mg/2 Ml Vial (Pulmicort)) 0.5 mg NEB BIDR [facility]ANDA Stop: 01/28/24 06:59 Last Admin: 12/29/23 07:24 Dose: 0.5 mg Documented By: ERNIE Diphenhydramine HCl (Diphenhydramine 50 Mg/Ml Vial) 12.5 mg IV TODAY@1245 [facility]DA Stop: 12/29/23 18:00 Last Admin: 12/29/23 13:05 Dose: 12.5 mg Documented By: DON Guaifenesin (Guaifenesin Sugar Free 200 Mg/10 Ml Udc) 200 mg PO NOW STA Stop: 12/29/23 07:15 Last Admin: 12/29/23 08:13 Dose: 200 mg Documented By: JAILENE Piperacillin Sod/Tazobactam Sod (Zosyn) 4.5 gm in 100 mls @ 200 mls/hr IV NOW STA Stop: 12/29/23 07:42 Last Infusion: 12/29/23 08:23 Dose: Infused Documented By: Admin: 12/29/23 07:51 Dose: 200 mls/hr Documented By: JAILENE Ioversol (Optiray 320 125ml) 112 ml IV ONCE ONE Stop: 12/29/23 13:23 Last Admin: 12/29/23 13:23 Dose: 112 ml Documented By: THU Methylprednisolone (Methylprednisolone 125 Mg/2 Ml Vial) 60 mg IV NOW STA Stop: 12/29/23 06:49 Last Admin: 12/29/23 07:49 Dose: 60 mg Documented By: JAILENE Miscellaneous (Order Awaiting Action) 1 each N/A QS AMANDA Stop: 01/28/24 16:14 Last Admin: 12/29/23 17:31 Dose: Not Given Documented By: CAPRI Montelukast Sodium (Montelukast Sodium 10 Mg Tablet) 10 mg PO NOW ONE Stop: 12/29/23 05:38 Last Admin: 12/29/23 05:51 Dose: 10 mg Documented By: ELKE Ondansetron HCl (Ondansetron Inj 2 Mg/Ml 2 Ml Vial) 4 mg IV NOW STA Stop: 12/29/23 13:34 Last Admin: 12/29/23 13:57 Dose: Not Given Documented By: DON Discharge Plan Visit Data Chief Complaint: Shortness of Breath/Dyspnea Stated Complaint: SOB ED Provider: Machelle Polanco Discharge Problem: Dyspnea, Hypoxia Patient Disposition: Admitted As Inpatient Discharge Instructions Interventions: ED Discharge Assessment Last Done: 12/29/23 14:57
[2023-12-29 05:11] LABS: Base Excess VBG -0.9 mEq/L; HCO3 VBG 26 mmol/L; Oxygen Saturation VBG < 60.0 %; PCO2 VBG 50 mmHg (38-50); PO2 VBG 31 mmHg; pH VBG 7.32 (7.36-7.41)
[2023-12-29 05:21] LABS: Basophils # (auto) 0.03 K/uL (0.00-0.20); Basophils % (auto) 0.2 %; Eosinophils % (auto) 0.7 %; Hematocrit (blood only) 43.2 % (42.0-52.0); Hemoglobin 14.3 g/dl (14.0-18.0); Immature Granulocytes # (auto) 0.09 K/uL (0.01-0.20); Immature Granulocytes % (auto) 0.7 %; Lymphocytes # (auto) 1.87 K/uL (1.20-3.40); Lymphocytes % (auto) 13.9 %; Mean Corpuscular Hemoglobin 34.5 pg (25.0-34.0); Mean Corpuscular Hgb Conc 33.1 g/dL (32.0-36.0); Mean Corpuscular Volume 104.3 fL (80.0-100.0); Mean Platelet Volume 8.4 fL (9.4-12.4); Monocytes # (auto) 1.33 K/uL (0.11-0.59); Monocytes % (auto) 9.9 %; Neutrophils # (auto) 10.03 K/uL (1.40-6.50); Neutrophils % (auto) 74.6 %; Platelet Count 251 K/uL (130-400); RDW Coefficient of Variation 12.5 % (11.5-14.5); RDW Standard Deviation 48.1 fL (36.4-46.3); Red Blood Count 4.14 M/uL (4.70-6.10); White Blood Count 13.45 K/ul (4.8-10.8)
[2023-12-29 05:34] LABS: Alanine Aminotransferase 11 U/L (7-52); Albumin Globulin Ratio 1.2 (0.9-2); Albumin Level 4.4 gm/dl (3.4-5.0); Alkaline Phosphatase 93 U/L (34-104); Anion Gap 12 (3-11); Aspartate Aminotransferase 17 U/L (13-39); BUN Creatinine Ratio 15.3 (10-20); Bilirubin,Total 0.5 mg/dl (0.2-1.0); Blood Urea Nitrogen 21 mg/dl (6-23); Calcium 9.7 mg/dl (8.6-10.3); Carbon Dioxide 24 mmol/L (21-32); Chloride 100 mmol/L (98-107); Est GFR (African American) 54.1 ml/min; Est GFR (Non-African American) 46.7 ml/min; Globulin 3.7 gm/dl (2.5-4.0); Glucose 107 mg/dl (70-99(Fasting)); Lipase 11 U/L (11-82); Potassium 4.3 mmol/L (3.5-5.1); Sodium 136 mmol/L (136-145); Total Protein 8.1 gm/dl (6.0-8.3)
[2023-12-29 05:42] LABS: Prothrombin Time 10.5 Seconds (9.0-12.0)
[2023-12-29] MEDS: MONTELUKAST SODIUM 10 MG TABLET PO ONE (05:51)
[2023-12-29] MEDS: ALBUT/IPRATROP 3MG/0.5MG NEB 3 ML VIAL NEB STA (05:51)
[2023-12-29 06:31] LABS: Adenovirus PCR Not Detected (NotDetected); Bordetella parapertussis PCR Not Detected (NotDetected); Bordetella pertussis PCR Not Detected (NotDetected); Chlamydia pneumoniae PCR Not Detected (NotDetected); Coronavirus 229E PCR Not Detected (NotDetected); Coronavirus CoV-2 (COVID19)PCR Not Detected (NotDetected); Coronavirus HKU1 PCR Not Detected (NotDetected); Coronavirus NL63 PCR Not Detected (NotDetected); Coronavirus OC43PCR Not Detected (NotDetected); Human Metapneumovirus PCR Not Detected (NotDetected); Influenza A PCR Not Detected (NotDetected); Influenza B PCR Not Detected (NotDetected); Mycoplasma pneumoniae PCR Not Detected (NotDetected); Parainfluenza Virus 1 PCR Not Detected (NotDetected); Parainfluenza Virus 2 PCR Not Detected (NotDetected); Parainfluenza Virus 3 PCR Not Detected (NotDetected); Parainfluenza Virus 4 PCR Not Detected (NotDetected); Respiratory Syncytial VirusPCR Not Detected (NotDetected); Rhinovirus/Enterovirus PCR Not Detected (NotDetected)
--- NOTE | 2023-12-29 07:14 | History & Physical Report ---
Date of Service December 29, 2023 Assessment & Plan (1) Acute on chronic respiratory failure with hypoxia: (2) Current chronic use of systemic steroids: (3) Asthma: (4) Drug-induced lung disease: (5) Hypertension: (6) Prostate cancer: (7) Interstitial lung disease: (8) Dyslipidemia: (9) Chronic pulmonary aspiration: (10) GERD (gastroesophageal reflux disease): (11) Pacemaker: Plan Acute on chronic respiratory failure with hypoxia/flecainide induced ILD/chronic pulmonary aspiration The patient will be admitted to telemetry for serial cardiac enzymes, serial EKG's, cardiac rhythm monitoring Give Solu-Medrol 60 mg IV now, then 40 mg IV every 8 hours Duonebs every 4 hours while awake and every 2 hours when necessary. Changed Pulmicort to Respules 0.5 twice daily Guaifenesin 200 mg liquid p.o. every 6 hours Sputum Gram stain and culture Zosyn 4.5 g IV every 8 hours MRSA swab Continue montelukast, fexofenadine Temporarily hold Symbicort Obtain CT scan results from [facility] clinic from 10/14/2023 Chronic aspiration, has had swallowing studies, can be ordered if concern regarding worsening Atrial fibrillation/hypertension/status post AV pacer for sick sinus syndrome- Continue propafenone, nebivolol, aspirin Hold lisinopril Anticoagulation noted as not indicated in records GERD Continue pantoprazole History of Present Illness Chief Complaint: The patient presents to the emergency department after being woken up acutely at 330 this morning by shortness of breath and productive cough. He denies any associated fevers or chills. He denies any recent travels or sick exposures. He had been at his usual baseline chronic breathing issues, and did take his morning medications prior to arrival. He did use a albuterol HFA,, but did not use his nebulizer Primary Care Provider: Miguel Gibbs MD The patient is an 83-year-old with past medical history including flecainide induced interstitial lung disease, atrial fibrillation not on anticoagulation, sinus bradycardia status post AV pacer, asthma, hypertension, prostate cancer, chronic use of systemic steroids, chronic aspiration, esophageal dysmotility, a nd GERD. He follows with [facility] for interstitial lung disease, last appointment there on 10/14/2023. He presents to the emergency department with acute onset of shortness of breath that awoke him from sleep at about 3:30 this morning. He took 3 puffs of his inhaler, did not have improvement in symptoms, and presents to the ED for assessment Allergies Allergy/AdvReac Type Severity Reaction Status Date / Time nut - unspecified Allergy Severe Anaphylaxis Verified 10/01/23 12:43 egg Allergy Intermediate SEVERE Verified 10/01/23 12:43 CONGESTION Fish Containing Products Allergy Intermediate HANDS Verified 10/01/23 12:43 BREAK OUT flecainide Allergy Intermediate lung Verified 10/01/23 12:43 problems gluten Allergy Intermediate GI TRACT Verified 10/01/23 12:43 UPSET Iodinated Contrast Media Allergy Intermediate SWELLING Verified 10/01/23 12:43 AND NAUSEA latex Allergy Intermediate BLISTERS Verified 10/01/23 12:43 milk Allergy Intermediate SEVERE Verified 10/01/23 12:43 CONGESTION nickel Allergy Intermediate ECZEMA RASH Verified 10/01/23 12:43 house dust Allergy Mild congestion Verified 10/01/23 12:43 iodine Allergy Mild SWELLING,NA Verified 10/01/23 12:43 USEA mold Allergy Mild congestion Verified 10/01/23 12:43 shellfish derived Allergy Mild SEVERE Verified 10/01/23 12:43 ALLERGY--SWELLING,NAUSEA Home Medications Medication Instructions Recorded Confirmed Type aspirin 81 mg tablet,delayed 81 mg PO HS 06/15/18 10/01/23 History release calcium citrate 250 mg 1 tab PO QAM 06/15/18 10/01/23 History calcium-vitamin D3 5 mcg (200 unit) tablet (Citracal Regular) fexofenadine 180 mg tablet 180 mg PO QAM 06/15/18 10/01/23 History (Saida Allergy) vitamins A,C,G-pvrq-rcvwon 4,296 1 cap PO BID 06/15/18 10/01/23 History mcg-226 mg-90 mg capsule (PreserVision AREDS) diphenhydramine 25 1 tab PO HS PRN Pain 09/24/20 10/01/23 History mg-acetaminophen 500 mg tablet (Tylenol PM Extra Strength) albuterol sulfate 90 mcg/actuation 2 puff inhalation Q4H PRN 07/11/23 10/01/23 History aerosol inhaler Shortness Of Breath Or Wheezing epinephrine 0.3 mg/0.3 mL 0.3 mg IM UD PRN Allergy Symptoms 07/11/23 10/01/23 History injection, auto-injector montelukast 10 mg tablet 10 mg PO HS 07/11/23 10/01/23 History pantoprazole 40 mg tablet,delayed 40 mg PO BID 07/11/23 10/01/23 History release prednisone 5 mg tablet 10 mg PO QAM 07/11/23 10/01/23 History nebivolol 5 mg tablet (Bystolic) 5 mg PO HS #90 tabs 07/14/23 10/01/23 Rx propafenone 225 mg 225 mg PO Q12H #180 caps 07/14/23 10/01/23 Rx capsule,extended release 12 hr ipratropium bromide 21 mcg (0.03 See Rx Instructions .Route 07/16/23 10/01/23 Rx %) nasal spray .COMPLEX #30 mL albuterol sulfate 0.63 mg/3 mL 0.63 mg (3 mL) inhalation QID PRN 08/27/23 10/01/23 Rx solution for nebulization shortness of breath or wheezing #90 mL fluticasone propionate 50 2 spray intranasal DAILY #16 grams 09/13/23 10/01/23 Rx mcg/actuation nasal spray,suspension budesonide-formoterol HFA 160 See Rx Instructions .Route 09/14/23 10/01/23 Rx mcg-4.5 mcg/actuation aerosol .COMPLEX #20.4 grams inhaler lisinopril 5 mg tablet See Rx Instructions .Route 11/22/23 Rx .COMPLEX #90 tabs Past Med/Surg History Problem List (Updated 12/29/23 @ 07:09 by Neville Brar MD) Acute on chronic respiratory failure with hypoxia Hypoxia (Acute) Dyspnea (Acute) ETD (eustachian tube dysfunction) Current chronic use of systemic steroids Chondrocalcinosis Left knee DJD History of colon polyps Orthostatic dizziness Anticoagulation therapy not indicated A-fib (Chronic) Asthma inhalers daily/prn Drug-induced lung disease Flecainide Hypertension Prostate cancer 04/2012 Interstitial lung disease (Chronic) Allergic rhinitis Spondylolisthesis, acquired (Acute) Sinus bradycardia (Acute) Male erectile disorder of organic origin (Acute) Gout (Acute) Dyslipidemia (Acute) Diverticulosis (Acute) Carpal tunnel syndrome (Acute) Anemia 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 Amador [employer] Medical History History of prostate cancer History of kidney stones Hx of basal cell carcinoma GERD (gastroesophageal reflux disease) Atrial fibrillation Interstitial lung disease Hemothorax (~02/2019) Arthritis Hammer toe of second toe of right foot Sciatica Tinnitus Tubular adenoma of colon History of colon polyps Osteoarthritis Spondylosis Chronic steroid use SSS (sick sinus syndrome) Surgical History History of cataract surgery History of esophagogastroduodenoscopy (EGD) H/O repair of left rotator cuff History of lung surgery History of bronchoscopy History of lung biopsy History of arthroscopy of left shoulder History of repair of right rotator cuff History of prostate biopsy History of prostate surgery History of appendectomy History of colonoscopy Status post Mohs surgery for basal cell carcinoma History of radical prostatectomy History of tooth extraction History of wisdom tooth extraction History of parotidectomy Family History Father Hypertension Stroke Mother Lung cancer Other Nephrolithiasis No family history of adverse response to anesthesia Prostate cancer Social History Smoking Status: Unknown if ever smoked Second Hand Exposure: Yes (in the past); Do You Dip or Chew Tobacco: No; Hx Alcohol Use: Yes Alcohol type: beer and wine Alcohol Intake Frequency Comment: socially Hx Substance Use: No Preferred Language: Yi Communication Ability: Effective Visual Impairment: No Limitations Hearing Ability: Normal Courtroom Deputy Required: No Beliefs That Will Affect Care: None marital status: Current Living Situation: Spouse current occupational status: retired current occupation: Retired psychiatrist Feels Safe at Home: Yes Assistive Devices: Glasses and Nebulizer Review of Systems Review of Systems: The patient denies chest pain, palpitations, lower extremity swelling, sore throat, fevers, chills, sweats, weight change, fatigue, nausea, vomiting, diarrhea , constipation, abdominal pain, pelvic pain, blood in urine or stool, dysuria, urinary frequency or urgency, lightheadedness, dizziness, headache, memory loss, loss of consciousness, rash, abnormal bruising or bleeding, imbalance, focal or generalized weakness, numbness or tingling in arms or legs, generalized arthralgias or myalgias, back or neck pain, or night sweats. The review of systems is otherwise negative other than for that already noted above, and at least 10 systems have been reviewed. Physical Exam Physical Exam: The patient is awake, alert and oriented 3, well developed and well nourished, normocephalic and atraumatic, lying in bed and in no acute distress. HEENT--PERRL, EOMI, mucous membranes and oropharynx normal Neck--supple. No JVD. No bruits. Thyroid normal, trachea midline, no adenopathy. Heart--normal S1 and S2. No murmurs, rubs or gallops Lungs--coarse breath sounds bilaterally. No respiratory distress, no accessory muscle use. Abdomen--normal bowel sounds and soft. Nontender. Nondistended, no hernias or masses, no organomegaly. Extremities--No edema. There are good distal pulses b/l. Dermatologic--normal skin turgor, normal color, no abnormal lymph nodes, no rash. Neurologic--cranial nerves II through XII grossly intact. Rheumatologic--normal range of motion. Psychiatric--normal affect. Results & Data Results & Data Vital Signs (Past 12 Hours) Vital Signs Temp Pulse Pulse Resp BP BP Pulse Ox 12/29/23 05:11 30 H 98 12/29/23 05:01 73 40 H 178/96 H 96 12/29/23 05:01 92 12/29/23 04:53 78 12/29/23 04:43 36.4 C L 74 162/90 H 85 L O2 Del Method O2 Flow Rate 12/29/23 05:11 Nasal Cannula 2.5 12/29/23 05:01 Nasal Cannula 4 12/29/23 05:01 Nasal Cannula 4 12/29/23 04:53 12/29/23 04:43 Room Air Laboratory Results Laboratory Results WBC 13.45 K/ul (4.8-10.8) H 12/29/23 04:53 RBC 4.14 M/uL (4.70-6.10) L 12/29/23 04:53 Hgb 14.3 g/dl (14.0-18.0) 12/29/23 04:53 Hct 43.2 % (42.0-52.0) 12/29/23 04:53 MCV 104.3 fL (80.0-100.0) H 12/29/23 04:53 MCH 34.5 pg (25.0-34.0) H 12/29/23 04:53 MCHC 33.1 g/dL (32.0-36.0) 12/29/23 04:53 RDW Std Deviation 48.1 fL (36.4-46.3) H 12/29/23 04:53 RDW Coeff of Omid 12.5 % (11.5-14.5) 12/29/23 04:53 Plt Count 251 K/uL (130-400) 12/29/23 04:53 MPV 8.4 fL (9.4-12.4) L 12/29/23 04:53 Immature Gran % (Auto) 0.7 % 12/29/23 04:53 Neut % (Auto) 74.6 % 12/29/23 04:53 Lymph % (Auto) 13.9 % 12/29/23 04:53 [place] % (Auto) 9.9 % 12/29/23 04:53 Eos % (Auto) 0.7 % 12/29/23 04:53 Baso % (Auto) 0.2 % 12/29/23 04:53 Neut # (Auto) 10.03 K/uL (1.40-6.50) H 12/29/23 04:53 Lymph # (Auto) 1.87 K/uL (1.20-3.40) 12/29/23 04:53 [place] # (Auto) 1.33 K/uL (0.11-0.59) H 12/29/23 04:53 Eos # (Auto) 0.10 K/uL (0.00-0.50) 12/29/23 04:53 Baso # (Auto) 0.03 K/uL (0.00-0.20) 12/29/23 04:53 Immature Gran # (Auto) 0.09 K/uL (0.01-0.20) 12/29/23 04:53 PT 10.5 Seconds (9.0-12.0) 12/29/23 04:53 INR 1.0 (0.9-1.1) 12/29/23 04:53 VBG pH 7.32 (7.36-7.41) L 12/29/23 04:53 VBG pCO2 50 mmHg (38-50) 12/29/23 04:53 VBG pO2 31 mmHg 12/29/23 04:53 VBG HCO3 26 mmol/L 12/29/23 04:53 VBG O2 Saturation < 60.0 % 12/29/23 04:53 VBG Base Excess -0.9 mEq/L 12/29/23 04:53 Sodium 136 mmol/L (136-145) 12/29/23 04:53 Potassium 4.3 mmol/L (3.5-5.1) 12/29/23 04:53 Chloride 100 mmol/L (98-107) 12/29/23 04:53 Carbon Dioxide 24 mmol/L (21-32) 12/29/23 04:53 Anion Gap 12 (3-11) H 12/29/23 04:53 BUN 21 mg/dl (6-23) 12/29/23 04:53 Creatinine 1.37 mg/dl (0.6-1.4) 12/29/23 04:53 Est Cr Clr Drug Dosing Not Reportable 12/29/23 04:53 Est GFR ( Amer) 54.1 ml/min 12/29/23 04:53 Est GFR (Non-Af Amer) 46.7 ml/min 12/29/23 04:53 BUN/Creatinine Ratio 15.3 (10-20) 12/29/23 04:53 Glucose 107 mg/dl (70-99(Fasting)) H 12/29/23 04:53 Calcium 9.7 mg/dl (8.6-10.3) 12/29/23 04:53 Magnesium 2.0 mg/dl (1.7-2.4) 12/29/23 04:53 Total Bilirubin 0.5 mg/dl (0.2-1.0) 12/29/23 04:53 AST 17 U/L (13-39) 12/29/23 04:53 ALT 11 U/L (7-52) 12/29/23 04:53 Alkaline Phosphatase 93 U/L (34-104) 12/29/23 04:53 Troponin I High Sens 8.0 pg/ml (0-20) 12/29/23 04:53 B-Natriuretic Peptide 173 pg/ml (0-100) H 12/29/23 04:53 Total Protein 8.1 gm/dl (6.0-8.3) 12/29/23 04:53 Albumin 4.4 gm/dl (3.4-5.0) 12/29/23 04:53 Globulin 3.7 gm/dl (2.5-4.0) 12/29/23 04:53 Albumin/Globulin Ratio 1.2 (0.9-2) 12/29/23 04:53 Lipase 11 U/L (11-82) 12/29/23 04:53 Adenovirus (PCR) Not Detected (NotDetected) 12/29/23 04:53 B. pertussis DNA (PCR) Not Detected (NotDetected) 12/29/23 04:53 B.parapertussis DNA PCR Not Detected (NotDetected) 12/29/23 04:53 C. pneumoniae DNA (PCR) Not Detected (NotDetected) 12/29/23 04:53 Coronavirus OC43 (PCR) Not Detected (NotDetected) 12/29/23 04:53 Coronavirus HKU1 (PCR) Not Detected (NotDetected) 12/29/23 04:53 Coronavirus 229E (PCR) Not Detected (NotDetected) 12/29/23 04:53 SARS-CoV-2 (PCR) Not Detected (NotDetected) 12/29/23 04:53 Coronavirus NL63 (PCR) Not Detected (NotDetected) 12/29/23 04:53 Human Metapneumovir PCR Not Detected (NotDetected) 12/29/23 04:53 Influenza Type A (PCR) Not Detected (NotDetected) 12/29/23 04:53 Influenza Type B (PCR) Not Detected (NotDetected) 12/29/23 04:53 M. pneumoniae (PCR) Not Detected (NotDetected) 12/29/23 04:53 Parainfluenza 1 (PCR) Not Detected (NotDetected) 12/29/23 04:53 Parainfluenza 2 (PCR) Not Detected (NotDetected) 12/29/23 04:53 Parainfluenza 3 (PCR) Not Detected (NotDetected) 12/29/23 04:53 Parainfluenza 4 (PCR) Not Detected (NotDetected) 12/29/23 04:53 RSV (PCR) Not Detected (NotDetected) 12/29/23 04:53 Entero/Rhino (PCR) Not Detected (NotDetected) 12/29/23 04:53 Code Status & VTE Plan Code Status Full code and VTE Prophylaxis Plan VTE Prophylaxis will be ordered: Yes PG Care Time/CCT Total # of Minutes Spent Total Time Spent with Patient: Total time spent is greater than 50% in coordination of care (as documented) at patient's floor/unit and/or counseling patient: Coding Level of Care Code 54895 INT INP/OBS CARE 3/75MIN Diagnoses Acute on chronic respiratory failure with hypoxia J96.21 Current chronic use of systemic steroids Z79.52 Asthma J45.909 Drug-induced lung disease J98.4; T50.905A Hypertension I10 Prostate cancer C61 Interstitial lung disease J84.9 Dyslipidemia E78.5 Chronic pulmonary aspiration T17.908A GERD (gastroesophageal reflux disease) K21.9 Pacemaker Z95.0
[2023-12-29] MEDS: BUDESONIDE 0.5 MG/2 ML VIAL (PULMICORT) NEB SCH ×2 (07:24→12:41)
[2023-12-29] MEDS: ALBUT/IPRATROP 3MG/0.5MG NEB 3 ML VIAL NEB SCH (07:25)
--- NOTE | 2023-12-29 07:42 | XRay Report ---
SINGLE VIEW CHEST CLINICAL HISTORY: Dyspnea FINDINGS: An AP, portable, upright chest radiograph is compared to study dated 07/11/2023. Correlation is made with chest CT dated 07/03/2020. A 2-lead cardiac pacemaker is unchanged in position and partia lly obscures the left lower chest. The heart is enlarged. There is mild pulmonary vascular congestion . Postsurgical change is again seen in the right lower lung Chronic interstitial/fibrotic change is a gain seen throughout both lungs. No superimposed airspace consolidation or large pleural effusion is clearly identified. No pneumothorax is seen. The skeletal structures are osteopenic. The bony thorax is grossly intact. Postsurgical change is suggested in the right shoulder. IMPRESSION: 1. Cardiomegaly and cardiac pacemaker with mild pulmonary vascular congestion. 2. Chronic interstitial/fibrotic change is again seen throughout both lungs. 3. No superimposed airspace consolidation or large pleural effusion is clearly identified. ACT 112: Negative or not required by law. Electronically signed by: Kyle Wilks M.D. 12/29/2023 7:41 AM
[2023-12-29] MEDS: methylPREDNISolone 125 MG/2 ML VIAL IV STA (07:49)
[2023-12-29] MEDS: PIPERACILLIN/TAZOBACTAM 4.5 GM/100 ML BAG IV STA (07:51)
--- NOTE | 2023-12-29 07:54 | Hospitalist Progress Note ---
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, typically takes daily prednisone, seen by Dr Gibbs last FEV1 was around 1 liter home meds of budesonide/formoterol, montelukastpatient states he is on escalated doses of budesonide/formoterol wishes to continue those doses here CTA was performed to evaluate for pulmonary embolism this was negative for PE, no definite pneumonia was seen advancement of fibrosis some bronchiectasis or commented by radiology Pt with chronically abnormal CXR, started on Zosyn by admitting team (MRSA screen negative), guaifenesin for mucolytic affect, has history of GERD could be aspiration pneumonitis flare since happened while recumbent (2) Permanent atrial fibrillation: Plan: typically on Rhythmol, sees Dr Schultz previously not anticoagulated has pacemaker takes propafenone plus nebivolol also takes lisinopril for chornic stable hypertension aspirin for cardiac risk reduction (3) Prostate cancer: Subjective Mr. Hope presents with dyspnea, this is not improved since admission patient has been given nebulized medications intravenous Solu-Medrol CTA was ordered with is negative for PE but just looks like progression of UIP. Patient remains on antibiotics for possibility of a concomitant bacterial lung infection as he has a history of pansensitive Pseudomonas infections in the past Family was at the bedside and updated Physical Exam Physical Exam: Patient is dyspneic with moderate respiratory distress worsened with exertion He has audible wheezes without a stethoscope Bilateral rhonchi in lung zazueta clearing towards the apex but no focal loss of breath sounds Tachycardia with slight systolic murmur Extremities are without edema Results & Data Results & Data Vital Signs (Past 12 Hours) Vital Signs Temp Pulse Pulse Resp BP BP Pulse Ox 12/29/23 07:25 79 20 93 12/29/23 05:11 30 H 98 12/29/23 05:01 73 40 H 178/96 H 96 12/29/23 05:01 92 12/29/23 04:53 78 12/29/23 04:43 97.5 F L 74 162/90 H 85 L O2 Del Method O2 Flow Rate 12/29/23 07:25 Room Air 12/29/23 05:11 Nasal Cannula 2.5 12/29/23 05:01 Nasal Cannula 4 12/29/23 05:01 Nasal Cannula 4 12/29/23 04:53 12/29/23 04:43 Room Air Laboratory Results Reviewed CBC reviewed chemistry reviewed blood gas reviewed viral PCR PG Care Time/CCT Total # of Minutes Spent Total Time Spent with Patient: Total time spent is greater than 50% in coordination of care (as documented) at patient's floor/unit and/or counseling patient: Coding Level of Care Code None Diagnoses Acute on chronic respiratory failure with hypoxia J96.21 Permanent atrial fibrillation I48.21 Prostate cancer C61
[2023-12-29] MEDS: guaiFENesin SUGAR FREE 200 MG/10 ML UDC PO STA (08:13)
[2023-12-29] MEDS ORDERED: ACETAMINOPHEN 325 MG TAB PO PRN (11:14)
[2023-12-29] MEDS ORDERED: ONDANSETRON INJ 2 MG/ML 2 ML VIAL IV PRN (11:14)
[2023-12-29] MEDS: FORMOTEROL 20 MCG/2 ML VIAL NEB SCH (12:41)
[2023-12-29] MEDS: ENOXAPARIN INJ 40 MG/0.4 ML SYR SQ SCH (12:41)
[2023-12-29] MEDS: CALCIUM 600MG + VIT D 400 IU TAB PO SCH (12:49)
[2023-12-29] MEDS: PANTOprazole 40 MG TAB PO SCH (12:50)
[2023-12-29] MEDS: CEROVITE ADV FORMULA TAB PO SCH (12:50)
[2023-12-29] MEDS: FLUTICASONE PROPIONATE NA SPR 16 GM BTL NAE SCH (12:50)
[2023-12-29] MEDS: FEXOFENADINE HCL 180 MG TAB PO SCH (12:50)
[2023-12-29] MEDS ORDERED: methylPREDNISolone 10 mg/mL (For Ped Dose < 7mg) IV SCH (13:00)
[2023-12-29] MEDS: diphenhydrAMINE 50 MG/ML VIAL IV SCH (13:05)
--- OUTSIDE RECORDS SUMMARY | 2023-12-29 13:15 | External Medical Summary | Summary of Care ---
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*; Intermediate stage nonexudative age-related macular degeneration of right eye; Nevus of choroid of left eye Allergies Active Allergy Reactions Criticality Noted Date Comments Flecainide 05/25/2022 Other reaction(s): Interstitial lung disease Food (See Comments) Hives High 04/13/2008 Allergy to eggs, daily, nuts, seafood, and airborn allergies Gluten Meal Diarrhea 05/06/2017 Iodinated Contrast Media Other (Please comment) High 04/13/2008 Patient reports having severe allergy to shell fish and dye Food (See Comments) Hives High 04/13/2008 Peanut-Containing Drug Products Anaphylaxis High 06/04/2021 Shellfish Hives High 04/13/2008 Wheat 08/17/2012 Other reaction(s): GI pain, diarrhea mild documented as of this encounter (statuses as of 11/04/2023) Medications Medication Sig Dispensed Refills Start Date End Date Status PROAIR HFA 108 (90 BASE) MCG/ACT IN AERS 2 puffs prn Active EPIPEN 0.3 MG/0.3ML (1:1000) IM MARTINA Inject into a large muscle . Active FEXOFENADINE HCL 180 MG PO TABS 1 po daily Active Nebivolol HCl 5 MG Oral Tablet Take 1 Tablet by mouth every evening. Active montelukast (SINGULAIR) 10 MG Tablet Take 1 Tablet by mouth at bedtime. 05/04/2017 Active Aspirin 81 MG Oral Tablet Delayed Release Take 1 Tablet by mouth every evening. 10/30/2010 Active Propafenone HCl ER 225 MG CP12 Take 225 mg by mouth 2 times a day. 06/15/2018 Active fluticasone (FLONASE) 50 MCG/ACT nasal spray Administer 1 [place] into each nostril in the morning and 1 [place] before bedtime. 08/17/2019 Active diphenhydrAMINE (BENADRYL) 25 MG Capsule Take 1 Capsule by mouth every night at bedtime. Active predniSONE (DELTASONE) 10 MG Tablet Take 0.5 Tablets by mouth in the morning. Active nystatin-triamcin olone (MYCOLOG) 895920-1.1 UNIT/GM-% cream Apply topically to affected area 1 Application Dosing Unit as needed . 07/18/2019 Active Multiple Vitamins-Minerals (PRESERVISION AREDS 2+MULTI VIT) CAPS Take 1 Cap by mouth 2 times a day. Active Lactobacillus (ACIDOPHILUS PROBIOTIC FORMULA) TABS Take 1 Tab by mouth daily. 06/15/2018 Active Calcium Citrate-Vitamin D 200-250 MG-UNIT Oral Tablet Take 1 Tablet by mouth in the morning. Active Budesonide-Formot yomaira Fumarate 160-4.5 MCG/ACT Inhalation Aerosol Inhale 2 Puffs by mouth in the morning and 2 Puffs before bedtime. Active Tylenol PM Extra Strength 500-25 MG Oral Tablet (diphenhydrAMINE- APAP (sleep)) Take 1 Tablet by mouth at bedtime. Active Pantoprazole Sodium 40 MG Oral Tablet Delayed Release (Protonix) Take 1 Tablet by mouth in the morning and 1 Tablet before bedtime. Active Lisinopril 5 MG Oral Tablet (Prinivil) TAKE 1/2 TABLET (2.5MG) BY MOUTH IN IN THE MORNING 12/13/2021 Active Budesonide-Formot yomaira Fumarate 160-4.5 MCG/ACT Inhalation Aerosol (Symbicort) Inhale 2 Puffs by mouth in the morning and 2 Puffs before bedtime. Active predniSONE 5 MG Oral Tablet (Deltasone) TAKE 1 AND 1/2 TABLET BY MOUTH EVERY DAY 11/27/2021 11/04/2023 Discontinued (Medication List Clean Up) documented as of this encounter (statuses as of 11/04/2023) Active Problems No known active problems documented as of this encounter (statuses as of 11/04/2023) Social History Tobacco Use Types Packs/Day Years Used Date Smoking Tobacco: Never Smokeless Tobacco: Never Alcohol Use Standard Drinks/Week Comments Yes 0 (1 standard drink = 0.6 oz pur e alcohol) rarely Utilities Answer Date Recorded Do you have trouble paying y our heating, water, or electric bill? (Adult - for ages 18 years and over) Not on file 09/21/2023 Is your family able to pay t he heat, water, or electric bill? (Household - for ages 0-17 years) Not on file 09/21/2023 Does your family have access to good internet? (Household - for ages 0-17 years) Not on file 09/21/2023 Social Connections Answer Date Recorded How often do you feel lonely or isolated from those around you? (Adult - for ages 18 years and over) Not on file 09/21/2023 Sex and Gender Information Value Date Recorded Sex Assigned at Not on file Gender Identity Not on file Sexual Orientation Not on file Job Start Date Occupation Industry Not on file Not on file Not on file documented as of this encounter Progress Notes * Murray Bonilla DO - 11/04/2023 2:15 PM EDT [facility] [place] Nursing Notes: Heather Lomax TECH 11/04/23 1422 Signed Matthew Steen Monie is a 83 year old year old male who presents for non exud. AMD OU. Last Office Visit: 04/12/2023 (in office), Visit date not found (telemedicine) Patient currently states "no real changes with vision" Are you diabetic? No OCT image(s), fundus of both eyes acquired and filed/scanned into chart. Base Eye Exam Visual Acuity (Snellen - Linear) Right Left Dist cc 20/25 -2 20/200 -2 Dist ph cc NI Correction: Glasses Tonometry (Tonopen, 2:20 PM) Right Left Pressure 16 17 Pupils Pupils Shape React APD Right PERRL Round Sluggish None Left PERRL Round Sluggish None Visual Can Full OU Extraocular Movement Right Left Full, Ortho Full, Ortho Neuro/Psych Oriented x3: Yes Mood/Affect: Normal Dilation Both eyes: 0.5% Proparacaine @ 2:18 PM Dilation #2 Both eyes: 1.0% Mydriacyl, 2.5% Phenylephrine @ 2:20 PM Dilation #3 Both eyes: 1.0% Mydriacyl @ 2:22 PM Dilation Comments Patient cautioned that effects of dilation may last 2-7 hours dependant upon individual reaction. It was discussed that driving while dilated is not recommended. EXTERNAL: The ocular adnexae are unremarkable. SLE: Lids/Lashes: wnl OU Conjunctiva/Sclera: quiet OU Cornea: pigment on the endothelium OU; horizontal Descemet's breaks OS Anterior Chamber: deep and quiet OU Iris: normal OU; no NVI OU Lens: PCIOL OU; yag cap OU Dilated fundus exam OD: vitreous: PVD with Gutierrez ring optic nerve: 0.4, no edema/pallor/NVD macula: drusen, rpe clumping vessels: wnl periphery: wnl, no RT/RD Dilated fundus exam OS: vitreous: clear optic nerve: 0.45, no edema/pallor/NVD macula: GA, drusen; rpe clumpingg vessels: wnl periphery: superior 2.5x 2.5 DD amelanotic nevus w/ central pigmentation, no op/srfuid, no RT/RD OCT Interpretation: OD: drusen, no CME/SRFluid; +PVD OS: central atrophy, drusen, no CME/SRFluid; no PVD Fundus Photo Interpretation: 11/03/2021 OD: drusen/rpe clumping OS: drusen/rpe clumping, IT CWS, superior mostly amelanotic nevus A/P: 1. Nonexudative Age-Related Macular Degeneration OU -no CNV on OCT or exam -recommend AREDS2 MVI as directed and Amsler grid qday -OS w/ GA -geographic atrophy w/ subfoveal involvement left eye -not interested in Syfovre or Izervay at this time 2. 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 Posterior Vitreous Detachment OD -no RT/RD -advised to return to clinic if he should experience worsening or new floaters, flashes of light, ashadow in the periphery, or decrease in vision. 5. Endothelial Dystrophy OU -not visually significant 6. Pseudophakia OU -stable F/u with me 6 months per pt pref, OCT OU, FAF green OU Murray Bonilla DO CC: Sung Johnson, OD CC: PCP: Miguel Gibbs MD documented in this encounter Nursing Notes * LomaxHeather Astorga TECH - 11/04/2023 2:13 PM EDT Matthew Lomax is a 83 year old year old male who presents for non exud. AMD OU. Last Office Visit: 04/12/2023 (in office), Visit date not found (telemedicine) Patient currently states "no real changes with vision" Are you diabetic? No OCT image(s), fundus of both eyes acquired and filed/scanned into chart. documented in this encounter Plan of Treatment Upcoming Encounters Date Type Department Care Team (Late st Contact Info) Description 05/08/2024 11:15 AM EST Office Visit Ophthalmology, [facility] [address] [place] [address] Murray Bonilla, [address] [place] [id number] Health Maintenance Due Date Last Done Comments Depression Screening 1952 DTaP,Tdap,and Td Vaccines (1 - Tdap) 1957 Zoster Vaccines (1 of 2) 01/05/1988 Pneumococcal Vaccine: 65+ Ye ars (2 of 2 - PPSV23 or PCV20) 03/02/2017 03/02/2016 COVID-19 Vaccine (1 - 2022-2 4 season) 2022 Influenza Vaccine (FLU shot) (#1) 2023 019 HPV (Gardasil) Vaccine Aged Out No lo nger eligible based on patient's age to complete this topic Hepatitis B Vaccine Aged Out No longe r eligible based on patient's age to complete this topic MENINGOCOCCAL (MENACTRA/MENVEO) Aged Out No longer eligible based on patient's age to complete this topic documented as of this encounter Medical Devices Implanted Type Area Cloth Examiner Machine Device Identifier Shelf Expiration Date Model / Serial / Lot Lens Intraoc 19.5 - [id number] - [id number] Implanted:Qty: 1 on 06/10/2021 by Jon Todd MD at [facility] Left: Eye [employer]CH [employer] LOMB 10/02/2025 [id number] / [id number] / [id number] Lens Intraoc 21.0 - [id number] - [id number] Implanted:Qty: 1 on 06/24/2021 by Jon Todd MD at [facility] Right: Eye [employer]CH [employer] LOMB 04/04/2026 [id number] / [id number] / [id number] documented as of this encounter Visit Diagnoses Diagnosis 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
--- OUTSIDE RECORDS SUMMARY | 2023-12-29 13:16 | External Medical Summary | Continuity of Care Document ---
Author Name Unknown Organization [facility] [address] [id number] Care Team Providers Care Railroad Accountant Name Role Phone Miguel Gibbs Primary Care Physician [phone] Encounter [facility] [place] [id number] Date(s): 10/18/23 - 10/18/23 [facility] [address] [place] [facility] [address] [phone] Encounter Diagnosis H/O melanoma in situ(Discharge Diagnosis) - 10/18/23 History of squamous cell carcinoma of skin(Discharge Diagnosis) - 10/18/23 Seborrhea(Discharge Diagnosis) - 10/18/23 Actinic keratoses(Discharge Diagnosis) - 10/18/23 Seborrheic keratoses(Discharge Diagnosis) - 10/18/23 Actinic elastosis(Discharge Diagnosis) - 10/18/23 Encounter for follow-up examination after completed treatment for cancer (Discharge Diagnosis) - 10/18/23 Discharge Disposition: Home or Self Care Attending Physician: MD Arriaga Sara B Referring Physician: MD Arriaga Sara B Allergies, Adverse Reactions, Alerts Substance Criticality Severity Reaction Reaction Severity Status flecainide Interstitial alton ng disease Active Dust 1 Wheezing Active milk products Wheezing Active Allergy Not found in Search environmental/seaso nal allergies-asthma Active Grass Wheezing Active eggs Hives Nausea Active fish Anaphylaxis Active tree nuts Anaphylaxis Active peanuts Unable to assess criticality Severe anaphylaxis Active shellfish Anaphylaxis Active wheat GI pain, diarrhea Ac tive IVP dye Anaphylaxis Active 1airborne allergens Assessment and Plan Extracted from: Title:Dermatology Office Visit Note Author:Ritchie hart MD, Sara B Date:10/18/23 1.H/O melanoma in situ Warning signs of skin cancer were reviewed. Sun protection reviewed. Follow-up in 6 months, sooner for any changing or growing lesions or acute concerns. I also recommended monthly self skin exams 2.History of squamous cell carcinoma of skin 3.Seborrhea Chronic, not at goal, his scalp is doing really well and he is using head and shoulder so I recommend he is around the ears as well. 4.Actinic keratoses x1. Lesions treated with liquid nitrogen. Patient aware of possibility of infection, hypo or hyperpigmentation or scarring and did elect to proceed. They should inform me of any problems or recurrences post treatment. Care sheet given. 5.Seborrheic keratoses Acute and chronic within normal limits 6.Actinic elastosis Chronic but worsening.With AK on the upper forehead temples cheeks. We discussed and we are going to use Efudex calcipotriene again in April. 7.Encounter for follow-up examination after completed treatment for cancer Scars clear with call with any new or concerning areas Medications aspirin 81 mg oral enteric coated tablet Start: 10/30/10 5:15:00 PM EDT, 1 tab, PO, Daily, tab Start Date: 10/30/10 Status: Ordered Benadryl Start: 07/17/13 9:41:00 AM EDT, 25 mg =, PO, qhs Start Date: 07/17/13 Status: Ordered Bystolic 5 mg oral tablet Start: 04/17/14 9:07:00 AM EST, 1 tab, PO, Daily Start Date: 04/17/14 Status: Ordered Citracal Start: 10/29/11 11:34:00 AM EDT, 1 tab, PO, Daily Start Date: 10/29/11 Status: Ordered clindamycin 1% topical gel Start: 02/20/19 4:39:00 PM EST, 1 appl, topical, bid, Disp# 30 g, Refills: 1, To pimply areas left arm BID for 2 weeks, let Dr. Nava know if not resovled, Pharmacy: [id number] Start Date: 02/20/19 Status: Ordered doxycycline hyclate 100 mg oral capsule Start: 04/08/23 2:13:00 PM EST Start Date: 04/08/23 Status: Ordered doxycycline hyclate 100 mg oral tablet Start: 03/09/18 9:30:00 AM EST, 1 tab, PO, bid Start Date: 03/09/18 Status: Ordered Efudex/Calciportiene Start: 03/02/23 11:30:00 AM EST, Efudex/Calciportiene, eRx Product Type: Compound, See Instructions, Disp# 30 g, Refills: 1, Apply to invovled areas BID for 5 to 7 days. Don't get near eyes. Avoid sun., Note to Pharmacy: Compounded 5% flurouracil and calciportiene 0.005% cream, Pharmacy [facility] Start Date: 03/02/23 Status: Ordered EpiPen 2-Rashid Start: 10/30/10 5:14:00 PM EDT, 0.3 mg =, IM, ONCE Start Date: 10/30/10 Status: Ordered fexofenadine 180 mg oral tablet Start: 10/30/10 5:13:00 PM EDT, 1 tab, PO, Daily, tab Start Date: 10/30/10 Status: Ordered Flonase Start: 10/30/10 5:14:00 PM EDT, 2 spray, intranasal, bid Start Date: 10/30/10 Status: Ordered ketoconazole 2% topical cream Start: 06/29/18 12:57:00 PM EDT, 1 appl, topical, bid, Disp# 30 g, Refills: 2, to red groin areas bid, Pharmacy: [id number] Start Date: 06/29/18 Status: Ordered lisinopril 2.5 mg oral tablet Start: 02/08/19 10:46:00 AM EST, 1 tab, PO, Daily Start Date: 02/08/19 Status: Ordered LORazepam 0.5 mg oral tablet Start: 06/15/18 8:12:00 AM EDT, 1 tab, PO, Daily, PRN: as needed for anxiety Start Date: 06/15/18 Status: Ordered nystatin-triamcinolone 100,000 units/g-0.1% topical cream Start: 10/08/22 3:35:00 PM EDT, 1 appl, topical, bid, Disp# 15 g, Refills: 1, Small amt to penile tiprash daily, Pharmacy: [id number] Start Date: 10/08/22 Status: Ordered prednisoLONE Start: 02/18/21 10:48:00 AM EST, 7.5 mg = Start Date: 02/18/21 Status: Ordered predniSONE 10 mg oral tablet Start: 04/08/23 2:13:00 PM EST Start Date: 04/08/23 Status: Ordered PreserVision oral capsule Start: 04/04/12 9:26:00 AM EST, 1 cap, PO, bid Start Date: 04/04/12 Status: Ordered ProAir HFA Start: 10/30/10 5:14:00 PM EDT, inhaled, qid, PRN: as needed for wheezing Start Date: 10/30/10 Status: Ordered propafenone 225 mg oral capsule, extended release Start: 06/15/18 8:13:00 AM EDT, 1 cap, PO, q12h Start Date: 06/15/18 Status: Ordered Singulair 10 mg oral tablet Start: 10/30/10 5:13:00 PM EDT, 1 tab, PO, qPM Start Date: 10/30/10 Status: Ordered Symbicort Start: 10/24/18 4:11:00 PM EDT, inhaled, bid Start Date: 10/24/18 Status: Ordered Symbicort 160 mcg-4.5 mcg/inh inhalation aerosol Start: 04/08/23 2:13:00 PM EST Start Date: 04/08/23 Status: Ordered Mental Status 10/18/23 Barriers to Learning one year None evide nt Mandatory Health Literacy Documentation Yes Health Literacy Communication Barriers N ever Primary Language Wallisian Problem List Condition Confirmation Course Effective Dates Status Health Status Informant Actinic keratosis Confirmed Active Asthma Confirmed Active Atrial fibrillation Confirmed Active Balanitis Confirmed Active Basal cell carcinoma of left lower extremity Confirmed Active 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 Changing skin lesion Confirmed Active Contact dermatitis Confirmed Active Macular degeneration disease Confirmed Active Rash Confirmed Active Encounter for follow-up examination after completed treatment for cancer Confirmed Active H/O: neoplasm Confirmed Active History of squamous cell carcinoma of skin Confirmed Active Hypercholesterolemia Confirmed Active Hypertension Confirmed Active Inflamed seborrheic keratosis Confirmed Active Interstitial lung disease Confirmed Active Interstitial lung disease Confirmed Active Onychomycosis Confirmed Active Reflux Confirmed Active Seborrhea Confirmed Active Seborrhea Confirmed Active Seborrheic keratoses Confirmed Active Actinic elastosis Confirmed Active Diagnosis Diagnosis Type Effective Dates Health Status Clinical Service Informant Actinic elastosis Discharge Diagnosis 10/18/23 H/O melanoma in situ Discharge Diagnosis 10/18/23 History of squamous cell carcinoma of skin Discharge Diagnosis 10/18/23 Seborrhea Discharge Diagnosis 10/18/23 Actinic keratoses Discharge Diagnosis 10/18/23 Seborrheic keratoses Discharge Diagnosis 10/18/23 Encounter for follow-up examination after completed treatment for cancer Discharge Diagnosis 10/18/23 Procedures Procedure Date Related Diagnosis Body Site Status Shave biopsy of skin 03/02/23 Comp leted Shave biopsy of skin 03/02/23 Comp leted Mohs micrographic surgery 03/25/22 Completed Shave biopsy of skin 02/19/22 Comp leted Bilateral cataracts 08/2021 Compl eted Shave biopsy 1 02/08/19 Completed Electrodesiccation with curettage 2 12/08/18 Completed Shave biopsy of skin 11/02/18 Comp leted Procedure 3 10/2018 Completed Punch biopsy of skin 09/19/18 Comp leted Left hand 2018 Completed Excision of melanoma/MMIS 03/24/18 Completed Electrodesiccation with curettage 03/17/18 Completed Shave biopsy 4 03/09/18 Completed Shave biopsy of skin 09/15/17 Comp leted Electrodesiccation with curettage 10/15/15 Completed Shave biopsy and cauterization of skin 09/18/15 Completed Shave biopsy 11/20/13 Completed Implantable cardiac pacemaker Completed Prostatectomy 5 Completed 1left arm at ac fossa 2drysol and heat cautery due to pacemaker 3left hand surgery 4left lower leg, left central back, central scalp 2012 Social History Social History Type Response Smoking Status Never smoked cigaret maciej Sex Male Dermatology Outpatient Note * MD Corina, Rachel Mclean: PERFORM Event Display: Dermatology Outpt Note Authored Date: [id number] Chief Complaint Skin check. Hx MMIS, SCCIS, BCC, AK. Rough spot near right eye, dry patch on back. 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 Merchant in 2009. Also, has a history of a BCC on the left tragus in 2008 and a history of many actinic keratoses. He did Efudex to the scalp in 2015, had 1 residual that was SCCIS that was treated with ED and C in the summer of 2017. Bowenoid AK left scalp treated with large ED&C summer 2018. Also, biopsy proven balantisis vrs lichen sclerosis penile tip. 2 BCC Right denominational and left post earin late 2021 tx MOHS. [1] Fam Hx: neg for melanoma [1] ROS:Positive for shortness of breath and cough with his interstitial lung diseasedenies headache fever chest pain belly pain nausea vomiting diarrhea or weight loss. Physical Exam Gen: Well appearing patient, no acute distress. Alert and oriented x3. Good mood. Skin examination completed of face, eyelids, scalp, hair, lips, ears, neck, chest, back, abdomen,upper and lower extremities bilaterally including hands, feet, fingers and toes, fingernails and toenails, pt declined buttocks and groin. Patient has numerous seborrheic keratoses on his back. He has hypertrophic actinic keratosis on the central right upper chest about 3 mm. He has some seborrhea especially in his earswith some greasy scale. He haslight actinic keratoses across the lateral temples cheeks upper forehead area. His scalp is pretty clear at this point where he used the Efudex calcipotriene. No evidence of recurrent skin cancer today. No neck supraclavicular posterior occipitalor axillary lymphadenopathy Assessment/Plan 1.H/O melanoma in situ Warning signs of skin cancer were reviewed. Sun protection reviewed. Follow-up in 6 months, sooner for any changing or growing lesions or acute concerns. I also recommended monthly self skin exams 2.History of squamous cell carcinoma of skin 3.Seborrhea Chronic, not at goal, his scalp is doing really well and he is using head and shoulder so I recommend he is around the ears as well. 4.Actinic keratoses x1. Lesions treated with liquid nitrogen. Patient aware of possibility of infection, hypoor hyperpigmentation or scarring and did elect to proceed. They should inform me of any problems or recurrences post treatment. Care sheet given. 5.Seborrheic keratoses Acute and chronic within normal limits 6.Actinic elastosis Chronic but worsening.With AK on the upper forehead temples cheeks. We discussed and we are going to use Efudex calcipotriene again in June. 7.Encounter for follow-up examination after completed treatment for cancer Scars clear with call with any new or concerning areas Problem List/Past Medical History Ongoing Actinic elastosis Actinic keratosis Asthma Atrial fibrillation Balanitis Basal cell carcinoma of left lower extremity Changing skin lesion Contact dermatitis Encounter for follow-up examination after completed treatment for cancer H/O: neoplasm History of squamous cell carcinoma of skin Hypercholesterolemia Hypertension Inflamed seborrheic keratosis Interstitial lung disease Interstitial lung disease Macular degeneration disease Onychomycosis Rash Reflux Seborrhea Seborrhea Seborrheic keratoses 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 Resolved Neoplasm of uncertain behavior Neoplasm of uncertain behavior of skin Procedure/Surgical History Shave biopsy of skin| Service Date: 03/02/2023Shave biopsy of skin| Service Date: 03/02/2023Mohs micrographic surgery| Service Date: 03/25/2022have biopsy of skin| Service Date: 2Bilateral cataracts| Service Date: have biopsy| Service Date: 02/08/2019Electrodesiccation with curettage| Service Date: 12/08/2018Shave biopsy of skin| Service Date: 11/02/2018Procedure| Service Date: 10/2018Punch biopsy of skin| Service Date: 09/19/2018Left hand| Service Date: 2018Excision of melanoma/MMIS| Service Date: 03/24/2018Electrodesiccation with curettage| Service Date: 03/17/2018Shave biopsy| Service Date: 03/09/2018Shave biopsy of skin| Service Date: 09/15/2017Electrodesiccation with curettage| Service Date: 10/15/2015Shave biopsy and cauterization of skin| Service Date: 09/18/2015Shave biopsy| Service Date: 11/20/2013ProstatectomyImplantable cardiac pacemaker Medications albuterol(ProAir HFA), inhaled, qid, PRN aspirin(aspirin 81 mg oral enteric coated tablet), 1 tab, PO, Daily budesonide-formoterol(Symbicort), inhaled, bid budesonide-formoterol(Symbicort 160 mcg-4.5 mcg/inh inhalation aerosol) calcium citrate(Citracal), 1 tab, PO, Daily clindamycin topical(clindamycin 1% topical gel), 1 appl, topical, bid, 1 refills diphenhydrAMINE(Benadryl), 25 mg, PO, qhs doxycycline(doxycycline hyclate 100 mg oral tablet), 100 mg= 1 tab, PO, bid doxycycline(doxycycline hyclate 100 mg oral capsule) EPInephrine(EpiPen 2-Rashid), 0.3 mg, IM, ONCE fexofenadine(fexofenadine 180 mg oral tablet), 1 tab, PO, Daily fluticasone nasal(Flonase), 2 spray, intranasal, bid ketoconazole topical(ketoconazole 2% topical cream), 1 appl, topical, bid, 2 refills lisinopril(lisinopril 2.5 mg oral tablet), 2.5 mg= 1 tab, PO, Daily LORazepam(LORazepam 0.5 mg oral tablet), 0.5 mg= 1 tab, PO, Daily, PRN montelukast(Singulair 10 mg oral tablet), 1 tab, PO, qPM multivitamin with minerals(PreserVision oral capsule), 1 cap, PO, bid nebivolol(Bystolic 5 mg oral tablet), 5 mg= 1 tab, PO, Daily nystatin-triamcinolone topical(nystatin-triamcinolone 100,000 units/g-0.1% topical cream), 1 appl, topical, bid, 1 refills prednisoLONE, 7.5 mg predniSONE(predniSONE 10 mg oral tablet) propafenone(propafenone 225 mg oral capsule, extended release), 225 mg= 1 cap, PO, q12h unlisted medication(Efudex/Calciportiene), See Instructions, 1 refills Allergies peanuts(Severe)anaphylaxis Allergy Not found in Searchenvironmental/seasonal allergies-asthma DustWheezing GrassWheezing IVP dyeAnaphylaxis eggsHives, Nausea fishAnaphylaxis flecainideInterstitial lung disease milk productsWheezing shellfishAnaphylaxis tree nutsAnaphylaxis wheatGI pain, diarrhea Social History Smoking Status Never smoked cigarettes [1]Office Visit Note; MD Corina, Rachel Mclean 03/02/2023 14:08 EST Electronic Signature on File Electronically Reviewed/Signed by: Rachel Arriaga MD Author Signature Dt/Tm:10/18/2023 09:38 AM Department of Dermatology [facility] Patient Care team information Care Team Personnel Name: MD Sai, Miguel Nix Position: Referring DIRECT Member Role: Primary Care Provider Address: Address: [facility] [address] [address] Care Team Related Persons Name: ANSHUL CURTIS Address: [address] [facility] [place], [place] [phone] Name: ANSHUL CURTIS Address: [facility] Address: home [address] [place] [address] [address] [place] [phone]"
[2023-12-29] MEDS: OPTIRAY 320 125ml IV ONE (13:23)
[2023-12-29] MEDS: ONDANSETRON INJ 2 MG/ML 2 ML VIAL IV STA (13:57)
[2023-12-29] MEDS: guaiFENesin SUGAR FREE 200 MG/10 ML UDC PO SCH (14:00)
[2023-12-29] MEDS: methylPREDNISolone 40 MG in SYRINGE 0 ML IV SCH (14:01)
[2023-12-29] MEDS: PIPERACILLIN/TAZOBACTAM 4.5 GM/100 ML BAG IV SCH (14:01)
--- NOTE | 2023-12-29 14:36 | CT Scan Report ---
CT angio chest PE protocol CLINICAL HISTORY: PE, vs pneumonia vs progression uip TECHNIQUE: Multidetector row helical CT of the chest was performed with angiographic protocol. Wren l and sagittal reformations were obtained. Coronal and sagittal MIPS were obtained from the axial gaby a set and were submitted for review. Automated dose lowering techniques and/or adjustment according to patient size were utilized for this exam. CT DOSE: 573.57 mGy.cm Comparison: Comparison is made to CT chest 07/03/2020 FINDINGS: Lungs and pleura: Bronchiectasis and interstitial thickening are seen, increased from prior exam. Pos tsurgical changes in the right upper lobe are seen. Heart and pericardium: Cardiomegaly is seen with biatrial enlargement. Vessels: No evidence of pulmonary embolism. Mediastinum and ingrid: 14 mm subcarinal lymph node is seen. Chest wall and lower neck: Unremarkable. Abdomen: Unremarkable. Bones: Degenerative changes in the thoracic spine. IMPRESSION: 1. No pulmonary embolus. 2. Significant worsening in interstitial fibrosis and bronchiectasis compared to prior exam. No defi nite evidence of superimposed pneumonia. ACT 112: Negative or not required by law. Electronically signed by: Ramon Peña M.D. 12/29/2023 2:35 PM
--- NOTE | 2023-12-29 15:21 | XCELERA ---
[id number] \\[id number]
[2023-12-29] MEDS: METOPROLOL TARTRATE 25 MG TAB PO SCH (21:04)
[2023-12-29] MEDS: MONTELUKAST SODIUM 10 MG TABLET PO SCH (21:04)
[2023-12-29] MEDS: ASPIRIN 81 MG ECTAB PO SCH (21:04)
[2023-12-29] MEDS: PROPAFENONE PO SCH (22:47)
--- NOTE | 2023-12-30 05:58 | Electrocardiogram Report ---
Test Reason : Blood Pressure : */* mmHG Vent. Rate : 70 BPM Atrial Rate : * BPM P-R Int : * ms QRS Dur : 102 ms QT Int : 390 ms P-R-T Axes : * 9 64 degrees QTcB Int : 421 ms Sinus rhythm with Premature atrial complexes with occasional atrial-paced complexes Cannot rule out Anterior infarct (cited on or before 11-Jul-2023) Abnormal ECG When compared with ECG of 11-Jul-2023 14:42, T wave inversion no longer evident in Inferior leads Confirmed by Fredis Yee ([id number]) on 12/30/2023 5:57:58 AM Referred By: REFERRED SELF Confirmed By: Fredis Yee
[2023-12-30 08:35] LABS: Hematocrit (blood only) 33.6 % (42.0-52.0); Hemoglobin 11.8 g/dl (14.0-18.0); Mean Corpuscular Hemoglobin 34.9 pg (25.0-34.0); Mean Corpuscular Hgb Conc 35.1 g/dL (32.0-36.0); Mean Corpuscular Volume 99.4 fL (80.0-100.0); Mean Platelet Volume 8.7 fL (9.4-12.4); Platelet Count 253 K/uL (130-400); RDW Standard Deviation 43.8 fL (36.4-46.3); Red Blood Count 3.38 M/uL (4.70-6.10); White Blood Count 11.49 K/ul (4.8-10.8)
[2023-12-30 09:02] LABS: Basophils # (auto) 0.01 K/uL (0.00-0.20); Basophils % (auto) 0.1 %; Immature Granulocytes # (auto) 0.07 K/uL (0.01-0.20); Immature Granulocytes % (auto) 0.6 %; Lymphocytes # (auto) 0.62 K/uL (1.20-3.40); Lymphocytes % (auto) 5.4 %; Monocytes # (auto) 0.39 K/uL (0.11-0.59); Monocytes % (auto) 3.4 %; Neutrophils % (auto) 90.5 %
[2023-12-30] MEDS: AZITHROMYCIN 500 MG in DEXTROSE 5% 250 ML IV ONE (09:30)
[2023-12-30 10:18] LABS: Albumin Level 3.7 gm/dl (3.4-5.0); Calcium 9.2 mg/dl (8.6-10.3); Potassium 4.3 mmol/L (3.5-5.1)
[2023-12-30 10:24] LABS: BUN Creatinine Ratio 20.8 (10-20); Creatinine Clr Calc Pharmacy 36.2 ml/min; Est GFR (African American) 60.5 ml/min; Est GFR (Non-African American) 52.2 ml/min; Phosphorus 4.6 mg/dl (2.5-4.9)
[2023-12-30] MEDS: PROMETHAZINE HCL 12.5 MG/10 ML UDP PO PRN (16:15)
--- NOTE | 2023-12-30 17:23 | Hospitalist Progress Note ---
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, typically takes daily prednisone, seen by Dr Gibbs last FEV1 was around 1 liter home meds of budesonide/formoterol, montelukastpatient states he is on escalated doses of budesonide/formoterol wishes to continue those doses here CTA was performed to evaluate for pulmonary embolism this was negative for PE, no definite pneumonia was seen advancement of fibrosis some bronchiectasis or commented by radiology Pt with chronically abnormal CXR, started on Zosyn by admitting team (MRSA screen negative),azithromycin for anti inflammatory affect, has history of GERD could be aspiration pneumonitis flare since happened while recumbent his typical md urologist does not come to hospital and will not consult pulm med unless is not improving (2) Permanent atrial fibrillation: Plan: typically on Rhythmol, sees Dr Schultz previously not anticoagulated has pacemaker takes propafenone plus nebivolol also takes lisinopril for chornic stable hypertension aspirin for cardiac risk reduction (3) Prostate cancer: Admission and Anticipated Discharge Date Admission Date: December 29, 2023 Subjective Patient remains dyspneic but is subjectively improved On exam he remains with wheezes and some rhonchorous breath sounds worse on the right lung the left this is where most of his imaging suggest increased pneumo nitis Patient himself is pleased with his improvement over the last 24 hours Updated Elissa on the telephone Physical Exam Physical Exam: Patient is dyspneic with respiratory distress worsened with exertion Right lung is more wheezes and rhonchi than left Tachycardia with slight systolic murmur Extremities are without edema Results & Data Results & Data Vital Signs (Past 12 Hours) Vital Signs Temp Pulse Pulse Resp BP Pulse Ox O2 Del Method 12/30/23 15:33 97.7 F 81 16 107/65 94 Room Air 12/30/23 14:57 90 18 97 Room Air 12/30/23 12:00 97.9 F 79 20 127/71 95 Nasal Cannula 12/30/23 10:45 68 18 96 Nasal Cannula 12/30/23 07:32 76 22 176/82 H 94 Nasal Cannula 12/30/23 07:30 Room Air 12/30/23 07:22 68 22 98 Nasal Cannula O2 Flow Rate 12/30/23 15:33 12/30/23 14:57 12/30/23 12:00 2 12/30/23 10:45 1 12/30/23 07:32 12/30/23 07:30 12/30/23 07:22 2 Laboratory Results Reviewed CBC reviewed chemistry PG Care Time/CCT Total # of Minutes Spent Total Time Spent with Patient: Total time spent is greater than 50% in coordination of care (as documented) at patient's floor/unit and/or counseling patient: Coding Level of Care Code 54622 SUB INP/OBS CARE 3/50MIN Diagnoses Acute on chronic respiratory failure with hypoxia J96.21 Permanent atrial fibrillation I48.21 Prostate cancer C61
[2023-12-31 06:33] LABS: Hematocrit (blood only) 33.8 % (42.0-52.0); Hemoglobin 11.4 g/dl (14.0-18.0); Mean Corpuscular Hemoglobin 34.1 pg (25.0-34.0); Mean Corpuscular Hgb Conc 33.7 g/dL (32.0-36.0); Mean Corpuscular Volume 101.2 fL (80.0-100.0); Mean Platelet Volume 8.5 fL (9.4-12.4); Platelet Count 231 K/uL (130-400); RDW Standard Deviation 45.1 fL (36.4-46.3); Red Blood Count 3.34 M/uL (4.70-6.10); White Blood Count 14.38 K/ul (4.8-10.8)
[2023-12-31 06:52] LABS: Albumin Level 3.5 gm/dl (3.4-5.0); BUN Creatinine Ratio 21.1 (10-20); Creatinine Clr Calc Pharmacy 35.3 ml/min; Est GFR (African American) 58.8 ml/min; Est GFR (Non-African American) 50.7 ml/min; Magnesium 2.1 mg/dl (1.7-2.4); Phosphorus 4.3 mg/dl (2.5-4.9); Potassium 4.5 mmol/L (3.5-5.1)
[2023-12-31 07:01] LABS: Basophils # (auto) 0.01 K/uL (0.00-0.20); Basophils % (auto) 0.1 %; Immature Granulocytes # (auto) 0.08 K/uL (0.01-0.20); Immature Granulocytes % (auto) 0.6 %; Lymphocytes # (auto) 0.58 K/uL (1.20-3.40); Monocytes # (auto) 0.52 K/uL (0.11-0.59); Monocytes % (auto) 3.6 %; Neutrophils # (auto) 13.19 K/uL (1.40-6.50); Neutrophils % (auto) 91.7 %
[2023-12-31] MEDS: AZITHROMYCIN 250 MG TAB PO SCH (07:28)
[2023-12-31 09:07] LABS: Estimated Average Glucose 143 mg/dl; Hemoglobin A1C 6.6 % (4.5-5.6)
--- NOTE | 2023-12-31 13:31 | Hospitalist Progress Note ---
Date of Service December 31, 2023 Assessment & Plan (1) Acute on chronic respiratory failure with hypoxia: (2) Interstitial lung disease: (3) Hyperglycemia: (4) Pacemaker: (5) Permanent atrial fibrillation: (6) Hypertension: Plan 83-year-old male with past medical history of flecainide induced interstitial lung disease, atrial fibrillation not on anticoagulation, sinus bradycardia status post pacemaker, essential hypertension, history of prostate cancer, CKD stage III, presents to [facility] with shortness of breath and productive cough #Acute on chronic hypoxic respiratory failure #Interstitial lung disease #Leukocytosis Outpatient food service worker is Dr. Miguel Gibbs Patient has also seen Dr. Obed White at [facility] interstitial fibrosis clinic in [place] CTA on admission showed no PE and showed worsening of interstitial fibrosis and no superimposed pneumonia Sputum culture results are pending Continue IV Zosyn plus oral azithromycin (day 2) Reduce IV Solu-Medrol to 40 mg IV twice daily Patient uses prednisone 10 mg p.o. daily at baseline I suspect leukocytosis is from steroids Scheduled nebulizers Continue fexofenadine and Singulair It appears patient also has history of chronic aspiration Will get speech therapy consult Continue oxygen and keep saturations between 89 to 92%, wean as tolerated Awaiting physical therapy consult and recommendations #Atrial fibrillation #Pacemaker in place #Essential hypertension Outpatient superintendent division Dr. Bell Continue propafenone Continue Epitol: Substituted with metoprolol inpatient Continue aspirin 81 mg daily Resume lisinopril 5 mg p.o. daily Echo from 12/29/2023 shows EF of 55% with no regional wall motion abnormalities. Septal motion consistent with bundle branch block with mild concentric left ventricular hypertrophy. No change from prior study of 05/07/2023 #New diagnosis of type 2 diabetes mellitus A1c 6.6 Patient is on prednisone 10 mg p.o. daily at home Pharmacy consult for glycemic management given patient is on IV steroids Dietitian consult for nutrition advice and education Will need outpatient follow-up with PCP on discharge #CKD stage III Baseline creatinine is between 1.3-1.5 Creatinine is currently at baseline Avoid nephrotoxic agents including NSAIDs Resume lisinopril 5 g p.o. daily Monitor renal function electrolytes CODE STATUS: Discussed with patient with family at bedside. Patient states he has advanced directives and he wishes to be DNR/DNI DVT prophylaxis: Lovenox 40 mg subcutaneous daily Discharge planning based on clinical improvement, PT/speech therapy consult and recommendations and sputum culture results likely in the next 48 hours Care plan discussed with patient, nursing staff and family updated at bedside Admission and Anticipated Discharge Date Admission Date: December 29, 2023 Subjective Patient seen and examined and son Matthew at bedside Patient states his breathing is much better today compared to yesterday although he still gets short of breath He usually only uses oxygen on ambulation at home up to 4 L but is requiring up to 1 L of oxygen at rest Cough has improved, sputum production has improved denies any fever, chills, nausea, vomiting, diarrhea, abdominal pain Appetite is slowly improving He does feel weak and is open to working with physical therapy Social history: Lives at home with his . Independent of ADLs. Drives. Has oxygen and concentrator at home Review of Systems Review of Systems: As per HPI Physical Exam Physical Exam: General: No acute distress, he is able to talk in full sentences Psych: Awake and alert HEENT: Anicteric sclera, moist oral mucosa CVS: Pacemaker in place, regular rate and rhythm Lungs: Bilateral air entry, no wheezing noted Abdomen: Soft, nontender, no rebound, no guarding Ext: No lower extremity edema, no calf tenderness Neuro: No focal motor deficits noted Results & Data Results & Data Vital Signs (Past 12 Hours) Vital Signs Temp Pulse Resp BP BP Pulse Ox O2 Del Method 12/31/23 11:28 36.5 C 74 20 122/69 93 Nasal Cannula 12/31/23 10:37 68 18 92 Room Air 12/31/23 07:40 36.4 C L 67 18 151/80 H 89 L Nasal Cannula 12/31/23 07:21 83 16 98 Nasal Cannula 12/31/23 03:19 36.3 C L 68 16 163/86 H 98 Nasal Cannula 12/31/23 02:30 81 18 96 Nasal Cannula O2 Flow Rate 12/31/23 11:28 1 12/31/23 10:37 12/31/23 07:40 1 12/31/23 07:21 1 12/31/23 03:19 1.0 12/31/23 02:30 1 Laboratory Results Laboratory Results - last 24 hr 12/30/23 12/31/23 16:28 06:03 WBC 14.38 H RBC 3.34 L Hgb 11.4 L Hct 33.8 L MCV 101.2 H MCH 34.1 H MCHC 33.7 RDW Std Deviation 45.1 RDW Coeff of Omid 12.0 Plt Count 231 MPV 8.5 L Immature Gran % (Auto) 0.6 Neut % (Auto) 91.7 Lymph % (Auto) 4.0 [place] % (Auto) 3.6 Eos % (Auto) 0.0 Baso % (Auto) 0.1 Neut # (Auto) 13.19 H Lymph # (Auto) 0.58 L [place] # (Auto) 0.52 Eos # (Auto) 0.00 Baso # (Auto) 0.01 Immature Gran # (Auto) 0.08 Sodium 134 L Potassium 4.5 Chloride 100 Carbon Dioxide 27 Anion Gap 7 BUN 27 H Creatinine 1.28 Est Cr Clr Drug Dosing 35.3 Est GFR ( Amer) 58.8 Est GFR (Non-Af Amer) 50.7 BUN/Creatinine Ratio 21.1 H Glucose 134 H POC Glucose 148 H Estimat Average Glucose 143 Hemoglobin A1c 6.6 H Calcium 9.0 Phosphorus 4.3 Magnesium 2.1 Albumin 3.5 Diagnostic Findings Chest X-Ray 12/29/23 05:01 SINGLE VIEW CHEST CLINICAL HISTORY: Dyspnea FINDINGS: An AP, portable, upright chest radiograph is compared to study dated 07/11/2023. Correlation is made with chest CT dated 07/03/2020. A 2-lead cardiac pacemaker is unchanged in position and partially obscures the left lower chest. The heart is enlarged. There is mild pulmonary vascular congestion. Postsurgical change is again seen in the right lower lung Chronic interstitial/fibrotic change is again seen throughout both lungs. No superimposed airspace consolidation or large pleural effusion is clearly identified. No pneumothorax is seen. The skeletal structures are osteopenic. The bony thorax is grossly intact. Postsurgical change is suggested in the right shoulder. IMPRESSION: 1. Cardiomegaly and cardiac pacemaker with mild pulmonary vascular congestion. 2. Chronic interstitial/fibrotic change is again seen throughout both lungs. 3. No superimposed airspace consolidation or large pleural effusion is clearly identified. ACT 112: Negative or not required by law. Electronically signed by: Kyle Wilks M.D. 12/29/2023 7:41 AM Chest CTA 12/29/23 12:32 CT angio chest PE protocol CLINICAL HISTORY: PE, vs pneumonia vs progression uip TECHNIQUE: Multidetector row helical CT of the chest was performed with angiographic protocol. Coronal and sagittal reformations were obtained. Coronal and sagittal MIPS were obtained from the axial data set and were submitted for review. Automated dose lowering techniques and/or adjustment according to patient size were utilized for this exam. CT DOSE: 573.57 mGy.cm Comparison: Comparison is made to CT chest 07/03/2020 FINDINGS: Lungs and pleura: Bronchiectasis and interstitial thickening are seen, increased from prior exam. Postsurgical changes in the right upper lobe are seen. Heart and pericardium: Cardiomegaly is seen with biatrial enlargement. Vessels: No evidence of pulmonary embolism. Mediastinum and ingrid: 14 mm subcarinal lymph node is seen. Chest wall and lower neck: Unremarkable. Abdomen: Unremarkable. Bones: Degenerative changes in the thoracic spine. IMPRESSION: 1. No pulmonary embolus. 2. Significant worsening in interstitial fibrosis and bronchiectasis compared to prior exam. No definite evidence of superimposed pneumonia. ACT 112: Negative or not required by law. Electronically signed by: Ramon Peña M.D. 12/29/2023 2:35 PM PG Care Time/CCT Total # of Minutes Spent Total Time Spent with Patient: Total time spent is greater than 50% in coordination of care (as documented) at patient's floor/unit and/or counseling patient: Coding Level of Care Code 06388 SUB INP/OBS CARE 3/50MIN Diagnoses Acute on chronic respiratory failure with hypoxia J96.21 Interstitial lung disease J84.9 Hyperglycemia R73.9 Pacemaker Z95.0 Permanent atrial fibrillation I48.21 Hypertension I10
[2023-12-31] MEDS ORDERED: PHARMACY GLYCEMIC MGMT CONSULT PRN (16:44)
[2023-12-31] MEDS ORDERED: GLUCAGON FOR INJ 1 MG VIAL SQ PRN (16:44)
[2023-12-31] MEDS ORDERED: DEXTROSE 50% 50 ML SYRINGE IV PRN (16:44)
[2023-12-31] MEDS ORDERED: GLUCOSE 10 TAB/TUBE PO PRN (16:44)
[2023-12-31] MEDS ORDERED: GLUCOSE 40% GEL 15 GM TUBE PO PRN (16:44)
[2023-12-31] MEDS ORDERED: CARBOHYDRATES FOR HYPOGLYCEMIA PO PRN (16:44)
[2023-12-31] MEDS: methylPREDNISolone 40 MG in SYRINGE 0 ML IV SCH (18:18)
[2023-12-31] MEDS: lisinopril 5 MG TAB PO ONE (18:38)
[2023-12-31] MEDS: INSULIN ASPART PER UNIT CHARGE SC SCH (20:33)
[2023-12-31] MEDS ORDERED: HEPARIN SOD 5,000 UNIT/0.5 ML VIAL SQ SCH (21:00)
[2024-01-01 07:59] LABS: Basophils # (auto) 0.01 K/uL (0.00-0.20); Basophils % (auto) 0.1 %; Hematocrit (blood only) 34.7 % (42.0-52.0); Hemoglobin 11.9 g/dl (14.0-18.0); Immature Granulocytes # (auto) 0.08 K/uL (0.01-0.20); Immature Granulocytes % (auto) 0.6 %; Lymphocytes # (auto) 0.73 K/uL (1.20-3.40); Lymphocytes % (auto) 5.4 %; Mean Corpuscular Hemoglobin 34.7 pg (25.0-34.0); Mean Corpuscular Hgb Conc 34.3 g/dL (32.0-36.0); Mean Corpuscular Volume 101.2 fL (80.0-100.0); Mean Platelet Volume 8.6 fL (9.4-12.4); Monocytes # (auto) 0.89 K/uL (0.11-0.59); Monocytes % (auto) 6.5 %; Neutrophils # (auto) 11.93 K/uL (1.40-6.50); Neutrophils % (auto) 87.4 %; Platelet Count 247 K/uL (130-400); RDW Coefficient of Variation 12.2 % (11.5-14.5); Red Blood Count 3.43 M/uL (4.70-6.10); White Blood Count 13.64 K/ul (4.8-10.8)
[2024-01-01 08:16] LABS: BUN Creatinine Ratio 17.7 (10-20); Creatinine Clr Calc Pharmacy 30.8 ml/min; Est GFR (African American) 49.7 ml/min; Est GFR (Non-African American) 42.9 ml/min; Magnesium 2.2 mg/dl (1.7-2.4); Potassium 4.2 mmol/L (3.5-5.1)
[2024-01-01] MEDS: lisinopril 5 MG TAB PO SCH (09:36)
--- NOTE | 2024-01-01 11:12 | Hospitalist Progress Note ---
Date of Service January 01, 2024 Assessment & Plan (1) Acute on chronic respiratory failure with hypoxia: (2) Interstitial lung disease: (3) Hyperglycemia: (4) Pacemaker: (5) Permanent atrial fibrillation: (6) Hypertension: Plan 83-year-old male with past medical history of flecainide induced interstitial lung disease, atrial fibrillation not on anticoagulation, sinus bradycardia status post pacemaker, essential hypertension, history of prostate cancer, CKD stage III, presents to [facility] with shortness of breath and productive cough #Acute on chronic hypoxic respiratory failure #Interstitial lung disease #Leukocytosis Outpatient cinema or theatre manager is Dr. Miguel Gibbs Patient has also seen Dr. Obed White at [facility] interstitial fibrosis clinic in [place] CTA on admission showed no PE and showed worsening of interstitial fibrosis and no superimposed pneumonia Sputum culture results are pending: Growing gram-negative bacilli Continue IV Zosyn plus oral azithromycin 250mg (day 3) Reduce IV Solu-Medrol to 30 mg IV twice daily Patient uses prednisone 10 mg p.o. daily at baseline I suspect leukocytosis is from steroids Scheduled nebulizers Continue fexofenadine and Singulair Patient was also seen by speech therapy and no additional interventions needed. He is on a regular heart healthy diet with reflux precautions Continue oxygen and keep saturations between 89 to 92%, wean as tolerated Awaiting physical therapy consult and recommendations #Atrial fibrillation #Pacemaker in place #Essential hypertension Outpatient x ray developer Dr. Bell Continue propafenone Continue Nebivolol: Substituted with metoprolol inpatient Continue aspirin 81 mg daily Continue lisinopril 5 mg p.o. daily Echo from 12/29/2023 shows EF of 55% with no regional wall motion abnormalities. Septal motion consistent with bundle branch block with mild concentric left ventricular hypertrophy. No change from prior study of 05/07/2023 #New diagnosis of type 2 diabetes mellitus A1c 6.6 Patient is on prednisone 10 mg p.o. daily at home Pharmacy consult for glycemic management given patient is on IV steroids Dietitian consult for nutrition advice and education Will need outpatient follow-up with PCP on discharge #CKD stage III Baseline creatinine is between 1.3-1.5 Creatinine is currently at baseline Avoid nephrotoxic agents including NSAIDs Continue lisinopril 5 g p.o. daily Monitor renal function electrolytes CODE STATUS: Discussed with patient with family at bedside. Patient states he has advanced directives and he wishes to be DNR/DNI DVT prophylaxis: Lovenox 40 mg subcutaneous daily Discharge planning based on clinical improvement, PT/speech therapy consult and recommendations and sputum culture results likely in the next 24 to 48 hours Care plan discussed with patient, nursing staff and daughter Elissa updated Admission and Anticipated Discharge Date Admission Date: December 29, 2023 Subjective Patient seen and examined He ambulated with physical therapy today and required 4 L of oxygen on ambulation Overall feels better Cough is better Denies any chest pain, nausea, vomiting, abdominal pain Review of Systems Review of Systems: As per HPI Physical Exam Physical Exam: General: No acute distress Psych: Awake and alert HEENT: Anicteric sclera, moist oral mucosa CVS: Pacemaker in place, regular rate and rhythm Lungs: Bilateral air entry with coarse breath sounds, no wheezing noted Abdomen: Soft, nontender, no rebound, no guarding Ext: No lower extremity edema, no calf tenderness Neuro: No focal motor deficits noted Results & Data Results & Data Vital Signs (Past 12 Hours) Vital Signs Temp Pulse Pulse Resp BP BP Pulse Ox 01/01/24 11:06 76 18 98 01/01/24 08:27 36.6 C 75 18 149/76 H 95 01/01/24 07:46 72 18 98 01/01/24 07:37 76 01/01/24 03:20 75 16 98 01/01/24 03:20 36.5 C 77 24 128/87 95 O2 Del Method O2 Flow Rate 01/01/24 11:06 Nasal Cannula 1 01/01/24 08:27 Room Air 2 01/01/24 07:46 Nasal Cannula 2 01/01/24 07:37 01/01/24 03:20 Nasal Cannula 1 01/01/24 03:20 Nasal Cannula 2 Laboratory Results Laboratory Results - last 24 hr 12/31/23 01/01/24 20:14 07:13 WBC 13.64 H RBC 3.43 L Hgb 11.9 L Hct 34.7 L MCV 101.2 H MCH 34.7 H MCHC 34.3 RDW Std Deviation 46.0 RDW Coeff of Omid 12.2 Plt Count 247 MPV 8.6 L Immature Gran % (Auto) 0.6 Neut % (Auto) 87.4 Lymph % (Auto) 5.4 [place] % (Auto) 6.5 Eos % (Auto) 0.0 Baso % (Auto) 0.1 Neut # (Auto) 11.93 H Lymph # (Auto) 0.73 L [place] # (Auto) 0.89 H Eos # (Auto) 0.00 Baso # (Auto) 0.01 Immature Gran # (Auto) 0.08 Sodium 136 Potassium 4.2 Chloride 101 Carbon Dioxide 29 Anion Gap 6 BUN 26 H Creatinine 1.47 H Est Cr Clr Drug Dosing 30.8 Est GFR ( Amer) 49.7 Est GFR (Non-Af Amer) 42.9 BUN/Creatinine Ratio 17.7 Glucose 104 H POC Glucose 149 H Calcium 9.0 Magnesium 2.2 Vitamin B12 572 PG Care Time/CCT Total # of Minutes Spent Total Time Spent with Patient: Total time spent is greater than 50% in coordination of care (as documented) at patient's floor/unit and/or counseling patient: Coding Level of Care Code 04587 SUB INP/OBS CARE 2/35MIN Diagnoses Acute on chronic respiratory failure with hypoxia J96.21 Interstitial lung disease J84.9 Hyperglycemia R73.9 Pacemaker Z95.0 Permanent atrial fibrillation I48.21 Hypertension I10
[2024-01-01] MEDS: CYANOCOBALAMIN 1000 MCG/ML VIAL IM ONE (13:06)
[2024-01-01] MEDS: methylPREDNISolone 30 MG in SYRINGE 0 ML IV SCH (17:57)
[2024-01-02] MEDS: VITAMIN B COMPLEX TAB PO SCH (09:29)
--- NOTE | 2024-01-02 11:54 | Hospitalist Progress Note ---
Date of Service January 02, 2024 Assessment & Plan (1) Acute on chronic respiratory failure with hypoxia: (2) Interstitial lung disease: (3) Hyperglycemia: (4) Pacemaker: (5) Permanent atrial fibrillation: (6) Hypertension: Plan 83-year-old male with past medical history of flecainide induced interstitial lung disease, atrial fibrillation not on anticoagulation, sinus bradycardia status post pacemaker, essential hypertension, history of prostate cancer, CKD stage III, presents to [facility] with shortness of breath and productive cough #Acute on chronic hypoxic respiratory failure #Interstitial lung disease #Leukocytosis #Pseudomonas aeruginosa infection/suspected pneumonia Outpatient loan originator is Dr. Miguel Gibbs Patient has also seen Dr. Obed White at [facility] interstitial fibrosis clinic in [place] CTA on admission showed no PE and showed worsening of interstitial fibrosis and no superimposed pneumonia Sputum culture growing Pseudomonas aeruginosa Stop azithromycin Continue IV Zosyn (DAY 4) Continue IV Solu-Medrol to 30 mg IV twice daily Patient uses prednisone 10 mg p.o. daily at baseline I suspect leukocytosis is from steroids Scheduled nebulizers Continue fexofenadine and Singulair Patient was also seen by speech therapy and no additional interventions needed. He is on a regular heart healthy diet with reflux precautions Continue oxygen and keep saturations between 89 to 92%, wean as tolerated Two-step evaluation for home oxygen #Atrial fibrillation #Pacemaker in place #Essential hypertension Outpatient personal lines account manager Dr. Bell Continue propafenone Continue Nebivolol: Substituted with metoprolol inpatient Continue aspirin 81 mg daily Continue lisinopril 5 mg p.o. daily Echo from 12/29/2023 shows EF of 55% with no regional wall motion abnormalities. Septal motion consistent with bundle branch block with mild concentric left ventricular hypertrophy. No change from prior study of 05/07/2023 #New diagnosis of type 2 diabetes mellitus A1c 6.6 Patient is on prednisone 10 mg p.o. daily at home Pharmacy consult for glycemic management given patient is on IV steroids Dietitian consult for nutrition advice and education Will need outpatient follow-up with PCP on discharge #CKD stage III Baseline creatinine is between 1.3-1.5 Creatinine is currently at baseline Avoid nephrotoxic agents including NSAIDs Continue lisinopril 5 g p.o. daily Monitor renal function electrolytes CODE STATUS: DNR/DNI DVT prophylaxis: Lovenox 40 mg subcutaneous daily Discharge planning Home likely tomorrow based on clinical improvement Care plan discussed with patient, nursing staff and daughter Elissa updated at bedside Admission and Anticipated Discharge Date Admission Date: December 29, 2023 Subjective Patient seen and examined Vital signs reviewed Shena Bowers at bedside Patient reports feeling much better with improvement denies cough, wheezing and shortness of breath He does not feel he is ready to go home today He is requesting probiotics Denies any chest pain No telemetry events noted Review of Systems Review of Systems: As per HPI Physical Exam Physical Exam: General: No acute distress Psych: Awake and alert HEENT: Anicteric sclera, moist oral mucosa CVS: Pacemaker in place, regular rate and rhythm Lungs: Bilateral air entry with improving breath sounds, no wheezing noted Abdomen: Soft, nontender, no rebound, no guarding Ext: No lower extremity edema, no calf tenderness Neuro: No focal motor deficits noted Results & Data Results & Data Vital Signs (Past 12 Hours) Vital Signs Temp Pulse Pulse Resp BP BP Pulse Ox 01/02/24 10:32 65 18 98 01/02/24 08:35 36.6 C 72 18 125/73 96 01/02/24 07:28 72 18 98 01/02/24 07:12 68 01/02/24 02:56 67 18 98 01/02/24 02:25 36.6 C 71 22 165/94 H 95 O2 Del Method O2 Flow Rate 01/02/24 10:32 Nasal Cannula 1 01/02/24 08:35 Nasal Cannula 1 01/02/24 07:28 Nasal Cannula 1 01/02/24 07:12 01/02/24 02:56 Nasal Cannula 1 01/02/24 02:25 Nasal Cannula 1 PG Care Time/CCT Total # of Minutes Spent Total Time Spent with Patient: Total time spent is greater than 50% in coordination of care (as documented) at patient's floor/unit and/or counseling patient: Coding Level of Care Code 01202 SUB INP/OBS CARE 2/35MIN Diagnoses Acute on chronic respiratory failure with hypoxia J96.21 Interstitial lung disease J84.9 Hyperglycemia R73.9 Pacemaker Z95.0 Permanent atrial fibrillation I48.21 Hypertension I10
--- NOTE | 2024-01-02 15:33 | Pharmacy Report ---
Pharmacy Glycemic Short Note 2 - Date of Service January 02, 2024 - Glycemic Short BSG Results (Last 24 hours): 01/01/24 01/01/24 01/02/24 16:11 20:36 07:35 POC Glucose 110 H 149 H 94 01/02/24 11:21 POC Glucose 172 H OUTPATIENT ANTIDIABETIC REGIMEN: * new diagnosis * A1c = 6.6% ASSESSMENT: * 83 yo new diagnosis T2DM * Patient requiring minimal short acting insulin to maintain BSG at goal despite being on IV steroids (methylprednisolone 30 mg IV q12h) * Fasting BSG at goal without basal insulin * No changes to regimen today PLAN FOR INPATIENT GLYCEMIC CONTROL: * Hold outpatient oral diabetes medications * Basal insulin * none * Bolus insulin * NovoLog per scale ACHS or Q6hrs while NPO * Goal Range: Low 120 mg/dL - High 150 mg/dL * Correction Factor: 40 mg/dL/unit * Nutritional / Prandial insulin per carb ratio of 1 unit per 20 grams CHO consumed
[2024-01-02] MEDS: SACCHAROMYCES BOULARDII 250 MG CAP PO SCH (17:50)
[2024-01-03 07:20] VITALS: O2SAT 93
[2024-01-03 07:49] VITALS: BP 159/74; TEMP 97.9
[2024-01-03] MEDS: methylPREDNISolone 25 MG in SYRINGE 0 ML IV SCH (07:58)
[2024-01-03] MEDS: HEPARIN SOD 5,000 UNIT/0.5 ML VIAL SQ SCH (08:00)
[2024-01-03] MEDS ORDERED: methylPREDNISolone 25 MG in SYRINGE 0 ML IV SCH (08:00)
[2024-01-03] MEDS: predniSONE 50 MG TAB PO SCH (10:15)
[2024-01-03] MEDS: levoFLOXacin 750 MG TAB PO SCH (10:15)
[2024-01-03 11:28] VITALS: RESP 20
--- NOTE | 2024-01-03 11:42 | Discharge Summary ---
Discharge Summary Date of Service January 03, 2024 Principal Dx & Hospital Course #1 = Principal Diagnosis (1) Acute on chronic respiratory failure with hypoxia: (2) Interstitial lung disease: (3) Hyperglycemia: (4) Pacemaker: (5) Permanent atrial fibrillation: (6) Hypertension: (7) CKD stage 3a, GFR 45-59 ml/min: (8) Type 2 diabetes mellitus: Plan 83-year-old male with past medical history of flecainide induced interstitial lung disease, atrial fibrillation not on anticoagulation, sinus bradycardia status post pacemaker, essential hypertension, history of prostate cancer, CKD stage III, presents to [facility] with shortness of breath and productive cough #Acute on chronic hypoxic respiratory failure #Interstitial lung disease #Leukocytosis #Pseudomonas aeruginosa infection/suspected pneumonia Outpatient electronic system engineer is Dr. Miguel Gibbs Patient has also seen Dr. Obed White at [facility] interstitial fibrosis clinic in [place] CTA on admission showed no PE and showed worsening of interstitial fibrosis and no superimposed pneumonia Sputum culture growing Pseudomonas aeruginosa Patient has been # 5 days of IV ceftriaxone and he has been transitioned to oral Levaquin 750 mg p.o. every 48 hours starting today for 3 more doses to finish a total of 10 days of antibiotics Patient uses prednisone 10 mg p.o. daily at baseline: He was initially treated with IV Solu-Medrol and has been transition to oral prednisone with taper and he will taper it down to his home dose of prednisone 10 mg daily I suspect leukocytosis is from steroids Continue home inhalers and nebulizers Continue fexofenadine and Singulair Patient was also seen by speech therapy and no additional interventions needed. He is on a regular heart healthy diet with reflux precautions Two-step evaluation for home oxygen was done and patient did not require oxygen at rest but does need 4 L of oxygen via nasal cannula while ambulating which is his baseline at home. Patient already has oxygen set up at home. Patient will follow-up with his own electronic system engineer on discharge for follow-up #Atrial fibrillation #Pacemaker in place #Essential hypertension Outpatient sales manager [place] Dr. Bell Continue propafenone Continue Nebivolol Continue aspirin 81 mg daily Continue lisinopril 5 mg p.o. daily Echo from 12/29/2023 shows EF of 55% with no regional wall motion abnormalities. Septal motion consistent with bundle branch block with mild concentric left ventricular hypertrophy. No change from prior study of 05/07/2023 Outpatient follow-up with cardiology on discharge #New diagnosis of type 2 diabetes mellitus A1c 6.6 Patient is on prednisone 10 mg p.o. daily at home Dietitian consult for nutrition advice and education Will need outpatient follow-up with PCP on discharge #CKD stage III Baseline creatinine is between 1.3-1.5 Creatinine is currently at baseline Avoid nephrotoxic agents including NSAIDs Continue lisinopril 5 g p.o. daily Outpatient follow-up with PCP on discharge for monitoring Patient seen and examined today. He is tolerating oral diet without any issues. Cough is improved. He is breathing well and is not wheezing on exam. Patient feels well enough to go home today. I have gone over the discharge care plan, medications and follow-up with the patient and his daughter Elissa was at the bedside in great detail and answered all their questions. Prescription for wheeled walker, glucometer and test strips provided to patient for blood glucose monitoring This discharge took greater than 30 minutes to coordinate Admission HPI Per Admitting Provider The patient is an 83-year-old with past medical history including flecainide induced interstitial lung disease, atrial fibrillation not on anticoagulation, sinus bradycardia status post AV pacer, asthma, hypertension, prostate cancer, chronic use of systemic steroids, chronic aspiration, esophageal dysmotility, and GERD. He follows with [facility] for interstitial lung disease, last appointment there on 10/14/2023. He presents to the emergency department with acute onset of shortness of breath that awoke him from sleep at about 3:30 this morning. He took 3 puffs of his inhaler, did not have improvement in symptoms, and presents to the ED for assessment Discharge Exam General: No acute distress Psych: Awake and alert HEENT: Anicteric sclera, moist oral mucosa CVS: Pacemaker in place, regular rate and rhythm Lungs: Bilateral air entry with improving breath sounds, no wheezing noted Abdomen: Soft, nontender, no rebound, no guarding Ext: No lower extremity edema, no calf tenderness Neuro: No focal motor deficits noted Discharge Plan Discharge Items Patient Disposition: Home - Self-Care Reason For Visit: acute on chronic resp failure with hypox Discharge Diagnosis: #Acute on chronic hypoxic respiratory failure #Interstitial lung disease #Leukocytosis #Pseudomonas aeruginosa infection/suspected pneumonia #Atrial fibrillation #Pacemaker in place #Essential hypertension #CKD Stge 3 #New diagnosis of type 2 diabetes mellitus Condition on Discharge: Good Activity: As commented below Activity Comment: activity as tolerated with assistance/wheeled walker Non-emergency contact: Primary Care Provider Call non-emergency contact if: you have any medication questions, your symptoms worsen and you have a fever Follow-up/Referrals: Mario Alberto Amador MD [Physician] - Miguel Gibbs MD [Primary Care Provider] - (DR GIBBS'S OFFICE WILL REACH OUT TO YOU WITH A HOSPITAL FOLLOW VISIT.) Diet: Carb Consistent or DM2 and Heart Healthy Addtl Attending Provider Instructions: DISCHARGE INSTRUCTION TO PATIENT/FAMILY: Follow-up with your primary care provider within 1 week regarding: Posthospital discharge, medication review, medication refills and follow-up on all your medical problems, hypertension, blood pressure monitoring, new diagnosis of type 2 diabetes and chronic kidney disease stage III Please take all your discharge medications, discharge information and discharge instructions to all your doctors appointments. Avoid all NSAIDs including ibuprofen, Motrin, Advil, Aleve, naproxen, meloxicam, Toradol, diclofenac as you have chronic kidney disease stage III You have finished 5 days of IV antibiotics and you have been transitioned to oral Levaquin 750 mg every 48 hours. You received your first dose in hospital on 01/03/2024 and you have 2 more doses to take on 01/05/2024 and 01/07/2024 to finish a total of 10-day course of antibiotics You have been prescribed prednisone 10 mg tablets PREDNISONE taper instructions: STARTING 01/04/24: Take 6 tabs (60 MG) daily for 2 days, take 5 tab (50 MG) daily for 2 days, take 4 tabs (40 MG) daily for 2 days, take 3 tabs (30 MG) daily for 2 days, take 2 tabs (20 MG) daily for 2 days and go back to taking home dose of prednisone 10 mg daily STARTING 01/14/24 Labs through PCP in 1 week: CBC, CMP, MG Follow-up with your PCP for type 2 diabetes management. Your A1c is 6.6 Pending Studies at Discharge: No Stand-Alone Forms: [employer], Smoking Cessation Medications and DC Order Prescriptions: New levofloxacin 750 mg Tablet 750 mg PO Q48H Qty: 2 0RF Rx Instructions: START ON 01/05/24 prednisone 10 mg tablet 10 mg PO DIRECTED Qty: 40 0RF Rx Instructions: see taper instructions: STARTING 01/04/24: Take 6 tabs daily for 2 days, take 5 tab daily for 2 days, take 4 tabs daily for 2 days, take 3 tabs daily for 2 days, take 2 tabs daily for 2 days and go back to taking home dose of prednisone 10 mg daily Continued nebivolol [Bystolic] 5 mg tablet 5 mg PO HS Qty: 90 3RF propafenone 225 mg capsule,extended release 12 hr 225 mg PO Q12H Qty: 180 3RF albuterol sulfate 0.63 mg/3 mL solution for nebulization 0.63 mg inhalation QID PRN (Reason: shortness of breath or wheezing) Qty: 90 2RF fluticasone propionate 50 mcg/actuation spray,suspension 2 spray intranasal DAILY Qty: 16 6RF Rx Instructions: 2 sprays each nostril daily budesonide-formoterol 160-4.5 mcg/actuation HFA aerosol inhaler See Rx Instructions .ROUTE .COMPLEX Qty: 20.4 12RF Dose Instruction: INHALE 2 PUFFS BY MOUTH EVERY 4 HOURS. MAX 12 PUFFS IN A 24 HOUR PERIOD OF TIME. Rx Instructions: INHALE 2 PUFFS BY MOUTH EVERY 4 HOURS. MAX 12 PUFFS IN A 24 HOUR PERIOD OF TIME. lisinopril 5 mg tablet See Rx Instructions .ROUTE .COMPLEX Qty: 90 3RF Dose Instruction: TAKE 1 TABLET BY MOUTH EVERY MORNING Rx Instructions: TAKE 1 TABLET BY MOUTH EVERY MORNING ipratropium bromide 21 mcg (0.03 %) spray,non-aerosol See Rx Instructions .ROUTE .COMPLEX Qty: 30 5RF Rx Instructions: USE 1-2 SPRAYS EACH NOSTRIL 1-2 TIMES DAILY.; administer into each nostril fexofenadine [Saida Allergy] 180 mg Tablet 180 mg PO QAM aspirin 81 mg Tablet,Delayed Release (Dr/Ec) 81 mg PO HS calcium citrate-vitamin D3 [Citracal Regular] 250 mg calcium- 200 unit Tablet 1 tab PO QAM PreserVision AREDS [id number] Capsule 1 cap PO BID diphenhydramine-acetaminophen [Tylenol PM Extra Strength] 25-500 mg Tablet 1 tab PO HS PRN (Reason: Pain) pantoprazole 40 mg tablet,delayed release (DR/EC) 40 mg PO BID Rx Instructions: TAKE 1 TABLET BY MOUTH TWO TIMES DAILY montelukast 10 mg tablet 10 mg PO HS Rx Instructions: TAKE 1 TABLET BY MOUTH EVERY EVENING epinephrine 0.3 mg/0.3 mL auto-injector 0.3 mg IM UD PRN (Reason: Allergy Symptoms) Rx Instructions: INJECT CONTENTS OF 1 PEN NEEDED FOR ALLERGIC RESPONSE DIRECTED BY MD. SEEK MEDICAL ATTENTION AFTER USE. albuterol sulfate 90 mcg/actuation HFA aerosol inhaler 2 puff inhalation Q4H PRN (Reason: Shortness Of Breath Or Wheezing) Rx Instructions: USE 2 INHALATIONS BY MOUTH EVERY 4 HOURS NEEDED FOR SHORTNESS OF BREATH Held prednisone 5 mg tablet 10 mg PO QAM Hold Instructions: Resume on 01/14/24. Resume on January 14, 2024 after finishing prednisone taper Rx Instructions: TAKE 2 TABLETS BY MOUTH ONE TIME DAILY Discharge Orders: Discharge Order (Routine); Ordered 01/03/24 Ordered By: Smith Langford/Other Patient Handouts: A1C Admission Data Admit Date/Time: 12/29/23 06:55 Attending Provider: Smith Madsen Admit Provider: Neville Brar Primary Care Provider: Miguel Gibbs Other Providers: Neville Barr Other Interventions: Discharge Summary Assessment (RN) Last Done: 01/03/24 11:55 Hospital Stay Data Consultations 12/29/23 06:15 ED Decision to Admit Stat Diagnostic Imagining Performed 12/29/23 12:32 CT angio chest PE protocol Routine Chest X-Ray 12/29/23 05:01 SINGLE VIEW CHEST CLINICAL HISTORY: Dyspnea FINDINGS: An AP, portable, upright chest radiograph is compared to study dated 07/11/2023. Correlation is made with chest CT dated 07/03/2020. A 2-lead cardiac pacemaker is unchanged in position and partially obscures the left lower chest. The heart is enlarged. There is mild pulmonary vascular congestion. Postsurgical change is again seen in the right lower lung Chronic interstitial/fibrotic change is again seen throughout both lungs. No superimposed airspace consolidation or large pleural effusion is clearly identified. No pneumothorax is seen. The skeletal structures are osteopenic. The bony thorax is grossly intact. Postsurgical change is suggested in the right shoulder. IMPRESSION: 1. Cardiomegaly and cardiac pacemaker with mild pulmonary vascular congestion. 2. Chronic interstitial/fibrotic change is again seen throughout both lungs. 3. No superimposed airspace consolidation or large pleural effusion is clearly identified. ACT 112: Negative or not required by law. Electronically signed by: Kyle Wilks M.D. 12/29/2023 7:41 AM Chest CTA 12/29/23 12:32 CT angio chest PE protocol CLINICAL HISTORY: PE, vs pneumonia vs progression uip TECHNIQUE: Multidetector row helical CT of the chest was performed with angiographic protocol. Coronal and sagittal reformations were obtained. Coronal and sagittal MIPS were obtained from the axial data set and were submitted for review. Automated dose lowering techniques and/or adjustment according to patient size were utilized for this exam. CT DOSE: 573.57 mGy.cm Comparison: Comparison is made to CT chest 07/03/2020 FINDINGS: Lungs and pleura: Bronchiectasis and interstitial thickening are seen, increased from prior exam. Postsurgical changes in the right upper lobe are seen. Heart and pericardium: Cardiomegaly is seen with biatrial enlargement. Vessels: No evidence of pulmonary embolism. Mediastinum and ingrid: 14 mm subcarinal lymph node is seen. Chest wall and lower neck: Unremarkable. Abdomen: Unremarkable. Bones: Degenerative changes in the thoracic spine. IMPRESSION: 1. No pulmonary embolus. 2. Significant worsening in interstitial fibrosis and bronchiectasis compared to prior exam. No definite evidence of superimposed pneumonia. ACT 112: Negative or not required by law. Electronically signed by: Ramon Peña M.D. 12/29/2023 2:35 PM Laboratory Results - last 72 hr 12/31/23 01/01/24 01/01/24 20:14 07:13 11:39 WBC 13.64 H RBC 3.43 L Hgb 11.9 L Hct 34.7 L MCV 101.2 H MCH 34.7 H MCHC 34.3 RDW Std Deviation 46.0 RDW Coeff of Omid 12.2 Plt Count 247 MPV 8.6 L Immature Gran % (Auto) 0.6 Neut % (Auto) 87.4 Lymph % (Auto) 5.4 [place] % (Auto) 6.5 Eos % (Auto) 0.0 Baso % (Auto) 0.1 Neut # (Auto) 11.93 H Lymph # (Auto) 0.73 L [place] # (Auto) 0.89 H Eos # (Auto) 0.00 Baso # (Auto) 0.01 Immature Gran # (Auto) 0.08 Sodium 136 Potassium 4.2 Chloride 101 Carbon Dioxide 29 Anion Gap 6 BUN 26 H Creatinine 1.47 H Est Cr Clr Drug Dosing 30.8 Est GFR ( Amer) 49.7 Est GFR (Non-Af Amer) 42.9 BUN/Creatinine Ratio 17.7 Glucose 104 H POC Glucose 149 H 211 H Calcium 9.0 Magnesium 2.2 Vitamin B12 572 01/01/24 01/01/24 01/02/24 16:11 20:36 07:35 WBC RBC Hgb Hct MCV MCH MCHC RDW Std Deviation RDW Coeff of Omid Plt Count MPV Immature Gran % (Auto) Neut % (Auto) Lymph % (Auto) [place] % (Auto) Eos % (Auto) Baso % (Auto) Neut # (Auto) Lymph # (Auto) [place] # (Auto) Eos # (Auto) Baso # (Auto) Immature Gran # (Auto) Sodium Potassium Chloride Carbon Dioxide Anion Gap BUN Creatinine Est Cr Clr Drug Dosing Est GFR ( Amer) Est GFR (Non-Af Amer) BUN/Creatinine Ratio Glucose POC Glucose 110 H 149 H 94 Calcium Magnesium Vitamin B12 01/02/24 01/02/24 01/02/24 11:21 15:39 20:26 WBC RBC Hgb Hct MCV MCH MCHC RDW Std Deviation RDW Coeff of Omid Plt Count MPV Immature Gran % (Auto) Neut % (Auto) Lymph % (Auto) [place] % (Auto) Eos % (Auto) Baso % (Auto) Neut # (Auto) Lymph # (Auto) [place] # (Auto) Eos # (Auto) Baso # (Auto) Immature Gran # (Auto) Sodium Potassium Chloride Carbon Dioxide Anion Gap BUN Creatinine Est Cr Clr Drug Dosing Est GFR ( Amer) Est GFR (Non-Af Amer) BUN/Creatinine Ratio Glucose POC Glucose 172 H 113 H 133 H Calcium Magnesium Vitamin B12 01/03/24 01/03/24 07:07 11:36 WBC RBC Hgb Hct MCV MCH MCHC RDW Std Deviation RDW Coeff of Omid Plt Count MPV Immature Gran % (Auto) Neut % (Auto) Lymph % (Auto) [place] % (Auto) Eos % (Auto) Baso % (Auto) Neut # (Auto) Lymph # (Auto) [place] # (Auto) Eos # (Auto) Baso # (Auto) Immature Gran # (Auto) Sodium Potassium Chloride Carbon Dioxide Anion Gap BUN Creatinine Est Cr Clr Drug Dosing Est GFR ( Amer) Est GFR (Non-Af Amer) BUN/Creatinine Ratio Glucose POC Glucose 112 H 144 H Calcium Magnesium Vitamin B12 Pending Results Patient Have Any Pending Studies at Discharge: No Discharge Instructions Given to Patient (Per Discharging Provider) DISCHARGE INSTRUCTION TO PATIENT/FAMILY: Follow-up with your primary care provider within 1 week regarding: Posthospital discharge, medication review, medication refills and follow-up on all your medical problems, hypertension, blood pressure monitoring, new diagnosis of type 2 diabetes and chronic kidney disease stage III Please take all your discharge medications, discharge information and discharge instructions to all your doctors appointments. Avoid all NSAIDs including ibuprofen, Motrin, Advil, Aleve, naproxen, meloxicam, Toradol, diclofenac as you have chronic kidney disease stage III You have finished 5 days of IV antibiotics and you have been transitioned to oral Levaquin 750 mg every 48 hours. You received your first dose in hospital on 01/03/2024 and you have 2 more doses to take on 01/05/2024 and 01/07/2024 to finish a total of 10-day course of antibiotics You have been prescribed prednisone 10 mg tablets PREDNISONE taper instructions: STARTING 01/04/24: Take 6 tabs (60 MG) daily for 2 days, take 5 tab (50 MG) daily for 2 days, take 4 tabs (40 MG) daily for 2 days, take 3 tabs (30 MG) daily for 2 days, take 2 tabs (20 MG) daily for 2 days and go back to taking home dose of prednisone 10 mg daily STARTING 01/14/24 Labs through PCP in 1 week: CBC, CMP, MG Follow-up with your PCP for type 2 diabetes management. Your A1c is 6.6 Total Time Total Time Spent Total Time Spent (In Minutes): 40 minutes Total Time Includes: Examination of the Patient, Discharge Planning and Medication Reconciliation Coding Level of Care Code 55062 INP/OBS DISCH >30 MIN Diagnoses Acute on chronic respiratory failure with hypoxia J96.21 Interstitial lung disease J84.9 Hyperglycemia R73.9 Pacemaker Z95.0 Permanent atrial fibrillation I48.21 Hypertension I10 CKD stage 3a, GFR 45-59 ml/min N18.31 Type 2 diabetes mellitus E11.9
[2024-01-03 11:56] VITALS: PULSE 76
== END 2024-01-03 13:52 | disposition home or self-care (01) | DRG 177 ==
LOC: SUATTDRO → ED 04:41 → EDINP 06:55 → SUATTDRO 06:55 → 2S 14:57 → 3N 01-02 21:08